=== PATIENT | female | born 1960 | race Caucasian/White ===

== ENCOUNTER 2020-08-21 12:11 | Outpatient (REF) | payer OTHER, SELFPAY ==
--- NOTE | 2020-08-21 12:14 | XR_ITS ---
EXAMINATION: XR ANKLE, LEFT XR ANKLE, RIGHT CLINICAL INFORMATION: Pain. COMPARISON: 09/24/2019 TECHNIQUE: 3 views of each ankle FINDINGS: Left ankle: No fracture or dislocation. The ankle mortise is congruent. No ankle joint effusion. Mild spurring along the ankle mortise suggestive of degenerative change. There is prominent hypertrophic spurring of the plantar aponeurosis and Achilles insertion to the calcaneus. Right ankle: No fracture or dislocation. The ankle mortise is congruent. No ankle joint effusion. The soft tissues are unremarkable. Prominent hypertrophic spurring of the plantar aponeurosis and Achilles insertion to the calcaneus. XR/XR ankle LT min 3V IMPRESSION: Mild degenerative changes along the left ankle mortise. Prominent heel spurs bilaterally.
--- NOTE | 2020-08-21 12:14 | XR_ITS ---
EXAMINATION: XR ANKLE, LEFT XR ANKLE, RIGHT CLINICAL INFORMATION: Pain. COMPARISON: 09/24/2019 TECHNIQUE: 3 views of each ankle FINDINGS: Left ankle: No fracture or dislocation. The ankle mortise is congruent. No ankle joint effusion. Mild spurring along the ankle mortise suggestive of degenerative change. There is prominent hypertrophic spurring of the plantar aponeurosis and Achilles insertion to the calcaneus. Right ankle: No fracture or dislocation. The ankle mortise is congruent. No ankle joint effusion. The soft tissues are unremarkable. Prominent hypertrophic spurring of the plantar aponeurosis and Achilles insertion to the calcaneus. XR/XR ankle RT min 3V IMPRESSION: Mild degenerative changes along the left ankle mortise. Prominent heel spurs bilaterally.
== END 2020-08-21 12:12 | disposition home or self-care (01) ==
LOC: HO.HOSX 12:11
PROVIDERS: Visit Provider Physician Assistant
DX: M76.61 Achilles tendinitis, right leg (principal); M76.62 Achilles tendinitis, left leg
CPT/HCPCS: 73610; 99202

== ENCOUNTER 2020-10-21 10:35 | Outpatient (REF) | payer OTHER, SELFPAY | END 2020-10-21 10:36 | disposition home or self-care (01) | LOC: HO.LAB 10:35 | PROVIDERS: Visit Provider Internal Medicine | DX: Z20.822 Contact with and (suspected) exposure to COVID-19 (principal) | CPT/HCPCS: 36415; C9803; U0003 ==

== ENCOUNTER 2020-11-03 09:35 | Outpatient (REF) | payer OTHER, SELFPAY | END 2020-11-03 09:36 | disposition home or self-care (01) | LOC: HO.LAB 09:35 | PROVIDERS: PCP Family Medicine; Visit Provider Internal Medicine | DX: Z20.822 Contact with and (suspected) exposure to COVID-19 (principal) | CPT/HCPCS: 36415; C9803; U0003; U0005 ==

== ENCOUNTER 2021-02-09 14:38 | Emergency (ER) | payer OTHER, SELFPAY ==
--- NOTE | ~2021-02-09 | XR_ITS ---
EXAMINATION: LUMBAR SPINE AND THORACIC SPINE. CLINICAL INFORMATION: Upper back pain. COMPARISON: None TECHNIQUE: 3 views lumbar spine and 3 views dorsal spine. FINDINGS: LUMBAR SPINE: There is normal lumbar lordosis the vertebral heights and alignment is normal. There is loss of L2-L3 and L3-L4 disc heights. No visible acute fracture, dislocation or lytic process seen. There is mild levoscoliosis of lumbar spine. No visible acute fracture or dislocation seen. There is mild left T12-L1 bridging osteophyte. THORACIC SPINE: There is normal thoracic kyphosis. The vertebral heights, alignment and disc heights are normal. There is moderate right lateral thoracic bridging osteophytes. No visible acute fracture, dislocation or lytic process seen. The paravertebral soft tissues are normal. XR/XR lumbar spine 2-3V IMPRESSION: Mild degenerative disc changes L2-L3 and L3-L4 disc level. No visible acute fracture, dislocation or lytic process seen. Mild thoracic spondylosis. No visible acute fracture, dislocation or lytic process. The paravertebral soft tissues are normal.
--- NOTE | ~2021-02-09 | XR_ITS ---
EXAMINATION: LUMBAR SPINE AND THORACIC SPINE. CLINICAL INFORMATION: Upper back pain. COMPARISON: None TECHNIQUE: 3 views lumbar spine and 3 views dorsal spine. FINDINGS: LUMBAR SPINE: There is normal lumbar lordosis the vertebral heights and alignment is normal. There is loss of L2-L3 and L3-L4 disc heights. No visible acute fracture, dislocation or lytic process seen. There is mild levoscoliosis of lumbar spine. No visible acute fracture or dislocation seen. There is mild left T12-L1 bridging osteophyte. THORACIC SPINE: There is normal thoracic kyphosis. The vertebral heights, alignment and disc heights are normal. There is moderate right lateral thoracic bridging osteophytes. No visible acute fracture, dislocation or lytic process seen. The paravertebral soft tissues are normal. XR/XR thoracic spine 3V IMPRESSION: Mild degenerative disc changes L2-L3 and L3-L4 disc level. No visible acute fracture, dislocation or lytic process seen. Mild thoracic spondylosis. No visible acute fracture, dislocation or lytic process. The paravertebral soft tissues are normal.
[2021-02-09 14:51] VITALS: BP 121/53; PULSE 74; RESP 18; TEMP 37.1; O2SAT 96; BMI 37.4
[2021-02-09] MEDS: Cyclobenzaprine HCl 5 MG TABLET PO (15:46)
[2021-02-09] MEDS: Ketorolac Tromethamine 30 MG/ML VIAL IM (15:46)
--- NOTE | 2021-02-09 16:37 | ED.BACK ---
HPI - Back Pain/Injury General Chief Complaint: Back Pain/Injury Stated Complaint: BACK PAIN Source: patient Mode of arrival: ambulatory Limitations: no limitations History of Present Illness HPI Narrative: Patient presents to the ED feel a chronic back pain exacerbation. Patient denies any trauma. Patient states having symptoms for the past 5 months. Patient states no chest pain, shortness of breath, pain on inspiration, abdominal pain, flank pain, fever, chills, dysuria, hematuria, nausea, vomiting, or any recent trauma. Related Data Home Medications Medication Instructions Recorded Confirmed acetaminophen 325 mg capsule 325 mg PO QID PRN 08/21/20 ibuprofen 800 mg tablet 800 mg PO Q8H 08/21/20 tramadol 50 mg tablet 50 mg PO DAILY 08/21/20 Previous Rx's Medication Instructions Recorded heel lift #1 ea 08/21/20 oxycodone-acetaminophen [Percocet] 1 tab PO TID PRN #9 tab 02/09/21 prednisone 40 mg PO DAILY #10 tab 02/09/21 Allergies Allergy/AdvReac Type Severity Reaction Status Date / Time No Known Allergies Allergy Verified 02/09/21 14:51 Review of Systems Review of Systems: Yes all other systems are reviewed and are negative Constitutional: Constitutional: Reports as per HPI and Reports no additional constitutional complaints Eyes: Eyes: Reports as per HPI and Reports no additional eye complaints ENT: Reports system reviewed and no additional complaints, except as documented and Reports as per HPI Cardiovascular: Cardiovascular: Reports as per HPI and Reports no additional cardiovascular complaints Respiratory: Respiratory: Reports as per HPI and Reports no additional respiratory complaints Gastrointestinal: Gastrointestinal: Reports as per HPI and Reports no additional gastrointestinal complaints Genitourinary: Genitourinary: Reports no additional female genitourinary complaints and Reports as per HPI Musculoskeletal: Musculoskeletal: Reports no additional musculoskeletal complaints, Reports as per HPI and Reports back pain Neurologic: Reports system reviewed and no additional complaints, except as documented and Reports as per HPI Psychiatric: Psychiatric: Reports no additional psychiatric complaints and Reports as per HPI PMF Past Medical History Medical History (Updated 02/09/21 @ 16:45 by CHAIM Jackson) Back pain Social History Social History (Updated 08/21/20 @ 12:48 by An Akins PA-C) Alcohol intake: never Smoking Status: Never smoker Advance Directives: No Advance Directives Information Provided: Yes Physical Exam Vital Signs: Vital Signs: Last Vital Signs Temp 98.7 F 02/09/21 14:51 Pulse 74 02/09/21 14:51 Resp 18 02/09/21 16:47 BP 121/53 L 02/09/21 14:51 Pulse Ox 96 02/09/21 14:51 Body Mass Index 37.4 Const: General: cooperative, healthy appearing, comfortable, no acute distress, well developed, alert and awake Orientation/consciousness: patient oriented x3 HENMT: Head: Yes normal to inspection, Yes No palpable skull fracture present, Yes normocephalic and Yes atraumatic Eyes: General: appearance normal, both eyes and all related structures Neck: Neck: Yes normal visual inspection, Yes full ROM, Yes no lymphadenopathy, Yes no meningeal signs, Yes trachea midline, Yes supple and No tender Chest: Chest palpation & inspection: normal inspection of the chest and normal palpation of entire chest wall Resp: Effort & Inspection: normal respiratory effort and able to speak in complete sentences Cardio: Jugular venous distension: no JVD Heart sounds: S1 normal heart sound present and S2 normal heart sound present GI: Inspection: Yes normal to inspection Palpation (GI): Soft to palpation, not firm, nontender, no guarding and not rigid : General: No CVA tenderness and Yes no CVA tenderness Back/Spine/Pelvis: Back: no CVA tenderness, No CVA tenderness and back tenderness (Lumbar spine tenderness) Skin: General skin exam: no rashes or lesions noted and elasticity normal Neuro: General: patient oriented x3, no meningeal signs and CN's II-XI intact bilaterally Cranial nerves: Yes CN's II-XII intact bilaterally Extrem: General: Yes normal to inspection and Yes full ROM Psych: Appearance: grossly normal and well kempt Course Course Course Narrative: Patient will be sent for x-ray. Reevaluation(s) Reevaluation #1: X-ray show arthritis. Patient will be discharged with pain meds and steroids. MDM - Back Pain/Injury MDM Narrative Medical decision making narrative: Lumbar radiculopathy Discharge Plan Discharge Clinical Impression: Chronic lumbar radiculopathy Patient Disposition: Home, Self-Care Instructions: Lumbar Radiculopathy (ED) Additional Instructions: Regrese inmediatamente al servicio de urgencias si tiene incontinencia urinaria / intestinal, empeoramiento del dolor de espalda, dolor en el pecho al inspirar, n?useas, v?mitos, dolor en el costado, fiebre, escalofr?os, disuria, hematuria, dolor abdominal o cualquier otro s?ntoma que le preocupe. Prescriptions: New oxycodone-acetaminophen [Percocet] 5-325 mg tablet 1 tab PO TID PRN (Reason: pain) Qty: 9 RF: 0 prednisone 20 mg tablet 40 mg PO DAILY Qty: 10 RF: 0 No Action (DME) heel lift See Rx Instructions .Route .MEDSUPPLY Qty: 1 RF: 0 Referrals: Amy Olmedo MD [Primary Care Provider] - 2 days (Lumbar radiculopathy) Stand Alone Forms: Work/School Release Discharge Date/Time: 02/09/21 17:36 Print Language: Japanese
[2021-02-09 16:47] VITALS: RESP 18
== END 2021-02-09 17:36 | disposition home or self-care (01) ==
PROVIDERS: Emergency Provider Emergency Medicine; PCP Family Medicine
DX: M54.16 Radiculopathy, lumbar region (principal); Z79.899 Other long term (current) drug therapy
CPT/HCPCS: 72072; 72100; 96372; 99284; J1885

== ENCOUNTER 2021-02-16 15:53 | Outpatient (REF) | payer OTHER, SELFPAY | END 2021-02-16 15:54 | disposition home or self-care (01) | LOC: HO.MRI 15:53 | PROVIDERS: Visit Provider Family Medicine | DX: Z13.89 Encounter for screening for other disorder (principal) ==

== ENCOUNTER 2021-04-20 13:41 | Outpatient (REF) | payer OTHER, SELFPAY ==
--- NOTE | ~2021-04-20 | MM_ITS ---
EXAMINATION: MM SCREENING DIGITAL BREAST TOMOSYNTHESIS, BILATERAL CLINICAL INFORMATION: Screening. Asymptomatic. The lifetime risk of breast cancer based on the Tyrer-Cuzick Model is 5%. COMPARISON: Mammography: 05/17/2019, 05/03/2018, 04/11/2017 TECHNIQUE: Digital breast tomosynthesis is performed in both the craniocaudal and mediolateral oblique views along with computer-aided detection (CAD). Synthesized 2D images are generated from the tomosynthesis. Additional bilateral CC views are provided. FINDINGS: There are scattered areas of fibroglandular density (ACR BI-RADS breast composition Category b). Parenchymal pattern is similar to prior studies. There is no interval mass or architectural abnormality. Again, there is stable nodularity bilateral outer quadrants. There are no abnormal calcifications. The axilla and skin contours are unremarkable. No significant changes. MM/MM tomosynthesis screening BI IMPRESSION: No mammographic evidence of malignancy. ASSESSMENT: BI-RADS 2: Benign RECOMMENDATION: Routine annual mammography screening. This patient's information was entered into a reminder system with a target due date for their next mammogram.
== END 2021-04-20 13:42 | disposition home or self-care (01) ==
LOC: HO.MAMMO 13:41
PROVIDERS: Visit Provider Family Medicine
DX: Z12.31 Encounter for screening mammogram for malignant neoplasm of breast (principal)
CPT/HCPCS: 77063; 77067

== ENCOUNTER 2021-05-29 18:43 | Inpatient (IN) | payer OTHER, SELFPAY ==
[2021-05-29] VITALS (9 sets, daily range): BP systolic 132–179; BP diastolic 53–90; PULSE 79–144; RESP 16–30; TEMP 37–38.1; O2SAT 92–99; BMI 42.0
--- NOTE | 2021-05-29 | ECG_ITS ---
Test Reason : SOB Blood Pressure : / mmHG Vent. Rate : 126 BPM Atrial Rate : 144 BPM P-R Int : 000 ms QRS Dur : 076 ms QT Int : 288 ms P-R-T Axes : 000 063 037 degrees QTc Int : 417 ms Atrial fibrillation with rapid ventricular response Abnormal ECG When compared with ECG of 19-NOV-2019 08:40, Atrial fibrillation has replaced Sinus rhythm Non-specific change in ST segment in Inferior leads Referred By: Bren Parmar Electronically Signed By:PERRY RILEY
--- NOTE | ~2021-05-29 | CT_ITS ---
EXAMINATION: CT CHEST WITHOUT CONTRAST CLINICAL INFORMATION: Shortness of breath COMPARISON: Chest x-ray 05/29/2021 TECHNIQUE: Multidetector volumetric CT imaging of the chest was done. Axial MIP volume rendering provided. Sagittal and coronal reformatted images were obtained. This CT examination was performed using dose optimization techniques as appropriate, variously including the following: *Automated exposure control *Adjustment of mA and/or kV according to patient size (this includes techniques or standardized protocols for targeted exams where dose is matched to indication/reason for exam; i.e. extremities or head) *Use of iterative reconstruction technique DLP: 354 mGy-cm FINDINGS: LUNGS: There are patchy regions of somewhat nodular consolidation and mild associated groundglass opacity in the right upper lobe, as well as to a lesser extent in the left upper and lower lobes favoring an infectious/inflammatory etiology. MEDIASTINUM: The visualized thyroid gland is unremarkable. Borderline enlarged lymph node anterior to the gerald may be reactive. Cardiac size is within normal limits; no pericardial effusion. Coronary artery calcifications are present. Scattered atherosclerotic calcifications are present. PLEURA: There is no pleural effusion. No pleural mass or thickening. AXILLA: No lymphadenopathy. UPPER ABDOMEN: Unremarkable. OSSEOUS STRUCTURES: Degenerative changes are noted in the spine. CT/CT chest wo con IMPRESSION: 1. Patchy regions of consolidation and groundglass opacity bilaterally, most prominently in the right upper lobe, favoring an infectious/inflammatory etiology. 2. Borderline enlarged lymph node anterior to the gerald, which may be reactive. 3. Coronary artery calcifications. Correlation with cardiac risk factors is recommended.
--- NOTE | ~2021-05-29 | XR_ITS ---
EXAMINATION: XR CHEST CLINICAL INFORMATION: Shortness of breath COMPARISON: 11/19/2019 TECHNIQUE: Frontal view of the chest was obtained. FINDINGS: The lungs are well expanded. There is no focal consolidation, edema, or effusion. No pneumothorax. The cardiomediastinal silhouette is within normal limits of size with a calcified aorta. No acute osseous abnormality. XR/XR chest 1V IMPRESSION: No acute pulmonary finding.
[2021-05-29 20:11] LABS: Influenza A PCR NEGATIVE (Negative); Influenza B PCR NEGATIVE (Negative); Resp Syncy Virus RNA Qual PCR NEGATIVE (Negative); SARS COV2 PCR INHOUSE NEGATIVE (Negative)
--- NOTE | 2021-05-29 20:34 | PC.NURSE ---
This RN found patient HR 120-150. Dr. Parmar brought to the bedside.
[2021-05-29] MEDS: dilTIAZem HCL 50 MG/10 ML VIAL 10 MG IVPUSH (20:50)
[2021-05-29] MEDS: methylPREDNISolone Sod Succ 125 MG/2 ML VIAL IVPUSH (20:50)
[2021-05-29 21:07] LABS: MANUAL DIFF FLAG NO
[2021-05-29 21:09] LABS: Basophils Percent Auto 0.4 % (0-2); Eosinophils Absolute Auto 0.1 X10*3/uL (0.0-0.4); Hematocrit 32.5 % (37-47); Imm Gran Abs Auto 0.02 X10*3/uL (0.00-0.03); Imm Gran Pct Auto 0.4 % (0.0-0.4); Lymphocytes Percent Auto 17.2 % (20-40); Mean Corpuscular HGB Conc 33.8 g/dl (31.0-35.0); Mean Corpuscular Hemoglobin 28.3 pg (27.0-33.0); Mean Corpuscular Volume 83.5 fL (80-98); Mean Platelet Volume 10.1 fL (9.4-12.3); Monocytes Absolute Auto 0.6 X10*3/uL (0.1-1.2); Monocytes Percent Auto 9.8 % (2-11); Neutrophils Percent Auto 70.2 % (45-73); Platelet Count 162 X10*3/uL (160-400); Red Blood Count 3.89 X10*6/uL (4.20-5.50); Red Cell Distribution Width 13.8 % (11.0-16.0); White Blood Count 5.6 X10*3/uL (4.8-10.8)
[2021-05-29 21:14] LABS: INTERNATIONAL NORM RATIO 1.3 (0.9-1.1); Prothrombin Time 15.4 SEC (9.9-13.0)
--- NOTE | 2021-05-29 21:29 | ED_ITS ---
HPI - SOB/Dyspnea General Chief Complaint: Dyspnea Stated Complaint: asthma Time Seen by Provider: 05/29/21 20:39 Source: patient Mode of arrival: ambulatory History of Present Illness HPI Narrative: This is a 60-year-old female who presents with shortness of breath that has worsened over the past 3 days not associated with fever, chills, chest pain/palpitations, but she does describe increasing cough that has resulted in chest wall pain during the cough. Otherwise she denies any GI or symptoms. Patient states she has received her COVID-19 vaccine. Related Data Home Medications Medication Instructions Recorded Confirmed cholecalciferol (vitamin D3) 50 1 tab PO QAM 05/29/21 05/30/21 mcg (2,000 unit) tablet clonidine HCl 0.1 mg tablet 1 tab PO BEDTIME 05/30/21 05/30/21 cyanocobalamin (vitamin B-12) 1 tab PO QAM 05/30/21 05/30/21 1,000 mcg tablet fluoxetine 20 mg capsule 1 cap PO QAM 05/30/21 05/30/21 fluticasone 250 mcg-salmeterol 50 1 puff PO Q12H 05/30/21 05/30/21 mcg/dose blistr powdr for inhalation folic acid 1 mg tablet 1 tab PO QAM 05/30/21 05/30/21 simvastatin 20 mg tablet 1 tab PO QPM 05/30/21 05/30/21 Previous Rx's Medication Instructions Recorded heel lift #1 ea 08/21/20 Allergies Allergy/AdvReac Type Severity Reaction Status Date / Time No Known Allergies Allergy Verified 05/29/21 19:01 Review of Systems Review of Systems: Pertinent positives and negatives as stated in HPI 10 point review of systems is otherwise negative. [facility] Past Medical History Source: nursing notes reviewed Medical History Asthma Back pain Social History Social History Alcohol intake: never Advance Directives: No Advance Directives Information Provided: Yes Physical Exam Vital Signs: Vital Signs: Last Vital Signs Temp 98.6 F 05/29/21 23:37 Pulse 79 05/29/21 23:37 Resp 16 05/29/21 23:37 BP 164/86 H 05/29/21 23:36 Pulse Ox 99 08/27/21 22:57 Body Mass Index 42.0 VITAL SIGNS: Reviewed. GENERAL: Well developed, well nourished, in no acute distress. HEAD: Normocephalic/atraumatic EYES: PERRLA, EOMI OROPHARYNX: no oral lesions noted, posterior pharynx clear LUNGS: Cough, poor air entry, wheezing, tachypnea. SpO2<92> CARDIOVASCULAR: Regular rate and rhythm without noted murmurs, no JVD or lower extremity edema. ABDOMEN: Soft, non-tender, non-distended with bowel sounds. No rigidity. No guarding. No palpable masses or hernias noted MUSCULOSKELETAL: No tenderness, deformities, or effusions noted on gross inspection. EXTREMITIES: No cyanosis, clubbing or edema. SKIN: Inspection of the skin reveals no rashes, ulcerations, jaundice, pallor, or petechiae. NEUROLOGIC: Alert and oriented x 4. Strength and sensation to light touch were grossly intact x 4. Course Course Course Narrative: 60-year-old female with history and clinical presentation consistent with acute asthma exacerbation with new onset atrial fibrillation. Patient given Cardizem 10 mg, 2 doses of Xopenex, there was no improvement in heart rate and so patient then received Lopressor 5 mg x 2. On re-evaluation patient reports improved symptoms, remains hemodynamically stable. Review of all investigations consistent with asthma exacerbation, transient atrial fibrillation which has since resolved and repeat EKG at 11:06 p.m. shows normal sinus rhythm and patient remains hemodynamically stable. There is no evidence of CHF and COVID-19 is negative. 2355: I suspect infection. I discussed this case with inpatient hospitalist who agrees with admission. MDM - SOB/Dyspnea Lab Data Result diagrams: 05/29/21 21:02 05/29/21 21:02 Labs: Lab Results 05/29/21 05/29/21 05/29/21 Range/Units 19:07 21:02 21:02 WBC 5.6 (4.8-10.8) X10*3/uL RBC 3.89 L (4.20-5.50) X10*6/uL Hgb 11.0 L (12.0-16.0) g/dl Hct 32.5 L (37-47) % MCV 83.5 (80-98) fL MCH 28.3 (27.0-33.0) pg MCHC 33.8 (31.0-35.0) g/dl RDW 13.8 (11.0-16.0) % Plt Count 162 (160-400) X10*3/uL MPV 10.1 (9.4-12.3) fL Immature Gran % (Auto) 0.4 (0.0-0.4) % Neut % (Auto) 70.2 (45-73) % Lymph % (Auto) 17.2 L (20-40) % Dickinson % (Auto) 9.8 (2-11) % Eos % (Auto) 2.0 (0-4) % Baso % (Auto) 0.4 (0-2) % Lymph # (Auto) 1.0 L (1.2-4.9) X10*3/uL Dickinson # (Auto) 0.6 (0.1-1.2) X10*3/uL Eos # (Auto) 0.1 (0.0-0.4) X10*3/uL Baso # (Auto) 0.0 (0.0-0.2) X10*3/uL Abs Immat Gran (auto) 0.02 (0.00-0.03) X10*3/uL Absolute Neuts (auto) 4.0 (2.0-8.3) X10*3/uL Absolute Nucleated RBC 0.000 (0.0-0.012) X10*3/uL Nucleated RBC % (auto) 0.0 (0.0-0.2) /100WBC PT (9.9-13.0) SEC INR (0.9-1.1) Sodium 136 (135-145) mmol/L Potassium 3.5 (3.3-5.1) mmol/L Chloride 101 (96-108) mmol/L Carbon Dioxide 25 (22-29) mmol/L Anion Gap 14 (12-20) BUN 11 (9-16) mg/dL Creatinine 0.83 (0.5-1.4) mg/dL Estim Creat Clear Calc 81.7 Estimated GFR > 60 Random Glucose 108 (60-115) mg/dL Calcium 8.9 (8.4-10.2) mg/dL Magnesium 2.0 (1.6-2.6) mg/dL Total Bilirubin 0.6 (0.0-1.0) mg/dL AST 25 (5-31) U/L ALT 23 (0-31) U/L Alkaline Phosphatase 104 (39-117) U/L B-Natriuretic Peptide (<100) pg/mL Total Protein 8.0 (6.5-8.0) g/dL Albumin 4.3 (3.5-5.0) g/dL Coronavirus (PCR) NEGATIVE (Negative) Influenza Type A (PCR) NEGATIVE (Negative) Influenza Type B (PCR) NEGATIVE (Negative) RSV RNA Qual (PCR) NEGATIVE (Negative) 05/29/21 05/29/21 Range/Units 21:02 21:02 WBC (4.8-10.8) X10*3/uL RBC (4.20-5.50) X10*6/uL Hgb (12.0-16.0) g/dl Hct (37-47) % MCV (80-98) fL MCH (27.0-33.0) pg MCHC (31.0-35.0) g/dl RDW (11.0-16.0) % Plt Count (160-400) X10*3/uL MPV (9.4-12.3) fL Immature Gran % (Auto) (0.0-0.4) % Neut % (Auto) (45-73) % Lymph % (Auto) (20-40) % Dickinson % (Auto) (2-11) % Eos % (Auto) (0-4) % Baso % (Auto) (0-2) % Lymph # (Auto) (1.2-4.9) X10*3/uL Dickinson # (Auto) (0.1-1.2) X10*3/uL Eos # (Auto) (0.0-0.4) X10*3/uL Baso # (Auto) (0.0-0.2) X10*3/uL Abs Immat Gran (auto) (0.00-0.03) X10*3/uL Absolute Neuts (auto) (2.0-8.3) X10*3/uL Absolute Nucleated RBC (0.0-0.012) X10*3/uL Nucleated RBC % (auto) (0.0-0.2) /100WBC PT 15.4 H (9.9-13.0) SEC INR 1.3 H (0.9-1.1) Sodium (135-145) mmol/L Potassium (3.3-5.1) mmol/L Chloride (96-108) mmol/L Carbon Dioxide (22-29) mmol/L Anion Gap (12-20) BUN (9-16) mg/dL Creatinine (0.5-1.4) mg/dL Estim Creat Clear Calc Estimated GFR Random Glucose (60-115) mg/dL Calcium (8.4-10.2) mg/dL Magnesium (1.6-2.6) mg/dL Total Bilirubin (0.0-1.0) mg/dL AST (5-31) U/L ALT (0-31) U/L Alkaline Phosphatase (39-117) U/L B-Natriuretic Peptide 77 (<100) pg/mL Total Protein (6.5-8.0) g/dL Albumin (3.5-5.0) g/dL Coronavirus (PCR) (Negative) Influenza Type A (PCR) (Negative) Influenza Type B (PCR) (Negative) RSV RNA Qual (PCR) (Negative) Discharge Plan Discharge Clinical Impression: Atrial fibrillation, new onset, Asthma exacerbation Patient Disposition: Admitted As Inpatient Prescriptions: No Action oxycodone-acetaminophen [Percocet] 5-325 mg tablet 1 tab PO TID PRN (Reason: pain) Qty: 9 RF: 0 prednisone 20 mg tablet 40 mg PO DAILY Qty: 10 RF: 0 (DME) heel lift See Rx Instructions .Route .MEDSUPPLY Qty: 1 RF: 0
[2021-05-29] MEDS: Metoprolol Tartrate 5 MG/5 ML VIAL IVPUSH ×2 (21:43→22:22)
[2021-05-29 21:45] LABS: Alanine Aminotransferase 23 U/L (0-31); Albumin Level 4.3 g/dL (3.5-5.0); Alkaline Phosphatase 104 U/L (39-117); Anion Gap 14 (12-20); Aspartate Amino Transferase 25 U/L (5-31); Bilirubin Total 0.6 mg/dL (0.0-1.0); Blood Urea Nitrogen 11 mg/dL (9-16); Calcium 8.9 mg/dL (8.4-10.2); Carbon Dioxide 25 mmol/L (22-29); Chloride 101 mmol/L (96-108); Creatinine Clr Calc Pharmacy 81.7; Estimated Glomerular Filt Rate > 60; Glucose Random 108 mg/dL (60-115); Potassium 3.5 mmol/L (3.3-5.1); Sodium 136 mmol/L (135-145)
[2021-05-29] MEDS: Acetaminophen 325 MG TABLET 650 MG PO (21:56)
[2021-05-29 22:16] LABS: B Type Natriuretic Peptide 77 pg/mL (<100)
--- NOTE | 2021-05-29 22:59 | ECG_ITS ---
Test Reason : REPEAT Blood Pressure : / mmHG Vent. Rate : 081 BPM Atrial Rate : 081 BPM P-R Int : 158 ms QRS Dur : 080 ms QT Int : 354 ms P-R-T Axes : 060 047 059 degrees QTc Int : 411 ms Normal sinus rhythm Normal ECG When compared with ECG of 29-MAY-2021 20:25, Sinus rhythm has replaced Atrial fibrillation Vent. rate has decreased BY 45 BPM Non-specific change in ST segment in Inferior leads Referred By: Bren Parmar Electronically Signed By:PERRY RILEY
[2021-05-30] VITALS (12 sets, daily range): BP systolic 134–169; BP diastolic 48–73; PULSE 59–75; RESP 16–20; TEMP 36.1–36.9; O2SAT 93–97
[2021-05-30 00:10] LABS: Glucose Urine UA NEG (NEG); Leukocyte Esterase Urine NEG (NEG); Nitrite Urine NEG (NEG); PH 6.5 (5.0-8.0); UACC Culture Trigger NO; Urine Blood TRACE (NEG); Urine Ketones NEG (NEG); Urine Protein NEG (NEG-TRACE)
[2021-05-30 00:13] LABS: Appearance Urine CLEAR; Color Urine YELLOW
[2021-05-30 00:17] LABS: Mucus Urine TRACE /LPF; RBC Urine 0-2 /HPF (0); WBC Urine 0 /HPF (0-4)
[2021-05-30 00:25] LABS: Troponin-I High Sensitivity 6.9 ng/L (<3.5-17.0)
[2021-05-30] MEDS: cefTRIAXone sodium 1 GM in 0.9 % Sodium Chloride 50 ML IV (00:43)
[2021-05-30 00:56] LABS: Lactic Acid 0.7 mmol/L (0.5-2.0)
--- NOTE | 2021-05-30 01:59 | PC.NURSE ---
nurse to nurse reports given to Dianna degroot at [phone]
[2021-05-30] MEDS: Azithromycin 500 MG TABLET PO (03:16)
[2021-05-30] MEDS: Enoxaparin Sodium 40 MG/0.4 ML SYRINGE SUBCUT (03:16)
[2021-05-30] MEDS: Atorvastatin Calcium 10 MG TABLET PO ×2 (03:16→20:06)
[2021-05-30 05:25] LABS: MANUAL DIFF FLAG NO
--- NOTE | 2021-05-30 05:32 | P.HPHOSP_ITS ---
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 This is a 60 Year old female with past medical history of asthma, chronic back pain presents to the hospital complaints of cough, shortness of breath, sputum production. Patient reports that her symptoms or 3 days ago, today she developed palpitations which brought her to the hospital. She denies any fever but has chills, reports no chest pain, no dizziness, no headache, no abdominal pain nausea or vomiting, no diarrhea constipation, no urinary symptoms and no lower extremity edema. On arrival to the ED patient had a fever of 100.6, heart rate of 112, respir atory rate of 26, blood pressure 132/57, satting 92% on room air Lab significant for WBC count of 5.7, hemoglobin of 11, PT of 15.4, INR 1.3, CMP unremarkable, UA negative, COVID-19 influenza A/B and RSV negative, troponin negative, BNP negative. EKG done as soon as she arrived showed AFib with RVR, with rate in the 130s to 150s. Patient received Cardizem 10 mg IV with no response, followed by L opressor which converted her to sinus rhythm, repeat EKG shows sinus rhythm with no ST T wave changes Review of Systems Review of Systems: Yes all other systems are reviewed and are negative [facility] Medical History Asthma Back pain Social History Household Members: Children Housing: Apartment Do you presently have visiting nurse or other home services: No Alcohol intake: never Patient Tobacco Use Status: Never used Tobacco Use of substances other than those prescribed or required for medical reasons: No Have you been hit, kicked, punched, or otherwise hurt by someone within the past year? If so, by whom?: No Do you feel safe in your current relationship?: No Current Relationship Is there a partner from a previous relationship who is making you feel unsafe now?: No Are you made to feel afraid or neglected: No Advance Directives: No Advance Directives Information Provided: Yes Do you have thoughts of harming others: None Do you have a plan to hurt others: No Plan Recently lost weight without trying: No How much weight loss: Not applicable Eating poorly because of decreased appetite: No Nutrition screen score: 0 Nutrition Risks: No Nutritional Risk Patient : No : No Poor oral hygiene: No Meds Allergies Allergy/AdvReac Type Severity Reaction Status Date / Time No Known Allergies Allergy Verified 05/29/21 19:01 Active Medications: Current Medications Generic Name Dose Route Start Last Admin Trade Name Freq PRN Reason Stop Dose Admin Acetaminophen 650 mg 05/30/21 02:18 Acetaminophen 325 Mg Tablet PO Q6H PRN Pain, Mild (Pain Scale 1-3) Albuterol/Ipratropium 3 ml 05/30/21 02:18 Albuterol/Iprat 2.5/0.5mg 3 Ml Ampul.Neb INHALE RQ4H PRN Shortness of Breath/Wheezing Albuterol/Ipratropium 3 ml 05/30/21 08:00 Albuterol/Iprat 2.5/0.5mg 3 Ml Ampul.Neb INHALE RQ4H WHILE AWAKE [facility] Atorvastatin Calcium 10 mg 05/30/21 02:18 05/30/21 03:16 Atorvastatin Calcium 10 Mg Tablet PO 10 mg BEDTIME RADHIKA Administration Clonidine HCl 0.1 mg 05/30/21 21:00 Clonidine Hcl 0.1 Mg Tablet PO BEDTIME [facility] Protocol Cyanocobalamin 1,000 mcg 05/30/21 09:00 Cyanocobalamin (Vitamin B-12) 1,000 Mcg Tablet PO DAILY RADHIKA Docusate Sodium 100 mg 05/30/21 02:18 Docusate Sodium 100 Mg Capsule PO DAILY PRN Constipation Enoxaparin Sodium 40 mg 05/30/21 03:00 05/30/21 03:16 Enoxaparin Sodium 40 Mg/0.4 Ml Syringe SUBCUT 40 mg Q24H RADHIKA Administration Fluoxetine HCl 20 mg 05/30/21 09:00 Fluoxetine Hcl 20 Mg Capsule PO DAILY [facility] Folic Acid 1 mg 05/30/21 09:00 Folic Acid 1 Mg Tablet PO DAILY [facility] Ceftriaxone Sodium 1 gm/ 50 mls @ 100 mls/hr 05/31/21 00:00 Sodium Chloride IV Q24H [facility] Methylprednisolone Sodium Succinate 40 mg 05/30/21 09:00 Methylprednisolone Sod Succ 40 Mg/Ml Vial IVPUSH Q12H RADHIKA Ondansetron HCl 4 mg 05/30/21 02:18 Ondansetron Hcl 4 Mg/2 Ml Vial IVPUSH Q8H PRN Nausea and Vomiting Vitamin D 50 mcg 05/30/21 09:00 Cholecalciferol (Vitamin D3) 25 Mcg Tablet PO DAILY [facility] Home Medications Medication Instructions Recorded Confirmed Last Taken Type cholecalciferol (vitamin D3) 50 1 tab PO QAM 05/29/21 05/30/21 Unknown History mcg (2,000 unit) tablet clonidine HCl 0.1 mg tablet 1 tab PO BEDTIME 05/30/21 05/30/21 Unknown History cyanocobalamin (vitamin B-12) 1 tab PO QAM 05/30/21 05/30/21 Unknown History 1,000 mcg tablet fluoxetine 20 mg capsule 1 cap PO QAM 05/30/21 05/30/21 Unknown History fluticasone 250 mcg-salmeterol 50 1 puff PO Q12H 05/30/21 05/30/21 Unknown History mcg/dose blistr powdr for inhalation folic acid 1 mg tablet 1 tab PO QAM 05/30/21 05/30/21 Unknown History simvastatin 20 mg tablet 1 tab PO QPM 05/30/21 05/30/21 Unknown History Physical Exam Vital Signs and Narrative: Vital Signs: Last Vital Signs Temp 97.8 F 05/30/21 03:21 Pulse 66 05/30/21 03:21 Resp 18 05/30/21 03:21 BP 134/48 L 05/30/21 03:21 Pulse Ox 95 05/30/21 03:21 Body Mass Index 42.0 Const: General: cooperative and no acute distress Orientation/consciousness: patient oriented x3 Eyes: General: appearance normal, both eyes and all related structures Pupils: Equal, round and reactive pupils present Resp: Other: Wheezing, rhonchi bilaterally, coughing, sputum production Effort & Inspection: normal respiratory effort and able to speak in complete sentences Cardio: Rate: regular rate Rhythm: regular rhythm GI: Palpation (GI): Soft to palpation Auscultation: normal bowel sounds Skin: General skin exam: no rashes or lesions noted Neuro: General: patient oriented x3 Cranial nerves: Yes Equal, round and reactive pupils present Cognition (Neuro): normal cognition Extrem: General: Yes normal to inspection and Yes no pedal edema Results Labs CBC and Chem 7: 05/29/21 21:02 05/29/21 21:02 Labs: Laboratory Results - last 24 hr 05/29/21 05/29/21 05/29/21 19:07 21:02 21:02 MCV 83.5 MCH 28.3 MCHC 33.8 RDW 13.8 Plt Count 162 MPV 10.1 Immature Gran % (Auto) 0.4 Neut % (Auto) 70.2 Lymph % (Auto) 17.2 L [place] % (Auto) 9.8 Eos % (Auto) 2.0 Baso % (Auto) 0.4 Lymph # (Auto) 1.0 L [place] # (Auto) 0.6 Eos # (Auto) 0.1 Baso # (Auto) 0.0 Abs Immat Gran (auto) 0.02 Absolute Neuts (auto) 4.0 Absolute Nucleated RBC 0.000 Nucleated RBC % (auto) 0.0 PT INR Anion Gap 14 Estim Creat Clear Calc 81.7 Estimated GFR > 60 Random Glucose 108 Lactic Acid Calcium 8.9 Magnesium 2.0 Total Bilirubin 0.6 AST 25 ALT 23 Alkaline Phosphatase 104 Troponin I High Sens B-Natriuretic Peptide Total Protein 8.0 Albumin 4.3 Urine Color Urine Appearance Urine pH Ur Specific [place] Urine Protein Urine Glucose (UA) Urine Ketones Urine Blood Urine Nitrite Ur Leukocyte Esterase Urine RBC Urine WBC Ur Squamous Epith Cells Urine Bacteria Urine Mucus Coronavirus (PCR) NEGATIVE Influenza Type A (PCR) NEGATIVE Influenza Type B (PCR) NEGATIVE RSV RNA Qual (PCR) NEGATIVE 05/29/21 05/29/21 05/30/21 21:02 21:02 00:03 MCV MCH MCHC RDW Plt Count MPV Immature Gran % (Auto) Neut % (Auto) Lymph % (Auto) [place] % (Auto) Eos % (Auto) Baso % (Auto) Lymph # (Auto) [place] # (Auto) Eos # (Auto) Baso # (Auto) Abs Immat Gran (auto) Absolute Neuts (auto) Absolute Nucleated RBC Nucleated RBC % (auto) PT 15.4 H INR 1.3 H Anion Gap Estim Creat Clear Calc Estimated GFR Random Glucose Lactic Acid Calcium Magnesium Total Bilirubin AST ALT Alkaline Phosphatase Troponin I High Sens 6.9 B-Natriuretic Peptide 77 Total Protein Albumin Urine Color YELLOW Urine Appearance CLEAR Urine pH 6.5 Ur Specific [place] 1.010 Urine Protein NEG Urine Glucose (UA) NEG Urine Ketones NEG Urine Blood TRACE Urine Nitrite NEG Ur Leukocyte Esterase NEG Urine RBC 0-2 Urine WBC 0 Ur Squamous Epith Cells NONE Urine Bacteria NONE Urine Mucus TRACE Coronavirus (PCR) Influenza Type A (PCR) Influenza Type B (PCR) RSV RNA Qual (PCR) 05/30/21 00:32 MCV MCH MCHC RDW Plt Count MPV Immature Gran % (Auto) Neut % (Auto) Lymph % (Auto) [place] % (Auto) Eos % (Auto) Baso % (Auto) Lymph # (Auto) [place] # (Auto) Eos # (Auto) Baso # (Auto) Abs Immat Gran (auto) Absolute Neuts (auto) Absolute Nucleated RBC Nucleated RBC % (auto) PT INR Anion Gap Estim Creat Clear Calc Estimated GFR Random Glucose Lactic Acid 0.7 Calcium Magnesium Total Bilirubin AST ALT Alkaline Phosphatase Troponin I High Sens B-Natriuretic Peptide Total Protein Albumin Urine Color Urine Appearance Urine pH Ur Specific [place] Urine Protein Urine Glucose (UA) Urine Ketones Urine Blood Urine Nitrite Ur Leukocyte Esterase Urine RBC Urine WBC Ur Squamous Epith Cells Urine Bacteria Urine Mucus Coronavirus (PCR) Influenza Type A (PCR) Influenza Type B (PCR) RSV RNA Qual (PCR) Imaging Radiologist's Impressions: Impressions Chest X-Ray 05/29/21 19:11 IMPRESSION: No acute pulmonary finding. Chest CT 05/30/21 00:29 IMPRESSION: 1. Patchy regions of consolidation and groundglass opacity bilaterally, most prominently in the right upper lobe, favoring an infectious/inflammatory etiology. 2. Borderline enlarged lymph node anterior to the gerald, which may be reactive. 3. Coronary artery calcifications. Correlation with cardiac risk factors is recommended. Assessment and Plan (1) Community acquired pneumonia: Status: Acute (2) Atrial fibrillation, new onset: Status: Acute (3) Asthma exacerbation: Status: Acute (4) Sepsis: Status: Acute New onset AFib This is a 60-year-old female with past medical history of asthma presents to the hospital with cough, sputum production, wheezing, shortness breath found to have pneumonia as well as new onset AFib # sepsis - a secondary to pneumonia - patient tachycardic, tachypneic, has fever - chest CT showing bilateral patchy infiltrates - COVID negative - will start her on IV antibiotics - follow cultures # community-acquired pneumonia - CT of the chest as above - has no leukocytosis but febrile with tachycardia and tachypnea - will start her on IV antibiotics as above - follow cultures # asthma exacerbation - cough, wheezing, dyspnea - exacerbated by pneumonia - will start her on Solu-Medrol, DuoNeb p.r.n. and scheduled # new onset AFib - normal troponin, no elevated BNP - will check TSH - echocardiogram - consult cardiology - will hold off on starting anticoagulation as patient in sinus rhythm rate now and will await Cardiology recommendation DVT prophylaxis: Lovenox Quality Stroke Does the patient have a stroke diagnosis?: No VTE Prior VTE?: No VTE Risk Level:: Medical - moderate - high VTE Device Contraindication: Treatment Not Indicated VTE Drug Contraindication: N/A - Med Ordered
[2021-05-30 05:38] LABS: Basophils Percent Auto 0.2 % (0-2); Hemoglobin 10.9 g/dl (12.0-16.0); Imm Gran Abs Auto 0.02 X10*3/uL (0.00-0.03); Imm Gran Pct Auto 0.5 % (0.0-0.4); Lymphocytes Absolute Auto 0.4 X10*3/uL (1.2-4.9); Mean Corpuscular Hemoglobin 27.8 pg (27.0-33.0); Mean Corpuscular Volume 84.2 fL (80-98); Mean Platelet Volume 10.6 fL (9.4-12.3); Monocytes Absolute Auto 0.1 X10*3/uL (0.1-1.2); Monocytes Percent Auto 1.4 % (2-11); Neutrophils Absolute Auto 3.7 X10*3/uL (2.0-8.3); Neutrophils Percent Auto 88.9 % (45-73); Platelet Count 177 X10*3/uL (160-400); Red Blood Count 3.92 X10*6/uL (4.20-5.50); Red Cell Distribution Width 13.7 % (11.0-16.0); White Blood Count 4.2 X10*3/uL (4.8-10.8)
[2021-05-30 06:10] LABS: Anion Gap 12 (12-20); Blood Urea Nitrogen 11 mg/dL (9-16); Calcium 8.8 mg/dL (8.4-10.2); Carbon Dioxide 25 mmol/L (22-29); Chloride 103 mmol/L (96-108); Creatinine Clr Calc Pharmacy 90.4; Estimated Glomerular Filt Rate > 60; Glucose Random 205 mg/dL (60-115); Potassium 3.3 mmol/L (3.3-5.1); Sodium 137 mmol/L (135-145)
[2021-05-30 06:51] LABS: Thyroid Stimulating Hormone 0.49 uIU/mL (0.32-4.0)
[2021-05-30] MEDS: Albuterol/Iprat 2.5/0.5MG 3 ML AMPUL.NEB INHALE ×4 (08:03→19:24)
[2021-05-30] MEDS: FLUoxetine HCl 20 MG CAPSULE PO (09:58)
[2021-05-30] MEDS: Cyanocobalamin (Vitamin B-12) 1,000 MCG TABLET 1000 MCG PO (09:58)
[2021-05-30] MEDS: Folic Acid 1 MG TABLET PO (09:58)
[2021-05-30] MEDS: methylPREDNISolone Sod Succ 40 MG/ML VIAL IVPUSH ×2 (09:58→20:09)
[2021-05-30] MEDS: Cholecalciferol (Vitamin D3) 25 MCG TABLET 50 MCG PO (09:58)
--- NOTE | 2021-05-30 11:40 | PM.CNCAR ---
History of Present Illness History of Present Illness Date of Service: 05/30/21 Requesting physician: Alejandro Street Chief complaint: Asthma exacerbation, new onset afib Narrative: 60-year-old female presenting with shortness of breath and concern for pneumonia and developed AFib with RVR. She said she felt palpitations. She has reverted back to sinus rhythm at this stage. She is saying she did not have any palpitations before. She has hypertension. She is not diabetic. Blood pressure is elevated. Review of Systems Review of Systems: Palpitations but improved. Yes all other systems are reviewed and are negative [facility] Past Medical History Medical History Asthma Back pain Social History Social History Household Members: Children Housing: Apartment Do you presently have visiting nurse or other home services: No Alcohol intake: never Patient Tobacco Use Status: Never used Tobacco Use of substances other than those prescribed or required for medical reasons: No Currently Displaying Signs/Symptoms of Drug Intoxication Withdrawal: No Have you been hit, kicked, punched, or otherwise hurt by someone within the past year? If so, by whom?: No Do you feel safe in your current relationship?: No Current Relationship Is there a partner from a previous relationship who is making you feel unsafe now?: No Are you made to feel afraid or neglected: No Advance Directives: No Advance Directives Information Provided: Yes Do you have thoughts of harming others: None Do you have a plan to hurt others: No Plan Recently lost weight without trying: No How much weight loss: Not applicable Eating poorly because of decreased appetite: No Nutrition screen score: 0 Nutrition Risks: No Nutritional Risk Patient : No : No Poor oral hygiene: No Meds Allergies Allergy/AdvReac Type Severity Reaction Status Date / Time No Known Allergies Allergy Verified 05/29/21 19:01 Active Medications: Current Medications Generic Name Dose Route Start Last Admin Trade Name Freq PRN Reason Stop Dose Admin Acetaminophen 650 mg 05/30/21 02:18 Acetaminophen 325 Mg Tablet PO Q6H PRN Pain, Mild (Pain Scale 1-3) Albuterol/Ipratropium 3 ml 05/30/21 02:18 Albuterol/Iprat 2.5/0.5mg 3 Ml Ampul.Neb INHALE RQ4H PRN Shortness of Breath/Wheezing Albuterol/Ipratropium 3 ml 05/30/21 08:00 05/30/21 11:31 Albuterol/Iprat 2.5/0.5mg 3 Ml Ampul.Neb INHALE 3 ml RQ4H WHILE AWAKE RADHIKA Administration Atorvastatin Calcium 10 mg 05/30/21 02:18 05/30/21 03:16 Atorvastatin Calcium 10 Mg Tablet PO 10 mg BEDTIME RADHIKA Administration Clonidine HCl 0.1 mg 05/30/21 21:00 Clonidine Hcl 0.1 Mg Tablet PO BEDTIME RADHIKA Protocol Cyanocobalamin 1,000 mcg 05/30/21 09:00 05/30/21 09:58 Cyanocobalamin (Vitamin B-12) 1,000 Mcg Tablet PO 1,000 mcg DAILY RADHIKA Administration Docusate Sodium 100 mg 05/30/21 02:18 Docusate Sodium 100 Mg Capsule PO DAILY PRN Constipation Enoxaparin Sodium 40 mg 05/30/21 03:00 05/30/21 03:16 Enoxaparin Sodium 40 Mg/0.4 Ml Syringe SUBCUT 40 mg Q24H RADHIKA Administration Fluoxetine HCl 20 mg 05/30/21 09:00 05/30/21 09:58 Fluoxetine Hcl 20 Mg Capsule PO 20 mg DAILY RADHIKA Administration Folic Acid 1 mg 05/30/21 09:00 05/30/21 09:58 Folic Acid 1 Mg Tablet PO 1 mg DAILY RADHIKA Administration Ceftriaxone Sodium 1 gm/ 50 mls @ 100 mls/hr 05/31/21 00:00 Sodium Chloride IV Q24H [facility] Azithromycin 500 mg/ Sodium 250 mls @ 125 mls/hr 05/30/21 21:00 Chloride IV Q24H [facility] Methylprednisolone Sodium Succinate 40 mg 05/30/21 09:00 05/30/21 09:58 Methylprednisolone Sod Succ 40 Mg/Ml Vial IVPUSH 40 mg Q12H RADHIKA Administration Ondansetron HCl 4 mg 05/30/21 02:18 Ondansetron Hcl 4 Mg/2 Ml Vial IVPUSH Q8H PRN Nausea and Vomiting Vitamin D 50 mcg 05/30/21 09:00 05/30/21 09:58 Cholecalciferol (Vitamin D3) 25 Mcg Tablet PO 50 mcg DAILY RADHIKA Administration Home Medications Medication Instructions Recorded Confirmed Last Taken Type cholecalciferol (vitamin D3) 50 1 tab PO QAM 05/29/21 05/30/21 Unknown History mcg (2,000 unit) tablet clonidine HCl 0.1 mg tablet 1 tab PO BEDTIME 05/30/21 05/30/21 Unknown History cyanocobalamin (vitamin B-12) 1 tab PO QAM 05/30/21 05/30/21 Unknown History 1,000 mcg tablet fluoxetine 20 mg capsule 1 cap PO QAM 05/30/21 05/30/21 Unknown History fluticasone 250 mcg-salmeterol 50 1 puff PO Q12H 05/30/21 05/30/21 Unknown History mcg/dose blistr powdr for inhalation folic acid 1 mg tablet 1 tab PO QAM 05/30/21 05/30/21 Unknown History lisinopril 40 mg tablet 40 mg PO DAILY 05/30/21 05/30/21 1 Day Ago History ~05/29/21 simvastatin 20 mg tablet 1 tab PO QPM 05/30/21 05/30/21 Unknown History Physical Exam Vital Signs: Vital Signs: Last Vital Signs Temp 96.9 F 05/30/21 11:14 Pulse 72 05/30/21 11:14 Resp 20 05/30/21 11:14 BP 166/72 H 05/30/21 11:14 Pulse Ox 95 05/30/21 11:14 Body Mass Index 42.0 GENERAL APPEARANCE: in no acute distress, pleasant. NECK: no carotid bruit, no jugular venous distention. SKIN: no suspicious lesions, warm and dry. HEART: no murmurs, regular rate and rhythm. LUNGS: clear to auscultation bilaterally. ABDOMEN: soft, nontender. EXTREMITIES: no edema. PERIPHERAL PULSES: equal. NEUROLOGIC: No gross deficits, AAO X 3 Results Labs and Meds Result diagrams: 05/30/21 04:43 05/30/21 04:43 Lab results: Laboratory Results - last 24 hr 05/29/21 05/29/21 05/29/21 19:07 21:02 21:02 WBC 5.6 RBC 3.89 L Hgb 11.0 L Hct 32.5 L MCV 83.5 MCH 28.3 MCHC 33.8 RDW 13.8 Plt Count 162 MPV 10.1 Immature Gran % (Auto) 0.4 Neut % (Auto) 70.2 Lymph % (Auto) 17.2 L [place] % (Auto) 9.8 Eos % (Auto) 2.0 Baso % (Auto) 0.4 Lymph # (Auto) 1.0 L [place] # (Auto) 0.6 Eos # (Auto) 0.1 Baso # (Auto) 0.0 Abs Immat Gran (auto) 0.02 Absolute Neuts (auto) 4.0 Absolute Nucleated RBC 0.000 Nucleated RBC % (auto) 0.0 PT INR Sodium 136 Potassium 3.5 Chloride 101 Carbon Dioxide 25 Anion Gap 14 BUN 11 Creatinine 0.83 Estim Creat Clear Calc 81.7 Estimated GFR > 60 Random Glucose 108 Lactic Acid Calcium 8.9 Magnesium 2.0 Total Bilirubin 0.6 AST 25 ALT 23 Alkaline Phosphatase 104 Troponin I High Sens B-Natriuretic Peptide Total Protein 8.0 Albumin 4.3 TSH Urine Color Urine Appearance Urine pH Ur Specific [place] Urine Protein Urine Glucose (UA) Urine Ketones Urine Blood Urine Nitrite Ur Leukocyte Esterase Urine RBC Urine WBC Ur Squamous Epith Cells Urine Bacteria Urine Mucus Coronavirus (PCR) NEGATIVE Influenza Type A (PCR) NEGATIVE Influenza Type B (PCR) NEGATIVE RSV RNA Qual (PCR) NEGATIVE 05/29/21 05/29/21 05/30/21 21:02 21:02 00:03 WBC RBC Hgb Hct MCV MCH MCHC RDW Plt Count MPV Immature Gran % (Auto) Neut % (Auto) Lymph % (Auto) [place] % (Auto) Eos % (Auto) Baso % (Auto) Lymph # (Auto) [place] # (Auto) Eos # (Auto) Baso # (Auto) Abs Immat Gran (auto) Absolute Neuts (auto) Absolute Nucleated RBC Nucleated RBC % (auto) PT 15.4 H INR 1.3 H Sodium Potassium Chloride Carbon Dioxide Anion Gap BUN Creatinine Estim Creat Clear Calc Estimated GFR Random Glucose Lactic Acid Calcium Magnesium Total Bilirubin AST ALT Alkaline Phosphatase Troponin I High Sens 6.9 B-Natriuretic Peptide 77 Total Protein Albumin TSH Urine Color YELLOW Urine Appearance CLEAR Urine pH 6.5 Ur Specific [place] 1.010 Urine Protein NEG Urine Glucose (UA) NEG Urine Ketones NEG Urine Blood TRACE Urine Nitrite NEG Ur Leukocyte Esterase NEG Urine RBC 0-2 Urine WBC 0 Ur Squamous Epith Cells NONE Urine Bacteria NONE Urine Mucus TRACE Coronavirus (PCR) Influenza Type A (PCR) Influenza Type B (PCR) RSV RNA Qual (PCR) 08/05/30/21 05/30/21 00:32 04:43 04:43 WBC 4.2 L RBC 3.92 L Hgb 10.9 L Hct 33.0 L MCV 84.2 MCH 27.8 MCHC 33.0 RDW 13.7 Plt Count 177 MPV 10.6 Immature Gran % (Auto) 0.5 H Neut % (Auto) 88.9 H Lymph % (Auto) 9.0 L [place] % (Auto) 1.4 L Eos % (Auto) 0.0 Baso % (Auto) 0.2 Lymph # (Auto) 0.4 L [place] # (Auto) 0.1 Eos # (Auto) 0.0 Baso # (Auto) 0.0 Abs Immat Gran (auto) 0.02 Absolute Neuts (auto) 3.7 Absolute Nucleated RBC 0.000 Nucleated RBC % (auto) 0.0 PT INR Sodium 137 Potassium 3.3 Chloride 103 Carbon Dioxide 25 Anion Gap 12 BUN 11 Creatinine 0.75 Estim Creat Clear Calc 90.4 Estimated GFR > 60 Random Glucose 205 H D Lactic Acid 0.7 Calcium 8.8 Magnesium Total Bilirubin AST ALT Alkaline Phosphatase Troponin I High Sens B-Natriuretic Peptide Total Protein Albumin TSH 0.49 Urine Color Urine Appearance Urine pH Ur Specific [place] Urine Protein Urine Glucose (UA) Urine Ketones Urine Blood Urine Nitrite Ur Leukocyte Esterase Urine RBC Urine WBC Ur Squamous Epith Cells Urine Bacteria Urine Mucus Coronavirus (PCR) Influenza Type A (PCR) Influenza Type B (PCR) RSV RNA Qual (PCR) Imaging Radiologist's impression: Impressions Chest X-Ray 05/29/21 19:11 IMPRESSION: No acute pulmonary finding. Chest CT 05/30/21 00:29 IMPRESSION: 1. Patchy regions of consolidation and groundglass opacity bilaterally, most prominently in the right upper lobe, favoring an infectious/inflammatory etiology. 2. Borderline enlarged lymph node anterior to the gerald, which may be reactive. 3. Coronary artery calcifications. Correlation with cardiac risk factors is recommended. Assessment and Plan (1) PAF (paroxysmal atrial fibrillation): Status: Acute 60-year-old female with paroxysmal atrial fibrillation in setting of pneumonia. She has reverted back to sinus rhythm. She was symptomatic with palpitations when it happened. Blood pressure is elevated. Please add carvedilol 3.125 mg twice a day. I have discussed with her about anticoagulation. She has chads Vasc 2. We discussed about doing monitoring and if recurrent atrial fibrillation happens then consider anticoagulation. The other option was to start anticoagulation with chest vest to right now. She has favor to take anticoagulation. Please start her on Eliquis or Xarelto. Thank you for allowing me to participate in the care of your patient. Please feel free to contact me if you have any questions. Procedures Date of Service Date of Service: 05/30/21
[2021-05-30] MEDS: lisinopriL 40 MG TABLET PO (12:14)
--- NOTE | 2021-05-30 15:49 | MHC.CM.PN ---
CM MET WITH PT WITH THE ASSISTANCE OF [facility]. PT REPORTS SHE LIVES AT HOME WITH HER ADULT DAUGHTER AND GRANDCHILDREN. 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 PT USES ONLY A NEBULIZER FOR DME. PT DID ASK ABOUT HOW TO GET A SERVICE [facility] AND STATED SHE IS GETTING OLDER AND STARTING TO NOT FEEL WELL. CM GAVE INFORMATION ON APPLYING FOR HOME CARE SERVICES AND INFORMED HER CM COULD ARRANGE VNA IF INDICATED AT DC. PT DID NOT HAVE A HCP ON FILE BUT COMPLETED ONE TODAY NAMING HER DAUGHTERS, DEJON LUTZ AND SHELDON LUTZ, HER AGENTS. PT CONFIRMS LUISA BENEDICT IS HER PCP. CURRENT DC PLAN IS HOME WITH NO SERVICES. FAMILY TO TRANSPORT
[2021-05-30] MEDS: cloNIDine HCL 0.1 MG TABLET PO (20:06)
[2021-05-30] MEDS: Acetaminophen 325 MG TABLET 650 MG PO (20:06)
[2021-05-30] MEDS: Azithromycin 500 MG in 0.9 % Sodium Chloride 250 ML 125 MG IV (20:09)
[2021-05-31] VITALS (12 sets, daily range): BP systolic 140–172; BP diastolic 61–87; PULSE 54–86; RESP 16–20; TEMP 35.8–37.2; O2SAT 94–98
[2021-05-31] MEDS: cefTRIAXone sodium 1 GM in 0.9 % Sodium Chloride 50 ML IV ×2 (00:20→23:32)
[2021-05-31] MEDS: Enoxaparin Sodium 40 MG/0.4 ML SYRINGE SUBCUT (03:19)
[2021-05-31 07:24] LABS: Hematocrit 32.6 % (37-47); Hemoglobin 10.6 g/dl (12.0-16.0); Mean Corpuscular HGB Conc 32.5 g/dl (31.0-35.0); Mean Corpuscular Hemoglobin 27.2 pg (27.0-33.0); Mean Corpuscular Volume 83.8 fL (80-98); Mean Platelet Volume 10.7 fL (9.4-12.3); Platelet Count 209 X10*3/uL (160-400); Red Blood Count 3.89 X10*6/uL (4.20-5.50); Red Cell Distribution Width 13.5 % (11.0-16.0); White Blood Count 6.6 X10*3/uL (4.8-10.8)
[2021-05-31 07:48] LABS: Anion Gap 12 (12-20); Blood Urea Nitrogen 15 mg/dL (9-16); Calcium 9.1 mg/dL (8.4-10.2); Carbon Dioxide 25 mmol/L (22-29); Chloride 105 mmol/L (96-108); Creatinine Clr Calc Pharmacy 94.1; Estimated Glomerular Filt Rate > 60; Glucose Random 141 mg/dL (60-115); Potassium 3.8 mmol/L (3.3-5.1); Sodium 138 mmol/L (135-145)
[2021-05-31] MEDS: Acetaminophen 325 MG TABLET 650 MG PO (09:20)
[2021-05-31] MEDS: lisinopriL 40 MG TABLET PO (09:20)
[2021-05-31] MEDS: Cyanocobalamin (Vitamin B-12) 1,000 MCG TABLET 1000 MCG PO (09:20)
[2021-05-31] MEDS: methylPREDNISolone Sod Succ 40 MG/ML VIAL IVPUSH ×2 (09:20→20:24)
[2021-05-31] MEDS: FLUoxetine HCl 20 MG CAPSULE PO (09:20)
[2021-05-31] MEDS: Folic Acid 1 MG TABLET PO (09:20)
[2021-05-31] MEDS: Cholecalciferol (Vitamin D3) 25 MCG TABLET 50 MCG PO (09:20)
[2021-05-31] MEDS: carvediloL 3.125 MG TABLET PO (09:21)
[2021-05-31] MEDS: Apixaban 5 MG TABLET PO ×2 (09:21→20:24)
[2021-05-31] MEDS: Albuterol/Iprat 2.5/0.5MG 3 ML AMPUL.NEB INHALE ×3 (11:23→19:58)
--- NOTE | 2021-05-31 11:23 | HO.PM.IMPN ---
Subjective Subjective Date of Service: 05/31/21 Interval History: the patient was seen and evaluated this morning Laying in bed, feels comfortable Denies any fever, chills but has dyspnea on exertion No reported other overnight events. Systemic review: No fever, chills or weakness No chest pain, palpitation Reporting episodes of cough and shortness of breath with ambulation No abdominal pain, nausea or vomiting No urinary symptoms No any rash or wounds Physical Exam Vital Signs: Vital Signs: Last Vital Signs Temp 96.5 F L 05/31/21 10:45 Pulse 54 05/31/21 10:45 Resp 18 05/31/21 10:45 BP 140/61 H 05/31/21 10:45 Pulse Ox 94 05/31/21 10:45 Body Mass Index 42.0 Const: Other: Constitutional : Alert, oriented, not in distress Neck : Normal inspection, Supple Cardiovascular : RRR, S1 S2, no lower extremity edema Respiratory : Decreased bilateral air entry, no crackles, bilateral scattered wheezes Gastrointestinal: soft, lax, Normal bowel sounds, Non tender Skin : Warm, Dry Neurological : Alert & oriented x3, No focal deficit the Objective Data Current Medications Generic Name Dose Route Start Last Admin Trade Name Freq PRN Reason Stop Dose Admin Acetaminophen 650 mg 05/30/21 02:18 05/31/21 09:20 Acetaminophen 325 Mg Tablet PO 650 mg Q6H PRN Administration Pain, Mild (Pain Scale 1-3) Albuterol/Ipratropium 3 ml 05/30/21 02:18 Albuterol/Iprat 2.5/0.5mg 3 Ml Ampul.Neb INHALE RQ4H PRN Shortness of Breath/Wheezing Albuterol/Ipratropium 3 ml 05/30/21 08:00 05/31/21 11:23 Albuterol/Iprat 2.5/0.5mg 3 Ml Ampul.Neb INHALE 3 ml RQ4H WHILE AWAKE RADHIKA Administration Apixaban 5 mg 05/31/21 09:00 05/31/21 09:21 Apixaban 5 Mg Tablet PO 5 mg BID RADHIKA Administration Atorvastatin Calcium 10 mg 05/30/21 02:18 05/30/21 20:06 Atorvastatin Calcium 10 Mg Tablet PO 10 mg BEDTIME RADHIKA Administration Benzonatate 200 mg 05/31/21 11:20 Benzonatate 100 Mg Capsule PO TID RADHIKA Carvedilol 3.125 mg 05/31/21 09:00 05/31/21 09:21 Carvedilol 3.125 Mg Tablet PO 3.125 mg BID RADHIKA Administration Protocol Clonidine HCl 0.1 mg 05/30/21 21:00 05/30/21 20:06 Clonidine Hcl 0.1 Mg Tablet PO 0.1 mg BEDTIME RADHIKA Administration Protocol Cyanocobalamin 1,000 mcg 05/30/21 09:00 05/31/21 09:20 Cyanocobalamin (Vitamin B-12) 1,000 Mcg Tablet PO 1,000 mcg DAILY RADHIKA Administration Docusate Sodium 100 mg 05/30/21 02:18 Docusate Sodium 100 Mg Capsule PO DAILY PRN Constipation Fluoxetine HCl 20 mg 05/30/21 09:00 05/31/21 09:20 Fluoxetine Hcl 20 Mg Capsule PO 20 mg DAILY RADHIKA Administration Folic Acid 1 mg 05/30/21 09:00 05/31/21 09:20 Folic Acid 1 Mg Tablet PO 1 mg DAILY RADHIKA Administration Guaifenesin/Codeine Phosphate 5 ml 05/31/21 11:18 Guaifen/Codeine Sf 200/20/10ml 10 Ml Liquid PO Q6H PRN Cough Ceftriaxone Sodium 1 gm/ 50 mls @ 100 mls/hr 05/31/21 00:00 05/31/21 01:00 Sodium Chloride IV Infused Q24H RADHIKA Infusion Azithromycin 500 mg/ Sodium 250 mls @ 125 mls/hr 05/30/21 21:00 05/30/21 22:27 Chloride IV Infused Q24H RADHIKA Infusion Lisinopril 40 mg 05/30/21 12:05 05/31/21 09:20 Lisinopril 40 Mg Tablet PO 40 mg DAILY RADHIKA Administration Protocol Methylprednisolone Sodium Succinate 40 mg 05/30/21 09:00 05/31/21 09:20 Methylprednisolone Sod Succ 40 Mg/Ml Vial IVPUSH 40 mg Q12H RADHIKA Administration Ondansetron HCl 4 mg 05/30/21 02:18 Ondansetron Hcl 4 Mg/2 Ml Vial IVPUSH Q8H PRN Nausea and Vomiting Vitamin D 50 mcg 05/30/21 09:00 05/31/21 09:20 Cholecalciferol (Vitamin D3) 25 Mcg Tablet PO 50 mcg DAILY RADHIKA Administration Labs CBC & Chem 7: 05/31/21 05:50 05/31/21 05:50 Labs: Laboratory Results - last 24 hr 05/31/21 05/31/21 05:50 05:50 MCV 83.8 MCH 27.2 MCHC 32.5 RDW 13.5 Plt Count 209 MPV 10.7 Absolute Nucleated RBC 0.000 Nucleated RBC % (auto) 0.0 Anion Gap 12 Estim Creat Clear Calc 94.1 Estimated GFR > 60 Random Glucose 141 H Calcium 9.1 Microbiology Microbiology Results: Microbiology 05/30/21 00:33 Blood Culture - Preliminary Blood - Venous No growth after 24 hours. 05/30/21 00:33 Blood Culture - Preliminary Blood - Venous No growth after 24 hours. Assessment and Plan (1) PAF (paroxysmal atrial fibrillation): Status: Acute (2) Sepsis: Status: Acute (3) Community acquired pneumonia: Status: Acute Assessment and Plan: New onset AFib This is a 60-year-old female with past medical history of asthma presents to the hospital with cough, sputum production, wheezing, shortness breath found to have pneumonia as well as new onset AFib # sepsis # secondary to pneumonia chest CT showing bilateral patchy infiltrates IV antibiotics Pending cultures # asthma exacerbation Solu-Medrol, DuoNeb p.r.n. and scheduled # new onset AFib echocardiogram pending Cardiology input appreciated Started on carvedilol b.i.d. Start Eliquis full dose DVT prophylaxis: Eliquis Quality Stroke Does the patient have a stroke diagnosis?: No VTE Prior VTE?: No VTE Risk Level:: Medical - moderate - high VTE Device Contraindication: Treatment Not Indicated VTE Drug Contraindication: N/A - Med Ordered
--- NOTE | 2021-05-31 11:42 | P.PNCA_ITS ---
Subjective Subjective Date of Service: 05/31/21 Interval history: Feeling better. No more palpitations. Started on Eliquis. Physical Exam Vital Signs: Last Vital Signs Temp 96.5 F L 05/31/21 10:45 Pulse 66 05/31/21 11:23 Resp 18 05/31/21 10:45 BP 140/61 H 05/31/21 10:45 Pulse Ox 94 05/31/21 10:45 Body Mass Index 42.0 GENERAL APPEARANCE: in no acute distress, pleasant. NECK: no carotid bruit, no jugular venous distention. SKIN: no suspicious lesions, warm and dry. HEART: no murmurs, regular rate and rhythm. LUNGS: clear to auscultation bilaterally. ABDOMEN: soft, nontender. EXTREMITIES: no edema. PERIPHERAL PULSES: equal. NEUROLOGIC: No gross deficits, AAO X 3 Results Labs and Meds Result diagrams: 05/31/21 05:50 05/31/21 05:50 Lab results: Laboratory Results - last 24 hr 05/31/21 05/31/21 05:50 05:50 WBC 6.6 RBC 3.89 L Hgb 10.6 L Hct 32.6 L MCV 83.8 MCH 27.2 MCHC 32.5 RDW 13.5 Plt Count 209 MPV 10.7 Absolute Nucleated RBC 0.000 Nucleated RBC % (auto) 0.0 Sodium 138 Potassium 3.8 Chloride 105 Carbon Dioxide 25 Anion Gap 12 BUN 15 Creatinine 0.72 Estim Creat Clear Calc 94.1 Estimated GFR > 60 Random Glucose 141 H Calcium 9.1 Progress Note: A&P Assessment and plan (1) PAF (paroxysmal atrial fibrillation): Status: Acute Assessment and Plan: Pleasant 60-year-old female with paroxysmal atrial fibrillation. Chads Vasc score of 2. She has been started on anticoagulation. Doing well and has no more palpitations. She will see us in our office in follow-up. Signing off for now. Thank you for allowing me to participate in the care of your patient. Please feel free to contact me if you have any questions. Fall Risk Details Current Medications: Current Medications Generic Name Dose Route Start Last Admin Trade Name Freq PRN Reason Stop Dose Admin Acetaminophen 650 mg 05/30/21 02:18 05/31/21 09:20 Acetaminophen 325 Mg Tablet PO 650 mg Q6H PRN Administration Pain, Mild (Pain Scale 1-3) Albuterol/Ipratropium 3 ml 05/30/21 02:18 Albuterol/Iprat 2.5/0.5mg 3 Ml Ampul.Neb INHALE RQ4H PRN Shortness of Breath/Wheezing Albuterol/Ipratropium 3 ml 05/30/21 08:00 05/31/21 11:23 Albuterol/Iprat 2.5/0.5mg 3 Ml Ampul.Neb INHALE 3 ml RQ4H WHILE AWAKE RADHIKA Administration Apixaban 5 mg 05/31/21 09:00 05/31/21 09:21 Apixaban 5 Mg Tablet PO 5 mg BID RADHIKA Administration Atorvastatin Calcium 10 mg 05/30/21 02:18 05/30/21 20:06 Atorvastatin Calcium 10 Mg Tablet PO 10 mg BEDTIME RADHIKA Administration Benzonatate 200 mg 05/31/21 11:20 Benzonatate 100 Mg Capsule PO TID RADHIKA Carvedilol 3.125 mg 05/31/21 09:00 05/31/21 09:21 Carvedilol 3.125 Mg Tablet PO 3.125 mg BID RADHIKA Administration Protocol Clonidine HCl 0.1 mg 05/30/21 21:00 05/30/21 20:06 Clonidine Hcl 0.1 Mg Tablet PO 0.1 mg BEDTIME RADHIKA Administration Protocol Cyanocobalamin 1,000 mcg 05/30/21 09:00 05/31/21 09:20 Cyanocobalamin (Vitamin B-12) 1,000 Mcg Tablet PO 1,000 mcg DAILY RADHIKA Administration Docusate Sodium 100 mg 05/30/21 02:18 Docusate Sodium 100 Mg Capsule PO DAILY PRN Constipation Fluoxetine HCl 20 mg 05/30/21 09:00 05/31/21 09:20 Fluoxetine Hcl 20 Mg Capsule PO 20 mg DAILY RADHIKA Administration Folic Acid 1 mg 05/30/21 09:00 05/31/21 09:20 Folic Acid 1 Mg Tablet PO 1 mg DAILY RADHIKA Administration Guaifenesin/Codeine Phosphate 5 ml 05/31/21 11:18 Guaifen/Codeine Sf 200/20/10ml 10 Ml Liquid PO Q6H PRN Cough Ceftriaxone Sodium 1 gm/ 50 mls @ 100 mls/hr 05/31/21 00:00 05/31/21 01:00 Sodium Chloride IV Infused Q24H RADHIKA Infusion Azithromycin 500 mg/ Sodium 250 mls @ 125 mls/hr 05/30/21 21:00 05/30/21 22 :27 Chloride IV Infused Q24H RADHIKA Infusion Lisinopril 40 mg 05/30/21 12:05 05/31/21 09:20 Lisinopril 40 Mg Tablet PO 40 mg DAILY RADHIKA Administration Protocol Methylprednisolone Sodium Succinate 40 mg 05/30/21 09:00 05/31/21 09:20 Methylprednisolone Sod Succ 40 Mg/Ml Vial IVPUSH 40 mg Q12H RADHIKA Administration Ondansetron HCl 4 mg 05/30/21 02:18 Ondansetron Hcl 4 Mg/2 Ml Vial IVPUSH Q8H PRN Nausea and Vomiting Vitamin D 50 mcg 05/30/21 09:00 05/31/21 09:20 Cholecalciferol (Vitamin D3) 25 Mcg Tablet PO 50 mcg DAILY RADHIKA Administration Time Spent With Patient Time: Total time spent is greater than 50% in coordination of care (as documented) at patient's floor/unit and/or counseling patient: Time with patient: 15 - 24 minutes Progress Note: Quality Stroke Does the patient have a stroke diagnosis?: No Procedures Date of Service Date of Service: 05/31/21
[2021-05-31] MEDS: Benzonatate 100 MG CAPSULE 200 MG PO ×2 (11:43→20:25)
[2021-05-31] MEDS: guaiFEN/Codeine SF 200/20/10ML 10 ML LIQUID 5 ML PO ×2 (11:43→20:24)
[2021-05-31] MEDS: Atorvastatin Calcium 10 MG TABLET PO (20:24)
[2021-05-31] MEDS: cloNIDine HCL 0.1 MG TABLET PO (20:26)
[2021-05-31] MEDS: Azithromycin 500 MG in 0.9 % Sodium Chloride 250 ML 125 MG IV (20:28)
[2021-06-01] VITALS (7 sets, daily range): BP systolic 142–155; BP diastolic 63–74; PULSE 51–75; RESP 18–19; TEMP 36.4–36.7; O2SAT 95–100
[2021-06-01] MEDS: guaiFEN/Codeine SF 200/20/10ML 10 ML LIQUID 5 ML PO ×2 (02:28→09:44)
[2021-06-01] MEDS: Albuterol/Iprat 2.5/0.5MG 3 ML AMPUL.NEB INHALE ×3 (07:17→15:35)
--- NOTE | 2021-06-01 08:00 | CA_ITS ---
Transthoracic Echocardiogram Patient (Last, First, Middle): Sydnee Rubin E Gender: Female Date of : 1960 Age: 60 Procedure Date: 06/01/2021 Procedure Type: Transthoracic Echocardiogram Location: [facility] [place] Height: 157.48 cm Weight: 104.33 kg BSA: 2.03 m2 Heart Rate: bpm BP: 147 / 63 mmHg Iron Pourer: Referring MD: Ying Paulino MD Natural Resources Specialist: Aron Brown MD Symptoms: new onset afib Study Quality: Fair ECG Rhythm: Sinus Conclusions: - Essentially normal study Findings Left Ventricle Normal left ventricular size, thickness, and systolic function. The visually estimated ejection fraction is between 65-70%. Spectral Doppler is indicative of a normal filling pattern. Right Ventricle Normal right ventricular cavity size and systolic function. Atria The left atrium is likely dilated. There is no evidence of interatrial shunt. The right atrium is normal in size. Aortic Valve Normal aortic valve structure and function. There is no aortic valve stenosis. There is no aortic valve regurgitation. Mitral Valve Normal mitral valve structure and function. There is trace mitral valve regurgitation. There is no mitral valve stenosis. Pulmonic Valve The pulmonic valve was not well visualized. Tricuspid Valve Likely normal tricuspid valve structure and function. There is trace tricuspid valve regurgitation. The right ventricular systolic pressure is normal. The right ventricular systolic pressure is 25 mmHg. Normal right atrial pressure. There is no evidence of pulmonary hypertension. Great Vessels All visible segments of the aorta are normal in size. The pulmonary artery was not well visualized. Venous The inferior vena cava is normal in size and collapses greater than 50% with inspiration. Pericardium/Pleural There is no evidence of pericardial effusion. Prior Study Comparison No previous study in the last 5 years for comparison Measurements 2D Linear Measurements IVSd: 0.98 0.6-0.9/0.6-1.0 cm LVIDd: 4.87 3.9-5.3/4.2-5.9 cm LVIDd Index: 2.40 2.4-3.2/2.2-3.1 cm/m2 LVIDs: 3.25 2.0-3.6 cm LVPWd: 0.98 0.7-1.1 cm Ao Root: 2.80 2.1-3.5 cm LA Diam: 3.90 2.7-3.8/3.0-4.0 cm LAIDs Index: 1.92 1.5-2.3 cm/m2 LV Mass: 212.11 67-162/88-224 g LV Mass Index: 104.49 43-95/49-115 g/m2 LVOT Diam: 2.00 3.0+(-)1.3 cm 2D Systolic Function EF 4C: 71.00 >55% EF 2C: 64.00 >55% EF BiP: 67.80 >55% Mitral Valve MV VTI: 0.45 MV Pk Myles: 1.22 MV Mn Myles: 0.80 MV Pk Grad: 6.00 MV Mn Grad: 3.00 MV Pk E: 1.06 MV PK A: 0.96 MV Decel Time: 196.00 E/A: 1.10 E'Lateral: 9.46 E'Medial: 7.62 E/E' Med: 13.90 E/E' Lat: 11.20 PHT: 57.00 MVA PHT: 3.86 MVA Continuity: 1.98 Decel [place]: 5.42 Aortic Valve AoV Pk Myles: 2.40 AoV Mn Myles: 1.54 AoV VTI: 0.56 AoV Pk Grad: 23.00 Aov Mn Grad: 12.00 HA Cont.VTI: 1.60 LVOT LVOT Pk Myles: 1.35 LVOT Mn Myles: 0.84 LVOT VTI: 0.29 LVOT Pk Grad: 7.00 LVOT Mn Grad: 3.00 LVOT Diam: 2.00 LVOT Area: 3.14 Diastolic Function MV Pk E: 1.06 MV Pk A: 0.96 E/A: 1.10 E'Medial: 7.62 E/E' Med: 13.90 E' Laterial: 9.46 E/E' Lat: 11.20 Tricuspid Valve TR Pk Myles: 2.33 TR Pk Grad: 22.00 RA Press: 3.00 RVSP: 25.00 Great Vessels Aorta Ao Root-2D: 2.80 2.0-3.7 cm Ao Asc: 3.20 2.1-3.4 cm Pulmonary Valve PV Pk Myles: 1.55 Peak PV Grad: 10.00 Updated in Other Vendor System with Status of Final Aron Brown MD electronically signed on 06/01/2021 11:46:54 AM with status of Final
[2021-06-01] MEDS: methylPREDNISolone Sod Succ 40 MG/ML VIAL IVPUSH (09:44)
[2021-06-01] MEDS: FLUoxetine HCl 20 MG CAPSULE PO (09:45)
[2021-06-01] MEDS: lisinopriL 40 MG TABLET PO (09:45)
[2021-06-01] MEDS: Cholecalciferol (Vitamin D3) 25 MCG TABLET 50 MCG PO (09:45)
[2021-06-01] MEDS: Benzonatate 100 MG CAPSULE 200 MG PO (09:46)
[2021-06-01] MEDS: Apixaban 5 MG TABLET PO (09:46)
[2021-06-01] MEDS: carvediloL 3.125 MG TABLET PO (09:46)
[2021-06-01] MEDS: Folic Acid 1 MG TABLET PO (09:46)
[2021-06-01] MEDS: Cyanocobalamin (Vitamin B-12) 1,000 MCG TABLET 1000 MCG PO (09:46)
--- NOTE | 2021-06-01 11:50 | PM.DS ---
DS: Providers Provider Date of Service: 06/02/21 Date of admission: 05/30/21 00:29 Primary care physician: Amy Olmedo MD Consults: 05/30/21 02:18 Consult to Cardiology Routine Consulting Provider: Rory Jo Reason for consultation: new onset A fib Has provider been notified: No DS: Diagnosis Discharge Diagnosis (1) PAF (paroxysmal atrial fibrillation): Status: Acute (2) Sepsis: Status: Acute (3) Community acquired pneumonia: Status: Acute (4) Atrial fibrillation, new onset: Status: Acute (5) Asthma exacerbation: Status: Acute DS: Medications Discharge Medications Home Medications: Home Medications Medication Instructions Recorded Confirmed cholecalciferol (vitamin D3) 50 1 tab PO QAM 05/29/21 05/30/21 mcg (2,000 unit) tablet clonidine HCl 0.1 mg tablet 1 tab PO BEDTIME 05/30/21 05/30/21 cyanocobalamin (vitamin B-12) 1 tab PO QAM 05/30/21 05/30/21 1,000 mcg tablet fluoxetine 20 mg capsule 1 cap PO QAM 05/30/21 05/30/21 fluticasone 250 mcg-salmeterol 50 1 puff PO Q12H 05/30/21 05/30/21 mcg/dose blistr powdr for inhalation folic acid 1 mg tablet 1 tab PO QAM 05/30/21 05/30/21 lisinopril 40 mg tablet 40 mg PO DAILY 05/30/21 05/30/21 simvastatin 20 mg tablet 1 tab PO QPM 05/30/21 05/30/21 Previous Rx's Medication Instructions Recorded heel lift #1 ea 08/21/20 apixaban 5 mg tablet (Eliquis) 5 mg PO BID #60 tab 06/01/21 azithromycin 500 mg tablet 500 mg PO DAILY 3 Days #3 tab 06/01/21 benzonatate 100 mg capsule 200 mg PO TID 7 Days #42 cap 06/01/21 carvedilol 3.125 mg tablet 3.125 mg PO BID 30 Days #60 tab 06/01/21 cefuroxime axetil 500 mg tablet 500 mg PO BID 3 Days #6 tab 06/01/21 prednisone 20 mg tablet 40 mg PO DAILY 3 Days #6 tab 06/01/21 DS: Summary Hospital Course Hospital Course: Admission note HPI This is a 60 Year old female with past medical history of asthma, chronic back pain presents to the hospital complaints of cough, shortness of breath, sputum production.? Patient reports that her symptoms or 3 days ago, today she developed palpitations which brought her to the hospital.? She denies any fever but has chills, reports no chest pain, no dizziness, no headache, no abdominal pain nausea or vomiting, no diarrhea constipation, no urinary symptoms and no lower extremity edema. On arrival to the ED patient had a fever of 100.6, heart rate of 112, respiratory rate of 26, blood pressure 132/57, satting 92% on room air Lab significant for WBC count of 5.7, hemoglobin of 11, PT of 15.4, INR 1.3, CMP unremarkable, UA negative, COVID-19 influenza A/B and RSV negative, troponin negative, BNP negative. EKG done as soon as she arrived showed AFib with RVR, with rate in the 130s to 150s.? Patient received Cardizem 10 mg IV with no response, followed by Lopressor which converted her to sinus rhythm, repeat EKG shows sinus rhythm with no ST T wave changes Hospital course Patient was admitted for treatment sepsis secondary to pneumonia. Started on IV antibiotics of azithromycin and ceftriaxone with good response over the course of hospital stay. She was weaned off the oxygen able to ambulate on room air. Blood cultures remain negative during the hospital stay. To continue antibiotic at time of discharge. Treated with steroids and nebulizers for asthma exacerbation with fair response. To finish 5 days of prednisone at discharge. Noticed to have new onset atrial fibrillation at presentation with controlled rate. He started on Eliquis after discussing with Cardiology who evaluated the patient. An echo was done showing within normal ejection fraction. Time Spent with Patient Time attestation: Total time spent providing and/or coordinating discharge services: Discharge coordination time: Greater than 30 minutes Quality: Stroke Does the patient have a stroke diagnosis?: No Physical Exam Vital Signs: Vital Signs: Last Vital Signs Temp 98.0 F 06/01/21 11:33 Pulse 51 06/01/21 11:33 Resp 18 06/01/21 11:33 BP 155/69 H 06/01/21 11:33 Pulse Ox 95 06/01/21 11:33 Body Mass Index 42.0 Const: Other: Constitutional : Alert, oriented, not in distress Neck : Normal inspection, Supple Cardiovascular : RRR, S1 S2, no lower extremity edema Respiratory : Good bilateral air entry, no crackles, no more wheezes or rhonchi Gastrointestinal: soft, lax, Normal bowel sounds, Non tender Skin : Warm, Dry Neurological : Alert & oriented x3, No focal deficit DS: Data Data Completed and Pending Labs on day of discharge: Preliminary micro results at discharge 05/30/21 00:33 Blood Culture - Preliminary Blood - Venous No growth after 48 hours. 05/30/21 00:33 Blood Culture - Preliminary Blood - Venous No growth after 48 hours. Discharge Plan Discharge Patient Disposition: Home, Self-Care Discharge Diagnosis: Pneumonia, Asthma exacerbation New onset Atrial fibrillation Referrals: Amy Olmedo MD [Primary Care Provider] - 1 Week Discharge Medications: New Eliquis 5 mg Tablet 5 mg PO BID Qty: 60 RF: 0 carvedilol 3.125 mg Tablet 3.125 mg PO BID 30 Days Qty: 60 RF: 0 benzonatate 100 mg Capsule 200 mg PO TID 7 Days Qty: 42 RF: 0 prednisone 20 mg tablet 40 mg PO DAILY 3 Days Qty: 6 RF: 0 azithromycin 500 mg tablet 500 mg PO DAILY 3 Days Qty: 3 RF: 0 cefuroxime axetil 500 mg tablet 500 mg PO BID 3 Days Qty: 6 RF: 0 codeine-guaifenesin 10-100 mg/5 mL Liquid 5 ml PO Q6H PRN (Reason: Cough) Qty: 237 RF: 0 albuterol sulfate [Ventolin HFA] 90 mcg/actuation HFA aerosol inhaler 2 puff inhalation Q6H PRN (Reason: shortness of breath or wheezing) Qty: 6.7 RF: 1 Continued cholecalciferol (vitamin D3) 50 mcg (2,000 unit) tablet 1 tab PO QAM RF: 0 fluticasone propion-salmeterol 250-50 mcg/dose blister with device 1 puff PO Q12H RF: 0 clonidine HCl 0.1 mg tablet 1 tab PO BEDTIME RF: 0 cyanocobalamin (vitamin B-12) 1,000 mcg tablet 1 tab PO QAM RF: 0 simvastatin 20 mg tablet 1 tab PO QPM RF: 0 folic acid 1 mg tablet 1 tab PO QAM RF: 0 fluoxetine 20 mg capsule 1 cap PO QAM RF: 0 lisinopril 40 mg Tablet 40 mg PO DAILY RF: 0 (DME) heel lift See Rx Instructions .Route .MEDSUPPLY Qty: 1 RF: 0 Discharge Orders: Discharge Order (Routine); Ordered 06/01/21 Ordered By: Alejandro Street Diet: advance to usual diet Activity on Discharge: As tolerated Stand Alone Forms: Patient Portal Discharge page, Work/School Release Care Plan Goals: Read below Health Concerns: Read below Plan of Treatment: For evaluation of difficulty breathing. Treated with IV antibiotics, steroids and nebulizers for suspicion of infection on top of asthma exacerbation. Your heart rate was noticed to be irregular and fast. You were diagnosed with new onset atrial fibrillation treated with beta-cain with fair response. Evaluated by Cardiology. Assessment: Continue prednisone as prescribed Continue azithromycin and Ceftin as prescribed Start carvedilol and Eliquis for atrial fibrillation To follow up with Cardiology as outpatient for further evaluation and treatment. Discharge Date/Time: 06/01/21 17:05
--- NOTE | 2021-06-01 14:44 | MHC.CM.PN ---
pt dcd home no skilled servcies orered by
== END 2021-06-01 17:05 | disposition home or self-care (01) | DRG 720 ==
LOC: HO.ED 05-30 00:09 → HO.EDOVER 05-30 00:33 → HO.IMC 05-30 01:25
PROVIDERS: Admitting Provider Internal Medicine; Emergency Provider Student in an Organized Health Care Education/Training Program; PCP Family Medicine; Visit Provider Student in an Organized Health Care Education/Training Program
DX: A41.9 Sepsis, unspecified organism (principal); J18.9 Pneumonia, unspecified organism; J45.901 Unspecified asthma with (acute) exacerbation; I48.0 Paroxysmal atrial fibrillation; G89.29 Other chronic pain; Z20.822 Contact with and (suspected) exposure to COVID-19; Z79.01 Long term (current) use of anticoagulants; Z79.51 Long term (current) use of inhaled steroids; Z79.899 Other long term (current) drug therapy
CPT/HCPCS: 0241U; 36415; 71045; 71250; 80048; 80053; 81001; 83605; 83735; 83880; 84443; 84484; 85025; 85027; 85610; 87040; 93005; 93306; 94640; 99285; J0456; J0696; J1650; J2920; J2930

== ENCOUNTER → 2021-07-15 13:04 | Outpatient (BNVA) | payer OTHER, SELFPAY | PROVIDERS: PCP Family Medicine; Referring Provider Family Medicine; Visit Provider Nurse Practitioner Family | DX: I48.91 Unspecified atrial fibrillation (principal); I48.0 Paroxysmal atrial fibrillation | CPT/HCPCS: 99212 ==

== ENCOUNTER → 2021-09-10 15:06 | Outpatient (REF) | payer MEDICAID, SELFPAY ==
--- NOTE | 2021-09-10 15:10 | HM_ITS ---
Total monitoring time 2 days and 22 hours. Underlying rhythm is sinus. Minimum heart rate 48/Min. Maximum 158/Min. Average 75/Min. About 7% of the time, rate greater than 100/Min. About 18% the time, rhythm was atrial fibrillation; longest 12 hours 47 minutes. No AV blocks or pauses. Rare supraventricular ectopy with minimal burden. No patient events. Overall, study positive for atrial fibrillation with rapid rates. MTDD
== END ==
LOC: HO.CARD 15:06
PROVIDERS: PCP Family Medicine; Visit Provider Nurse Practitioner Family
DX: I48.91 Unspecified atrial fibrillation (principal)
CPT/HCPCS: 93242

== ENCOUNTER → 2021-09-15 13:17 | Outpatient (BNVA) | payer MEDICAID, SELFPAY | PROVIDERS: PCP Family Medicine; Referring Provider Family Medicine; Visit Provider Nurse Practitioner Family | DX: I48.91 Unspecified atrial fibrillation (principal) | CPT/HCPCS: 99212 ==

== ENCOUNTER 2022-01-25 07:36 | Emergency (ER) | payer MEDICAID, SELFPAY ==
--- NOTE | ~2022-01-25 | XR_ITS ---
EXAMINATION: XR CHEST CLINICAL INFORMATION: Pain COMPARISON: Chest CT 05/30/2021 and chest x-ray 05/29/2021 TECHNIQUE: Frontal view of the chest was obtained. FINDINGS: The cardiac silhouette is at the upper limits of normal in size. Atherosclerotic disease of the aortic arch. The lungs are well aerated. There is no lobar consolidation. No pleural effusion or pneumothorax. XR/XR chest 1V IMPRESSION: No acute pulmonary pathology.
--- NOTE | 2022-01-25 07:38 | ECG_ITS ---
Test Reason : chest pain Blood Pressure : / mmHG Vent. Rate : 073 BPM Atrial Rate : 073 BPM P-R Int : 186 ms QRS Dur : 082 ms QT Int : 372 ms P-R-T Axes : 061 036 045 degrees QTc Int : 409 ms Normal sinus rhythm Normal ECG When compared with ECG of 29-MAY-2021 23:06, No significant change was found Referred By: Generic ED Physician Electronically Signed By:NILS PORRAS
--- NOTE | 2022-01-25 07:43 | ED_ITS ---
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 Mode of arrival: ambulatory Limitations: no limitations History of Present Illness MD complaint: chest pain Pertinent past history: other (afib on eliquis) Onset (ago): day(s) (last night before bed) Timing of current episode: constant Prior episodes: No Onset: during rest Pain location: left chest and right chest Pain radiation: none Severity: moderate Quality: tightness and heaviness Relieving factors: nothing Exacerbating factors: palpation and movement Associated symptoms: dyspnea Treatment prior to arrival: none Related Data Home Medications Medication Instructions Recorded Confirmed cholecalciferol (vitamin D3) 50 1 tab PO QAM 05/29/21 09/15/21 mcg (2,000 unit) tablet cyanocobalamin (vitamin B-12) 1 tab PO QAM 05/30/21 09/15/21 1,000 mcg tablet fluoxetine 20 mg capsule 1 cap PO QAM 05/30/21 09/15/21 fluticasone 250 mcg-salmeterol 50 1 puff PO Q12H 05/30/21 09/15/21 mcg/dose blistr powdr for inhalation folic acid 1 mg tablet 1 tab PO QAM 05/30/21 09/15/21 lisinopril 40 mg tablet 40 mg PO DAILY 05/30/21 09/15/21 clonidine HCl 0.1 mg tablet 0.1 mg PO BEDTIME 09/15/21 09/15/21 Previous Rx's Medication Instructions Recorded heel lift #1 ea 08/21/20 albuterol sulfate 90 mcg/actuation 2 puff INHALATION Q6H PRN #6.7 g 06/01/21 aerosol inhaler (Ventolin HFA) apixaban 5 mg tablet (Eliquis) 5 mg PO BID #60 tab 06/01/21 carvedilol 3.125 mg tablet 3.125 mg PO BID 30 Days #60 tab 06/01/21 atorvastatin 10 mg tablet 10 mg PO BEDTIME #30 tab 09/23/21 diltiazem HCl 120 mg 120 mg PO DAILY 30 Days #30 cap 09/23/21 capsule,extended release 24 hr cyclobenzaprine 10 mg tablet 10 mg PO TID PRN #14 tab 01/25/22 Allergies Allergy/AdvReac Type Severity Reaction Status Date / Time No Known Allergies Allergy Verified 09/15/21 13:26 Review of Systems Review of Systems: Constitutional : No Weight loss, No Fever, No Chills ENT/Mouth : No sore throat, No Rhinorrhea Eyes: No Eye Pain, No Swelling Cardiovascular : pos Chest Pain, pos SOB, no Dyspnea on Exertion, No Orthopnea, No Edema, No Palpitations Respiratory : No Cough, No Sputum Gastrointestinal : no Nausea, No Vomiting, No Diarrhea, No abdominal Pain, No Hematochezia, No Melena Genitourinary : No Dysuria, No Urinary Frequency Musculoskeletal : No joint pain, No Myalgias, No Joint Swelling Skin : No Skin Lesions, No rash Neuro : No Weakness, No Numbness, No Dizziness, No Headache Psych : No Anxiety/Panic, No Depression Heme/Lymph: No Bruising, No Lymphadenopathy Endocrine : No Polyuria, No Polydipsia All other systems reviewed and are negative [facility] Past Medical History Attestation statement: The following information was validated with the patient. Medical History Asthma Atrial fibrillation, new onset Back pain PAF (paroxysmal atrial fibrillation) Social History Social History Household Members: Children Housing: Apartment Do you presently have visiting nurse or other home services: No Alcohol intake: never Patient Tobacco Use Status: Never used Tobacco Advance Directives: Yes Advance Directives on File: Yes Advance Directives Date on File: 06/02/21 service: No Current occupational status: employed Physical Exam Vital Signs: Vital Signs: Last Vital Signs Temp 97.7 F 01/25/22 08:48 Pulse 69 01/25/22 08:48 Resp 16 01/25/22 08:48 BP 152/55 H 01/25/22 08:48 Pulse Ox 96 01/25/22 08:48 BMI result Body Mass Index 38.7 Appearance: Alert. Oriented X3. No acute distress. Eyes: Pupils equal, round and reactive to light. ENT: Pharynx normal. Neck: Normal inspection. Neck supple. CVS: Normal heart rate and rhythm. Pulses normal. Chest: ttp along anterior chest wall reproduces pain, hurts when she tries to move and sit up as well. Respiratory: No respiratory distress. Breath sounds normal. Abdomen: Soft and nontender. Skin: Skin warm and dry. Normal skin color. Normal skin turgor. Extremities: No lower extremity edema. No calf ttp Neuro: Oriented X 3. No motor deficit. No sensory deficit. Course Course Course Narrative: trop flat, EKG nonischemic, trop negative > 12 hours of pain, stable for DC MDM - Chest Pain MDM Narrative Medical decision making narrative: 61 yo female with hx of asthma, PAF on eliquis, here with c/o chest tightness and reproduceable chest wall pain that started last night at rest. She denies nausea, has some mild dyspnea. She is compliant with her medications doubt PE given DOAC use. Her symptoms are very much reproduceable at this time. Will obtain EKG, troponin, CXR and offer PO medications for pain. Dispo per results and findings. Low susp for ACS at this time. Lab Data Result diagrams: 01/25/22 08:14 01/25/22 08:14 Labs: Lab Results 01/25/22 01/25/22 01/25/22 Range/Units 08:14 08:14 08:14 WBC 6.0 (4.8-10.8) X10*3/uL RBC 3.95 L (4.20-5.50) X10*6/uL Hgb 11.1 L (12.0-16.0) g/dl Hct 33.4 L (37.0-47.0) % MCV 84.6 (80.0-98.0) fL MCH 28.1 (27.0-33.0) pg MCHC 33.2 (31.0-35.0) g/dl RDW 13.5 (11.0-16.0) % Plt Count 195 (160-400) X10*3/uL MPV 9.4 (9.4-12.3) fL Immature Gran % (Auto) 0.2 (0.0-0.4) % Neut % (Auto) 57.4 (45-73) % Lymph % (Auto) 29.2 (20-40) % [place] % (Auto) 10.4 (2-11) % Eos % (Auto) 2.5 (0-4) % Baso % (Auto) 0.3 (0-2) % Lymph # (Auto) 1.8 (1.2-4.9) X10*3/uL [place] # (Auto) 0.6 (0.1-1.2) X10*3/uL Eos # (Auto) 0.2 (0.0-0.4) X10*3/uL Baso # (Auto) 0.0 (0.0-0.2) X10*3/uL Abs Immat Gran (auto) 0.01 (0.00-0.03) X10*3/uL Absolute Neuts (auto) 3.4 (2.0-8.3) x10*3/uL Absolute Nucleated RBC 0.000 (0.0-0.012) X10*3/uL Nucleated RBC % (auto) 0.0 (0.0-0.2) /100WBC Sodium 139 (135-145) mmol/L Potassium 4.6 D (3.3-5.1) mmol/L Chloride 106 (96-108) mmol/L Carbon Dioxide 27 (22-29) mmol/L Anion Gap 11 L (12-20) BUN 16 (9-16) mg/dL Creatinine 0.85 (0.5-1.4) mg/dL Estim Creat Clear Calc 78.0 Estimated GFR > 60 Random Glucose 95 (60-115) mg/dL Calcium 9.4 (8.4-10.2) mg/dL Magnesium 2.2 (1.6-2.6) mg/dL Troponin I High Sens < 3.5 (<3.5-17.0) ng/L ECG Data ECG #1: Attestation: I personally reviewed and interpreted this ECG as follows: ECG interpretation date: 01/25/22 ECG interpretation time: 07:57 Interpretation: Rate: 73 Rhythm: NSR Bern: normal Normal P waves. Normal DIOGO. Normal QRS complex. ST T wave : normal no LETY qTC: normal prior studies: no acute ischemia The study has been interpreted contemporaneously by me. . Discharge Plan Discharge Clinical Impression: Atypical chest pain Patient Disposition: Home, Self-Care Instructions: Chest Pain (ED) Additional Instructions: return to ED for any worsening symptoms or concerns Prescriptions: New cyclobenzaprine 10 mg tablet 10 mg PO TID PRN (Reason: muscle spasm) Qty: 14 0RF No Action diltiazem HCl 120 mg capsule,extended release 24hr 120 mg PO DAILY 30 Days Qty: 30 5RF atorvastatin 10 mg tablet 10 mg PO BEDTIME Qty: 30 5RF cholecalciferol (vitamin D3) 50 mcg (2,000 unit) tablet 1 tab PO QAM 0RF fluticasone propion-salmeterol 250-50 mcg/dose blister with device 1 puff PO Q12H 0RF cyanocobalamin (vitamin B-12) 1,000 mcg tablet 1 tab PO QAM 0RF folic acid 1 mg tablet 1 tab PO QAM 0RF fluoxetine 20 mg capsule 1 cap PO QAM 0RF lisinopril 40 mg Tablet 40 mg PO DAILY 0RF Eliquis 5 mg Tablet 5 mg PO BID Qty: 60 0RF carvedilol 3.125 mg Tablet 3.125 mg PO BID 30 Days Qty: 60 0RF Protocol: Hold for SBP/HR < HOLD for SBP < : 90 HOLD for HR < : 60 albuterol sulfate [Ventolin HFA] 90 mcg/actuation HFA aerosol inhaler 2 puff inhalation Q6H PRN (Reason: shortness of breath or wheezing) Qty: 6.7 1RF clonidine HCl 0.1 mg tablet 0.1 mg PO BEDTIME 0RF (DME) heel lift See Rx Instructions .Route .MEDSUPPLY Qty: 1 0RF Rx Instructions: bilat heel lift Referrals: Amy Olmedo MD [Primary Care Provider] - 2 days (stress test referral) Print Language: Hungarian
[2022-01-25 07:44] VITALS: BP 174/67; PULSE 72; RESP 16; TEMP 36.8; O2SAT 96
[2022-01-25 07:49] VITALS: BP 174/67; PULSE 71; RESP 16; TEMP 36.8; O2SAT 98; BMI 38.7
[2022-01-25 08:18] LABS: MANUAL DIFF FLAG NO
[2022-01-25] MEDS: Acetaminophen 325 MG TABLET 650 MG PO (08:22)
[2022-01-25 08:23] LABS: Basophils Percent Auto 0.3 % (0-2); Eosinophils Absolute Auto 0.2 X10*3/uL (0.0-0.4); Eosinophils Percent Auto 2.5 % (0-4); Hematocrit 33.4 % (37.0-47.0); Hemoglobin 11.1 g/dl (12.0-16.0); Imm Gran Abs Auto 0.01 X10*3/uL (0.00-0.03); Imm Gran Pct Auto 0.2 % (0.0-0.4); Lymphocytes Absolute Auto 1.8 X10*3/uL (1.2-4.9); Lymphocytes Percent Auto 29.2 % (20-40); Mean Corpuscular HGB Conc 33.2 g/dl (31.0-35.0); Mean Corpuscular Hemoglobin 28.1 pg (27.0-33.0); Mean Corpuscular Volume 84.6 fL (80.0-98.0); Mean Platelet Volume 9.4 fL (9.4-12.3); Monocytes Absolute Auto 0.6 X10*3/uL (0.1-1.2); Monocytes Percent Auto 10.4 % (2-11); Neutrophils Absolute Auto 3.4 x10*3/uL (2.0-8.3); Neutrophils Percent Auto 57.4 % (45-73); Platelet Count 195 X10*3/uL (160-400); Red Blood Count 3.95 X10*6/uL (4.20-5.50); Red Cell Distribution Width 13.5 % (11.0-16.0)
[2022-01-25] MEDS: Cyclobenzaprine HCl 10 MG TABLET PO (08:23)
[2022-01-25 08:41] LABS: Troponin-I High Sensitivity < 3.5 ng/L (<3.5-17.0)
[2022-01-25 08:42] LABS: Anion Gap 11 (12-20); Blood Urea Nitrogen 16 mg/dL (9-16); Calcium 9.4 mg/dL (8.4-10.2); Carbon Dioxide 27 mmol/L (22-29); Chloride 106 mmol/L (96-108); Estimated Glomerular Filt Rate > 60; Glucose Random 95 mg/dL (60-115); Magnesium 2.2 mg/dL (1.6-2.6); Potassium 4.6 mmol/L (3.3-5.1); Sodium 139 mmol/L (135-145)
[2022-01-25 08:48] VITALS: BP 152/55; PULSE 69; RESP 16; TEMP 36.5; O2SAT 96
== END 2022-01-25 09:28 | disposition home or self-care (01) ==
PROVIDERS: Emergency Provider Emergency Medicine; PCP Family Medicine
DX: R07.89 Other chest pain (principal); R00.2 Palpitations; Z79.899 Other long term (current) drug therapy
CPT/HCPCS: 36415; 71045; 80048; 83735; 84484; 85025; 93005; 99283; 99284

== ENCOUNTER → 2022-02-10 09:27 | Outpatient (REF) | payer MEDICAID, SELFPAY ==
--- NOTE | ~2022-02-10 | NM_ITS ---
Lexiscan Myocardial perfusion study Indication: Chest pain, assess for coronary disease and ischemia Technique: The patient was brought in for a Lexiscan perfusion study on 02/10/2022 and was injected 0.4 mg of Lexiscan intravenously. Within a minute of this injection 35 mCi of sestamibi was given intravenously. Images were obtained using the SPECT gamma camera interlaced with the gating device. Images were obtained in supine position. Resting perfusion study was performed on 02/11/2022. Patient was administered 35 mCi of sestamibi intravenously at rest. Images were then obtained in supine position. Total DLP 134mGy-cm. Images were processed with the software and compared side to side in short axis, horizontal long axis and vertical long axis views. Findings: Raw acquisition reviewed. The stress perfusion study showed diminished tracer uptake along anterior wall. There is improvement with CT attenuation correction suggestive of soft tissue attenuation artifact. The gated study shows normal LV systolic function with calculated LVEF of 61%. LV cavity is normal in size. The gated study shows normal wall thickening and contraction of segments. Resting study shows no significant perfusion abnormality. Gating at rest reveals normal wall motion with ejection fraction at 57%. The findings are consistent with mild reversible anterior defect, suspected to be from soft tissue attenuation artifact. NM/NM geoffrey perf SPECT rest & str Impression: 1. Myocardial perfusion imaging study shows likely normal myocardial perfusion. No definitive evidence of any ischemia or infarction 2. Gated LVEF is 71% during stress and 70% during rest. 3. Transient ischemic dilatation not present. EKG component of the test reported separately.
--- NOTE | 2022-02-10 09:30 | CA_ITS ---
Acquisition Time: 2022-02-10 09:51:27 Total Exercise Time: 00:00:17 Test Indications: AFIB Medications: ALBUTEROL CARVEDILOL LISNOPRIL SIMVASTATIN Protocol: JASON Max HR: 148 BPM 93% of Pred: 159 BPM Max BP: 130/070 mmHG Max Work Load: 1.7 METS Exercise stress test with exercise 17 sec of Jason protocol and unable to keep up with speed of treadmill. Tread slowed to 1 MPH, 0% incline for 3 min and test changed to pharmacological stress test with Lexiscan injection, without anginal symptoms, without arrythmia, with normotensive response to injection, with nondiagnostic EKG for ischemia. Nuclear images pending. Test reviewed with Dr Brown. Referred By: Lindsey Gu Overread By: LINDSEY GU
== END ==
LOC: HO.CARD 09:27
PROVIDERS: PCP Family Medicine; Visit Provider Nurse Practitioner Family
DX: I48.91 Unspecified atrial fibrillation (principal)
CPT/HCPCS: 78452; 93017; A9500; J0280; J2785

== ENCOUNTER → 2022-02-16 14:02 | Outpatient (REF) | payer MEDICAID, SELFPAY | LOC: HO.SL 14:02 | PROVIDERS: PCP Family Medicine; Visit Provider Nurse Practitioner Family | DX: G47.33 Obstructive sleep apnea (adult) (pediatric) (principal); G47.10 Hypersomnia, unspecified; I48.0 Paroxysmal atrial fibrillation | CPT/HCPCS: 95806 ==

== ENCOUNTER → 2022-02-25 13:36 | Outpatient (BNVA) | payer MEDICAID, SELFPAY | PROVIDERS: PCP Family Medicine; Visit Provider Internal Medicine | DX: E66.01 Morbid (severe) obesity due to excess calories (principal); G47.33 Obstructive sleep apnea (adult) (pediatric); Z68.41 Body mass index [BMI] 40.0-44.9, adult | CPT/HCPCS: 99202 ==

== ENCOUNTER 2022-03-15 18:24 | Emergency (ER) | payer MEDICAID, SELFPAY ==
--- NOTE | ~2022-03-15 | XR_ITS ---
EXAMINATION: XR ELBOW, LEFT CLINICAL INFORMATION: Left elbow pain COMPARISON: Right elbow 03/02/2018 TECHNIQUE: Three views of the left elbow. FINDINGS: No fracture. No dislocation. No joint effusion. No focal bone lesion. There are amorphous calcifications in the soft tissues adjacent to the lateral humeral condyle consistent with calcific tendinosis and/or bursitis. XR/XR elbow LT min 3V IMPRESSION: 1. No acute osseous abnormality. 2. There are amorphous calcifications in the soft tissues adjacent to the lateral humeral condyle consistent with calcific tendinosis and/or bursitis.
[2022-03-15 18:28] VITALS: BP 115/46; PULSE 74; RESP 18; TEMP 36.2; O2SAT 95; BMI 38.2
[2022-03-15 20:43] LABS: MANUAL DIFF FLAG NO
[2022-03-15 20:45] LABS: Basophils Percent Auto 0.2 % (0-2); Eosinophils Absolute Auto 0.2 X10*3/uL (0.0-0.4); Eosinophils Percent Auto 2.7 % (0-4); Hematocrit 32.5 % (37.0-47.0); Hemoglobin 10.5 g/dl (12.0-16.0); Imm Gran Abs Auto 0.03 X10*3/uL (0.00-0.03); Imm Gran Pct Auto 0.4 % (0.0-0.4); Lymphocytes Absolute Auto 1.9 X10*3/uL (1.2-4.9); Lymphocytes Percent Auto 23.5 % (20-40); Mean Corpuscular HGB Conc 32.3 g/dl (31.0-35.0); Mean Corpuscular Hemoglobin 26.7 pg (27.0-33.0); Mean Corpuscular Volume 82.7 fL (80.0-98.0); Mean Platelet Volume 11.1 fL (9.4-12.3); Monocytes Absolute Auto 0.5 X10*3/uL (0.1-1.2); Monocytes Percent Auto 6.7 % (2-11); Neutrophils Absolute Auto 5.3 x10*3/uL (2.0-8.3); Neutrophils Percent Auto 66.5 % (45-73); Platelet Count 185 X10*3/uL (160-400); Red Blood Count 3.93 X10*6/uL (4.20-5.50); Red Cell Distribution Width 13.6 % (11.0-16.0)
[2022-03-15] MEDS: oxyCODONE HCl Immed Release 5 MG TABLET PO (20:56)
--- NOTE | 2022-03-15 20:56 | ED_ITS ---
HPI - Extremity Problem General Chief complaint: Extremity Injury, Upper Stated complaint: pain on L arm Time Seen by Provider: 03/15/22 20:06 Source: patient Mode of arrival: ambulatory History of Present Illness HPI Narrative: 61-year-old female with a past medical history of asthma, back pain, presenting to the ED complaining of left elbow pain, erythema, and warmth since yesterday. Admits to decreased ROM secondary to pain. Denies fever, new injury, trauma, fall, insect bite, numbness, tingling, weakness MD Complaint: joint swelling and joint pain Onset (ago): day(s) Pain Consistency: constant Related Data Home Medications Medication Instructions Recorded Confirmed cholecalciferol (vitamin D3) 50 1 tab PO QAM 05/29/21 09/15/21 mcg (2,000 unit) tablet cyanocobalamin (vitamin B-12) 1 tab PO QAM 05/30/21 09/15/21 1,000 mcg tablet fluoxetine 20 mg capsule 1 cap PO QAM 05/30/21 09/15/21 fluticasone 250 mcg-salmeterol 50 1 puff PO Q12H 05/30/21 09/15/21 mcg/dose blistr powdr for inhalation folic acid 1 mg tablet 1 tab PO QAM 05/30/21 09/15/21 lisinopril 40 mg tablet 40 mg PO DAILY 05/30/21 09/15/21 clonidine HCl 0.1 mg tablet 0.1 mg PO BEDTIME 09/15/21 09/15/21 Previous Rx's Medication Instructions Recorded heel lift #1 ea 08/21/20 albuterol sulfate 90 mcg/actuation 2 puff inhalation Q6H PRN 06/01/21 aerosol inhaler (Ventolin HFA) shortness of breath or wheezing #6.7 grams apixaban 5 mg tablet (Eliquis) 5 mg PO BID #60 tabs 06/01/21 carvedilol 3.125 mg tablet 3.125 mg PO BID 30 days #60 tabs 06/01/21 atorvastatin 10 mg tablet 10 mg PO BEDTIME #30 tabs 09/23/21 diltiazem HCl 120 mg 120 mg PO DAILY 30 days #30 caps 09/23/21 capsule,extended release 24 hr cyclobenzaprine 10 mg tablet 10 mg PO TID PRN muscle spasm #14 01/25/22 tabs cephalexin 500 mg capsule 500 mg PO QID 7 days #28 caps 03/15/22 doxycycline hyclate 100 mg tablet 100 mg PO BID 7 days #14 tabs 03/15/22 hydrocodone 5 mg-acetaminophen 325 1 tab PO Q8H PRN pain, severe 3 03/15/22 mg tablet days #9 tabs Allergies Allergy/AdvReac Type Severity Reaction Status Date / Time No Known Allergies Allergy Verified 03/15/22 18:28 Review of Systems Review of Systems: Constitutional: No Fever, No Chills ENT/Mouth: No Ear Pain, No Nasal Congestion, No sore throat, No Rhinorrhea, No Swallowing Difficulty Cardiovascular: No Chest Pain, No SOB Respiratory: No Cough, No Sputum Gastrointestinal: No Nausea, No Vomiting, No Diarrhea, No Constipation, No Abdominal pain Genitourinary: No Dysuria, No Urinary Frequency, No Hematuria, No Flank Pain Musculoskeletal: + joint pain, No Myalgias, + Joint Swelling Skin: No Skin Lesions, No rash Neuro: No Weakness, No Numbness, No Paresthesias Yes all other systems are reviewed and are negative Neurologic: Denies Sensory deficit (Neuro) [facility], [facility] Past Medical History Attestation statement: The following information was validated with the patient. Medical History Asthma Back pain Social History Social History Household Members: Children Housing: Apartment Do you presently have visiting nurse or other home services: No Alcohol intake: never Patient Tobacco Use Status: Never used Tobacco Advance Directives: Yes Advance Directives on File: Yes Advance Directives Date on File: 06/02/21 service: No Current occupational status: employed Physical Exam Vital Signs: Vital Signs: Last Vital Signs Temp 97.2 F 03/15/22 18:28 Pulse 74 03/15/22 18:28 Resp 18 03/15/22 18:28 BP 115/46 L 03/15/22 18:28 Pulse Ox 95 03/15/22 18:28 O2 Del Method 03/15/22 18:28 BMI result Body Mass Index 38.2 Const: General: cooperative, no acute distress, alert and awake Orientation/consciousness: patient oriented x3 Limitations: no limitations HEENT: Head: Yes normal to inspection and Yes atraumatic Ears: hearing grossly normal bilaterally General nose exam: Normal external nose present Face and sinus: Yes normal facial exam Eyes: General: appearance normal, both eyes and all related structures EOM: EOMs intact bilaterally Neck: Neck: Yes normal visual inspection and Yes no meningeal signs Resp: Effort & Inspection: normal respiratory effort and no respiratory distress Cardio: Rate: regular rate Heart sounds: S1 normal heart sound present and S2 normal heart sound present Peripheral pulses: radial pulses present Skin: Wounds: no wounds Neuro: General: patient oriented x3, tone normal and no meningeal signs Gait exam (Neuro): Normal gait present Sensory Exam: No Sensory deficit ( Neuro) Extrem: Other: Please refer to image above. Right elbow with noted erythema and warmth. Tender to palpation. No fluctuance/induration or streaking. Decreased extension 2/2 pain. Flexion and supination/pronation intact. Neurovascularly intact distally. General: Yes capillary refill normal Course Course Course Narrative: XR elbow LT min 3V IMPRESSION: ? 1. No acute osseous abnormality. 2. There are amorphous calcifications in the soft tissues adjacent to the lateral humeral condyle consistent with calcific tendinosis and/or bursitis.? -2124--no leukocytosis. CRP minimally elevated, labs otherwise unremarkable > decreases suspicion for septic joint > case discussed with Dr. Montiel who also evaluated patient, low suspicion for septic joint. Will discharge patient on Keflex and doxycycline to follow-up with orthopedics Patient given 1st dose of Keflex and doxycycline in the ED -2225-- ESR elevated to 68 > likely from acute inflammation as well as obesity and anemia MDM - Extremity (Nontraumatic) MDM Narrative Medical decision making narrative: 61-year-old female with a past medical history of asthma, back pain, presenting to the ED complaining of left elbow pain, erythema, and warmth since yesterday. On exam vital signs stable, afebrile, NAD/nontoxic, physical exam as above. Please refer to imaging. Concern for cellulitis. Due to proximity underlying joint there is concern for septic joint/arthritis or bursitis/infected bursitis. Low suspicion for abscess Plan: X-rays, labs Differential Diagnosis Differential diagnosis: Likely cellulitis Medical Records Attestation: I reviewed the patient's medical records. Lab Data Attestation: I reviewed the patient's lab results. Result diagrams: 03/15/22 20:35 03/15/22 20:35 Labs: Lab Results 03/15/22 03/15/22 03/15/22 Range/Units 20:35 20:35 20:35 WBC 8.0 (4.8-10.8) X10*3/uL RBC 3.93 L (4.20-5.50) X10*6/uL Hgb 10.5 L (12.0-16.0) g/dl Hct 32.5 L (37.0-47.0) % MCV 82.7 (80.0-98.0) fL MCH 26.7 L (27.0-33.0) pg MCHC 32.3 (31.0-35.0) g/dl RDW 13.6 (11.0-16.0) % Plt Count 185 (160-400) X10*3/uL MPV 11.1 (9.4-12.3) fL Immature Gran % (Auto) 0.4 (0.0-0.4) % Neut % (Auto) 66.5 (45-73) % Lymph % (Auto) 23.5 (20-40) % [place] % (Auto) 6.7 (2-11) % Eos % (Auto) 2.7 (0-4) % Baso % (Auto) 0.2 (0-2) % Lymph # (Auto) 1.9 (1.2-4.9) X10*3/uL [place] # (Auto) 0.5 (0.1-1.2) X10*3/uL Eos # (Auto) 0.2 (0.0-0.4) X10*3/uL Baso # (Auto) 0.0 (0.0-0.2) X10*3/uL Abs Immat Gran (auto) 0.03 (0.00-0.03) X10*3/uL Absolute Neuts (auto) 5.3 (2.0-8.3) x10*3/uL Absolute Nucleated RBC 0.000 (0.0-0.012) X10*3/uL Nucleated RBC % (auto) 0.0 (0.0-0.2) /100WBC ESR 68 H (0-20) MM/HR Sodium 137 (135-145) mmol/L Potassium 4.0 (3.3-5.1) mmol/L Chloride 103 (96-108) mmol/L Carbon Dioxide 27 (22-29) mmol/L Anion Gap 11 L (12-20) BUN 16 (9-16) mg/dL Creatinine 0.81 (0.5-1.4) mg/dL Estim Creat Clear Calc 87.3 Estimated GFR > 60 Random Glucose 131 H (60-115) mg/dL Calcium 8.8 D (8.4-10.2) mg/dL C-Reactive Protein 0.88 H (< or = 0.50) mg/dL Discharge Plan Discharge Clinical Impression: Bursitis due to bacterial infection, Bursitis, Cellulitis Patient Disposition: Home, Self-Care Instructions: Cellulitis (ED), Elbow Bursitis (ED) Additional Instructions: Your x-ray shows possible calcific tendinitis or bursitis. You also have overlying cellulitis. Keflex and doxycycline are antibiotics take as prescribed. Ice and heat Rest. Keep a close eye on the area if redness is spreading worsening, pain persists or worsens, your unable to move her arm, or developed fever return to the emergency department YOU NEED TO FOLLOW-UP WITH ORTHOPEDICS WHILE TAKING DOXYCYCLINE YOU SHOULD AVOID THE SUN CAN MAKE HER SKIN VERY SENSITIVE [place] is an opiate pain medication, take only when pain is severe for the next 3 days. Be were [place] has Tylenol mixed in do not exceed 4 g in 1 day Miller radiograf?a muestra gay posible tendinitis o bursitis calcificada. Tambi?n tiene celulitis suprayacente. Keflex y doxiciclina son antibi?ticos que se lenny seg?n lo prescrito. hielo y calor Descansar. Vigile de cerca el ?toby si el enrojecimiento se est? extendiendo, empeora, el dolor persiste o empeora, no puede movers el brazo o tiene fiebre. Regrese al departamento de emergencias. NECESITAS SEGUIMIENTO CON ORTOPEDIA MIENTRAS SUPA DOXYCYCLINE DEBE EVITAR EL RUDI YA QUE PUEDE HACER MILLER PIEL MUY SENSIBLE [place] es un analg?sico opi?health care analyst, t?sullivan solo cuando el dolor sea intenso david los pr?ximos 3 d?as. Si [place] tiene Tylenol mezclado, no exceda los 4 g en 1 d?a. Prescriptions: New cephalexin 500 mg capsule 500 mg PO QID 7 Days Qty: 28 0RF doxycycline hyclate 100 mg tablet 100 mg PO BID 7 Days Qty: 14 0RF hydrocodone-acetaminophen 5-325 mg tablet 1 tab PO Q8H PRN (Reason: pain, severe) 3 Days Qty: 9 0RF Rx Instructions: Partial Fill upon patient request. No Action diltiazem HCl 120 mg capsule,extended release 24hr 120 mg PO DAILY 30 Days Qty: 30 5RF atorvastatin 10 mg tablet 10 mg PO BEDTIME Qty: 30 5RF cholecalciferol (vitamin D3) 50 mcg (2,000 unit) tablet 1 tab PO QAM fluticasone propion-salmeterol 250-50 mcg/dose blister with device 1 puff PO Q12H cyanocobalamin (vitamin B-12) 1,000 mcg tablet 1 tab PO QAM folic acid 1 mg tablet 1 tab PO QAM fluoxetine 20 mg capsule 1 cap PO QAM lisinopril 40 mg Tablet 40 mg PO DAILY Eliquis 5 mg Tablet 5 mg PO BID Qty: 60 0RF carvedilol 3.125 mg Tablet 3.125 mg PO BID 30 Days Qty: 60 0RF Protocol: Hold for SBP/HR < HOLD for SBP < : 90 HOLD for HR < : 60 albuterol sulfate [Ventolin HFA] 90 mcg/actuation HFA aerosol inhaler 2 puff inhalation Q6H PRN (Reason: shortness of breath or wheezing) Qty: 6.7 1RF clonidine HCl 0.1 mg tablet 0.1 mg PO BEDTIME cyclobenzaprine 10 mg tablet 10 mg PO TID PRN (Reason: muscle spasm) Qty: 14 0RF (DME) heel lift See Rx Instructions .Route .MEDSUPPLY Qty: 1 0RF Rx Instructions: bilat heel lift Referrals: Jad Lopez MD [Physician] - 1 week Amy Olmedo MD [Primary Care Provider] - Print Language: Irish
[2022-03-15 20:58] LABS: Anion Gap 11 (12-20); Blood Urea Nitrogen 16 mg/dL (9-16); C Reactive Protein 0.88 mg/dL (< or = 0.50); Calcium 8.8 mg/dL (8.4-10.2); Carbon Dioxide 27 mmol/L (22-29); Chloride 103 mmol/L (96-108); Creatinine Clr Calc Pharmacy 87.3; Estimated Glomerular Filt Rate > 60; Glucose Random 131 mg/dL (60-115); Sodium 137 mmol/L (135-145)
[2022-03-15] MEDS: cephALEXin 500 MG CAPSULE PO (21:41)
[2022-03-15 22:00] LABS: Erythrocyte Sedimentation Rate 68 MM/HR (0-20)
== END 2022-03-15 22:52 | disposition home or self-care (01) ==
PROVIDERS: Physician Assistant; Emergency Provider Internal Medicine; PCP Family Medicine
DX: M71.122 Other infective bursitis, left elbow (principal); L03.114 Cellulitis of left upper limb; J45.909 Unspecified asthma, uncomplicated
CPT/HCPCS: 36415; 73080; 80048; 85025; 85652; 86140; 99283; 99284

== ENCOUNTER → 2022-03-16 13:00 | Outpatient (BNVA) | payer MEDICAID, SELFPAY | PROVIDERS: PCP Family Medicine; Referring Provider Family Medicine; Visit Provider Nurse Practitioner Family | DX: I48.0 Paroxysmal atrial fibrillation (principal); Z79.01 Long term (current) use of anticoagulants | CPT/HCPCS: 99212 ==

== ENCOUNTER 2022-04-01 07:31 | Emergency (ER) | payer MEDICAID, SELFPAY ==
--- NOTE | ~2022-04-01 | XR_ITS ---
EXAMINATION: XR SHOULDER, RIGHT CLINICAL INFORMATION: Right shoulder pain. COMPARISON: None TECHNIQUE: Three views of the right shoulder. FINDINGS: Mild right acromioclavicular degenerative joint changes are seen. There is no acute fracture or dislocation. The soft tissues are unremarkable. XR/XR shoulder RT min 2V IMPRESSION: Mild right acromioclavicular degenerative joint changes. No acute fracture.
[2022-04-01 07:45] VITALS: BP 170/69; PULSE 60; RESP 16; TEMP 36.2; O2SAT 97; BMI 44.2
--- NOTE | 2022-04-01 08:10 | ED_ITS ---
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 Patient states that she has right shoulder pain that started yesterday and hasn't gotten better. Patient states that it hurts much worse when she tries to lift her arm straight up. Patient states that she has had issues with the left one before that were similar to this. Patient denies any numbness or tingling. Patient denies any dizziness, lightheadedness, abdominal pain, nausea, vomiting, fever, chills, blurry vision, double vision, loss of vision, chest pain, difficulty breathing, shortness of breath, back pain, night sweats, pain with urination, increased urinary frequency, increased urinary urgency, blood in her urine or stool, syncope or a near syncopal episode, recent trauma or falls, bowel incontinence, bladder incontinence, bowel retention, bladder retention, or any other complaints at this time. MD Complaint: extremity pain Onset (ago): day(s) (1) Pain Consistency: constant Location: right and upper extremity Severity scale (1-10): 4 Quality: aching and sharp Radiation: none Relieving factors: nothing Exacerbating factors: range of motion Associated symptoms: denies other symptoms Related Data Home Medications Medication Instructions Recorded Confirmed cholecalciferol (vitamin D3) 50 1 tab PO QAM 05/29/21 03/16/22 mcg (2,000 unit) tablet cyanocobalamin (vitamin B-12) 1 tab PO QAM 05/30/21 03/16/22 1,000 mcg tablet fluoxetine 20 mg capsule 1 cap PO QAM 05/30/21 03/16/22 fluticasone 250 mcg-salmeterol 50 1 puff PO Q12H 05/30/21 03/16/22 mcg/dose blistr powdr for inhalation folic acid 1 mg tablet 1 tab PO QAM 05/30/21 03/16/22 lisinopril 40 mg tablet 40 mg PO DAILY 05/30/21 03/16/22 clonidine HCl 0.1 mg tablet 0.1 mg PO BEDTIME 09/15/21 03/16/22 Previous Rx's Medication Instructions Recorded heel lift #1 ea 08/21/20 albuterol sulfate 90 mcg/actuation 2 puff inhalation Q6H PRN 06/01/21 aerosol inhaler (Ventolin HFA) shortness of breath or wheezing #6.7 grams apixaban 5 mg tablet (Eliquis) 5 mg PO BID #60 tabs 06/01/21 carvedilol 3.125 mg tablet 3.125 mg PO BID 30 days #60 tabs 06/01/21 atorvastatin 10 mg tablet 10 mg PO BEDTIME #30 tabs 09/23/21 diltiazem HCl 120 mg 120 mg PO DAILY 30 days #30 caps 09/23/21 capsule,extended release 24 hr cyclobenzaprine 10 mg tablet 10 mg PO TID PRN muscle spasm #14 01/25/22 tabs cephalexin 500 mg capsule 500 mg PO QID 7 days #28 caps 03/15/22 doxycycline hyclate 100 mg tablet 100 mg PO BID 7 days #14 tabs 03/15/22 hydrocodone 5 mg-acetaminophen 325 1 tab PO Q8H PRN pain, severe 3 03/15/22 mg tablet days #9 tabs cyclobenzaprine 5 mg tablet 5 mg PO TID PRN right shoulder 04/01/22 pain 7 days #21 tabs Allergies Allergy/AdvReac Type Severity Reaction Status Date / Time No Known Allergies Allergy Verified 03/16/22 13:04 Review of Systems Constitutional: Constitutional: Reports no additional constitutional complaints, Denies chills, Denies fever(s) and Denies night sweats Eyes: Eyes: Reports no additional eye complaints, Denies blurry vision, Denies change in vision, Denies diplopia, Denies eye discharge, Denies loss of vision and Denies eye pain ENT: Denies dizziness Cardiovascular: Cardiovascular: Reports no additional cardiovascular compl aints, Denies chest pain, Denies lightheadedness, Denies Loss of Consciousness and Denies dyspnea Respiratory: Respiratory: Reports no additional respiratory complaints and Denies dyspnea Gastrointestinal: Gastrointestinal: Reports no additional gastrointestinal complaints, Denies abdominal pain, Denies melena, Denies hematochezia, Denies change in bowel habits and Denies change in stool character Genitourinary: Genitourinary: Denies hematuria, Denies urinary frequency, Denies dysuria, Denies urinary incontinence, Denies urinary hesitancy and Denies urinary urgency Musculoskeletal: Musculoskeletal: Reports no additional musculoskeletal complaints, Denies numbness and Denies tingling Comments: right shoulder pain Neurologic: Denies dizziness, Denies loss of vision, Denies numbness and Denies tingling Psychiatric: Psychiatric: Reports no additional psychiatric complaints Endocrine: Endocrine: Reports no additional endocrine complaints Hematologic/Lymphatic: Hematologic/Lymphatic: Reports no additional hematologic/lymphatic complaints Allergic/Immunologic: Allergic/Immunologic: Reports no additional allergic/immunologic complaints [facility] Past Medical History Attestation statement: The following information was validated with the patient. Source: old records reviewed Medical History Asthma Atrial fibrillation, new onset Back pain Morbid obesity PAF (paroxysmal atrial fibrillation) Surgical History No pertinent past surgical history Family History Family History Mother High cholesterol HTN (hypertension) Father HTN (hypertension) High cholesterol Social History Social History Household Members: Children Housing: Apartment Do you presently have visiting nurse or other home services: No Alcohol intake: never Patient Tobacco Use Status: Never used Tobacco Advance Directives: Yes Advance Directives on File: Yes Advance Directives Date on File: 06/02/21 service: No Current occupational status: employed Physical Exam Vital Signs: Vital Signs: Last Vital Signs Temp 97.2 F 04/01/22 07:45 Pulse 60 04/01/22 07:45 Resp 16 04/01/22 07:45 BP 170/69 H 04/01/22 07:45 Pulse Ox 97 04/01/22 07:45 O2 Del Method 04/01/22 07:45 BMI result Body Mass Index 44.2 Const: General: cooperative, no acute distress, alert and awake Nutritional Appearance: well nourished Orientation/consciousness: patient oriented x3 Limitations: no limitations HEENT: Head: Yes normal to inspection and Yes atraumatic Ears: hearing grossly normal bilaterally and external ears normal General nose exam: Normal external nose present, no nasal discharge noted and no epistaxis Face and sinus: Yes normal facial exam, No abrasion and No laceration Mouth: Normal oral and palatal mucosa present, no drooling and no muffled voice Eyes: General: appearance normal, both eyes and all related structures Periorbital: periorbital findings normal Eyelids: Yes eyelids normal Conjunctivae: conjunctivae normal Pupils: Equal, round and reactive pupils present EOM: EOMs intact bilaterally Neck: Neck: Yes normal visual inspection, Yes full ROM and Yes no lymphadenopathy Chest: Chest palpation & inspection: normal inspection of the chest Resp: Effort & Inspection: normal respiratory effort and able to speak in complete sentences Auscultation: clear to auscultation bilaterally Cardio: Rate: regular rate Rhythm: regular rhythm GI: Inspection: Yes normal to inspection Neuro: General: patient oriented x3 and moves all extremities Cranial nerves: Yes Equal, round and reactive pupils present Cognition (Neuro): normal cognition Motor exam (neuro): 5/5 motor strength present throughout Sensory Exam: Normal double simultaneous stimulation for sensation Coordination: [id number] test normal Extrem: Other: pain in the right shoulder with upward movement of the right forearm General: Yes normal to inspection, Yes full ROM and Yes capillary refill normal Psych: Appearance: grossly normal Mental Status: mental status grossly normal Affect: normal affect Attitude: cooperative Thought process: Normal thought process present Thought content: Normal thought content present Insight: Good insight present (Psych) MDM - Extremity (Nontraumatic) MDM Narrative Medical decision making narrative: Patient is a 61 year old female presenting to the emergency department today with right shoulder pain. Patient's physical exam showed right shoulder pain with right forearm raising but was otherwise unremarkable. Patient's right shoulder x-ray showed no acute process. I explained my physical exam findings as well as all test results to the patient. I answered all questions asked by the patient. Patient received IM Solu-Medrol and PO Flexeril which she stated helped her symptoms significantly. I stressed the importance of the patient taking her medication as prescribed. I stressed the importance of the patient following up with her primary care provider and an orthopedic provider. I stressed the importance of the patient returning to the emergency department immediately if her symptoms were to worsen or if she were to develop any dizziness, shortness of breath, difficulty breathing, chest pain, blurry vision, loss of vision, nausea, vomiting, abdominal pain, fever, chills, back pain, or any other complaints. Patient verbalized agreement and understanding with this treatment plan and discharge. Medical Records Attestation: I reviewed the patient's medical records. Imaging Data Right shoulder x-ray: Attestation: I personally reviewed and interpreted this imaging study as follows: My impression: No acute process. Radiologist's impression: EXAMINATION: XR SHOULDER, RIGHT CLINICAL INFORMATION: Right shoulder pain.? COMPARISON: None? TECHNIQUE: Three views of the right shoulder. FINDINGS: Mild right acromioclavicular degenerative joint changes are seen. There is no acute fracture or dislocation. The soft tissues are unremarkable. ? XR/XR shoulder RT min 2V IMPRESSION: Mild right acromioclavicular degenerative joint changes. No acute fracture. Dictated By: Rolan Leos MD Signed By: Electronically signed by Rolan Leos MD 04/01/22 0805 Discharge Plan Discharge Clinical Impression: Injury of right rotator cuff Patient Disposition: Home, Self-Care Instructions: Rotator Cuff Injury (ED) Additional Instructions: Follow up with your primary care provider and an orthopedic provider. Return to the emergency department immediately if your symptoms worsen or if you develop any dizziness, shortness of breath, difficulty breathing, chest pain, blurry vision, loss of vision, nausea, vomiting, abdominal pain, fever, chills, back pain, or any other complaints. Prescriptions: New cyclobenzaprine 5 mg tablet 5 mg PO TID PRN (Reason: right shoulder pain) 7 Days Qty: 21 0RF No Action diltiazem HCl 120 mg capsule,extended release 24hr 120 mg PO DAILY 30 Days Qty: 30 5RF atorvastatin 10 mg tablet 10 mg PO BEDTIME Qty: 30 5RF cholecalciferol (vitamin D3) 50 mcg (2,000 unit) tablet 1 tab PO QAM fluticasone propion-salmeterol 250-50 mcg/dose blister with device 1 puff PO Q12H cyanocobalamin (vitamin B-12) 1,000 mcg tablet 1 tab PO QAM folic acid 1 mg tablet 1 tab PO QAM fluoxetine 20 mg capsule 1 cap PO QAM lisinopril 40 mg Tablet 40 mg PO DAILY Eliquis 5 mg Tablet 5 mg PO BID Qty: 60 0RF carvedilol 3.125 mg Tablet 3.125 mg PO BID 30 Days Qty: 60 0RF Protocol: Hold for SBP/HR < HOLD for SBP < : 90 HOLD for HR < : 60 albuterol sulfate [Ventolin HFA] 90 mcg/actuation HFA aerosol inhaler 2 puff inhalation Q6H PRN (Reason: shortness of breath or wheezing) Qty: 6.7 1RF clonidine HCl 0.1 mg tablet 0.1 mg PO BEDTIME cyclobenzaprine 10 mg tablet 10 mg PO TID PRN (Reason: muscle spasm) Qty: 14 0RF cephalexin 500 mg capsule 500 mg PO QID 7 Days Qty: 28 0RF doxycycline hyclate 100 mg tablet 100 mg PO BID 7 Days Qty: 14 0RF hydrocodone-acetaminophen 5-325 mg tablet 1 tab PO Q8H PRN (Reason: pain, severe) 3 Days Qty: 9 0RF Rx Instructions: Partial Fill upon patient request. (DME) heel lift See Rx Instructions .Route .MEDSUPPLY Qty: 1 0RF Rx Instructions: bilat heel lift Referrals: [facility] [place] [facility] [Provider Group] (Follow up with an orthopedic provider. ) Amy Olmedo MD [Primary Care Provider] - (Follow up with your primary care provider. ) Interventions: ED Discharge Assessment Last Done: 04/01/22 09:35 Discharge Date/Time: 04/01/22 09:35 Print Language: Fijian
[2022-04-01] MEDS: Cyclobenzaprine HCl 5 MG TABLET PO (09:30)
[2022-04-01] MEDS: methylPREDNISolone Sod Succ 125 MG/2 ML VIAL 60 MG IM (09:30)
== END 2022-04-01 09:35 | disposition home or self-care (01) ==
PROVIDERS: Emergency Provider Emergency Medicine; PCP Family Medicine
DX: S46.001A Unspecified injury of muscle(s) and tendon(s) of the rotator cuff of right shoulder, initial encounter (principal); X58.XXXA Exposure to other specified factors, initial encounter; M25.511 Pain in right shoulder; I48.0 Paroxysmal atrial fibrillation; Y93.9 Activity, unspecified; Y92.9 Unspecified place or not applicable; Y99.9 Unspecified external cause status
CPT/HCPCS: 73030; 96372; 99283; 99284; J2930

== ENCOUNTER → 2022-04-02 12:42 | Outpatient (REF) | payer MEDICAID, SELFPAY ==
--- NOTE | 2022-04-02 12:46 | ECG_ITS ---
Hook-up date: 2022-04-02 12:01:00 Duration: 47:59:00 Test Indications: PAROXYSMAL AFIB Medications: [id number] QRS complexes 1 Ventricular ectopics which represent <1 % of total QRS comp. 80 Supraventricular ectopics which represent <1 % of total QRS comp. * Paced QRS complexs which represent % of total QRS comp. VENTRICULAR ECTOPY 1 Isolated 0 Bigeminal Cycles 0 Couplets 0 Runs 0 Beats in Runs * Beats LONGEST at * BPM at :: -- * Beats FASTEST at * BPM at :: -- SUPRAVENTRICULAR ECTOPY 80 Isolated 0 Couplets 0 Runs 0 Beats in Runs * Beats LONGEST at * BPM at :: -- * Beats FASTEST at * BPM at :: -- HEART RATES 44 MIN at 02:40:50 2022-04-03 67 AVG 124 MAX at 21:01:56 2022-04-02 LONGEST RR 1.4000 secs at 03:03:44 2022-04-03 S-T LEVELS Channel 1 - 128 mm at 12:01:00 2022-04-02 - 128 mm at 12:01:00 2022-04-02 Channel 2 - 128 mm at 12:01:00 2022-04-02 - 128 mm at 12:01:00 2022-04-02 Channel 3 - 128 mm at 03:12:01 -- - 128 mm at 03:12:01 Basic rhythm Normal sinus rhythm No long pause or profound bradycardia Frequent Sinus bradycardia , 24% of time HR < 60 bpm Rare Premature atrial complexes No diary submitted Referred By: Lindsey Gu Overread By: CATALINA CASTILLO MD
== END ==
LOC: HO.CARD 12:42
PROVIDERS: PCP Family Medicine; Visit Provider Nurse Practitioner Family
DX: I48.0 Paroxysmal atrial fibrillation (principal)
CPT/HCPCS: 93225; 93226

== ENCOUNTER 2022-05-24 00:50 | Emergency (ER) | payer MEDICAID, SELFPAY ==
--- NOTE | ~2022-05-24 | XR_ITS ---
EXAMINATION: XR CHEST CLINICAL INFORMATION: Chest pain. Dyspnea. COMPARISON: 01/25/2022 TECHNIQUE: 2 views of the chest were obtained. FINDINGS: The lungs are well expanded. There is no focal consolidation, edema, or effusion. No pneumothorax. The cardiomediastinal silhouette is within normal limits. No acute osseous abnormality. XR/XR chest 2V IMPRESSION: No acute pulmonary finding.
[2022-05-24 00:56] VITALS: BP 149/87; PULSE 97; RESP 18; TEMP 36.6; O2SAT 95; BMI 34.7
--- NOTE | 2022-05-24 01:03 | ECG_ITS ---
Test Reason : CHESTPAIN Blood Pressure : / mmHG Vent. Rate : 087 BPM Atrial Rate : 000 BPM P-R Int : 000 ms QRS Dur : 082 ms QT Int : 344 ms P-R-T Axes : 000 025 040 degrees QTc Int : 413 ms Atrial fibrillation Abnormal ECG When compared with ECG of 25-JAN-2022 07:43, Atrial fibrillation has replaced Sinus rhythm Referred By: Generic ED Physician Electronically Signed By:PERRY RILEY
[2022-05-24 01:29] LABS: MANUAL DIFF FLAG NO
[2022-05-24 01:31] LABS: Basophils Percent Auto 0.4 % (0-2); Eosinophils Absolute Auto 0.3 X10*3/uL (0.0-0.4); Eosinophils Percent Auto 3.4 % (0-4); Hemoglobin 10.6 g/dl (12.0-16.0); Imm Gran Abs Auto 0.02 X10*3/uL (0.00-0.03); Imm Gran Pct Auto 0.3 % (0.0-0.4); Lymphocytes Absolute Auto 2.6 X10*3/uL (1.2-4.9); Lymphocytes Percent Auto 34.9 % (20-40); Mean Corpuscular HGB Conc 32.1 g/dl (31.0-35.0); Mean Corpuscular Hemoglobin 25.8 pg (27.0-33.0); Mean Corpuscular Volume 80.3 fL (80.0-98.0); Mean Platelet Volume 10.1 fL (9.4-12.3); Monocytes Absolute Auto 0.6 X10*3/uL (0.1-1.2); Monocytes Percent Auto 7.7 % (2-11); Neutrophils Absolute Auto 3.9 x10*3/uL (2.0-8.3); Neutrophils Percent Auto 53.3 % (45-73); Platelet Count 227 X10*3/uL (160-400); Red Blood Count 4.11 X10*6/uL (4.20-5.50); Red Cell Distribution Width 14.3 % (11.0-16.0); White Blood Count 7.4 X10*3/uL (4.8-10.8)
[2022-05-24 01:44] LABS: COVID-19 Test Negative (Negative); IDNOW Serial# 16C4AD1C
[2022-05-24 01:47] LABS: Anion Gap 15 (12-20); Blood Urea Nitrogen 27 mg/dL (9-16); Carbon Dioxide 23 mmol/L (22-29); Chloride 106 mmol/L (96-108); Creatinine Clr Calc Pharmacy 44.2; Estimated Glomerular Filt Rate 40; Glucose Random 136 mg/dL (60-115); Potassium 4.2 mmol/L (3.3-5.1); Sodium 140 mmol/L (135-145)
[2022-05-24 01:54] LABS: Troponin-I High Sensitivity < 3.5 ng/L (<3.5-17.0)
[2022-05-24 02:14] VITALS: BP 146/72; PULSE 95; RESP 17; TEMP 36.6; O2SAT 96
--- NOTE | 2022-05-24 02:37 | ED.CHESTPAIN ---
HPI - Chest Pain General Chief Complaint: Dyspnea Stated Complaint: Difficulty breathing Time Seen by Provider: 05/24/22 02:36 Source: patient and old records reviewed Mode of arrival: ambulatory Limitations: no limitations History of Present Illness HPI narrative: 61 yo female with hx of asthma, PAF on eliquis, CLARE here with c/o wheezing and chest tightness for 2 days - she tried INH and neb without relief. She reports no mucous or fevers. MD complaint: other (chest tightness) Onset (ago): day(s) (2) Timing of current episode: constant Prior episodes: Yes Onset: during rest and during exertion Pain location: substernal Pain radiation: none Severity: moderate Quality: tightness Relieving factors: nothing Exacerbating factors: other (coughing) Associated symptoms: dyspnea and cough Treatment prior to arrival: other (albuterol) Related Data Home Medications Medication Instructions Recorded Confirmed cholecalciferol (vitamin D3) 50 1 tab PO QAM 05/29/21 05/24/22 mcg (2,000 unit) tablet cyanocobalamin (vitamin B-12) 1 tab PO QAM 05/30/21 05/24/22 1,000 mcg tablet fluoxetine 20 mg capsule 1 cap PO QAM 05/30/21 05/24/22 fluticasone 250 mcg-salmeterol 50 1 puff PO Q12H 05/30/21 05/24/22 mcg/dose blistr powdr for inhalation folic acid 1 mg tablet 1 tab PO QAM 05/30/21 05/24/22 lisinopril 40 mg tablet 40 mg PO DAILY 05/30/21 05/24/22 clonidine HCl 0.1 mg tablet 0.1 mg PO BEDTIME 09/15/21 05/24/22 Previous Rx's Medication Instructions Recorded heel lift #1 ea 08/21/20 albuterol sulfate 90 mcg/actuation 2 puff inhalation Q6H PRN 06/01/21 aerosol inhaler (Ventolin HFA) shortness of breath or wheezing #6.7 grams apixaban 5 mg tablet (Eliquis) 5 mg PO BID #60 tabs 06/01/21 carvedilol 3.125 mg tablet 3.125 mg PO BID 30 days #60 tabs 06/01/21 cyclobenzaprine 10 mg tablet 10 mg PO TID PRN muscle spasm #14 01/25/22 tabs cephalexin 500 mg capsule 500 mg PO QID 7 days #28 caps 03/15/22 doxycycline hyclate 100 mg tablet 100 mg PO BID 7 days #14 tabs 03/15/22 hydrocodone 5 mg-acetaminophen 325 1 tab PO Q8H PRN pain, severe 3 03/15/22 mg tablet days #9 tabs cyclobenzaprine 5 mg tablet 5 mg PO TID PRN right shoulder 04/01/22 pain 7 days #21 tabs atorvastatin 10 mg tablet 10 mg PO BEDTIME #30 tabs 04/08/22 diltiazem HCl 120 mg 120 mg PO QAM #30 caps 04/08/22 capsule,extended release 24 hr azithromycin 250 mg tablet See Rx Instructions PO .COMPLEX #6 05/24/22 tabs prednisone 20 mg tablet 40 mg PO DAILY 5 days #10 tabs 05/24/22 Allergies Allergy/AdvReac Type Severity Reaction Status Date / Time No Known Allergies Allergy Verified 03/16/22 13:04 Review of Systems Review of Systems: Constitutional : No Fever, No Chills ENT/Mouth : No Hoarseness, No sore throat, No Rhinorrhea Eyes: No Redness, No Discharge, No Vision Changes Cardiovascular : No Chest Pain, positive SOB, positive Dyspnea on Exertion, No edema Respiratory : positive Cough, No Sputum, positive Wheezing, Gastrointestinal : No Nausea, No Vomiting, No Diarrhea, No abdominal Pain Genitourinary : No Dysuria, No Hematuria Musculoskeletal : No joint pain, No Myalgias Skin : No rash Neuro : No Weakness, No Numbness, No Headache Psych : No anxiety, depression Heme/Lymph: No Bruising, No Bleeding Endocrine : No Polyuria, No Polydipsia All other systems reviewed and are negative [facility] Past Medical History Attestation statement: The following information was validated with the patient. Medical History Asthma Atrial fibrillation, new onset Back pain Morbid obesity PAF (paroxysmal atrial fibrillation) Surgical History No pertinent past surgical history Family History Family History Mother High cholesterol HTN (hypertension) Father HTN (hypertension) High cholesterol Social History Social History Household Members: Children Housing: Apartment Do you presently have visiting nurse or other home services: No Alcohol intake: never Patient Tobacco Use Status: Never used Tobacco Advance Directives: Yes Advance Directives on File: Yes Advance Directives Date on File: 06/02/21 service: No Current occupational status: employed Physical Exam Vital Signs: Vital Signs: Last Vital Signs Temp 97.8 F 05/24/22 02:14 Pulse 81 05/24/22 03:55 Resp 18 05/24/22 03:55 BP 108/81 05/24/22 03:55 Pulse Ox 96 05/24/22 03:55 O2 Del Method 05/24/22 03:55 BMI result Body Mass Index 34.7 Appearance: Alert. Oriented X3. No acute distress. Eyes: Pupils equal, round and reactive to light. ENT: Pharynx normal. Neck: Normal inspection. Neck supple. CVS: Normal heart rate and rhythm. Pulses normal. Respiratory: No respiratory distress. Breath sounds decreased with diffuse wheezes bilaterally Abdomen: Soft and nontender. Skin: Skin warm and dry. Normal skin color. Normal skin turgor. Extremities: 1+ pitting lower extremity edema. No calf ttp Neuro: Oriented X 3. No motor deficit. No sensory deficit. Course Course Course Narrative: repeat lung sounds improved feels much better, CXR BNP and troponin flat - stable for DC will start on zpak and prednisone MDM - Chest Pain MDM Narrative Medical decision making narrative: 61 yo female with hx of asthma, PAF on eliquis, CLARE here with wheezes and dry cough - at this time will obtain basic labs, troponin x 1 given 2 days duration. Doubt VTE given DOAC use. CXR for pneumonia, duoneb and IV steroids. Dispo per results and findings. Suspect asthma and not ACS or VTE Lab Data Result diagrams: 05/24/22 01:22 05/24/22 01:22 Labs: Lab Results 05/24/22 05/24/22 05/24/22 Range/Units 01:07 01: 01:22 WBC 7.4 (4.8-10.8) X10*3/uL RBC 4.11 L (4.20-5.50) X10*6/uL Hgb 10.6 L (12.0-16.0) g/dl Hct 33.0 L (37.0-47.0) % MCV 80.3 (80.0-98.0) fL MCH 25.8 L (27.0-33.0) pg MCHC 32.1 (31.0-35.0) g/dl RDW 14.3 (11.0-16.0) % Plt Count 227 (160-400) X10*3/uL MPV 10.1 (9.4-12.3) fL Immature Gran % (Auto) 0.3 (0.0-0.4) % Neut % (Auto) 53.3 (45-73) % Lymph % (Auto) 34.9 (20-40) % Piute % (Auto) 7.7 (2-11) % Eos % (Auto) 3.4 (0-4) % Baso % (Auto) 0.4 (0-2) % Lymph # (Auto) 2.6 (1.2-4.9) X10*3/uL Piute # (Auto) 0.6 (0.1-1.2) X10*3/uL Eos # (Auto) 0.3 (0.0-0.4) X10*3/uL Baso # (Auto) 0.0 (0.0-0.2) X10*3/uL Abs Immat Gran (auto) 0.02 (0.00-0.03) X10*3/uL Absolute Neuts (auto) 3.9 (2.0-8.3) x10*3/uL Absolute Nucleated RBC 0.000 (0.0-0.012) X10*3/uL Nucleated RBC % (auto) 0.0 (0.0-0.2) /100WBC Sodium 140 (135-145) mmol/L Potassium 4.2 (3.3-5.1) mmol/L Chloride 106 (96-108) mmol/L Carbon Dioxide 23 (22-29) mmol/L Anion Gap 15 (12-20) BUN 27 H D (9-16) mg/dL Creatinine 1.36 (0.5-1.4) mg/dL Estim Creat Clear Calc 44.2 Estimated GFR 40 Random Glucose 136 H (60-115) mg/dL Calcium 9.0 (8.4-10.2) mg/dL Troponin I High Sens (<3.5-17.0) ng/L B-Natriuretic Peptide (<100) pg/mL COVID-19 (MICHAEL) Negative (Negative) COVID-19 Clin Com See Note 05/24/22 Range/Units 01:22 WBC (4.8-10.8) X10*3/uL RBC (4.20-5.50) X10*6/uL Hgb (12.0-16.0) g/dl Hct (37.0-47.0) % MCV (80.0-98.0) fL MCH (27.0-33.0) pg MCHC (31.0-35.0) g/dl RDW (11.0-16.0) % Plt Count (160-400) X10*3/uL MPV (9.4-12.3) fL Immature Gran % (Auto) (0.0-0.4) % Neut % (Auto) (45-73) % Lymph % (Auto) (20-40) % Piute % (Auto) (2-11) % Eos % (Auto) (0-4) % Baso % (Auto) (0-2) % Lymph # (Auto) (1.2-4.9) X10*3/uL [place] # (Auto) (0.1-1.2) X10*3/uL Eos # (Auto) (0.0-0.4) X10*3/uL Baso # (Auto) (0.0-0.2) X10*3/uL Abs Immat Gran (auto) (0.00-0.03) X10*3/uL Absolute Neuts (auto) (2.0-8.3) x10*3/uL Absolute Nucleated RBC (0.0-0.012) X10*3/uL Nucleated RBC % (auto) (0.0-0.2) /100WBC Sodium (135-145) mmol/L Potassium (3.3-5.1) mmol/L Chloride (96-108) mmol/L Carbon Dioxide (22-29) mmol/L Anion Gap (12-20) BUN (9-16) mg/dL Creatinine (0.5-1.4) mg/dL Estim Creat Clear Calc Estimated GFR Random Glucose (60-115) mg/dL Calcium (8.4-10.2) mg/dL Troponin I High Sens < 3.5 (<3.5-17.0) ng/L B-Natriuretic Peptide 48 (<100) pg/mL COVID-19 (MICHAEL) (Negative) COVID-19 Clin Com Discharge Plan Discharge Clinical Impression: Asthma with exacerbation Qualifiers: Asthma severity: moderate Asthma persistence: persistent Qualified Code(s): J45.41 - Moderate persistent asthma with (acute) exacerbation Patient Disposition: Home, Self-Care Instructions: Asthma (ED) Additional Instructions: return to ED for any worsening symptoms or concerns Prescriptions: New azithromycin 250 mg tablet See Rx Instructions .ROUTE .COMPLEX Qty: 6 0RF Rx Instructions: For 250 mg dose pack: take 500 mg today (day 1), then 250 mg for 4 days (days 2-5) prednisone 20 mg tablet 40 mg PO DAILY 5 Days Qty: 10 0RF No Action atorvastatin 10 mg tablet 10 mg PO BEDTIME Qty: 30 5RF diltiazem HCl 120 mg capsule,extended release 24hr 120 mg PO QAM Qty: 30 5RF cholecalciferol (vitamin D3) 50 mcg (2,000 unit) tablet 1 tab PO QAM fluticasone propion-salmeterol 250-50 mcg/dose blister with device 1 puff PO Q12H cyanocobalamin (vitamin B-12) 1,000 mcg tablet 1 tab PO QAM folic acid 1 mg tablet 1 tab PO QAM fluoxetine 20 mg capsule 1 cap PO QAM lisinopril 40 mg Tablet 40 mg PO DAILY Eliquis 5 mg Tablet 5 mg PO BID Qty: 60 0RF carvedilol 3.125 mg Tablet 3.125 mg PO BID 30 Days Qty: 60 0RF Protocol: Hold for SBP/HR < HOLD for SBP < : 90 HOLD for HR < : 60 albuterol sulfate [Ventolin HFA] 90 mcg/actuation HFA aerosol inhaler 2 puff inhalation Q6H PRN (Reason: shortness of breath or wheezing) Qty: 6.7 1RF clonidine HCl 0.1 mg tablet 0.1 mg PO BEDTIME cyclobenzaprine 10 mg tablet 10 mg PO TID PRN (Reason: muscle spasm) Qty: 14 0RF cephalexin 500 mg capsule 500 mg PO QID 7 Days Qty: 28 0RF doxycycline hyclate 100 mg tablet 100 mg PO BID 7 Days Qty: 14 0RF hydrocodone-acetaminophen 5-325 mg tablet 1 tab PO Q8H PRN (Reason: pain, severe) 3 Days Qty: 9 0RF Rx Instructions: Partial Fill upon patient request. cyclobenzaprine 5 mg tablet 5 mg PO TID PRN (Reason: right shoulder pain) 7 Days Qty: 21 0RF (DME) heel lift See Rx Instructions .Route .MEDSUPPLY Qty: 1 0RF Rx Instructions: bilat heel lift Referrals: Physician,Unknown J [Primary Care Provider] - 2 days (if not better) Print Language: Japanese
[2022-05-24] MEDS: Albuterol/Iprat 2.5/0.5MG 3 ML AMPUL.NEB INHALE (02:58)
[2022-05-24 03:10] LABS: B Type Natriuretic Peptide 48 pg/mL (<100)
[2022-05-24 03:55] VITALS: BP 108/81; PULSE 81; RESP 18; O2SAT 96
[2022-05-24] MEDS: methylPREDNISolone Sod Succ 125 MG/2 ML VIAL IVPUSH (04:10)
--- NOTE | 2022-05-24 04:14 | PC.NURSE ---
pt a&ox3, vss - afib on monitor, provider aware, medicated pt per provider order - late due to nurse assisting in code.
== END 2022-05-24 04:52 | disposition home or self-care (01) ==
PROVIDERS: Emergency Provider Emergency Medicine
DX: J45.41 Moderate persistent asthma with (acute) exacerbation (principal); R60.0 Localized edema; R06.02 Shortness of breath; Z20.822 Contact with and (suspected) exposure to COVID-19; I48.0 Paroxysmal atrial fibrillation; E66.9 Obesity, unspecified; Z68.34 Body mass index [BMI] 34.0-34.9, adult; Z79.01 Long term (current) use of anticoagulants; Z79.899 Other long term (current) drug therapy; Z79.02 Long term (current) use of antithrombotics/antiplatelets
CPT/HCPCS: 36415; 71046; 80048; 83880; 84484; 85025; 87635; 93005; 96374; 99284; J2930

== ENCOUNTER 2022-06-15 14:05 | Outpatient (REF) | payer MEDICAID, SELFPAY ==
--- NOTE | ~2022-06-15 | MM_ITS ---
EXAMINATION: MM SCREENING DIGITAL BREAST TOMOSYNTHESIS, BILATERAL CLINICAL INFORMATION: Screening. Asymptomatic. The lifetime risk of breast cancer based on the Tyrer-Cuzick Model is 4.6%. COMPARISON: Mammography: April 20, 2021 and studies dating back to November 19, 2015 TECHNIQUE: Digital breast tomosynthesis is performed in both the craniocaudal and mediolateral oblique views along with computer-aided detection (CAD). Synthesized 2D images are generated from the tomosynthesis. FINDINGS: There are scattered areas of fibroglandular density (ACR BI-RADS breast composition Category b). There are no significant masses, abnormal calcifications, or other abnormalities. There are stable bilateral circumscribed densities. MM/MM tomosynthesis screening BI IMPRESSION: No significant changes from prior exam. ASSESSMENT: BI-RADS 2: Benign RECOMMENDATION: Routine annual mammography screening. This patient's information was entered into a reminder system with a target due date for their next mammogram.
== END 2022-06-15 14:06 | disposition home or self-care (01) ==
LOC: HO.MAMMO 14:05
PROVIDERS: PCP Family Medicine; Visit Provider Family Medicine
DX: Z12.31 Encounter for screening mammogram for malignant neoplasm of breast (principal)
CPT/HCPCS: 77063; 77067

== ENCOUNTER → 2022-07-28 13:53 | Outpatient (BNVA) | payer MEDICAID, SELFPAY | PROVIDERS: PCP Family Medicine; Visit Provider Internal Medicine | DX: J44.9 Chronic obstructive pulmonary disease, unspecified (principal); G47.33 Obstructive sleep apnea (adult) (pediatric); E66.01 Morbid (severe) obesity due to excess calories; Z68.37 Body mass index [BMI] 37.0-37.9, adult | CPT/HCPCS: 99212 ==

== ENCOUNTER → 2022-09-30 14:46 | Outpatient (BNVA) | payer MEDICAID, SELFPAY | PROVIDERS: PCP Family Medicine; Visit Provider Internal Medicine | DX: G47.33 Obstructive sleep apnea (adult) (pediatric) (principal); J44.9 Chronic obstructive pulmonary disease, unspecified; E66.01 Morbid (severe) obesity due to excess calories; Z68.41 Body mass index [BMI] 40.0-44.9, adult | CPT/HCPCS: 99212 ==

== ENCOUNTER → 2022-12-07 14:18 | Outpatient (BNVA) | payer MEDICAID, SELFPAY | PROVIDERS: PCP Family Medicine; Referring Provider Family Medicine; Visit Provider Nurse Practitioner Family | DX: I48.91 Unspecified atrial fibrillation (principal) | CPT/HCPCS: 93005; 99212 ==

== ENCOUNTER → 2022-12-08 15:03 | Outpatient (BNVA) | payer MEDICAID, SELFPAY | PROVIDERS: PCP Family Medicine; Visit Provider Internal Medicine | DX: J44.9 Chronic obstructive pulmonary disease, unspecified (principal); G47.33 Obstructive sleep apnea (adult) (pediatric); E66.01 Morbid (severe) obesity due to excess calories; Z68.41 Body mass index [BMI] 40.0-44.9, adult | CPT/HCPCS: 99212 ==

== ENCOUNTER 2023-02-22 20:54 | Emergency (ER) | payer MEDICAID, SELFPAY ==
--- NOTE | ~2023-02-22 | CT_ITS ---
EXAMINATION: CT ABDOMEN AND PELVIS WITHOUT CONTRAST CLINICAL INFORMATION: Right flank pain COMPARISON: 10/12/2018 TECHNIQUE: Multidetector volumetric imaging was performed from the superior aspect of the liver through the pubic symphysis. Sagittal and coronal reformatted images were obtained on the technologist's workstation. This CT examination was performed using dose optimization techniques as appropriate, variously including the following: *Automated exposure control *Adjustment of mA and/or kV according to patient size (this includes techniques or standardized protocols for targeted exams where dose is matched to indication/reason for exam; i.e. extremities or head) *Use of iterative reconstruction technique DLP: 795 mGy-cm FINDINGS: LUNG BASES: The visualized lung bases are unremarkable. LIVER, GALLBLADDER, AND BILIARY TREE: The liver is normal in size, shape, and attenuation. No focal hepatic lesion or biliary ductal dilatation is present. Gallbladder physiologically contracted. PANCREAS: Unremarkable. SPLEEN: Unremarkable. ADRENAL GLANDS: Unremarkable. KIDNEYS AND URETERS: The kidneys are normal in size, shape, and attenuation. Mild fat stranding within the right renal pelvis, however assessment is limited by unfortunately motion artifact right through this portion of the kidney rendering the finding is equivocal. There are 2 punctate, 1-2 mm nonobstructive calculi in the lower pole of the left kidney. No hydronephrosis, or hydroureter. BLADDER: Unremarkable. GASTROINTESTINAL TRACT: The small and large bowel are unremarkable. The appendix is unremarkable. ABDOMINAL WALL: Small fat-containing umbilical hernia. LYMPH NODES: Normal. VASCULAR: Aorta is atherosclerotic but normal caliber. PELVIC VISCERA: Uterus and adnexa unremarkable. OSSEOUS STRUCTURES: No acute or suspicious osseous abnormalities. Hemangiomata present within a few of the lower thoracic vertebral bodies and at L1. CT/CT abdomen pelvis wo IV con IMPRESSION: * There are 2 punctate nonobstructive calculi in the lower pole of the left kidney. No ureteral calculi or hydronephrosis. * There is mild fat stranding within the right renal pelvis, however assessment is limited by motion artifact through this portion of the kidney rendering the finding equivocal. This could represent a recently passed stone, or pyelitis/pyelonephritis. Correlate with urinalysis. * No additional potential etiology for the patient's right flank pain is identified.
[2023-02-22 21:01] VITALS: BP 154/47; PULSE 76; RESP 20; TEMP 36.8; O2SAT 97; BMI 35.5
--- NOTE | 2023-02-22 21:07 | ECG_ITS ---
Test Reason : CHEST PAIN Blood Pressure : / mmHG Vent. Rate : 074 BPM Atrial Rate : 074 BPM P-R Int : 188 ms QRS Dur : 084 ms QT Int : 370 ms P-R-T Axes : 052 020 076 degrees QTc Int : 410 ms Normal sinus rhythm Normal ECG When compared with ECG of 24-MAY-2022 01:06, Sinus rhythm has replaced Atrial fibrillation Referred By: Generic ED Physician Electronically Signed By:NILS PORRAS
[2023-02-22 21:28] LABS: MANUAL DIFF FLAG NO
[2023-02-22 21:34] LABS: Basophils Percent Auto 0.1 % (0-2); Eosinophils Absolute Auto 0.2 X10*3/uL (0.0-0.4); Eosinophils Percent Auto 3.5 % (0-4); Hematocrit 28.3 % (37.0-47.0); Imm Gran Abs Auto 0.01 X10*3/uL (0.00-0.03); Imm Gran Pct Auto 0.1 % (0.0-0.4); Lymphocytes Absolute Auto 2.1 X10*3/uL (1.2-4.9); Lymphocytes Percent Auto 30.4 % (20-40); Mean Corpuscular HGB Conc 31.8 g/dl (31.0-35.0); Mean Corpuscular Hemoglobin 24.8 pg (27.0-33.0); Mean Platelet Volume 9.7 fL (9.4-12.3); Monocytes Absolute Auto 0.5 X10*3/uL (0.1-1.2); Monocytes Percent Auto 7.5 % (2-11); Neutrophils Percent Auto 58.4 % (45-73); Platelet Count 205 X10*3/uL (160-400); Red Blood Count 3.63 X10*6/uL (4.20-5.50); Red Cell Distribution Width 17.5 % (11.0-16.0); White Blood Count 6.8 X10*3/uL (4.8-10.8)
[2023-02-22 21:46] LABS: Alanine Aminotransferase 18 U/L (0-31); Albumin Level 3.8 g/dL (3.5-5.0); Alkaline Phosphatase 94 U/L (39-117); Anion Gap 11 (12-20); Aspartate Amino Transferase 13 U/L (5-31); Bilirubin Total 0.4 mg/dL (0.0-1.0); Blood Urea Nitrogen 17 mg/dL (9-16); Calcium 8.6 mg/dL (8.4-10.2); Carbon Dioxide 24 mmol/L (22-29); Chloride 107 mmol/L (96-108); Estimated Glomerular Filt Rate > 60; Glucose Random 219 mg/dL (60-115); Potassium 4.1 mmol/L (3.3-5.1); Sodium 138 mmol/L (135-145); Total Protein 6.7 g/dL (6.5-8.0)
[2023-02-22 21:53] LABS: Troponin-I High Sensitivity 2.9 ng/L (<3.5-17.0)
[2023-02-22 22:10] LABS: Influenza A PCR NEGATIVE (Negative); Influenza B PCR NEGATIVE (Negative); Resp Syncy Virus RNA Qual PCR NEGATIVE (Negative); SARS COV2 PCR INHOUSE NEGATIVE (Negative)
[2023-02-23 00:16] VITALS: BP 158/65; PULSE 78; RESP 18; O2SAT 95
--- NOTE | 2023-02-23 01:15 | ED.GENADULT ---
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 Patient had history of chronic pain to this area was seen at the pain management clinic require injection twice in the past. Pain is constant but worse with food, pain is associated with nausea but no vomiting, no diarrhea, last bowel movement was 2 days ago, patient declined any past surgical history, patient passed flatus. Patient also is concern of swelling of under her both eyes, bilateral ears pain, sore throat, a decline using any new medication, no change in her daily routine. Related Data Home Medications Medication Instructions Recorded Confirmed cholecalciferol (vitamin D3) 50 1 tab PO QAM 05/29/21 12/07/22 mcg (2,000 unit) tablet cyanocobalamin (vitamin B-12) 1 tab PO QAM 05/30/21 12/07/22 1,000 mcg tablet clonidine HCl 0.1 mg tablet 0.1 mg PO BEDTIME 09/15/21 12/07/22 fluticasone 500 mcg-salmeterol 50 1 inh inhalation BID 07/28/22 12/07/22 mcg/dose blistr powdr for inhalation (Advair Diskus) fluoxetine 20 mg capsule 20 mg PO QAM 12/07/22 12/07/22 lisinopril 40 mg tablet 40 mg PO QAM 12/07/22 12/07/22 omeprazole 20 mg capsule,delayed 20 mg PO 12/07/22 12/07/22 release Previous Rx's Medication Instructions Recorded heel lift #1 ea 08/21/20 albuterol sulfate 90 mcg/actuation 2 puff inhalation Q6H PRN 06/01/21 aerosol inhaler (Ventolin HFA) shortness of breath or wheezing #6.7 grams apixaban 5 mg tablet (Eliquis) 5 mg PO BID #60 tabs 06/01/21 carvedilol 3.125 mg tablet 3.125 mg PO BID 30 days #60 tabs 06/01/21 atorvastatin 10 mg tablet 10 mg PO BEDTIME #30 tabs 09/29/22 diltiazem HCl 120 mg 120 mg PO QAM #30 caps 09/29/22 capsule,extended release 24 hr (Cartia XT) diphenhydramine HCl 25 mg tablet 25 mg PO TID PRN itching #20 tabs 02/23/23 (Benadryl Allergy) Allergies Allergy/AdvReac Type Severity Reaction Status Date / Time No Known Allergies Allergy Verified 12/08/22 15:31 Review of Systems Review of Systems: All other systems are reviewed and are negative Constitutional: Reports as per HPI and Reports no additional constitutional complaints Eyes: Reports as per HPI and Reports no additional eye complaints Reports system reviewed and no additional complaints, except as documented Cardiovascular: Reports as per HPI and Reports no additional cardiovascular complaints Respiratory: Reports as per HPI and Reports no additional respiratory complaints Gastrointestinal: Reports as per HPI and Reports no additional gastrointestinal complaints Genitourinary: Reports no additional female genitourinary complaints Musculoskeletal: Reports no additional musculoskeletal complaints Skin/Breast: Reports system reviewed and no additional complaints, except as docu Psychiatric: Reports no additional psychiatric complaints Endocrine: Reports no additional endocrine complaints Hematologic/Lymphatic: Reports no additional hematologic/lymphatic complaints Allergic/Immunologic: Reports no additional allergic/immunologic complaints Reports system reviewed and no additional complaints, except as documented and Reports Abnormal speech present [facility] Past Medical History Medical History Asthma Atrial fibrillation, new onset Back pain COPD (chronic obstructive pulmonary disease) Morbid obesity PAF (paroxysmal atrial fibrillation) Surgical History No pertinent past surgical history Family History Family History Mother High cholesterol HTN (hypertension) Father HTN (hypertension) High cholesterol Social History Social History Household Members: Children Housing: Apartment Do you presently have visiting nurse or other home services: No Alcohol intake: never Patient Tobacco Use Status: Never used Tobacco Advance Directives: Yes Advance Directives on File: Yes Advance Directives Date on File: 06/02/21 Patient : No service: No Current occupational status: employed Physical Exam ED Vital Signs: Vital Signs - 24 hr 02/22/23 21:01 02/23/23 00:16 02/23/23 03:43 Temperature 98.3 F 97.8 F Pulse Rate 76 78 70 Respiratory Rate 20 18 20 Blood Pressure 154/47 H 158/65 H 149/60 H Pulse Oximetry 97 95 96 Oxygen Delivery Method Room Air Room Air 02/23/23 06:42 Temperature 97.7 F Pulse Rate 70 Respiratory Rate 18 Blood Pressure 180/73 H Pulse Oximetry 98 Oxygen Delivery Method Room Air BMI result Body Mass Index 35.5 vital signs have been reviewed as appeared to be correct. Blood pressure normal. Heart rate normal. Respiration rate normal. Temperature normal. Oxygen saturation normal. Appearance: Alert. Oriented X3. No acute distress. Head: Normal external exam. Normocephalic. Atraumatic. No Cole signs noted. No raccoon eyes noted Eyes: PERRLA. EOMI. Conjunctiva and sclera normal. Eyelids normal. ENT: TM's Normal. Pharynx normal. Uvula midline. Moist mucous membranes. No trismus noted. No drooling noted. No muffled voice noted. Neck: Normal inspection. Neck supple. FROM. No adenopathy. Thyroid Normal. No meningeal signs. No neck mass noted. CVS: Normal heart rate and rhythm. Heart sound normal. No murmurs noted. Pulses normal throughout. Respiratory: No respiratory distress. Painless inspiration. Breath sounds normal. No wheezes/rales/rhonchi noted. Chest nontender. No accessory muscle usage noted or decreased air movement noted. Abdomen: Soft , right CVA tenderness, right upper quadrant tenderness, Bowel sounds normal in all 4 quadrants. No distention noted. No organomegaly noted. No visible injury noted. Back: right CVA tenderness. Full range of motion noted. Skin: Skin warm and dry. Normal skin color. Normal skin turgor. No rashes/lesions/lacerations noted. Extremities: No lower extremity edema. Extremities exhibit normal range of motion. Extremities nontender. Neuro: Oriented X 3. Cranial nerve exam: II-XII are grossly intact No motor deficit. No sensory deficit. Reflexes normal. Course Course Course Narrative: Acute on chronic right flank/right upper quadrant pain, patient has unremarkable blood work/CT of the abdomen and pelvis/UA. Patient feels better in the emergency department able to tolerate p.o. intake. Will discharge to follow-up with PCP/pain management. Medical Decision Making Differential Diagnosis Differential Diagnoses: The differential diagnosis associated with the presentation includes (Acute gallbladder disease, kidney stone, pyelonephritis, UTI, electrolytes abnormalities, severe anemia.) Admission/Observation Consideration of admission/observation: Escalation of care including admission/observation considered Lab Data MDM Lab Attestation statement: I reviewed the patient's lab results. 02/22/23 21:24 02/22/23 21:24 Labs: Lab Results 02/22/23 02/22/23 02/22/23 Range/Units 21:24 21:24 21:24 WBC 6.8 (4.8-10.8) X10*3/uL RBC 3.63 L (4.20-5.50) X10*6/uL Hgb 9.0 L (12.0-16.0) g/dl Hct 28.3 L (37.0-47.0) % MCV 78.0 L (80.0-98.0) fL MCH 24.8 L (27.0-33.0) pg MCHC 31.8 (31.0-35.0) g/dl RDW 17.5 H (11.0-16.0) % Plt Count 205 (160-400) X10*3/uL MPV 9.7 (9.4-12.3) fL Immature Gran % (Auto) 0.1 (0.0-0.4) % Neut % (Auto) 58.4 (45-73) % Lymph % (Auto) 30.4 (20-40) % [place] % (Auto) 7.5 (2-11) % Eos % (Auto) 3.5 (0-4) % Baso % (Auto) 0.1 (0-2) % Lymph # (Auto) 2.1 (1.2-4.9) X10*3/uL [place] # (Auto) 0.5 (0.1-1.2) X10*3/uL Eos # (Auto) 0.2 (0.0-0.4) X10*3/uL Baso # (Auto) 0.0 (0.0-0.2) X10*3/uL Abs Immat Gran (auto) 0.01 (0.00-0.03) X10*3/uL Absolute Neuts (auto) 4.0 (2.0-8.3) x10*3/uL Absolute Nucleated RBC 0.000 (0.0-0.012) X10*3/uL Nucleated RBC % (auto) 0.0 (0.0-0.2) /100WBC Sodium 138 (135-145) mmol/L Potassium 4.1 (3.3-5.1) mmol/L Chloride 107 (96-108) mmol/L Carbon Dioxide 24 (22-29) mmol/L Anion Gap 11 L (12-20) BUN 17 H (9-16) mg/dL Creatinine 0.94 (0.5-1.4) mg/dL Estim Creat Clear Calc 74.0 Estimated GFR > 60 Random Glucose 219 H (60-115) mg/dL Calcium 8.6 (8.4-10.2) mg/dL Total Bilirubin 0.4 (0.0-1.0) mg/dL AST 13 (5-31) U/L ALT 18 (0-31) U/L Alkaline Phosphatase 94 (39-117) U/L Troponin I High Sens 2.9 (<3.5-17.0) ng/L Total Protein 6.7 (6.5-8.0) g/dL Albumin 3.8 (3.5-5.0) g/dL Urine Color Urine Appearance Urine pH (5.0-9.0) Ur Specific [place] (1.005-1.025) Urine Protein (Neg-Trace) mg/dL Urine Glucose (UA) (Negative) mg/dL Urine Ketones (Negative) mg/dL Urine Blood (Negative) Urine Nitrite (Negative) Ur Leukocyte Esterase (Negative) Urine RBC (0-2) /HPF Urine WBC (0-5) /HPF Ur Squamous Epith Cells (0-2) /HPF Urine Bacteria (None Seen) Hyaline Casts (0-2) /LPF Influenza Type A (PCR) (Negative) Influenza Type B (PCR) (Negative) RSV RNA Qual (PCR) (Negative) SARS-CoV-2 RNA (RT-PCR) (Negative) 02/22/23 02/23/23 Range/Units 21:24 06:01 WBC (4.8-10.8) X10*3/uL RBC (4.20-5.50) X10*6/uL Hgb (12.0-16.0) g/dl Hct (37.0-47.0) % MCV (80.0-98.0) fL MCH (27.0-33.0) pg MCHC (31.0-35.0) g/dl RDW (11.0-16.0) % Plt Count (160-400) X10*3/uL MPV (9.4-12.3) fL Immature Gran % (Auto) (0.0-0.4) % Neut % (Auto) (45-73) % Lymph % (Auto) (20-40) % [place] % (Auto) (2-11) % Eos % (Auto) (0-4) % Baso % (Auto) (0-2) % Lymph # (Auto) (1.2-4.9) X10*3/uL [place] # (Auto) (0.1-1.2) X10*3/uL Eos # (Auto) (0.0-0.4) X10*3/uL Baso # (Auto) (0.0-0.2) X10*3/uL Abs Immat Gran (auto) (0.00-0.03) X10*3/uL Absolute Neuts (auto) (2.0-8.3) x10*3/uL Absolute Nucleated RBC (0.0-0.012) X10*3/uL Nucleated RBC % (auto) (0.0-0.2) /100WBC Sodium (135-145) mmol/L Potassium (3.3-5.1) mmol/L Chloride (96-108) mmol/L Carbon Dioxide (22-29) mmol/L Anion Gap (12-20) BUN (9-16) mg/dL Creatinine (0.5-1.4) mg/dL Estim Creat Clear Calc Estimated GFR Random Glucose (60-115) mg/dL Calcium (8.4-10.2) mg/dL Total Bilirubin (0.0-1.0) mg/dL AST (5-31) U/L ALT (0-31) U/L Alkaline Phosphatase (39-117) U/L Troponin I High Sens (<3.5-17.0) ng/L Total Protein (6.5-8.0) g/dL Albumin (3.5-5.0) g/dL Urine Color Yellow Urine Appearance Clear Urine pH 6.5 (5.0-9.0) Ur Specific [place] 1.020 (1.005-1.025) Urine Protein Negative (Neg-Trace) mg/dL Urine Glucose (UA) Negative (Negative) mg/dL Urine Ketones Negative (Negative) mg/dL Urine Blood Negative (Negative) Urine Nitrite Negative (Negative) Ur Leukocyte Esterase Small (1+) H (Negative) Urine RBC 0-2 (0-2) /HPF Urine WBC 0-5 (0-5) /HPF Ur Squamous Epith Cells 0-2 (0-2) /HPF Urine Bacteria None Seen (None Seen) Hyaline Casts 0-2 (0-2) /LPF Influenza Type A (PCR) NEGATIVE (Negative) Influenza Type B (PCR) NEGATIVE (Negative) RSV RNA Qual (PCR) NEGATIVE (Negative) SARS-CoV-2 RNA (RT-PCR) NEGATIVE (Negative) Independent Interpretation I performed an independent interpretation of an: CT Scan (Abdomen and pelvis: No acute pathology.) Radiology Impression Discussion of test interpretation with radiology: I have reviewed the radiologist's reading. Chronic Conditions Patient?s care impacted by: Other (Chronic pain.) Discharge Plan Discharge Clinical Impression: Chronic flank pain Patient Disposition: Home, Self-Care Instructions: Chronic Pain (ED) Prescriptions: New diphenhydramine HCl [Benadryl Allergy] 25 mg tablet 25 mg PO TID PRN (Reason: itching) Qty: 20 0RF No Action diltiazem HCl [Cartia XT] 120 mg capsule,extended release 24hr 120 mg PO QAM Qty: 30 5RF atorvastatin 10 mg tablet 10 mg PO BEDTIME Qty: 30 5RF cholecalciferol (vitamin D3) 50 mcg (2,000 unit) tablet 1 tab PO QAM cyanocobalamin (vitamin B-12) 1,000 mcg tablet 1 tab PO QAM Eliquis 5 mg Tablet 5 mg PO BID Qty: 60 0RF carvedilol 3.125 mg Tablet 3.125 mg PO BID 30 Days Qty: 60 0RF Protocol: Hold for SBP/HR < HOLD for SBP < : 90 HOLD for HR < : 60 albuterol sulfate [Ventolin HFA] 90 mcg/actuation HFA aerosol inhaler 2 puff inhalation Q6H PRN (Reason: shortness of breath or wheezing) Qty: 6.7 1RF clonidine HCl 0.1 mg tablet 0.1 mg PO BEDTIME fluoxetine 20 mg capsule 20 mg PO QAM (DME) heel lift See Rx Instructions .Route .MEDSUPPLY Qty: 1 0RF Rx Instructions: bilat heel lift fluticasone propion-salmeterol [Advair Diskus] 500-50 mcg/dose blister with device 1 inh inhalation BID lisinopril 40 mg tablet 40 mg PO QAM omeprazole 20 mg capsule,delayed release(DR/EC) 20 mg PO Referrals: Amy Olmedo MD [Primary Care Provider] -
[2023-02-23 03:43] VITALS: BP 149/60; PULSE 70; RESP 20; TEMP 36.6; O2SAT 96
--- NOTE | 2023-02-23 03:45 | PC.NURSE ---
Pt states she does not need to use the bathroom for urine sample collection at this time. Pt given warm blanket.
[2023-02-23 06:07] LABS: Appearance Urine Clear; Color Urine Yellow; Glucose Urine UA Negative (Negative); Leukocyte Esterase Urine Small (1+) (Negative); Nitrite Urine Negative (Negative); PH 6.5 (5.0-9.0); UMIC TRIGGER UACC YES; Urine Blood Negative (Negative); Urine Ketones Negative (Negative); Urine Protein Negative (Neg-Trace)
[2023-02-23 06:20] LABS: Bacteria Urine None Seen (None Seen); Hyaline Casts Urine 0-2 /LPF (0-2); RBC Urine 0-2 /HPF (0-2); Squamous Epithelial Cell Urine 0-2 /HPF (0-2); UACC Culture Trigger YES; WBC Urine 0-5 /HPF (0-5)
[2023-02-23 06:42] VITALS: BP 180/73; PULSE 70; RESP 18; TEMP 36.5; O2SAT 98
== END 2023-02-23 06:51 | disposition home or self-care (01) ==
PROVIDERS: Emergency Provider Emergency Medicine; PCP Family Medicine
DX: G89.29 Other chronic pain (principal); R10.9 Unspecified abdominal pain; Z20.822 Contact with and (suspected) exposure to COVID-19; Z20.828 Contact with and (suspected) exposure to other viral communicable diseases
CPT/HCPCS: 0241U; 74176; 80053; 81001; 84484; 85025; 87086; 93005; 99284

== ENCOUNTER → 2023-04-12 07:53 | Outpatient (BNV) | payer MEDICAID, SELFPAY | PROVIDERS: PCP Family Medicine; Visit Provider Internal Medicine Medical Oncology | DX: D50.9 Iron deficiency anemia, unspecified (principal); N18.30 Chronic kidney disease, stage 3 unspecified; D63.1 Anemia in chronic kidney disease | CPT/HCPCS: 99204; 99213 ==

== ENCOUNTER 2023-04-13 13:57 | Outpatient (AMB) | payer MEDICAID, SELFPAY ==
[2023-04-13 14:03] VITALS: BP 120/52; PULSE 56; O2SAT 97; BMI 35.6
--- NOTE | 2023-04-13 14:03 | A.OFFVIS_ITS ---
Intake Vital Signs 04/13/23 14:03 Height 5 ft 5 in Weight 214 lb BMI 35.6 BP 120/52 L Blood Pressure Location Lt brachial Position Sitting Pulse 56 Pulse Source Pulse Oximeter Pulse Oximetry (%) 97 Oxygen Delivery Method Room Air Intake Visit Reasons: asthma Intake Note: pt is here for follow up and states she is feeling good. Assistant Department Manager Required: Yes Assistant Department Manager Name: yu Allergies No Known Allergies Allergy (Verified 04/13/23 14:25) Medication List - Last Reconciled 04/13/23 by Alysia Perez MD albuterol sulfate 90 mcg/actuation (Ventolin HFA) 2 puffs inhalation Q6H PRN apixaban (Eliquis) 5 mg PO BID atorvastatin 10 mg PO BEDTIME carvedilol 3.125 mg See Protocol PO BID 30 days cholecalciferol (vitamin D3) 1 tab PO QAM clonidine HCl 0.1 mg PO BEDTIME cyanocobalamin (vitamin B-12) 1 tab PO QAM diltiazem HCl (Cartia XT) 120 mg PO QAM diphenhydramine HCl (Benadryl Allergy) 25 mg PO TID PRN fluoxetine 20 mg PO QAM fluticasone propion-salmeterol 500-50 mcg/dose (Advair Diskus) 1 inh inhalation BID [heel lift bilat heel lift ] lisinopril 40 mg PO QAM omeprazole 20 mg PO DAILY Do you need a note to return to daycare/school/sports/work: No HPI asthma HPI Details THIS 62 YEARS OLD FEMALE IS VERY PLEASANT, COMES AFTER 4 MONTHS FOR FOLLOW-UP. CLAIMS THAT HER BREATHING HAS BEEN VERY GOOD, WITHOUT ANY EXACERBATIONS. SHE USES ADVAIR 500-50 B.I.D. REGULARLY. AND USES THE VENTOLIN 2 PUFFS ONLY ONCE IN A WHILE. SHE DOES NOT SMOKE. HAS HAD NO RESPIRATORY INFECTION . SHE REMAINS GROSSLY OBESE , HAS HISTORY OF OBSTRUCTIVE, SLEEP APNEA BUT COULD NOT USE THE CPAP SO SHE HAD VOLUNTARILY RETURNED THE DEVICE. AT PRESENT SHE CLAIMS THAT SHE SLEEPS WELL SHE ALWAYS TRY TO SLEEP IN LATERAL POSITION. DENIES ANY DAYTIME SLEEPINESS. [facility] Medical History (Updated 04/13/23 @ 14:42 by Alysia Perez MD) Asthma Atrial fibrillation, new onset Back pain COPD (chronic obstructive pulmonary disease) Morbid obesity Obesity (BMI 30-39.9) PAF (paroxysmal atrial fibrillation) Surgical History No pertinent past surgical history Family History Mother High cholesterol HTN (hypertension) Father HTN (hypertension) High cholesterol Social History Household Members: Children Housing: Apartment Do you presently have visiting nurse or other home services: No Alcohol intake: never Patient Tobacco Use Status: Never used Tobacco Advance Directives Date on File: 06/02/21 service: No Current occupational status: employed Review of Systems Const All systems reviewed & are unremarkable except as noted in HPI and below Reports snoring Eyes Reports no additional complaints ENT Reports no additional complaints Card Denies chest pain, Reports irregular heart rhythm (Paroxysmal atrial fibrillation), Denies leg edema and Denies dyspnea Resp Denies cough, Denies dyspnea, Reports snoring and Denies wheezing GI Reports no additional complaints Reports no additional complaints Musc Reports no additional complaints Skin/Breast Reports system reviewed and no additional complaints, except as documented Neuro Reports no additional complaints Psych Reports no additional complaints Aller/Immun Denies wheezing Physical Exam Vital Signs: Last Vital Signs Pulse 56 04/13/23 14:03 BP 120/52 L 04/13/23 14:03 Pulse Ox 97 04/13/23 14:03 Oxygen Delivery Method Room Air 04/13/23 14:03 BMI result Body Mass Index 35.6 Const General: healthy appearing (Except for being overweight), comfortable, no acute distress, alert and awake Orientation/consciousness: patient oriented x3 HEENT Head: Yes normal to inspection General nose exam: No nasal polyps present and No nasal discharge present Face and sinus: Yes sinuses nontender Mouth: oropharynx abnormals (Slightly narrow, Mallampati class 3) Throat: Yes posterior oropharynx normal Eyes General: appearance normal, both eyes and all related structures Neck Neck: Yes normal visual inspection, Yes no lymphadenopathy, Yes trachea midline, Yes no JVD and Yes other (Neck circumference 17 in) Thyroid: Thyroid normal Chest Chest palpation & inspection: normal inspection of the chest, normal palpation of entire chest wall and no tenderness Resp Other: Percussion note is diminished due to obese chest wall. Breath sounds slightly diminished over the basilar areas. No wheezes or crepitations are heard. NO COUGH WAS NOTED EVEN WITH DEEP INSPIRATION. Cardio Palpation: normal PMI Rate: regular rate Rhythm: regular rhythm Heart sounds: no gallops and no murmurs GI Palpation (GI): Soft to palpation, Tenderness to palpation present (GI), No hepatosplenomegaly present, Palpable mass present and Other GI palpation findings present (Abdomen is slightly protuberant) Auscultation: normal bowel sounds Back/Spine/Pelvis Thoracic/Lumbar Spine: thoracic and lumbar spine normal to inspection Skin General skin exam: no rashes or lesions noted Neuro General: patient oriented x3 and no focal motor deficits Cranial nerves: Yes CN's II-XII intact bilaterally Extrem General: Yes normal to inspection, Yes no clubbing, cyanosis or edema and Yes no calf tenderness Psych Appearance: grossly normal and well kempt Speech and movement: Normal speech and movement present Assessment & Plan Assessment & Plan (1) COPD (chronic obstructive pulmonary disease): Comment: Patient does have features of Asthma/ chronic obstructive pulmonary disease, last PFT done in 2015 She has been intermittent bouts of wheezing and cough , after COVID -19 in 2021 But now her cough is very minimal. TX : Continue Advair , but dose may be decreased to 250-50 1 inhalation b.i.d.. Use ProAir 2 puffs Q 6 hours only for emergency and not on regular basis Code(s): J44.9 - Chronic obstructive pulmonary disease, unspecified (2) Obesity (BMI 30-39.9): Comment: She has been morbidly obese , has lost significant weight. Currently she is grossly obese with BMI 35.6 She continues to watch her diet. Code(s): E66.9 - Obesity, unspecified (3) Obstructive sleep apnea hypopnea, severe: Comment: As per her SLEEP STUDY, she had rather severe degree of obstructive sleep apnea, and some nocturnal hypoxemia. She did try to use CPAP which she could not, and finally returned the device. She has lost some weight and at present she denies any significant symptoms of CLARE. She claims that she sleeps fairly well and denies any daytime sleepiness. She tries to sleep in lateral position. * patient is advised to continue losing weight slowly. Always sleep in lateral position and avoid sleeping in the supine position. Code(s): G47.33 - Obstructive sleep apnea (adult) (pediatric) Medications: New fluticasone propion-salmeterol 250-50 mcg/dose (Advair Diskus) 1 inh inhalation BID 60 ea 0RF copd 30 days Coding Level of Care Code Est Pt Level 3 (62883) Diagnoses COPD (chronic obstructive pulmonary disease) J44.9 Obesity (BMI 30-39.9) E66.9 Obstructive sleep apnea hypopnea, severe G47.33
== END 2023-04-13 14:32 | disposition home or self-care (01) ==
PROVIDERS: PCP Family Medicine; Visit Provider Internal Medicine
DX: J44.9 Chronic obstructive pulmonary disease, unspecified (principal); E66.9 Obesity, unspecified; G47.33 Obstructive sleep apnea (adult) (pediatric)
CPT/HCPCS: 99213

== ENCOUNTER → 2023-04-13 13:57 | Outpatient (BNVA) | payer MEDICAID, SELFPAY | PROVIDERS: PCP Family Medicine; Visit Provider Internal Medicine | DX: J44.9 Chronic obstructive pulmonary disease, unspecified (principal); G47.33 Obstructive sleep apnea (adult) (pediatric); E66.9 Obesity, unspecified; Z68.35 Body mass index [BMI] 35.0-35.9, adult | CPT/HCPCS: 99212 ==

== ENCOUNTER 2023-05-05 15:31 | Outpatient (REF) | payer MEDICAID, SELFPAY | END 2023-05-05 15:32 | disposition home or self-care (01) | LOC: HO.MDS 15:31 | PROVIDERS: Visit Provider Internal Medicine Medical Oncology | DX: D50.8 Other iron deficiency anemias (principal) | CPT/HCPCS: 96365; J1756 ==

== ENCOUNTER 2023-05-11 13:30 | Outpatient (REF) | payer MEDICAID, SELFPAY | END 2023-05-11 13:31 | disposition home or self-care (01) | LOC: HO.MDS 13:30 | PROVIDERS: Visit Provider Internal Medicine Medical Oncology | DX: D50.8 Other iron deficiency anemias (principal) | CPT/HCPCS: 96365; J1756 ==

== ENCOUNTER 2023-05-24 12:25 | Outpatient (REF) | payer MEDICAID, SELFPAY | END 2023-05-24 12:26 | disposition home or self-care (01) | LOC: HO.MDS 12:25 | PROVIDERS: Visit Provider Internal Medicine Medical Oncology | DX: D50.8 Other iron deficiency anemias (principal) | CPT/HCPCS: 96365; J1756 ==

== ENCOUNTER 2023-05-26 11:05 | Outpatient (REF) | payer MEDICAID, SELFPAY ==
[2023-05-26 14:21] LABS: Anion Gap 9 (12-20); Blood Urea Nitrogen 14 mg/dL (9-16); Calcium 9.2 mg/dL (8.4-10.2); Carbon Dioxide 27 mmol/L (22-29); Chloride 106 mmol/L (96-108); Estimated Glomerular Filt Rate > 60; Glucose Random 91 mg/dL (60-115); Potassium 4.4 mmol/L (3.3-5.1); Sodium 138 mmol/L (135-145)
[2023-05-26 15:09] LABS: Estimated Average Glucose 117 mg/dL; Hemoglobin A1C 102.6774 umol/L; Hemoglobin A1c % 5.7 % (<6.0)
[2023-05-26 16:02] LABS: Creatinine Urine 145.43 mg/dL
== END 2023-05-26 11:06 | disposition home or self-care (01) ==
LOC: HO.HHCL 11:05
PROVIDERS: Visit Provider Family Medicine
DX: E11.9 Type 2 diabetes mellitus without complications (principal)
CPT/HCPCS: 36415; 80048; 82043; 83036

== ENCOUNTER 2023-06-01 12:38 | Outpatient (REF) | payer MEDICAID, SELFPAY | END 2023-06-01 12:39 | disposition home or self-care (01) | LOC: HO.MDS 12:38 | PROVIDERS: Visit Provider Internal Medicine Medical Oncology | DX: D50.9 Iron deficiency anemia, unspecified (principal) | CPT/HCPCS: 96365; 99212; J1756 ==

== ENCOUNTER 2023-06-01 13:43 | Outpatient (AMB) | payer MEDICAID, SELFPAY ==
--- NOTE | 2023-06-01 14:07 | A.OFFVIS_ITS ---
Intake Vital Signs 06/01/23 14:09 Height 5 ft 5 in Weight 210 lb 5.136 oz BMI 35.0 BP 123/58 L Blood Pressure Location Lt brachial Position Sitting Pulse 65 Intake Visit Reasons: Colonoscopy Screening / Dr. Chavez pt Intake Note: ana presents in office as a new.patient for a colonoscopy screening PT CC: pt reports having constipation , 2nd colo pt denies any other GI Issues Vocational Rehabilitation Teacher Required: Yes Vocational Rehabilitation Teacher Language: Korean Accompanied by: Self / Same As Patient Allergies No Known Allergies Allergy (Verified 06/01/23 14:07) HPI Colonoscopy Screening / Dr. Chavez pt HPI Details 62-year-old female with past medical his tory of obesity, anemia, COPD, CLARE, PAF is here today for initial consultation. Patient had colonoscopy in the past with Dr. Chavez. Patient reports that she has been constipated and does not move her bowels every day. Patient states that when she does move her bowels she does not move them completely. Patient is on Eliquis for atrial fibrillation. Sees Cardiology at [facility]. Has not seen anyone since December. Patient reports occasional shortness of breath with and without exertion. Denies any chest pain. Denies any palpitations. Patient takes ome prazole for acid reflux. Patient states that she does not have any dyspepsia, dysphagia or odynophagia. [facility] Medical History Asthma Atrial fibrillation, new onset Back pain COPD (chronic obstructive pulmonary disease) Morbid obesity Obesity (BMI 30-39.9) PAF (paroxysmal atrial fibrillation) Surgical History No pertinent past surgical history Family History Mother High cholesterol HTN (hypertension) Father HTN (hypertension) High cholesterol Social History Household Members: Children Housing: Apartment Do you presently have visiting nurse or other home services: No Alcohol intake: never Patient Tobacco Use Status: Never used Tobacco Advance Directives Date on File: 06/02/21 service: No Current occupational status: employed Review of Systems Const Denies weight gain and Denies weight loss ENT Reports no additional complaints, Denies dysphagia and Denies odynophagia Card Reports no additional complaints Resp Reports no additional complaints GI Denies abdominal pain, Denies belching, Denies melena, Denies bloating, Reports constipation, Denies dysphagia, Denies excessive flatus, Denies dyspepsia, Denies heartburn, Denies diarrhea, Denies loose stools, Denies nausea, Denies odynophagia and Denies vomiting Musc Reports no additional complaints Neuro Reports no additional complaints Psych Reports no additional complaints Endo Reports no additional complaints Physical Exam Vital Signs: Last Vital Signs Pulse 65 06/01/23 14:09 BP 123/58 L 06/01/23 14:09 BMI result Body Mass Index 35.0 Const General: healthy appearing, no acute distress and well developed Nutritional Appearance: obese Orientation/consciousness: patient oriented x3 HEENT Head: Yes normal to inspection, Yes normocephalic and Yes atraumatic Face and sinus: Yes normal facial exam Mouth: Normal oral and palatal mucosa present Throat: Yes posterior oropharynx normal, Yes tonsils normal and Yes uvula midline Eyes General: appearance normal, both eyes and all related structures Neck Neck: Yes normal visual inspection, Yes full ROM and Yes trachea midline Thyroid: Thyroid normal Resp Effort & Inspection: normal respiratory effort, able to speak in complete sentences, no tracheal deviation and symmetric chest movement Auscultation: clear to auscultation bilaterally Cardio Rate: regular rate Heart sounds: S1 normal heart sound present and S2 normal heart sound present GI Inspection: Yes normal to inspection, No distended and Yes obesity Palpation (GI): Soft to palpation, not firm, nontender and No hepatosplenomegaly present Auscultation: normal bowel sounds General: Yes no CVA tenderness Back/Spine/Pelvis Back: no CVA tenderness Skin General skin exam: elasticity normal, turgor normal and dry skin Neuro General: patient oriented x3 Psych Appearance: grossly normal Mental Status: mental status grossly normal Speech and movement: Normal speech and movement present Assessment & Plan Assessment & Plan (1) Constipation: Code(s): K59.00 - Constipation, unspecified Qualifiers: Constipation type: slow transit constipation Qualified Code(s): K59.01 - Slow transit constipation Plan: Start MiraLax and Colace. Patient was encouraged to increase fluid intake and activity to promote better bowel motility. (2) Screen for colon cancer: Code(s): Z12.11 - Encounter for screening for malignant neoplasm of colon Plan: History of colonoscopy in the past. Patient had no polyps. Patient is anemic. She is on Eliquis. Denies melena, hematochezia, unintentional weight loss or ribbon like stools. Patient is very constipated. Will see her in 5 weeks to discuss colonoscopy. Please book colonoscopy for patient. Will looking now in September. Will need to get risk stratification from Cardiology. Patient is agreeable to this plan and verbalizes understanding of instructions. She was given the opportunity to ask questions was answered. Thank you for allowing me to participate in her care Medications: New polyethylene glycol 3350 (Miralax) 17 grams PO DAILY 510 grams 2RF docusate sodium 200 mg (2 x 100 mg) PO BEDTIME 180 caps 3RF K59.00 - Constipation, unspecified Coding Level of Care Code New Pt Level 3 (85553) Diagnoses Slow transit constipation K59.01 Constipation type: slow transit constipation Screen for colon cancer Z12.11 Time Spent (min) 40 Comment 30 minutes spent with patient and additional 10 minutes spent reviewing her records
[2023-06-01 14:09] VITALS: BP 123/58; PULSE 65; BMI 35.0
== END 2023-06-01 14:37 | disposition home or self-care (01) ==
PROVIDERS: PCP Family Medicine; Visit Provider Nurse Practitioner Family
DX: K59.01 Slow transit constipation (principal); Z12.11 Encounter for screening for malignant neoplasm of colon
CPT/HCPCS: 99203

== ENCOUNTER 2023-06-10 12:36 | Outpatient (REF) | payer MEDICAID, SELFPAY | END 2023-06-10 12:37 | disposition home or self-care (01) | LOC: HO.MDS 12:36 | PROVIDERS: Visit Provider Internal Medicine Medical Oncology | DX: D50.8 Other iron deficiency anemias (principal) | CPT/HCPCS: 96365; J1756 ==

== ENCOUNTER 2023-06-22 12:16 | Outpatient (REF) | payer MEDICAID, SELFPAY | END 2023-06-22 12:17 | disposition home or self-care (01) | LOC: HO.MDS 12:16 | PROVIDERS: PCP Family Medicine; Visit Provider Internal Medicine Medical Oncology | DX: D50.8 Other iron deficiency anemias (principal) | CPT/HCPCS: 96365; J1756 ==

== ENCOUNTER 2023-06-23 07:58 | Outpatient (REF) | payer MEDICAID, SELFPAY | END 2023-06-23 07:59 | disposition home or self-care (01) | LOC: HO.MAMMO 07:58 | PROVIDERS: Visit Provider Family Medicine | DX: Z12.31 Encounter for screening mammogram for malignant neoplasm of breast (principal) | CPT/HCPCS: 77063; 77067 ==

== ENCOUNTER → 2023-06-23 08:15 | Outpatient (BNV) | payer MEDICAID, SELFPAY | PROVIDERS: Visit Provider Radiology Diagnostic Radiology | DX: Z12.31 Encounter for screening mammogram for malignant neoplasm of breast (principal) | CPT/HCPCS: 77063; 77067 ==

== ENCOUNTER 2023-06-29 10:33 | Outpatient (REF) | payer MEDICAID, SELFPAY | END 2023-06-29 10:34 | disposition home or self-care (01) | LOC: HO.MDS 10:33 | PROVIDERS: Visit Provider Internal Medicine Medical Oncology | DX: D50.8 Other iron deficiency anemias (principal) | CPT/HCPCS: 96365; J1756 ==

== ENCOUNTER 2023-07-06 12:43 | Outpatient (REF) | payer MEDICAID, SELFPAY | END 2023-07-06 12:44 | disposition home or self-care (01) | LOC: HO.MDS 12:43 | PROVIDERS: PCP Family Medicine; Visit Provider Internal Medicine Medical Oncology | DX: D50.8 Other iron deficiency anemias (principal) | CPT/HCPCS: 96365; J1756 ==

== ENCOUNTER 2023-09-19 11:42 | Outpatient (REF) | payer MEDICAID, SELFPAY ==
[2023-09-19 14:14] LABS: Blood Urea Nitrogen 19 mg/dL (9-16); Estimated Glomerular Filt Rate > 60
[2023-09-20 04:49] LABS: HBS Num1 0.51 mIU/mL (0-7.99); HBc Num1 0.16 S/CO (0.00-0.79); HBsAGNum1 0.29 S/CO (0.00-0.99); Hepatitis A Antibody IgM 0.21 Index (0-0.79); Hepatitis B Core Antibody Nonreactive (Nonreactive); Hepatitis B Surface Antigen Negative (Negative); ~HepC Num1 0.15 S/CO (0.00-0.79); ~Hepatitis A Antibody IgM Nonreactive (Nonreactive); ~Hepatitis B Surface Antibody NONREACTIVE (Nonreactive); ~Hepatitis C Antibody Nonreactive (Nonreactive)
== END 2023-09-19 11:43 | disposition home or self-care (01) ==
LOC: HO.HHCL 11:42
PROVIDERS: Visit Provider Family Medicine
DX: N20.0 Calculus of kidney (principal); R10.9 Unspecified abdominal pain; Z11.59 Encounter for screening for other viral diseases; Z01.84 Encounter for antibody response examination
CPT/HCPCS: 36415; 82565; 84520; 86704; 86706; 86709; 86803; 87340

== ENCOUNTER 2023-10-20 16:21 | Outpatient (REF) | payer MEDICAID, SELFPAY ==
--- NOTE | ~2023-10-20 | CT_ITS ---
EXAMINATION: CT ABDOMEN AND PELVIS WITHOUT CONTRAST CLINICAL INFORMATION: Right flank pain; history of renal calculus. COMPARISON: CT abdomen and pelvis dated 02/23/2023. TECHNIQUE: Multidetector volumetric imaging was performed from the superior aspect of the liver through the pubic symphysis. Sagittal and coronal reformatted images were obtained on the technologist's workstation. This CT examination was performed using dose optimization techniques as appropriate, variously including the following: *Automated exposure control *Adjustment of mA and/or kV according to patient size (this includes techniques or standardized protocols for targeted exams where dose is matched to indication/reason for exam; i.e. extremities or head) *Use of iterative reconstruction technique DLP: 607 mGy-cm FINDINGS: LUNG BASES: The visualized lung bases are unremarkable. LIVER, GALLBLADDER, AND BILIARY TREE: The included liver is normal in size, shape, and attenuation. No focal hepatic lesion or biliary ductal dilatation is present. The gallbladder is unremarkable with no evidence of radiopaque gallstones, gallbladder wall thickening, or obvious pericholecystic inflammatory changes. PANCREAS: Unremarkable. SPLEEN: There is borderline splenomegaly, with a longitudinal span in the axial plane of 13.0 cm (3:12). ADRENAL GLANDS: Unremarkable. KIDNEYS AND URETERS: The kidneys are normal in size, shape, and attenuation. At the interpolar left kidney (4:218), there are 2 adjacent 4 mm nonobstructing calculi. At the lower pole of the left kidney (4:238), a 3 mm nonobstructing calculus is seen. No further urinary calculus is seen, and there is no bilateral hydronephroureter. No perinephric stranding. BLADDER: Unremarkable. GASTROINTESTINAL TRACT: There is minimal diverticulosis, without acute diverticulitis. No bowel obstruction, free intraperitoneal air or abscess is seen. There is no focal bowel wall thickening. The vermiform appendix appears normal. ABDOMINAL WALL: There is a diastases rectus. There is a small fat-containing umbilical hernia. LYMPH NODES: Normal. VASCULAR: There is moderate aortoiliac atherosclerotic calcification. No abdominal aortic aneurysm is seen. PELVIC VISCERA: The uterus and adnexa are unremarkable. OSSEOUS STRUCTURES: There is a corduroy appearance of the T11, L1 and L4 vertebra, consistent with hemangioma formation. No acute or aggressive osseous abnormality is seen. CT/CT abdomen pelvis wo IV con IMPRESSION: 1. There are nonobstructing bilateral renal calculi, as detailed. No ureteric calculus is seen. There is no obstructive uropathy. 2. There is borderline splenomegaly. 3. There is minimal diverticulosis, without acute diverticulitis. Fleischner guidelines were followed.
== END 2023-10-20 16:22 | disposition home or self-care (01) ==
LOC: HO.CT 16:21
PROVIDERS: PCP Family Medicine; Visit Provider Family Medicine
DX: N20.0 Calculus of kidney (principal); R10.9 Unspecified abdominal pain
CPT/HCPCS: 74176

== ENCOUNTER 2023-11-10 13:30 | Outpatient (AMB) | payer MEDICAID, SELFPAY ==
--- NOTE | 2023-11-10 13:41 | A.OFFVIS_ITS ---
Intake Vital Signs 11/10/23 13:42 Height 5 ft 5 in Weight 208 lb BMI 34.6 BP 124/68 Blood Pressure Location Lt brachial Position Sitting Pulse 47 L Pulse Source Pulse Oximeter Pulse Oximetry (%) 97 Oxygen Delivery Method Room Air Intake Visit Reasons: asthma Intake Note: pt is here for follow up and states she is feeling good. Cloth Mercerizer Back Tender Required: Yes Cloth Mercerizer Back Tender Name: [id number] Allergies No Known Allergies Allergy (Verified 11/10/23 13:53) Medication List - Last Reconciled 11/10/23 by Alysia Perez MD albuterol sulfate 90 mcg/actuation (Ventolin HFA) 2 puffs inhalation Q6H PRN apixaban (Eliquis) 5 mg PO BID atorvastatin 10 mg PO BEDTIME carvedilol 3.125 mg See Protocol PO BID 30 days cholecalciferol (vitamin D3) 1 tab PO QAM clonidine HCl 0.1 mg PO BEDTIME cyanocobalamin (vitamin B-12) 1 tab PO QAM diltiazem HCl (Cartia XT) 120 mg PO QAM diphenhydramine HCl (Benadryl Allergy) 25 mg PO TID PRN docusate sodium 200 mg (2 x 100 mg) PO BEDTIME fluoxetine 20 mg PO QAM fluticasone propion-salmeterol 250-50 mcg/dose (Advair Diskus) 1 inh inhalation BID 30 days [heel lift bilat heel lift ] lisinopril 40 mg PO QAM omeprazole 20 mg PO DAILY polyethylene glycol 3350 (Miralax) 17 grams PO DAILY HPI asthma HPI Details TRISTON IS A CASE OF MODERATE OBESITY AND OBSTRUCTIVE SLEEP APNEA. SHE HAS NOT BEEN ABLE TO USE CPAP BUT SHE IS TRYING TO LOSE WEIGHT. SHE HAS BEEN SLEEPING WELL WITHOUT ANY SNORING OF OR DISTURBANCE OF SLEEP. SHE FEELS GOOD. HER ASTHMA/COPD HAS BEEN WELL CONTROLLED WITH ADVAIR 250-50 1 INHALATION B.I.D.. SHE HAS HARDLY NEEDED TO USE ANY. RESCUE INHALER [facility] Medical History Obesity (BMI 30-39.9) COPD (chronic obstructive pulmonary disease) Morbid obesity PAF (paroxysmal atrial fibrillation) Atrial fibrillation, new onset Asthma Back pain Surgical History No pertinent past surgical history Family History Mother High cholesterol HTN (hypertension) Father HTN (hypertension) High cholesterol Social History Household Members: Children Housing: Apartment Do you presently have visiting nurse or other home services: No Alcohol intake: never Patient Tobacco Use Status: Never used Tobacco Advance Directives Date on File: 06/02/21 service: No Current occupational status: employed Review of Systems Const All systems reviewed & are unremarkable except as noted in HPI and below Reports snoring Eyes Reports no additional complaints ENT Reports no additional complaints Card Denies chest pain, Reports irregular heart rhythm (Paroxysmal atrial fibrillation), Denies leg edema and Denies dyspnea Resp Denies cough, Denies dyspnea, Reports snoring and Denies wheezing GI Reports no additional complaints Reports no additional complaints Musc Reports no additional complaints Skin/Breast Reports system reviewed and no additional complaints, except as documented Neuro Reports no additional complaints Psych Reports no additional complaints Aller/Immun Denies wheezing Physical Exam Vital Signs: Last Vital Signs Pulse 47 L 11/10/23 13:42 BP 124/68 11/10/23 13:42 Pulse Ox 97 11/10/23 13:42 Oxygen Delivery Method Room Air 11/10/23 13:42 BMI result Body Mass Index 34.6 Const General: healthy appearing (Except for being overweight), comfortable, no acute distress, alert and awake Orientation/consciousness: patient oriented x3 HEENT Head: Yes normal to inspection General nose exam: No nasal polyps present and No nasal discharge present Face and sinus: Yes sinuses nontender Mouth: oropharynx abnormals (Slightly narrow, Mallampati class 3) Throat: Yes posterior oropharynx normal Eyes General: appearance normal, both eyes and all related structures Neck Neck: Yes normal visual inspection, Yes no lymphadenopathy, Yes trachea midline, Yes no JVD and Yes other (Neck circumference 17 in) Thyroid: Thyroid normal Chest Chest palpation & inspection: normal inspection of the chest, normal palpation of entire chest wall and no tenderness Resp Other: Percussion note is diminished due to obese chest wall. Breath sounds slightly diminished over the basilar areas. No wheezes or crepitations are heard. NO COUGH WAS NOTED EVEN WITH DEEP INSPIRATION. Cardio Palpation: normal PMI Rate: regular rate Rhythm: regular rhythm Heart sounds: no gallops and no murmurs GI Palpation (GI): Soft to palpation, Tenderness to palpation present (GI), No hepatosplenomegaly present, Palpable mass present and Other GI palpation findings present (Abdomen is slightly protuberant) Auscultation: normal bowel sounds Back/Spine/Pelvis Thoracic/Lumbar Spine: thoracic and lumbar spine normal to inspection Skin General skin exam: no rashes or lesions noted Neuro General: patient oriented x3 and no focal motor deficits Cranial nerves: Yes CN's II-XII intact bilaterally Extrem General: Yes normal to inspection, Yes no clubbing, cyanosis or edema and Yes no calf tenderness Psych Appearance: grossly normal and well kempt Speech and movement: Normal speech and movement present Assessment & Plan Assessment & Plan (1) Obesity (BMI 30-39.9): Comment: She has been morbidly obese , has lost significant weight. Currently she is grossly obese but BMI is down to 34.5 Code(s): E66.9 - Obesity, unspecified Plan: She continues to watch diet and keep on losing more weight. (2) COPD (chronic obstructive pulmonary disease): Comment: ASTHMA/COPD ,VERY WELL CONTROLLED AND STABLE. Code(s): J44.9 - Chronic obstructive pulmonary disease, unspecified Plan: ADVAIR 250-51 INHALATION B.I.D. PROAIR 2 PUFFS Q 4-6 HOURS ONLY P.R.N.. (3) Obstructive sleep apnea hypopnea, severe: Comment: As per her SLEEP STUDY, she had rather severe degree of obstructive sleep apnea, and some nocturnal hypoxemia. She did try to use CPAP which she could not use and finally returned the device. Patient claims that she sleeps very well without any problem. She has no daytime sleepiness Code(s): G47.33 - Obstructive sleep apnea (adult) (pediatric) Plan: Advised to continue sleep hygiene measures. Continue to lose weight slowly Coding Level of Care Code Est Pt Level 3 (65352) Diagnoses Obesity (BMI 30-39.9) E66.9 COPD (chronic obstructive pulmonary disease) J44.9 Obstructive sleep apnea hypopnea, severe G47.33
[2023-11-10 13:42] VITALS: BP 124/68; PULSE 47; O2SAT 97; BMI 34.6
== END 2023-11-10 13:54 | disposition home or self-care (01) ==
PROVIDERS: PCP Family Medicine; Visit Provider Internal Medicine
DX: E66.9 Obesity, unspecified (principal); J44.9 Chronic obstructive pulmonary disease, unspecified; G47.33 Obstructive sleep apnea (adult) (pediatric)
CPT/HCPCS: 99213

== ENCOUNTER → 2023-11-10 13:30 | Outpatient (BNVA) | payer MEDICAID, SELFPAY | PROVIDERS: PCP Family Medicine; Visit Provider Internal Medicine | DX: J44.9 Chronic obstructive pulmonary disease, unspecified (principal); G47.33 Obstructive sleep apnea (adult) (pediatric); E66.9 Obesity, unspecified; Z68.34 Body mass index [BMI] 34.0-34.9, adult | CPT/HCPCS: 99212 ==

== ENCOUNTER 2023-12-27 13:37 | Outpatient (AMB) | payer MEDICAID, SELFPAY ==
[2023-12-27 13:48] VITALS: BP 96/50; PULSE 66; BMI 33.8
--- NOTE | 2023-12-27 13:48 | MHC.OFFVIS ---
Intake Vital Signs 12/27/23 13:48 Height 5 ft 5 in Weight 203 lb 4.259 oz BMI 33.8 BP 96/50 L Blood Pressure Location Lt brachial Position Sitting Pulse 66 Intake Visit Reasons: follow up Discuss colonoscopy Intake Note: Sydnee presents to in office visit today to discuss colonoscopy. CC: Patient c/o acid reflux and would like to have another medication, she states the one she is taking does not works well. She states she sometimes has constipation because she takes iron. Patient receives Medbox and does not know what medications she is taking. Foreign Exchange Services Manager Required: Yes Foreign Exchange Services Manager Language: Tamazight Accompanied by: Self / Same As Patient Allergies No Known Allergies Allergy (Verified 12/27/23 13:52) HPI follow up Discuss colonoscopy HPI Details LAST VISIT Constipation Start MiraLax and Colace. Patient was encouraged to increase fluid intake and activity to promote better bowel motility. Screen for colon cancer History of colonoscopy in the past. Patient had no polyps. Patient is anemic. She is on Eliquis. Denies melena, hematochezia, unintentional weight loss or ribbon like stools. Patient is very constipated. Will see her in 5 weeks to discuss colonoscopy. Please book colonoscopy for patient. Will looking now in September. Will need to get risk stratification from Cardiology. Patient is agreeable to this plan and verbalizes understanding of instructions. She was given the opportunity to ask questions was answered. ? Thank you for allowing me to participate in her care Plan Medications New polyethylene glycol 3350 (Miralax) 17 grams PO DAILY 510 grams 2RF docusate sodium 200 mg (2 x 100 mg) PO BEDTIME 180 caps 3RF K59.00 TODAY'S VISIT Patient is here today to discuss going for colonoscopy. Last seen by me in May of 2023 was supposed to return in July to discuss colonoscopy. Patient has been suffering with chronic constipation and continues to have trouble moving her bowels. Patient states that she is sometimes constipated for almost a week. Patient is taking stool softener and MiraLax, ran out several weeks ago. Currently also is taking iron supplement due to anemia. Her last H&H have improved 11/29/23 12:52 Hgb 12.1 Hct 35.0 L MCV 86.4 Patient denies melena, hematochezia, unintentional weight loss or ribbon like stools. Patient denies any dyspepsia, dysphagia or odynophagia. Patient also reports occasional acid reflux. Has been taking omeprazole for quite sometime and feels like it has not helping. Her symptoms are worse after meals. Patient is avoiding dietary triggers. Denies any nausea or vomiting. Has been followed by Hematology for microcytic hypochromic anemia. Sees pulmonology for COPD and CLARE. Patient has a history of PAF and is on Eliquis. Patient does not know what kind of medications she is taking. She has not aware that she is taking blood thinners. Patient will bring her medications to her next appointment so we can go over her medications. Patient also needs clearance from Cardiology history of AFib and missed couple appointments with her router tender. Last visit was documented in December of 2022 [facility] Medical History Obesity (BMI 30-39.9) COPD (chronic obstructive pulmonary disease) Morbid obesity PAF (paroxysmal atrial fibrillation) Atrial fibrillation, new onset Asthma Back pain Surgical History H/O colonoscopy S/P section Family History Mother High cholesterol HTN (hypertension) Father HTN (hypertension) High cholesterol Social History Household Members: Children Housing: Apartment Do you presently have visiting nurse or other home services: No Alcohol intake: never Patient Tobacco Use Status: Never used Tobacco Advance Directives Date on File: 06/02/21 service: No Current occupational status: employed Review of Systems Const Denies weight gain and Denies weight loss ENT Reports no additional complaints, Denies dysphagia and Denies odynophagia Card Reports no additional complaints Resp Reports no additional complaints GI Reports abdominal pain (LUQ), Denies belching, Denies melena, Denies bloating, Reports constipation, Denies dysphagia, Denies excessive flatus, Denies dyspepsia, Reports heartburn, Denies diarrhea, Denies loose stools, Denies nausea, Denies odynophagia and Denies vomiting Reports no additional complaints Musc Reports no additional complaints Neuro Reports no additional complaints Psych Reports no additional complaints Endo Reports no additional complaints Physical Exam Vital Signs: Last Vital Signs Pulse 66 12/27/23 13:48 BP 96/50 L 12/27/23 13:48 BMI result Body Mass Index 33.8 Const General: healthy appearing and no acute distress Nutritional Appearance: obese Orientation/consciousness: patient oriented x3 Resp Effort & Inspection: normal respiratory effort, able to speak in complete sentences, no tracheal deviation and symmetric chest movement Auscultation: clear to auscultation bilaterally Cardio Rate: regular rate GI Inspection: Yes normal to inspection, No distended and Yes obesity Palpation (GI): Soft to palpation, not firm, nontender and No hepatosplenomegaly present Auscultation: normal bowel sounds General: Yes no CVA tenderness Back/Spine/Pelvis Back: no CVA tenderness Skin General skin exam: elasticity normal, turgor normal and dry skin Neuro General: patient oriented x3 Psych Appearance: grossly normal Mental Status: mental status grossly normal Assessment & Plan Assessment & Plan (1) Constipation: Code(s): K59.00 - Constipation, unspecified Qualifiers: Constipation type: slow transit constipation Qualified Code(s): K59.01 - Slow transit constipation (2) Screen for colon cancer: Code(s): Z12.11 - Encounter for screening for malignant neoplasm of colon (3) GERD (gastroesophageal reflux disease): Code(s): K21.9 - Gastro-esophageal reflux disease without esophagitis Qualifiers: Esophagitis presence: esophagitis presence not specified Qualified Code(s): K21.9 - Gastro-esophageal reflux disease without esophagitis (4) Postprandial abdominal bloating: Code(s): R14.0 - Abdominal distension (gaseous) (5) Postprandial abdominal pain in left upper quadrant: Code(s): R10.12 - Left upper quadrant pain Plan Patient will be book for the procedure, however she will return in 5 weeks with her medications so we can go over all the meds that she is taking. Patient is constipated she can continue taking MiraLax and Colace and we will add Dulcolax daily. Patient was encouraged to increase fluid intake and activity to promote better bowel motility. We will change her PPI to pantoprazole 40 mg daily. Patient was instructed to avoid dietary triggers and late night snacking. She will be booked also for upper endoscopy. Script for Proctosol given to patient. Patient does report occasional blood when wiping after bowel movements. Patient states she has history of hemorrhoids. William gil behavioral health director used. Patient is agreeable to this plan of care and verbalizes understanding of instructions. She was given the opportunity to ask questions and all questions answered. Thank you for allowing me to participate in her care Medications: New pantoprazole take one tablet half an hour before breakfast 40 mg PO DAILY 90 tabs 2RF K21.9 - Gastro-esophageal reflux disease without esophagitis bisacodyl (Dulcolax (bisacodyl)) 10 mg (2 x 5 mg) PO BEDTIME 180 tabs 4RF hydrocortisone 2.5% (Proctosol HC) 1 appl OR BID-QID PRN 30 grams 2RF hemorrhoids K64.9 - Unspecified hemorrhoids Coding Level of Care Code Est Pt Level 4 (55284) Diagnoses Slow transit constipation K59.01 Constipation type: slow transit constipation Screen for colon cancer Z12.11 Gastroesophageal reflux disease, unspecified whether esophagitis present K21.9 Esophagitis presence: esophagitis presence not specified Postprandial abdominal bloating R14.0 Postprandial abdominal pain in left upper quadrant R10.12 Time Spent (min) 35 Comment 20 minutes spent with patient and additional 15 minutes spent reviewing her records
== END 2023-12-27 14:11 | disposition home or self-care (01) ==
PROVIDERS: PCP Family Medicine; Visit Provider Nurse Practitioner Family
DX: K59.01 Slow transit constipation (principal); Z12.11 Encounter for screening for malignant neoplasm of colon; K21.9 Gastro-esophageal reflux disease without esophagitis; R14.0 Abdominal distension (gaseous); R10.12 Left upper quadrant pain
CPT/HCPCS: 99214

== ENCOUNTER → 2023-12-27 13:37 | Outpatient (BNVA) | payer MEDICAID, SELFPAY | PROVIDERS: PCP Family Medicine; Visit Provider Nurse Practitioner Family | DX: Z12.11 Encounter for screening for malignant neoplasm of colon (principal); K59.01 Slow transit constipation; K21.9 Gastro-esophageal reflux disease without esophagitis | CPT/HCPCS: 99212 ==

== ENCOUNTER 2024-01-30 10:15 | Outpatient (REF) | payer MEDICAID, SELFPAY ==
[2024-01-30 11:34] LABS: MANUAL DIFF FLAG NO
[2024-01-30 11:39] LABS: Basophils Percent Auto 0.3 % (0-2); Eosinophils Absolute Auto 0.2 X10*3/uL (0.0-0.4); Eosinophils Percent Auto 1.6 % (0-4); Hematocrit 31.9 % (37.0-47.0); Imm Gran Abs Auto 0.05 X10*3/uL (0.00-0.03); Imm Gran Pct Auto 0.5 % (0.0-0.4); Lymphocytes Absolute Auto 1.6 X10*3/uL (1.2-4.9); Lymphocytes Percent Auto 15.1 % (20-40); Mean Corpuscular HGB Conc 34.5 g/dl (31.0-35.0); Mean Corpuscular Hemoglobin 30.8 pg (27.0-33.0); Mean Corpuscular Volume 89.4 fL (80.0-98.0); Mean Platelet Volume 10.3 fL (9.4-12.3); Monocytes Absolute Auto 0.7 X10*3/uL (0.1-1.2); Monocytes Percent Auto 6.4 % (2-11); Neutrophils Absolute Auto 8.2 x10*3/uL (2.0-8.3); Neutrophils Percent Auto 76.1 % (45-73); Platelet Count 189 X10*3/uL (160-400); Red Blood Count 3.57 X10*6/uL (4.20-5.50); Red Cell Distribution Width 12.6 % (11.0-16.0); White Blood Count 10.8 X10*3/uL (4.8-10.8)
[2024-01-30 12:51] LABS: Creatinine Urine 97.54 mg/dL; Microalbum/Creatinine Ratio Ur 8.2 ug/mg cr (<30)
[2024-01-30 13:15] LABS: Alanine Aminotransferase 18 U/L (0-31); Albumin Level 3.9 g/dL (3.5-5.0); Alkaline Phosphatase 81 U/L (39-117); Anion Gap 12 (12-20); Aspartate Amino Transferase 12 U/L (5-31); Bilirubin Total 0.5 mg/dL (0.0-1.0); Blood Urea Nitrogen 14 mg/dL (9-16); Carbon Dioxide 26 mmol/L (22-29); Chloride 105 mmol/L (96-108); Cholesterol 137 mg/dL (<200); Estimated Glomerular Filt Rate > 60; Glucose Random 122 mg/dL (60-115); HDL Cholesterol 36 mg/dL (>40); Iron 20 mcg/dL (30-160); LDL Cholesterol Calculated 82 mg/dL (<100); Percent Iron Saturation 10 % (15-50); Sodium 139 mmol/L (135-145); Total Iron Binding Capacity 195 mcg/dL (228-428); Total Protein 7.4 g/dL (6.5-8.0); Triglycerides 99 mg/dL (<150); Unsaturated Iron Binding 175 ug/dL
[2024-01-30 13:23] LABS: Ferritin 392 ng/mL (10-250); TSH reflex Free T4 1.28 uIU/mL (0.32-4.0)
[2024-01-30 13:45] LABS: Folate 18.5 ng/mL (> or = 4.0); Vitamin B12 854 pg/mL (200-900)
[2024-01-30 14:14] LABS: Reflex LDLD? No
== END 2024-01-30 10:16 | disposition home or self-care (01) ==
LOC: HO.HHCL 10:15
PROVIDERS: Visit Provider Family Medicine
DX: D51.9 Vitamin B12 deficiency anemia, unspecified (principal); E78.5 Hyperlipidemia, unspecified; E11.9 Type 2 diabetes mellitus without complications; K59.01 Slow transit constipation; K21.9 Gastro-esophageal reflux disease without esophagitis; R14.0 Abdominal distension (gaseous); R10.12 Left upper quadrant pain; Z51.81 Encounter for therapeutic drug level monitoring
CPT/HCPCS: 36415; 80053; 80061; 82043; 82570; 82607; 82728; 82746; 83540; 84443; 85025; 99212

== ENCOUNTER 2024-01-30 11:41 | Outpatient (AMB) | payer MEDICAID, SELFPAY ==
--- NOTE | 2024-01-30 11:43 | MHC.OFFVIS ---
Vital Signs 01/30/24 11:49 Height 5 ft 5 in Weight 204 lb BMI 33.9 BP 130/72 Blood Pressure Location Lt brachial Position Sitting Pulse 63 Intake Visit Reasons: medication check Intake Note: Patient is seen in office for med checks. 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 Patient is constipated she can continue taking MiraLax and Colace and we will add Dulcolax daily. Patient was encouraged to increase fluid intake and activity to promote better bowel motility. We will change her PPI to pantoprazole 40 mg daily. Patient was instructed to avoid dietary triggers and late night snacking. She will be booked also for upper endoscopy. Script for Proctosol given to patient. Patient does report occasional blood when wiping after bowel movements. Patient states she has history of hemorrhoids. William gil nurse practitioner manager used. Patient is agreeable to this plan of care and verbalizes understanding of instructions. She was given the opportunity to ask questions and all questions answered. ? Thank you for allowing me to participate in her care Medications New pantoprazole take one tablet half an hour before breakfast 40 mg PO DAILY 90 tabs 2RF K21.9 bisacodyl (Dulcolax (bisacodyl)) 10 mg (2 x 5 mg) PO BEDTIME 180 tabs 4RF hydrocortisone 2.5% (Proctosol HC) 1 appl AR BID-QID PRN 30 grams 2RF hemorrhoids K64.9 TODAY'S VISIT: Patient is here today for follow-up. Patient reports that she has been feeling much better since she started taking Pantoprazole daily. Patient is also taking Dulcolax tablets every and is moving her bowels better now. Patient denies any melena, hematochezia, unintentional weight loss or ribbon like stools. Occasional acid reflux depending on what she eats, denies dyspepsia, dysphagia or odynophagia. Patient is booked for colonoscopy and upper endoscopy April 26 and she has appointment in April 09 to discuss prep and re-evaluate. [facility] Medical History Obesity (BMI 30-39.9) COPD (chronic obstructive pulmonary disease) Morbid obesity PAF (paroxysmal atrial fibrillation) Atrial fibrillation, new onset Asthma Back pain Surgical History H/O colonoscopy S/P section Family History Mother High cholesterol HTN (hypertension) Father HTN (hypertension) High cholesterol Social History Household Members: Children Housing: Apartment Do you presently have visiting nurse or other home services: No Alcohol intake: never Patient Tobacco Use Status: Never used Tobacco Advance Directives Date on File: 06/02/21 service: No Current occupational status: employed Physical Exam Vital Signs: Last Vital Signs Pulse 63 01/30/24 11:49 BP 130/72 01/30/24 11:49 BMI result Body Mass Index 33.9 Assessment & Plan Assessment & Plan (1) Constipation: Code(s): K59.00 - Constipation, unspecified Qualifiers: Constipation type: slow transit constipation Qualified Code(s): K59.01 - Slow transit constipation (2) Screen for colon cancer: Code(s): Z12.11 - Encounter for screening for malignant neoplasm of colon (3) GERD (gastroesophageal reflux disease): Code(s): K21.9 - Gastro-esophageal reflux disease without esophagitis Qualifiers: Esophagitis presence: esophagitis presence not specified Qualified Code(s): K21.9 - Gastro-esophageal reflux disease without esophagitis (4) Postprandial abdominal bloating: Code(s): R14.0 - Abdominal distension (gaseous) (5) Postprandial abdominal pain in left upper quadrant: Code(s): R10.12 - Left upper quadrant pain Plan Continue management with PPI. Avoid dietary triggers and late night snacking. Staying upright for minimal 3 hours after meals discussed with patient. Continue taking Dulcolax. Patient was encouraged to increase fluid intake and activity to promote better bowel motility. Patient will keep her April appointment to go over the procedure. Patient is somewhat confused and not realizing that she already has a procedure booked for April 26. Patient will call our office if she will have any GI concerning symptoms. She is agreeable to this plan and verbalizes understanding of instructions. She was given the opportunity to ask questions and all questions answered. Thank you for allowing me to participate in her care Coding Level of Care Code Est Pt Level 3 (04978) Diagnoses Slow transit constipation K59.01 Constipation type: slow transit constipation Screen for colon cancer Z12.11 Gastroesophageal reflux disease, unspecified whether esophagitis present K21.9 Esophagitis presence: esophagitis presence not specified Postprandial abdominal bloating R14.0 Postprandial abdominal pain in left upper quadrant R10.12 Time Spent (min) 25 Comment 15 minutes spent with patient and additional 10 minutes spent reviewing her records
[2024-01-30 11:49] VITALS: BP 130/72; PULSE 63; BMI 33.9
== END 2024-01-30 12:12 | disposition home or self-care (01) ==
PROVIDERS: PCP Family Medicine; Visit Provider Nurse Practitioner Family
DX: K59.01 Slow transit constipation (principal); Z12.11 Encounter for screening for malignant neoplasm of colon; K21.9 Gastro-esophageal reflux disease without esophagitis; R14.0 Abdominal distension (gaseous); R10.12 Left upper quadrant pain
CPT/HCPCS: 99213

== ENCOUNTER 2024-02-06 13:45 | Outpatient (REF) | payer MEDICAID, SELFPAY ==
--- NOTE | ~2024-02-06 | US_ITS ---
EXAMINATION: US SOFT TISSUES RIGHT BACK CLINICAL INFORMATION: Painful focus of right lower back soft tissues without palpable finding. COMPARISON: CT chest dated 05/22/2021. TECHNIQUE: Using a linear array transducer with grayscale and color modalities, ultrasound examination is performed of the soft tissues of the right lower back. FINDINGS: The cutaneous, subcutaneous, muscular and fascial planes are unremarkable. Corresponding with the painful focus in the right lower back, a 7 x 6 x 7 mm hyperechoic, ill-defined subcutaneous focus is seen. This shows no associated color Doppler flow and no significant change in through transmission. There is no lymphadenopathy. No fluid collection is seen. No foreign body is noted US/US chest IMPRESSION: Corresponding with the painful focus in the right lower back soft tissues, a 7 mm ill-defined hyperechoic subcutaneous focus is seen. The possibility of a lipoma is raised; the exact etiology is indeterminate. If of continued clinical concern, this can be further evaluated with MRI.
== END 2024-02-06 13:46 | disposition home or self-care (01) ==
LOC: HO.US 13:45
PROVIDERS: PCP Family Medicine; Visit Provider Family Medicine
DX: R22.2 Localized swelling, mass and lump, trunk (principal)
CPT/HCPCS: 76604

== ENCOUNTER 2024-02-25 10:10 | Emergency (ER) | payer MEDICAID, SELFPAY ==
--- NOTE | ~2024-02-25 | XR_ITS ---
EXAMINATION: XR HIP, LEFT , AP pelvis CLINICAL INFORMATION: Pain COMPARISON: None available at the time of this dictation. TECHNIQUE: Frontal and lateral views of the hip acquired. , AP pelvis FINDINGS: There is no evidence of acute fracture or dislocation. There are mild degenerative arthritic changes of the hip evident by sclerotic changes of the acetabular roof and narrowing of the joint space. Mild degenerative changes of the symphysis pubis. Mild degenerative changes of the SI joints. Adjacent pubic rami are intact. Surrounding soft tissues are unremarkable. XR/XR hip LT w PEL1V IMPRESSION: Mild degenerative arthritis. .
[2024-02-25 11:01] VITALS: BP 97/52; PULSE 63; RESP 18; TEMP 36.7; O2SAT 97; BMI 36.4
--- NOTE | 2024-02-25 11:02 | ED.GENADULT ---
HPI - General Adult General Chief complaint: Extremity Injury, Lower Stated complaint: l side hip and leg pain Time Seen by Provider: 02/25/24 13:25 History of Present Illness HPI narrative: patient complains of pain in left hip area shooting down into the lateral left thigh over last week to 10 days with no injury, she is able to walk and move but it is painful, there is no numbness or weakness, she denies back pain, there is no radiation beyond the left upper outer thigh, there is no numbness weakness or tingling, no changes to bowel or bladder no muscle weakness no loss of sensation no dysuria No chest pain no shortness of breath no abdominal no flank Related Data Home Medications ?Medication ?Instructions ?Recorded ?Confirmed cholecalciferol (vitamin D3) 50 1 tab PO QAM 05/29/21 11/29/23 mcg (2,000 unit) tablet cyanocobalamin (vitamin B-12) 1 tab PO QAM 05/30/21 11/29/23 1,000 mcg tablet clonidine HCl 0.1 mg tablet 0.1 mg PO BEDTIME 09/15/21 11/29/23 fluoxetine 20 mg capsule 20 mg PO QAM 12/07/22 11/29/23 lisinopril 40 mg tablet 40 mg PO QAM 12/07/22 11/29/23 ferrous sulfate 325 mg (65 mg 325 mg PO QAM 12/27/23 iron) tablet,delayed release Previous Rx's ?Medication ?Instructions ?Recorded heel lift #1 ea 08/21/20 albuterol sulfate 90 mcg/actuation 2 puff inhalation Q6H PRN 06/01/21 aerosol inhaler (Ventolin HFA) shortness of breath or wheezing #6.7 grams apixaban 5 mg tablet (Eliquis) 5 mg PO BID #60 tabs 06/01/21 carvedilol 3.125 mg tablet 3.125 mg PO BID 30 days #60 tabs 06/01/21 diphenhydramine HCl 25 mg tablet 25 mg PO TID PRN itching #20 tabs 02/23/23 (Benadryl Allergy) atorvastatin 10 mg tablet 10 mg PO BEDTIME #90 tabs 03/28/23 diltiazem HCl 120 mg 120 mg PO QAM #90 caps 03/28/23 capsule,extended release 24 hr (Cartia XT) fluticasone 250 mcg-salmeterol 50 1 inh inhalation BID copd 30 days 04/13/23 mcg/dose blistr powdr for #60 ea inhalation (Advair Diskus) docusate sodium 100 mg capsule 200 mg (2 x 100 mg) PO BEDTIME 06/01/23 #180 caps polyethylene glycol 3350 17 17 g PO DAILY #510 grams 06/01/23 gram/dose oral powder (Miralax) bisacodyl 5 mg tablet,delayed 10 mg (2 x 5 mg) PO BEDTIME #180 12/27/23 release (Dulcolax (bisacodyl)) tabs hydrocortisone 2.5 % topical cream 1 appl NC BID-QID PRN hemorrhoids 12/27/23 with perineal applicator #30 grams (Proctosol HC) pantoprazole 40 mg tablet,delayed 40 mg PO DAILY #90 tabs 12/27/23 release oxycodone 5 mg tablet 5 mg PO BID PRN pain #14 tabs 02/25/24 oxycodone 5 mg tablet 5 mg PO BID PRN pain #14 tabs 02/25/24 Allergies Allergy/AdvReac Type Severity Reaction Status Date / Time No Known Allergies Allergy Verified 02/25/24 11:11 [facility] Past Medical History Source: nursing notes reviewed Medical History Obesity (BMI 30-39.9) COPD (chronic obstructive pulmonary disease) Morbid obesity PAF (paroxysmal atrial fibrillation) Atrial fibrillation, new onset Asthma Back pain Surgical History H/O colonoscopy S/P section Family History Family History Mother High cholesterol HTN (hypertension) Father HTN (hypertension) High cholesterol Social History Social History Household Members: Children Housing: Apartment Do you presently have visiting nurse or other home services: No Alcohol intake: never Patient Tobacco Use Status: Never used Tobacco Advance Directives: Yes Advance Directives on File: Yes Advance Directives Date on File: 06/02/21 service: No Current occupational status: employed Physical Exam ED Vital Signs: Vital Signs - 24 hr 02/25/24 11:01 Temperature 98.1 F Pulse Rate 63 Respiratory Rate 18 Blood Pressure 97/52 L Pulse Oximetry 97 Oxygen Delivery Method Room Air BMI result Body Mass Index 36.4 general appearance no distress Head is normocephalic atraumatic Neck is supple nontender Respiratory no distress Abdomen soft nontender The back no tenderness, skin of the back is normal The back has full range of motion Extremities the left hip is tender, it has good range of motion but there is discomfort with abduction and flexion Skin of the hip and thigh are normal there is no redness no warmth no swelling no induration No obvious lymphadenopathy no inguinal adenopathy Skin no rash Neuro no focal motor sensory deficits, patient ambulates easily without assistance but with a mild limp Course Course Course Narrative: patient with gradually worsening left hip pain with no injury over past week to 10 days X-ray showed no evidence of fracture, but there was evidence of degenerative changes consistent with osteoarthritis Patient had good range of motion in the joint which is not red or swollen, she can bear weight on the leg, septic arthritis very unlikely, she is afebrile and is diagnosed with arthralgia of left hip likely secondary to mild arthritis and will follow with the orthopedist A blood pressure from triage showed BP 97/52, this was repeated with no treatment or intervention and was 136/52 Discharge Plan Discharge Clinical Impression: Arthralgia of hip, left Patient Disposition: Home, Self-Care Additional Instructions: x-ray showed mild arthritis in the joint which certainly can cause pain At this time there is no sign of infection or any dangerous condition Follow with orthopedist for further evaluation Use Tylenol or if needed oxycodone for pain Activity as tolerated is good Return any time any worse condition or any concerns Prescriptions: New oxycodone 5 mg tablet 5 mg PO BID PRN (Reason: pain) Qty: 14 0RF Rx Instructions: Partial Fill upon patient request. oxycodone 5 mg tablet 5 mg PO BID PRN (Reason: pain) Qty: 14 0RF Rx Instructions: Partial Fill upon patient request. No Action atorvastatin 10 mg tablet 10 mg PO BEDTIME Qty: 90 3RF diltiazem HCl [Cartia XT] 120 mg capsule,extended release 24hr 120 mg PO QAM Qty: 90 3RF cholecalciferol (vitamin D3) 50 mcg (2,000 unit) tablet 1 tab PO QAM cyanocobalamin (vitamin B-12) 1,000 mcg tablet 1 tab PO QAM Eliquis 5 mg Tablet 5 mg PO BID Qty: 60 0RF carvedilol 3.125 mg Tablet 3.125 mg PO BID 30 Days Qty: 60 0RF Protocol: Hold for SBP/HR < HOLD for SBP < : 90 HOLD for HR < : 60 albuterol sulfate [Ventolin HFA] 90 mcg/actuation HFA aerosol inhaler 2 puff inhalation Q6H PRN (Reason: shortness of breath or wheezing) Qty: 6.7 1RF clonidine HCl 0.1 mg tablet 0.1 mg PO BEDTIME fluoxetine 20 mg capsule 20 mg PO QAM diphenhydramine HCl [Benadryl Allergy] 25 mg tablet 25 mg PO TID PRN (Reason: itching) Qty: 20 0RF (DME) heel lift See Rx Instructions .Route .MEDSUPPLY Qty: 1 0RF Rx Instructions: bilat heel lift lisinopril 40 mg tablet 40 mg PO QAM fluticasone propion-salmeterol [Advair Diskus] 250-50 mcg/dose blister with device 1 inh inhalation BID 30 Days Qty: 60 0RF polyethylene glycol 3350 [Miralax] 17 gram/dose powder 17 g PO DAILY Qty: 510 2RF docusate sodium 100 mg capsule 200 mg PO BEDTIME Qty: 180 3RF ferrous sulfate 325 mg (65 mg iron) tablet,delayed release (DR/EC) 325 mg PO QAM pantoprazole 40 mg tablet,delayed release (DR/EC) 40 mg PO DAILY Qty: 90 2RF Rx Instructions: take one tablet half an hour before breakfast bisacodyl [Dulcolax (bisacodyl)] 5 mg tablet,delayed release (DR/EC) 10 mg PO BEDTIME Qty: 180 4RF hydrocortisone [Proctosol HC] 2.5 % cream with perineal applicator 1 appl NC BID-QID PRN (Reason: hemorrhoids) Qty: 30 2RF Referrals: Peng Manzo MD [Physician] - ( left hip pain, x-ray shows some arthritis) Print Language: Lithuanian
[2024-02-25 14:52] VITALS: BP 136/58; PULSE 65; RESP 18; TEMP 36.2; O2SAT 97
[2024-02-25] MEDS: oxyCODONE HCl Immed Release 5 MG TABLET PO (14:55)
--- NOTE | 2024-02-25 14:56 | PC.NURSE ---
pt medicated per provider order.
[2024-02-25 14:57] VITALS: BP 136/58; PULSE 65; RESP 18; TEMP 36.2; O2SAT 97
== END 2024-02-25 14:57 | disposition home or self-care (01) ==
PROVIDERS: Emergency Provider Student in an Organized Health Care Education/Training Program; PCP Family Medicine
DX: M25.552 Pain in left hip (principal); J45.909 Unspecified asthma, uncomplicated; I48.0 Paroxysmal atrial fibrillation; Z79.01 Long term (current) use of anticoagulants; Z79.899 Other long term (current) drug therapy
CPT/HCPCS: 73502; 99283

== ENCOUNTER 2024-03-20 09:31 | Outpatient (AMB) | payer MEDICAID, SELFPAY ==
--- NOTE | 2024-03-20 09:33 | MHC.OFFVIS ---
Intake Visit Reasons: Mass on back Intake Note: Patient referred by pcp Dr. Olmedo for mass on back. Present for 1yr. Patient c/o: severe pain. Chest US: 02-06-2024. Air Lift Operator Required: Yes Air Lift Operator Name: Heide POOLE Accompanied by: Self / Same As Patient Allergies No Known Allergies Allergy (Verified 03/20/24 09:39) HPI Comments Details: Patient presents for a right flank symptomatic lipoma. She has had this indeterminate time. His increasing in size, become more symptomatic. She would like to have removed. Patient had ultrasound and outside facility demonstrating findings suggestive of lipoma of her symptomatic area. Chart was reviewed and patient evaluated. Patient is on Eliquis but she has unclear of the reason why. She does not think she has any coronary stents and does not have history of DVT or CVA [facility] Medical History Obesity (BMI 30-39.9) COPD (chronic obstructive pulmonary disease) Morbid obesity PAF (paroxysmal atrial fibrillation) Atrial fibrillation, new onset Asthma Back pain Surgical History H/O colonoscopy S/P section Family History Mother High cholesterol HTN (hypertension) Father HTN (hypertension) High cholesterol Social History Household Members: Children Housing: Apartment Do you presently have visiting nurse or other home services: No Alcohol intake: never Patient Tobacco Use Status: Never used Tobacco Advance Directives Date on File: 06/02/21 service: No Current occupational status: employed Physical Exam Back/Spine/Pelvis Other: Proximally 2 x 1 cm right lower flank soft tissue mass consistent with lipoma Assessment & Plan Assessment & Plan (1) Lipoma of back: Code(s): D17.1 - Benign lipomatous neoplasm of skin and subcutaneous tissue of trunk Category: Surgical Plan Current plan is to arrange for excision of this but the patient will need to hold her Eliquis for a few days prior. Risks, benefits, alternatives of the procedure reviewed with the patient which included but not limited to bleeding, infection, recurrence, numbness, pain, scarring the patient was to proceed. As noted above were arrangements were made for all this procedure once her Eliquis situation has been settled. All questions answered Coding Level of Care Code New Pt Level 4 (36529) Diagnoses Lipoma of back D17.1
== END 2024-03-20 09:49 | disposition home or self-care (01) ==
PROVIDERS: PCP Family Medicine; Visit Provider Surgery
DX: D17.1 Benign lipomatous neoplasm of skin and subcutaneous tissue of trunk (principal)
CPT/HCPCS: 99204

== ENCOUNTER → 2024-03-20 09:31 | Outpatient (BNVA) | payer MEDICAID, SELFPAY | PROVIDERS: PCP Family Medicine; Visit Provider Surgery | DX: D17.1 Benign lipomatous neoplasm of skin and subcutaneous tissue of trunk (principal) | CPT/HCPCS: 99202 ==

== ENCOUNTER 2024-03-23 12:41 | Outpatient (AMB) | payer MEDICAID, SELFPAY ==
[2024-03-23 12:57] VITALS: BP 120/60; PULSE 55
--- NOTE | 2024-03-23 12:57 | A.OFFVIS_ITS ---
Vital Signs 03/23/24 12:57 Weight 200 lb 9.93 oz BP 120/60 Blood Pressure Location Lt brachial Position Sitting Pulse 55 Pulse Source Monitor Intake Visit Reasons: clearance /lipoma on back/Dr. Coyne Complaint Investigator Required: Yes Complaint Investigator Name: [id number] Allergies No Known Allergies Allergy (Verified 03/20/24 09:39) HPI HPI clearance /lipoma on back/Dr. Coyne: Details: Sydnee is a 63-year-old female with past medical history of morbid obesity, obstructive sleep apnea, PAF who presents for preop clearance for lipoma removal. Her last prior visit to our office was 12/07/2022. Today she reports she has been feeling well with no concerning symptoms. She has not had any heart palpitations. No chest discomfort, shortness of breath, dizziness, presyncope, syncope, PND, orthopnea or edema. Her primary complaint is of soreness in her right mid back from the lipoma. She takes all meds as directed. No bleeding issues reported. She lives on the 3rd floor and has to climb 2 flights of stairs which she says she tolerates well without chest pain or shortness of breath. Certified medical malpractice paralegal used. [facility] Medical History Obesity (BMI 30-39.9) COPD (chronic obstructive pulmonary disease) Morbid obesity PAF (paroxysmal atrial fibrillation) Atrial fibrillation, new onset Asthma Back pain Surgical History H/O colonoscopy S/P section Family History Mother High cholesterol HTN (hypertension) Father HTN (hypertension) High cholesterol Social History Household Members: Children Housing: Apartment Do you presently have visiting nurse or other home services: No Alcohol intake: never Patient Tobacco Use Status: Never used Tobacco Advance Directives Date on File: 06/02/21 service: No Current occupational status: employed Review of Systems Const Denies weakness ENT Denies dizziness Card Denies chest pain, Denies chest pain with activity, Denies syncope, Denies rapid heart rate, Denies pedal edema, Denies edema, Denies leg edema, Denies lightheadedness, Denies palpitations, Denies dyspnea, Denies dyspnea on exertion and Denies orthopnea Resp Denies cough, Denies dyspnea and Denies dyspnea on exertion GI Denies hematochezia and Denies change in stool character Musc Denies abnormal gait, Denies muscle cramps, Denies muscle weakness, Denies numbness, Denies radiating pain into limb and Denies tingling Neuro Denies abnormal gait, Denies dizziness, Denies syncope, Denies numbness, Denies tingling and Denies weakness Endo Denies palpitations Office Procedures EKG Details: Today, read by me, sinus bradycardia, rate 55, QTC 397 milliseconds [id number], Complete Assessment & Plan Assessment & Plan (1) PAF (paroxysmal atrial fibrillation): Code(s): I48.0 - Paroxysmal atrial fibrillation Category: Medical Plan: New finding of Atrial fibrillation during acute illness with PNA 05/2021. Since that time she has been treated with rhythm control and is currently on Carvedilol and Diltiazem. Echocardiogram done 06/01/21 showed normal EF, no valve abn, LA likely dilated, RA normal. Nuclear stress test done on 02/10/2022 shows normal myocardial perfusion imaging. Last Holter monitor done on 04/02/2022 showed sinus rhythm with average heart rate 67, 24% of the time heart rate less than 60, heart rate range 44 to 124. She has been on Eliquis for anticoagulation without any reported bleeding issues. EKG done today showing sinus bradycardia, rate 55. Today she reports feeling well with no concerning symptoms, no palpitations. Continue on diltiazem, carvedilol and Eliquis for anticoagulation. Labs done on 01/30/2024 show creatinine 1.28, hematocrit 31.9. Should be checked twice yearly. Cardiology follow up in 1 year, sooner if needed. (2) Preop cardiovascular exam: Code(s): Z01.810 - Encounter for preprocedural cardiovascular examination Category: Medical Plan: Patient is scheduled for removal of lipoma from right mid back on 03/26/[address] Coyne. Activity level is greater than 4 Mets. She may proceed with low cardiac risk. She has not had any recent known recurrent PAF. Continue diltiazem and carvedilol. Her Eliquis can be held for 48 hours prior to her procedure and restart as soon as cleared by surgeon to do so. Call/consult Cardiology if needed. (3) Lipoma of back: Code(s): D17.1 - Benign lipomatous neoplasm of skin and subcutaneous tissue of trunk Category: Surgical Plan: As above Plan Time spent on chart review, documentation, interview and assessment Coding Level of Care Code Est Pt Level 3 (70162) Diagnoses PAF (paroxysmal atrial fibrillation) I48.0 Preop cardiovascular exam Z01.810 Lipoma of back D17.1 CPT Codes EKG - CPT: 44470-[id number], Complete ([id number]) Time Spent (min) 24
== END 2024-03-23 13:24 | disposition home or self-care (01) ==
PROVIDERS: PCP Family Medicine; Visit Provider Nurse Practitioner Family
DX: I48.0 Paroxysmal atrial fibrillation (principal); Z01.810 Encounter for preprocedural cardiovascular examination; D17.1 Benign lipomatous neoplasm of skin and subcutaneous tissue of trunk
CPT/HCPCS: 93010; 99213

== ENCOUNTER → 2024-03-23 12:41 | Outpatient (BNVA) | payer MEDICAID, SELFPAY | PROVIDERS: PCP Family Medicine; Visit Provider Nurse Practitioner Family | DX: Z01.810 Encounter for preprocedural cardiovascular examination (principal); I48.0 Paroxysmal atrial fibrillation; D17.1 Benign lipomatous neoplasm of skin and subcutaneous tissue of trunk | CPT/HCPCS: 93005; 99212 ==

== ENCOUNTER 2024-03-26 13:48 | Outpatient (AMB) | payer MEDICAID, SELFPAY ==
[2024-03-26 13:52] VITALS: BP 137/64; PULSE 63; BMI 36.6
--- NOTE | 2024-03-26 13:52 | A.OFFVIS_ITS ---
Vital Signs 03/26/24 13:52 Height 5 ft 2 in Weight 200 lb BMI 36.6 BP 137/64 Blood Pressure Location Rt brachial Position Sitting Pulse 63 Intake Visit Reasons: Mass on back Intake Note: Patient here for lipoma excision on Rt lower back. Patient cleared by Lindsey Gu [employer] (cardio). Stopped eliquis on Tuesday (3d ago). Patient c/o: severe pain that gets worse at night. Automotive General Sales Manager Required: Yes Automotive General Sales Manager Name: Heide Tariq CMA Accompanied by: Self / Same As Patient Allergies No Known Allergies Allergy (Verified 03/26/24 14:02) HPI Comments Details: PATIENT PRESENTS HERE BECAUSE OF SIGNIFICANT RIGHT MID POSTERIOR/BACK DISCOMFORT. She was were requesting narcotic analgesics for her symptoms. Patient was once again evaluated. [facility] Medical History Obesity (BMI 30-39.9) COPD (chronic obstructive pulmonary disease) Morbid obesity PAF (paroxysmal atrial fibrillation) Atrial fibrillation, new onset Asthma Back pain Surgical History H/O colonoscopy S/P section Family History Mother High cholesterol HTN (hypertension) Father HTN (hypertension) High cholesterol Social History Household Members: Children Housing: Apartment Do you presently have visiting nurse or other home services: No Alcohol intake: never Patient Tobacco Use Status: Never used Tobacco Advance Directives Date on File: 06/02/21 service: No Current occupational status: employed Physical Exam Vital Signs: Last Vital Signs Pulse 63 03/26/24 13:52 BP 137/64 03/26/24 13:52 BMI result Body Mass Index 36.6 Back/Spine/Pelvis Other: Patient has a very very small sub cm lipoma which is difficult to palpate in the region of her symptoms. Assessment & Plan Assessment & Plan (1) Lipoma of back: Code(s): D17.1 - Benign lipomatous neoplasm of skin and subcutaneous tissue of trunk Category: Surgical Plan Expressed to the patient that it is unlikely that this small lipoma is causing her excruciating symptoms of right back/flank pain. We could remove the lipoma but it will unlikely solve her issue. At present, patient was given the options of excision or conservative therapy regarding this very small lipoma and has opted for the former. Should it increase in size, become more symptomatic, it will be removed but again this is unlikely the etiology of the patient's back symptoms. I suggested she contact her medical doctor for further guidance regarding her situation. All questions answered. Patient otherwise follow-up p.r.n. Coding Level of Care Code Est Pt Level 4 (11384) Diagnoses Lipoma of back D17.1
== END 2024-03-26 14:22 | disposition home or self-care (01) ==
PROVIDERS: PCP Family Medicine; Visit Provider Surgery
DX: D17.1 Benign lipomatous neoplasm of skin and subcutaneous tissue of trunk (principal)
CPT/HCPCS: 99213

== ENCOUNTER → 2024-03-26 13:48 | Outpatient (BNVA) | payer MEDICAID, SELFPAY | PROVIDERS: PCP Family Medicine; Visit Provider Surgery | DX: D17.1 Benign lipomatous neoplasm of skin and subcutaneous tissue of trunk (principal) | CPT/HCPCS: 99212 ==

== ENCOUNTER 2024-05-10 13:07 | Outpatient (AMB) | payer MEDICAID, SELFPAY ==
[2024-05-10 13:37] VITALS: BP 118/62; PULSE 54; O2SAT 96; BMI 36.7
--- NOTE | 2024-05-10 13:37 | A.OFFVIS_ITS ---
Vital Signs 05/10/24 13:37 Height 5 ft 2 in Weight 200 lb 9.93 oz BMI 36.7 BP 118/62 Blood Pressure Location Lt brachial Position Sitting Pulse 54 Pulse Source Pulse Oximeter Pulse Oximetry (%) 96 Oxygen Delivery Method Room Air Intake Visit Reasons: asthma Intake Note: pt is here for follow up and states she is feeling good Veterinary Receptionist Required: Yes Veterinary Receptionist Name: Loraine Allergies No Known Allergies Allergy (Verified 05/10/24 13:53) Medication List - Last Reconciled 05/10/24 by Alysia Perez MD albuterol sulfate 90 mcg/actuation (Ventolin HFA) 2 puffs inhalation Q6H PRN apixaban (Eliquis) 5 mg PO BID atorvastatin 10 mg PO BEDTIME bisacodyl (Dulcolax (bisacodyl)) 10 mg (2 x 5 mg) PO BEDTIME carvedilol 3.125 mg See Protocol PO BID 30 days cetirizine 10 mg PO DAILY PRN cholecalciferol (vitamin D3) 1 tab PO QAM clonidine HCl 0.1 mg PO BEDTIME cyanocobalamin (vitamin B-12) 1 tab PO QAM diltiazem HCl CD (Cartia XT) 120 mg PO QAM diphenhydramine HCl (Benadryl Allergy) 25 mg PO TID PRN docusate sodium 200 mg (2 x 100 mg) PO BEDTIME famotidine 20 mg PO BEDTIME PRN ferrous sulfate 325 mg PO QAM fluoxetine 20 mg PO QAM fluticasone propion-salmeterol 250-50 mcg/dose (Advair Diskus) 1 inh inhalation BID 30 days fluticasone propion-salmeterol 500-50 mcg/dose (Advair Diskus) 1 ea inhalation folic acid 1 mg PO QAM [heel lift bilat heel lift ] hydrocortisone 2.5% (Proctosol HC) 1 appl MO BID-QID PRN ibuprofen 600 mg PO Q8H PRN lisinopril 40 mg PO QAM omeprazole 20 mg PO oxycodone 5 mg PO BID PRN oxycodone 5 mg PO BID PRN pantoprazole 40 mg PO DAILY polyethylene glycol 3350 (Miralax) 17 grams PO DAILY Do you need a note to return to daycare/school/sports/work: No HPI HPI asthma: Details: DAKOTA IS 63 YEARS OLD VERY PLEASANT FEMALE WHO COMES AFTER 6 MONTHS FOR HER ROUTINE FOLLOW-UP. SHE HAS MILD COPD WHICH IS WELL CONTROLLED AND STABLE WITH THE USE OF ADVAIR DISKUS 250-50 B.I.D.. SHE HARDLY NEEDS ANY RESCUE INHALER. SHE HAS HAD NO. RESPIRATORY INFECTION IN THE LAST 6 MONTHS SHE DOES HAVE OBSTRUCTIVE SLEEP APNEA BUT COULD NOT USE THE CPAP. SHE IS SUPPOSED TO LOSE WEIGHT AND SAY IS NOW SHE IS ON A DIET PROGRAM. SHE CLAIMS THAT SHE SLEEPS GOOD , AND DOES NOT HAVE ANY DAYTIME SLEEPINESS [facility] Medical History Obesity (BMI 30-39.9) COPD (chronic obstructive pulmonary disease) Morbid obesity PAF (paroxysmal atrial fibrillation) Atrial fibrillation, new onset Asthma Back pain Surgical History H/O colonoscopy S/P section Family History Mother High cholesterol HTN (hypertension) Father HTN (hypertension) High cholesterol Social History Household Members: Children Housing: Apartment Do you presently have visiting nurse or other home services: No Alcohol intake: never Patient Tobacco Use Status: Never used Tobacco Advance Directives Date on File: 06/02/21 service: No Current occupational status: employed Review of Systems Const All systems reviewed & are unremarkable except as noted in HPI and below Reports snoring Eyes Reports no additional complaints ENT Reports no additional complaints Card Denies chest pain, Reports irregular heart rhythm (Paroxysmal atrial fibrillation), Denies leg edema and Denies dyspnea Resp Denies cough, Denies dyspnea, Reports snoring and Denies wheezing GI Reports no additional complaints Reports no additional complaints Musc Reports no additional complaints Skin/Breast Reports system reviewed and no additional complaints, except as documented Neuro Reports no additional complaints Psych Reports no additional complaints Aller/Immun Denies wheezing Physical Exam Vital Signs: Last Vital Signs Pulse 54 05/10/24 13:37 BP 118/62 05/10/24 13:37 Pulse Ox 96 05/10/24 13:37 Oxygen Delivery Method Room Air 05/10/24 13:37 BMI result Body Mass Index 36.7 Const General: healthy appearing (Except for being overweight), comfortable, no acute distress, alert and awake Orientation/consciousness: patient oriented x3 HEENT Head: Yes normal to inspection General nose exam: No nasal polyps present and No nasal discharge present Face and sinus: Yes sinuses nontender Mouth: oropharynx abnormals (Slightly narrow, Mallampati class 3) Throat: Yes posterior oropharynx normal Eyes General: appearance normal, both eyes and all related structures Neck Neck: Yes normal visual inspection, Yes no lymphadenopathy, Yes trachea midline, Yes no JVD and Yes other (Neck circumference 17 in) Thyroid: Thyroid normal Chest Chest palpation & inspection: normal inspection of the chest, normal palpation of entire chest wall and no tenderness Resp Other: Percussion note is diminished due to obese chest wall. Breath sounds slightly diminished over the basilar areas. No wheezes or crepitations are heard. NO COUGH WAS NOTED EVEN WITH DEEP INSPIRATION. Cardio Palpation: normal PMI Rate: regular rate Rhythm: regular rhythm Heart sounds: no gallops and no murmurs GI Palpation (GI): Soft to palpation, Tenderness to palpation present (GI), No hepatosplenomegaly present, Palpable mass present and Other GI palpation findings present (Abdomen is slightly protuberant) Auscultation: normal bowel sounds Back/Spine/Pelvis Thoracic/Lumbar Spine: thoracic and lumbar spine normal to inspection Skin General skin exam: no rashes or lesions noted Neuro General: patient oriented x3 and no focal motor deficits Cranial nerves: Yes CN's II-XII intact bilaterally Extrem General: Yes normal to inspection, Yes no clubbing, cyanosis or edema and Yes no calf tenderness Psych Appearance: grossly normal and well kempt Speech and movement: Normal speech and movement present Assessment & Plan Assessment & Plan (1) COPD (chronic obstructive pulmonary disease): Comment: ASTHMA/COPD ,VERY WELL CONTROLLED AND STABLE. Code(s): J44.9 - Chronic obstructive pulmonary disease, unspecified Category: Medical Plan: CONTINUE USING ADVAIR 250-50 1 INHALATION B.I.D. ALBUTEROL HFA 2 PUFFS Q 4-6 HOURS ONLY P.R.N. WHICH SHE HARDLY NEEDS TO USE . (2) Morbid obesity: Comment: Patient has been morbidly obese is morbidly obese with BMI 41.9, . Currently she has lost some weight and current BMI= 36.7. Code(s): E66.01 - Morbid (severe) obesity due to excess calories Category: Medical Plan: ENCOURAGED TO KEEP ON LOSING WEIGHT. SHE TELLS ME THAT SHE IS ON A DIET PROGRAM. (3) Obstructive sleep apnea hypopnea, severe: Comment: As per her SLEEP STUDY, she had rather severe degree of obstructive sleep apnea, and some nocturnal hypoxemia. She did try to use CPAP which she could not use and finally returned the device. Patient claims that she sleeps very well without any problem. She has no daytime sleepiness Code(s): G47.33 - Obstructive sleep apnea (adult) (pediatric) Category: Medical Plan: THE BEST MODE OF TREATMENT IN HER CASE WOULD BE LOSING WEIGHT. AND SHE IS TRYING HER BEST. Plan COMMENDED FOR BEING ON THE DIET PROGRAM AND, ENCOURAGED TO KEEP ON LOSING WEIGHT. Coding Level of Care Code Est Pt Level 3 (76671) Diagnoses COPD (chronic obstructive pulmonary disease) J44.9 Morbid obesity E66.01 Obstructive sleep apnea hypopnea, severe G47.33
== END 2024-05-10 13:55 | disposition home or self-care (01) ==
PROVIDERS: PCP Family Medicine; Visit Provider Internal Medicine
DX: J44.9 Chronic obstructive pulmonary disease, unspecified (principal); E66.01 Morbid (severe) obesity due to excess calories; G47.33 Obstructive sleep apnea (adult) (pediatric)
CPT/HCPCS: 99213

== ENCOUNTER → 2024-05-10 13:07 | Outpatient (BNVA) | payer MEDICAID, SELFPAY | PROVIDERS: PCP Family Medicine; Visit Provider Internal Medicine | DX: J44.9 Chronic obstructive pulmonary disease, unspecified (principal); G47.33 Obstructive sleep apnea (adult) (pediatric); E66.01 Morbid (severe) obesity due to excess calories; Z68.36 Body mass index [BMI] 36.0-36.9, adult | CPT/HCPCS: 99212 ==

== ENCOUNTER 2024-05-23 10:53 | Emergency (ER) | payer MEDICAID, SELFPAY ==
--- NOTE | ~2024-05-23 | CT_ITS ---
EXAMINATION: CT HEAD WITHOUT CONTRAST CLINICAL INFORMATION: Pain COMPARISON: CT scan of brain on 02/06/2010 TECHNIQUE: Contiguous axial imaging was performed from the skull base to vertex without intravenous administration of contrast. This CT examination was performed using dose optimization techniques as appropriate, variously including the following: *Automated exposure control *Adjustment of mA and/or kV according to patient size (this includes techniques or standardized protocols for targeted exams where dose is matched to indication/reason for exam; i.e. extremities or head) *Use of iterative reconstruction technique DLP: 657 mGy-cm FINDINGS: Ventricles, sulci and cisterns are normal. There is no midline shift, no abnormal intra- or extra- axial fluid accumulation. Sarkar and white matter differentiation is normal. Bone window images show no evidence of skull fracture. CT/CT head/brain wo IV con IMPRESSION: 1. Unchanged Normal CT scan of the brain. 2. No intracranial hemorrhage or skull fracture is seen. 3. No evidence of space occupying lesion could be found. 4. The current plain CT scan of the brain shows no diagnostic evidence of acute cerebral infarction. Electronically signed by: Sandie Boo MD 05/23/2024 03:40 PM EDT
[2024-05-23 11:08] VITALS: BP 191/74; PULSE 55; RESP 18; TEMP 36.7; O2SAT 97; BMI 34.3
--- NOTE | 2024-05-23 11:08 | ED_ITS ---
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 Patient states that over the last 3 days she has had right sided neck pain and a headache. Patient denies any dizziness, lightheadedness, abdominal pain, nausea, vomiting, fever, chills, blurry vision, double vision, loss of vision, chest pain, difficulty breathing, shortness of breath, back pain, night sweats, pain with urination, increased urinary frequency, increased urinary urgency, blood in her urine or stool, syncope or a near syncopal episode, recent trauma or falls, bowel incontinence, bladder incontinence, or any other complaints at this time. Onset (ago): day(s) (3) Location: head, neck and right Relieving factors: none Exacerbating factors: none Treatments prior to arrival: NSAID and other (tylenol) Related Data Home Medications ?Medication ?Instructions ?Recorded ?Confirmed cholecalciferol (vitamin D3) 50 1 tab PO QAM 05/29/21 05/10/24 mcg (2,000 unit) tablet cyanocobalamin (vitamin B-12) 1 tab PO QAM 05/30/21 05/10/24 1,000 mcg tablet clonidine HCl 0.1 mg tablet 0.1 mg PO BEDTIME 09/15/21 05/10/24 fluoxetine 20 mg capsule 20 mg PO QAM 12/07/22 05/10/24 lisinopril 40 mg tablet 40 mg PO QAM 12/07/22 05/10/24 ferrous sulfate 325 mg (65 mg 325 mg PO QAM 12/27/23 05/10/24 iron) tablet,delayed release cetirizine 10 mg tablet 10 mg PO DAILY PRN allergies 03/26/24 05/10/24 famotidine 20 mg tablet 20 mg PO BEDTIME PRN heartburn 03/26/24 05/10/24 fluticasone 500 mcg-salmeterol 50 1 ea inhalation 03/26/24 05/10/24 mcg/dose blistr powdr for inhalation (Advair Diskus) folic acid 1 mg tablet 1 mg PO QAM 03/26/24 05/10/24 ibuprofen 600 mg tablet 600 mg PO Q8H PRN mild pain 03/26/24 05/10/24 omeprazole 20 mg capsule,delayed 20 mg PO 03/26/24 05/10/24 release Previous Rx's ?Medication ?Instructions ?Recorded heel lift #1 ea 08/21/20 albuterol sulfate 90 mcg/actuation 2 puff inhalation Q6H PRN 06/01/21 aerosol inhaler (Ventolin HFA) shortness of breath or wheezing #6.7 grams apixaban 5 mg tablet (Eliquis) 5 mg PO BID #60 tabs 06/01/21 carvedilol 3.125 mg tablet 3.125 mg PO BID 30 days #60 tabs 06/01/21 diphenhydramine HCl 25 mg tablet 25 mg PO TID PRN itching #20 tabs 02/23/23 (Benadryl Allergy) fluticasone 250 mcg-salmeterol 50 1 inh inhalation BID copd 30 days 04/13/23 mcg/dose blistr powdr for #60 ea inhalation (Advair Diskus) docusate sodium 100 mg capsule 200 mg (2 x 100 mg) PO BEDTIME 06/01/23 #180 caps polyethylene glycol 3350 17 17 g PO DAILY #510 grams 06/01/23 gram/dose oral powder (Miralax) bisacodyl 5 mg tablet,delayed 10 mg (2 x 5 mg) PO BEDTIME #180 12/27/23 release (Dulcolax (bisacodyl)) tabs hydrocortisone 2.5 % topical cream 1 appl [place] BID-QID PRN hemorrhoids 12/27/23 with perineal applicator #30 grams (Proctosol HC) pantoprazole 40 mg tablet,delayed 40 mg PO DAILY #90 tabs 12/27/23 release oxycodone 5 mg tablet 5 mg PO BID PRN pain #14 tabs 02/25/24 oxycodone 5 mg tablet 5 mg PO BID PRN pain #14 tabs 02/25/24 atorvastatin 10 mg tablet 10 mg PO BEDTIME #90 tabs 04/02/24 diltiazem HCl 120 mg 120 mg PO QAM #90 caps 04/02/24 capsule,extended release 24 hr (Cartia XT) cyclobenzaprine 5 mg tablet 5 mg PO TID PRN neck pain 7 days 05/23/24 #21 tabs Allergies Allergy/AdvReac Type Severity Reaction Status Date / Time No Known Allergies Allergy Verified 05/23/24 11:11 Review of Systems Constitutional: Constitutional: Reports no additional constitutional complaints, Denies chills, Denies fever(s), Reports headache(s) and Denies night sweats Eyes: Eyes: Reports no additional eye complaints, Denies blurry vision, Denies change in vision, Denies diplopia, Denies eye discharge, Denies loss of vision and Denies eye pain ENT: Denies dizziness, Reports headache(s) and Reports neck pain Cardiovascular: Cardiovascular: Reports no additional cardiovascular complaints, Denies chest pain, Denies lightheadedness, Denies Loss of Consciousness and Denies dyspnea Respiratory: Respiratory: Reports no additional respiratory complaints and Denies dyspnea Gastrointestinal: Gastrointestinal: Reports no additional gastrointestinal complaints, Denies abdominal pain, Denies melena, Denies hematochezia, Denies change in bowel habits and Denies change in stool character Genitourinary: Genitourinary: Denies hematuria, Denies urinary frequency, Denies dysuria, Denies urinary incontinence, Denies urinary hesitancy and Denies urinary urgency Musculoskeletal: Musculoskeletal: Reports no additional musculoskeletal complaints, Reports neck pain, Denies numbness and Denies tingling Neurologic: Denies dizziness, Reports headache(s), Denies loss of vision, Denies numbness and Denies tingling Psychiatric: Psychiatric: Reports no additional psychiatric complaints Endocrine: Endocrine: Reports no additional endocrine complaints Hematologic/Lymphatic: Hematologic/Lymphatic: Reports no additional hematologic/lymphatic complaints Allergic/Immunologic: Allergic/Immunologic: Reports no additional allergic/immunologic complaints PMFSH Past Medical History Attestation statement: The following information was validated with the patient. Source: old records reviewed and nursing notes reviewed Medical History Obesity (BMI 30-39.9) COPD (chronic obstructive pulmonary disease) Morbid obesity PAF (paroxysmal atrial fibrillation) Atrial fibrillation, new onset Asthma Back pain Surgical History H/O colonoscopy S/P section Family History Family History Mother High cholesterol HTN (hypertension) Father HTN (hypertension) High cholesterol Social History Social History Household Members: Children Housing: Apartment Do you presently have visiting nurse or other home services: No Alcohol intake: never Patient Tobacco Use Status: Never used Tobacco Advance Directives: Yes Advance Directives on File: Yes Advance Directives Date on File: 06/02/21 Do you have a plan to hurt others: No Plan service: No Current occupational status: employed Physical Exam ED Vital Signs: Vital Signs - 24 hr 05/23/24 11:08 05/23/24 13:23 05/23/24 16:21 Temperature 98.1 F 97.3 F 97.3 F Pulse Rate 55 48 L 48 L Respiratory Rate 18 16 16 Blood Pressure 191/74 H 153/67 H 153/67 H Pulse Oximetry 97 98 98 Oxygen Delivery Method Room Air Room Air Room Air BMI result Body Mass Index 34.3 Const General: cooperative, no acute distress, alert and awake Nutritional Appearance: well nourished Orientation/consciousness: patient oriented x3 Limitations: no limitations HENMT Head: Yes normal to inspection and Yes atraumatic Ears: hearing grossly normal bilaterally and external ears normal General nose exam: Normal external nose present, no nasal discharge noted and no epistaxis Face and sinus: Yes normal facial exam, No abrasion and No laceration Mouth: Normal oral and palatal mucosa present, no drooling and no muffled voice Eyes General: appearance normal, both eyes and all related structures Periorbital: periorbital findings normal Eyelids: Yes eyelids normal Conjunctivae: conjunctivae normal Pupils: Equal, round and reactive pupils present EOM: EOMs intact bilaterally Neck Neck: Yes normal visual inspection, Yes full ROM and Yes no lymphadenopathy Chest Chest palpation & inspection: normal inspection of the chest Resp Effort & Inspection: normal respiratory effort and able to speak in complete sentences GI Inspection: Yes normal to inspection Neuro General: patient oriented x3 and moves all extremities Cranial nerves: Yes Equal, round and reactive pupils present Cognition (Neuro): normal cognition Extrem General: Yes normal to inspection, Yes full ROM and Yes capillary refill normal Psych Appearance: grossly normal Mental Status: mental status grossly normal Affect: normal affect Attitude: cooperative Thought process: Normal thought process present Thought content: Normal thought content present Insight: Good insight present (Psych) Course Course Course Narrative: RME, this is a rapid medical exam performed by Silver Barnes please refer to primary provider for complete H&P- 63 year old female presents for evaluation of right sided neck pain and headache for the last 3 days. She denies any improvement with Motrin and Tylenol. Medications Administered Discontinued Medications Generic Name Dose Route Start Last Admin Trade Name Freq PRN Reason Stop Dose Admin Cyclobenzaprine HCl 5 mg 05/23/24 13:18 05/23/24 13:40 Cyclobenzaprine Hcl 5 Mg Tablet PO 05/23/24 13:19 5 mg ONCE ONE Administration Methylprednisolone Sodium Succinate 60 mg 05/23/24 13:18 05/23/24 13:40 Methylprednisolone Sod Succ 125 Mg/2 Ml Vial IM 05/23/24 13:19 60 mg ONCE ONE Administration Medical Decision Making Medical Decision Making [facility] Narrative: Patient is a 63 year old assigned female at with a history of atrial fib on anti-coagulation medication, COPD, and CLARE presenting to the emergency department today with right sided neck and head pain. Patient's physical exam w as unremarkable. Patient's head CT showed no acute process. I explained my physical exam findings as well as all test results to the patient. I answered all questions asked by the patient. I stressed the importance of the patient taking her medication as directed (either prescribed or as the over the counter packaging recommends). I stressed the importance of the patient following up with her primary care provider. I stressed the importance of the patient returning to the emergency department immediately if her symptoms were to worsen or if she were to develop any dizziness, shortness of breath, difficulty breathing, chest pain, blurry vision, loss of vision, nausea, vomiting, abdominal pain, fever, chills, back pain, or any other complaints. Patient verbalized agreement and understanding with this treatment plan and discharge. Differential Diagnosis Differential Diagnoses: The differential diagnosis associated with the prese ntation includes Neck pain Headache Cervical radiculopathy Admission/Observation Consideration of admission/observation: Escalation of care including admission/observation considered Patient would have been admitted to the hospital had her work up had any findings where hospital admission was appropriate and her clinical presentation warranted hospital admission. Independent Interpretation I performed an independent interpretation of an: CT Scan Interpretation: My interpretation is in agreement with the radiologist's impression of this imaging study. EXAMINATION: CT HEAD WITHOUT CONTRAST CLINICAL INFORMATION: Pain COMPARISON: CT scan of brain on 02/06/2010 TECHNIQUE: Contiguous axial imaging was performed from the skull base to vertex without intravenous administration of contrast. This CT examination was performed using dose optimization techniques as appropriate, variously including the following: *Automated exposure control *Adjustment of mA and/or kV according to patient size (this includes techniques or standardized protocols for targeted exams where dose is matched to indication/reason for exam; i.e. extremities or head) *Use of iterative reconstruction technique DLP: 657 mGy-cm FINDINGS: Ventricles, sulci and cisterns are normal. There is no midline shift, no abnormal intra- or extra- axial fluid accumulation. Sarkar and white matter differentiation is normal. Bone window images show no evidence of skull fracture. CT/CT head/brain wo IV con IMPRESSION: 1. Unchanged Normal CT scan of the brain. 2. No intracranial hemorrhage or skull fracture is seen. 3. No evidence of space occupying lesion could be found. 4. The current plain CT scan of the brain shows no diagnostic evidence of acute cerebral infarction. Electronically signed by: Sandie Boo MD 05/23/2024 03:40 PM EDT RP Dictated By: Sandie Boo Signed By: Electronically signed by Sandie Boo 05/23/24 [id number] Radiology Impression Discussion of test interpretation with radiology: I have reviewed the radiologist's reading. Prescription Management I considered prescription management with: Pain Medication (patient prescribed pain medication) Discharge Plan Discharge Clinical Impression: Cervical radiculopathy Patient Disposition: Home, Self-Care Instructions: Cervical Radiculopathy (ED) Additional Instructions: Follow up with your primary care provider. Return to the emergency department immediately if your symptoms worsen or if you develop any dizziness, shortness of breath, difficulty breathing, chest pain, blurry vision, loss of vision, na usea, vomiting, abdominal pain, fever, chills, back pain, or any other complaints. Don?seguimiento?con adams m?dico de atenci?n primaria. Acuda inmediatamente al servicio de urgencias si vandana s?ntomas empeoran o si presenta falta de aliento, dificultad para respirar, dolor tor?cico, mareos, aturdimiento, dolor de espalda, dolor abdominal, fiebre, escalofr?os o cualquier otro s?ntoma. Prescriptions: New cyclobenzaprine 5 mg tablet 5 mg PO TID PRN (Reason: neck pain) 7 Days Qty: 21 0RF No Action atorvastatin 10 mg tablet 10 mg PO BEDTIME Qty: 90 3RF diltiazem HCl [Cartia XT] 120 mg capsule,extended release 24hr 120 mg PO QAM Qty: 90 3RF cholecalciferol (vitamin D3) 50 mcg (2,000 unit) tablet 1 tab PO QAM cyanocobalamin (vitamin B-12) 1,000 mcg tablet 1 tab PO QAM Eliquis 5 mg Tablet 5 mg PO BID Qty: 60 0RF carvedilol 3.125 mg Tablet 3.125 mg PO BID 30 Days Qty: 60 0RF Protocol: Hold for SBP/HR < HOLD for SBP < : 90 HOLD for HR < : 60 albuterol sulfate [Ventolin HFA] 90 mcg/actuation HFA aerosol inhaler 2 puff inhalation Q6H PRN (Reason: shortness of breath or wheezing) Qty: 6.7 1RF clonidine HCl 0.1 mg tablet 0.1 mg PO BEDTIME fluoxetine 20 mg capsule 20 mg PO QAM diphenhydramine HCl [Benadryl Allergy] 25 mg tablet 25 mg PO TID PRN (Reason: itching) Qty: 20 0RF oxycodone 5 mg tablet 5 mg PO BID PRN (Reason: pain) Qty: 14 0RF Rx Instructions: Partial Fill upon patient request. oxycodone 5 mg tablet 5 mg PO BID PRN (Reason: pain) Qty: 14 0RF Rx Instructions: Partial Fill upon patient request. (DME) heel lift See Rx Instructions .Route .MEDSUPPLY Qty: 1 0RF Rx Instructions: bilat heel lift lisinopril 40 mg tablet 40 mg PO QAM fluticasone propion-salmeterol [Advair Diskus] 250-50 mcg/dose blister with device 1 inh inhalation BID 30 Days Qty: 60 0RF polyethylene glycol 3350 [Miralax] 17 gram/dose powder 17 g PO DAILY Qty: 510 2RF docusate sodium 100 mg capsule 200 mg PO BEDTIME Qty: 180 3RF ferrous sulfate 325 mg (65 mg iron) tablet,delayed release (DR/EC) 325 mg PO QAM pantoprazole 40 mg tablet,delayed release (DR/EC) 40 mg PO DAILY Qty: 90 2RF Rx Instructions: take one tablet half an hour before breakfast bisacodyl [Dulcolax (bisacodyl)] 5 mg tablet,delayed release (DR/EC) 10 mg PO BEDTIME Qty: 180 4RF hydrocortisone [Proctosol HC] 2.5 % cream with perineal applicator 1 appl [place] BID-QID PRN (Reason: hemorrhoids) Qty: 30 2RF folic acid 1 mg tablet 1 mg PO QAM fluticasone propion-salmeterol [Advair Diskus] 500-50 mcg/dose blister with device 1 ea inhalation cetirizine 10 mg tablet 10 mg PO DAILY PRN (Reason: allergies) ibuprofen 600 mg tablet 600 mg PO Q8H PRN (Reason: mild pain) famotidine 20 mg tablet 20 mg PO BEDTIME PRN (Reason: heartburn) omeprazole 20 mg capsule,delayed release(DR/EC) 20 mg PO Referrals: [facility] Family Medicine [Provider Group] (Call to establish and follow up with a primary care provider. If you already have a primary care provider, please follow up with them.) [facility] Primary Care, Christina [Provider Group] (Call to establish and follow up with a primary care provider. If you already have a primary care provider, please follow up with them.) [facility] [place] Primary Care,Nilda [Provider Group] (Call to establish and follow up with a primary care provider. If you already have a primary care provider, please follow up with them.) Stand Alone Forms: Work/School Release Interventions: ED Discharge Assessment Last Done: 05/23/24 16:21 Discharge Date/Time: 05/23/24 16:22 Print Language: French
[2024-05-23 13:23] VITALS: BP 153/67; PULSE 48; RESP 16; TEMP 36.3; O2SAT 98
[2024-05-23] MEDS: methylPREDNISolone Sod Succ 125 MG/2 ML VIAL 60 MG IM (13:40)
[2024-05-23] MEDS: Cyclobenzaprine HCl 5 MG TABLET PO (13:40)
[2024-05-23 16:21] VITALS: BP 153/67; PULSE 48; RESP 16; TEMP 36.3; O2SAT 98
== END 2024-05-23 16:22 | disposition home or self-care (01) ==
PROVIDERS: Emergency Provider Emergency Medicine
DX: M54.12 Radiculopathy, cervical region (principal); R51.9 Headache, unspecified; M54.2 Cervicalgia; J44.9 Chronic obstructive pulmonary disease, unspecified; I48.91 Unspecified atrial fibrillation; Z79.01 Long term (current) use of anticoagulants; Z79.899 Other long term (current) drug therapy
CPT/HCPCS: 70450; 96372; 99283; 99284; J2919

== ENCOUNTER 2024-06-28 06:12 | Day surgery (SDC) | payer MEDICAID, SELFPAY ==
[2024-06-26 11:45] VITALS: BMI 36.7
[2024-06-26 15:02] VITALS: BMI 38.0
--- NOTE | 2024-06-27 08:30 | P.CONAN_ITS ---
Documented by User: Michelle Son NP 06/27/24 08:33 HPI - Anesthesia Eval Consult details Narrative: 63yo F for Upper Endoscopy and Colonoscopy Eliquis for afib Cardiac optimized for lipoma removal 03/2024 (never done) [facility] Active Problems Active Problems: All Active Problems Preop cardiovascular exam (Acute) Lipoma of back (Acute) Obesity (BMI 30-39.9) (Acute) Microcytic hypochromic anemia (Acute) COPD (chronic obstructive pulmonary disease) (Acute) Bursitis due to bacterial infection (Acute) Morbid obesity (Acute) Obstructive sleep apnea hypopnea, severe (Acute) PAF (paroxysmal atrial fibrillation) (Acute) Atrial fibrillation, new onset (Acute) Bilateral ankle pain (Acute) Achilles tendonitis, bilateral (Acute) Past Medical History Medical History Obesity (BMI 30-39.9) COPD (chronic obstructive pulmonary disease) Morbid obesity PAF (paroxysmal atrial fibrillation) Atrial fibrillation, new onset Asthma Back pain Family History Family History Mother High cholesterol HTN (hypertension) Father HTN (hypertension) High cholesterol Surgical History Surgical History H/O colonoscopy S/P section Social History Social History Household Members: Children Housing: Apartment Are you a primary personal care aid to a significant other at home: No Do you presently have visiting nurse or other home services: No Alcohol intake: never Patient Tobacco Use Status: Never used Tobacco Advance Directives Date on File: 06/02/21 service: No Current occupational status: employed Meds Allergies Allergy/AdvReac Type Severity Reaction Status Date / Time No Known Allergies Allergy Verified 05/23/24 11:11 Home Medications ?Medication ?Instructions ?Recorded ?Confirmed ?Last Taken ?Type cholecalciferol (vitamin D3) 50 1 tab PO QAM 05/29/21 06/26/24 Unknown History mcg (2,000 unit) tablet cyanocobalamin (vitamin B-12) 1 tab PO QAM 05/30/21 06/26/24 Unknown History 1,000 mcg tablet clonidine HCl 0.1 mg tablet 0.1 mg PO BEDTIME 09/15/21 06/26/24 Unknown History fluoxetine 20 mg capsule 20 mg PO QAM 12/07/22 06/26/24 Unknown History lisinopril 40 mg tablet 40 mg PO QAM 12/07/22 06/26/24 Unknown History ferrous sulfate 325 mg (65 mg 325 mg PO QAM 12/27/23 06/26/24 Unknown History iron) tablet,delayed release cetirizine 10 mg tablet 10 mg PO DAILY PRN allergies 03/26/24 06/26/24 Unknown History famotidine 20 mg tablet 20 mg PO BEDTIME PRN heartburn 03/26/24 06/26/24 Unknown History fluticasone 500 mcg-salmeterol 50 1 ea inhalation 03/26/24 05/10/24 Unknown History mcg/dose blistr powdr for inhalation (Advair Diskus) folic acid 1 mg tablet 1 mg PO QAM 03/26/24 06/26/24 Unknown History ibuprofen 600 mg tablet 600 mg PO Q8H PRN mild pain 03/26/24 06/26/24 Unknown History omeprazole 20 mg capsule,delayed 20 mg PO 03/26/24 05/10/24 Unknown History release Exam Height,Weight and Vital Signs: Height 5 ft 2 in Weight 94.347 kg Pertinent Lab Results Pertinent Lab Results: Laboratory Tests 01/30/24 10:18 WBC 10.8 Hgb 11.0 L Hct 31.9 L Plt Count 189 Sodium 139 Potassium 4.0 Chloride 105 Carbon Dioxide 26 BUN 14 Creatinine 0.82 Narrative Narrative: Laboratory Tests 01/30/24 10:18 WBC 10.8 Hgb 11.0 L Hct 31.9 L Plt Count 189 Sodium 139 Potassium 4.0 Chloride 105 Carbon Dioxide 26 BUN 14 Creatinine 0.82 Assessment and Plan Assessment Anesthesia Assessment: Chart Reviewed Documented by User: Dionisio Cervantes MD 06/28/24 07:36 [facility] Past Medical History Medical History Obesity (BMI 30-39.9) COPD (chronic obstructive pulmonary disease) Morbid obesity PAF (paroxysmal atrial fibrillation) Atrial fibrillation, new onset Asthma Back pain Family History Family History Mother High cholesterol HTN (hypertension) Father HTN (hypertension) High cholesterol Family history of problems with anesthesia: No Surgical History Surgical History H/O colonoscopy S/P section History of Problems with Anesthesia: No Social History Social History Household Members: Children Housing: Apartment Are you a primary personal care aid to a significant other at home: No Do you presently have visiting nurse or other home services: No Alcohol intake: never Patient Tobacco Use Status: Never used Tobacco Advance Directives Date on File: 06/02/21 service: No Current occupational status: employed Meds Allergies Allergy/AdvReac Type Severity Reaction Status Date / Time No Known Allergies Allergy Verified 05/23/24 11:11 Home Medications ?Medication ?Instructions ?Recorded ?Confirmed ?Last Taken ?Type cholecalciferol (vitamin D3) 50 1 tab PO QAM 05/29/21 06/26/24 Unknown History mcg (2,000 unit) tablet cyanocobalamin (vitamin B-12) 1 tab PO QAM 05/30/21 06/26/24 Unknown History 1,000 mcg tablet clonidine HCl 0.1 mg tablet 0.1 mg PO BEDTIME 09/15/21 06/26/24 Unknown History fluoxetine 20 mg capsule 20 mg PO QAM 12/07/22 06/26/24 Unknown History lisinopril 40 mg tablet 40 mg PO QAM 12/07/22 06/26/24 Unknown History ferrous sulfate 325 mg (65 mg 325 mg PO QAM 12/27/23 06/26/24 Unknown History iron) tablet,delayed release cetirizine 10 mg tablet 10 mg PO DAILY PRN allergies 03/26/24 06/26/24 Unknown History famotidine 20 mg tablet 20 mg PO BEDTIME PRN heartburn 03/26/24 06/26/24 Unknown History fluticasone 500 mcg-salmeterol 50 1 ea inhalation 03/26/24 05/10/24 Unknown History mcg/dose blistr powdr for inhalation (Advair Diskus) folic acid 1 mg tablet 1 mg PO QAM 03/26/24 06/26/24 Unknown History ibuprofen 600 mg tablet 600 mg PO Q8H PRN mild pain 03/26/24 06/26/24 Unknown History omeprazole 20 mg capsule,delayed 20 mg PO 03/26/24 05/10/24 Unknown History release Exam Airway Mallampati Class: II TM Dist: <=3cm Neck ROM: Full Loose/Missing/Broken Teeth: No Heart: see above Lungs: ok Other: stress test and echo in past OK. Assessment and Plan Assessment Anesthesia Assessment: Anesthesia Plan Discussed Final Anesthetic Review Family History of Problems with Anesthesia: No History of Problems with Anesthesia: No NPO: Yes ASA Class: III Final Preanesthetic Review: No Changes in Pt Med Stat, Meds/Allgs Chart Reviewed, Consent Obtained/Reviewed and Anes Risks/Benef Reviewed Patient Risk: High Procedure Risk: Intermediate Anesthetic Plan Anesthetic Plan: Agree w/ Assess. and Plan and TIVA Disposition: Standard PACU
[2024-06-28 06:53] VITALS: BMI 37.3
[2024-06-28 07:01] VITALS: BP 137/89; PULSE 58; RESP 16; TEMP 36.2; O2SAT 96
--- NOTE | 2024-06-28 07:54 | P.HPSUR_ITS ---
Pre-Procedural Eval Section A - 24 Hr Update-Section A only Date of Service: 06/28/24 Section B - Complete if H&P > 30 days Chief Complaint: GERD, hx of polyps Details of Present Illness: Obesity (BMI 30-39.9) COPD (chronic obstructive pulmonary disease) Morbid obesity PAF (paroxysmal atrial fibrillation) Atrial fibrillation, new onset Asthma Back pain Surgical History H/O colonoscopy S/P section Allergies: Allergies Allergy/AdvReac Type Severity Reaction Status Date / Time No Known Allergies Allergy Verified 05/23/24 11:11 Review of Systems Review of Systems Comment: 10 point ROS negative Exam Exam Comment: Gen appear: No acute distress HEENT: no icterus Chest: No overt resp distress Abd: soft, nontender, nondistended Psych: Stable affect, answering questions appropriately Neuro: A/Ox3 noted to move all extremities spontaneously Ext: no peripheral edema Plan Diagnosis/Plan: Unchanged I have reviewed the history and physical and performed a pertinent physical examination on my patient. No changes have occurred unless specified. Time Spent With Patient Time: Total time managing care of this patient today ____ minutes.
--- NOTE | 2024-06-28 08:42 | P.OPN-COLO_ITS ---
Colonoscopy Operative Note Operative Note Date of Service: 06/28/24 Narrative: Procedure: Upper endoscopy and colonoscopy Indication: GERD, hx of polyps Endoscopist: Char Wheatley MD Anesthesia Provider: Anesthesia type: MAC Instrument: [id number] and [id number] EGD Procedure:?? The procedure, indications, preparation and potential complications were reviewed with the patient, who indicated understanding and gave written informed consent to proceed. A lavender farm worker assisted with the encounter. The endoscope was introduced through the mouth, and advanced to the 2nd part of the duodenum. The mucosa was carefully examined on slow withdrawal of the endoscope. The patient tolerated the procedure well. There were no immediate complications.? EGD Findings:? * Esophagus:? Normal esophageal mucosa was noted. The Z-line was at 40 cm and was irregular to 39 cm. Cold forceps biopsies were taken from GEJ to rule out jolley's esophagus * Stomach:? Erythema and erosions in the antrum. There was also a pedunculated villous appearing polyp of size 10 mm in the antrum at 11 o clock position. Hot snare polypectomy was performed and the polypectomy defect was closed with a [employer] Resolution 360 endoclip. The polyp was retrieved using a Rescue Net. Retroflexion was performed in the cardia. Random cold forceps biopsies were taken from the stomach. * Duodenum:? Erythema and erosions in the duodenal bulb. Cold forceps biopsies were taken from the duodenal bulb and 2nd portion of the duodenum to rule out celiac sprue. Colonoscopy Procedure:? The patient was then turned for the colonoscopy. A digital rectal exam was performed which was abnormal for external hemorrhoids.? A distal attachment cap was affixed to the tip of the scope and the colonoscope was then inserted through the anus and advanced through the colon and advanced to the cecum at 80 cm and terminal ileum.? Appendiceal orifice and ileocecal valve were identified. Mucosa was carefully examined under high definition white light as the instrument was slowly withdrawn in a retrograde panoramic fashion. Retroflexion was performed in rectum. The procedure was not difficult. The quality of the prep was BBPS: 2+3+2 = adequate Withdrawal time 8 minutes Limitations: No limitations Findings: Mucosa: Normal colon and terminal ileum mucosa. Protruding lesions: * Small internal hemorrhoids without stigmata of recent bleeding. Excavated lesions: * [id number] diverticulosis of sigmoid colon. Impression: 1. Normal esophagus (biopsy) 2. Gastritis (biopsy) 3. Antral polyp (polypectomy) 4. Bulbar duodenitis (biopsy) 5. Normal colon and terminal ileum mucosa 6. Diverticulosis 7. Internal and external hemorrhoids Recommendations:?? * Follow-up path results * Surveillance EGD for antral polyp contingent on path results * Avoid NSAIDs * Repeat colonoscopy for CRC screening in 10 years.
[2024-06-28 08:43] VITALS: BP 146/64; PULSE 70; RESP 16; TEMP 36.1; O2SAT 95
[2024-06-28 08:58] VITALS: BP 162/67; PULSE 60; RESP 16; TEMP 36.1; O2SAT 97
== END 2024-06-28 09:54 | disposition home or self-care (01) ==
PROVIDERS: PCP Family Medicine; Visit Provider Internal Medicine
PROC: (CPT 43251; principal; 2024-06-28 07:30)
DX: K31.7 Polyp of stomach and duodenum (principal); K22.70 Barrett's esophagus without dysplasia; K29.60 Other gastritis without bleeding; K29.80 Duodenitis without bleeding; K22.9 Disease of esophagus, unspecified; K21.9 Gastro-esophageal reflux disease without esophagitis; Z12.11 Encounter for screening for malignant neoplasm of colon; K64.8 Other hemorrhoids; K64.4 Residual hemorrhoidal skin tags; Z86.010 Personal history of colon polyps; K59.01 Slow transit constipation; I48.0 Paroxysmal atrial fibrillation; J44.9 Chronic obstructive pulmonary disease, unspecified; Z79.899 Other long term (current) drug therapy; K57.30 Diverticulosis of large intestine without perforation or abscess without bleeding
CPT/HCPCS: 43251; 43239; 45378; 88305; 88313; 88342; J2704

== ENCOUNTER → 2024-06-28 06:12 | Outpatient (BNV) | payer MEDICAID, SELFPAY | PROVIDERS: PCP Family Medicine; Visit Provider Internal Medicine | DX: Z12.11 Encounter for screening for malignant neoplasm of colon (principal); Z86.010 Personal history of colon polyps; K57.30 Diverticulosis of large intestine without perforation or abscess without bleeding; K64.8 Other hemorrhoids; K21.9 Gastro-esophageal reflux disease without esophagitis; K31.7 Polyp of stomach and duodenum; K29.70 Gastritis, unspecified, without bleeding; K29.80 Duodenitis without bleeding | CPT/HCPCS: 43239; 43251; 45378 ==

== ENCOUNTER 2024-07-13 10:57 | Outpatient (AMB) | payer MEDICAID, SELFPAY ==
[2024-07-13 11:07] VITALS: BP 120/48; PULSE 54; O2SAT 97; BMI 37.7
--- NOTE | 2024-07-13 11:07 | A.OFFVIS_ITS ---
Vital Signs 07/13/24 11:07 Height 5 ft 2 in Weight 205 lb 14.588 oz BMI 37.7 BP 120/48 L Blood Pressure Location Rt brachial Position Sitting Pulse 54 Pulse Source Pulse Oximeter Pulse Oximetry (%) 97 Oxygen Delivery Method Room Air Intake Visit Reasons: S/P double; Dr. Wheatley Intake Note: Sydnee presents in office today for a scheduled S/P FUV. CC; Pt denies any post op complications or new concerns. Pt is here to discuss results of double procedure w/ Dr. Wheatley. 06/28/24. Pt is here to discuss the results of their procedure. Pt would specifically like to discuss the ball or piece of tissue that was removed. Car Shagger Required: Yes Car Shagger Services: Car Shagger Present Car Shagger Name: Sunil [id number] Information Interpreted: non-clinical & clinical Allergies No Known Allergies Allergy (Verified 07/13/24 11:08) HPI HPI S/P double; Dr. Wheatley: Details: LAST VISIT: Constipation Screen for colon cancer GERD (gastroesophageal reflux disease) Postprandial abdominal bloating Postprandial abdominal pain in left upper quadrant Plan Continue management with PPI. Avoid dietary triggers and late night snacking. Staying upright for minimal 3 hours after meals discussed with patient. Continue taking Dulcolax. Patient was encouraged to increase fluid intake and activity to promote better bowel motility. Patient will keep her April appointment to go over the procedure. Patient is somewhat confused and not realizing that she already has a procedure booked for April 26. Patient will call our office if she will have any GI concerning symptoms. She is agreeable to this plan and verbalizes understanding of instructions. She was given the opportunity to ask questions and all questions answered. ? UPPER ENDOSCOPY AND COLON EGD Findings:? * Esophagus:? Normal esophageal mucosa was noted. The Z-line was at 40 cm and was irregular to 39 cm. Cold forceps biopsies were taken from GEJ to rule out jolley's esophagus * Stomach:? Erythema and erosions in the antrum. There was also a pedunculated villous appearing polyp of size 10 mm in the antrum at 11 o clock position. Hot snare polypectomy was performed and the polypectomy defect was closed with a [place] [employer] Resolution 360 endoclip. The polyp was retrieved using a Rescue Net. Retroflexion was performed in the cardia. Random cold forceps biopsies were taken from the stomach. * Duodenum:? Erythema and erosions in the duodenal bulb. Cold forceps biopsies were taken from the duodenal bulb and 2nd portion of the duodenum to rule out celiac sprue. Colonoscopy Procedure:? The patient was then turned for the colonoscopy. A digital rectal exam was per formed which was abnormal for external hemorrhoids.? A distal attachment cap was affixed to the tip of the scope and the colonoscope was then inserted through the anus and advanced through the colon and advanced to the cecum at 80 cm and terminal ileum.? Appendiceal orifice and ileocecal valve were identified. Mucosa was carefully examined under high definition white light as the instrument was slowly withdrawn in a retrograde panoramic fashion. Retroflexion was performed in rectum. The procedure was not difficult. The quality of the prep was BBPS: 2+3+2 = adequate Withdrawal time 8 minutes Limitations: No limitations Findings: Mucosa: Normal colon and terminal ileum mucosa. Protruding lesions: * Small internal hemorrhoids without stigmata of recent bleeding.Excavated lesions: * [id number] diverticulosis of sigmoid colon. Impression: 1. Normal esophagus (biopsy) 2. Gastritis (biopsy) 3. Antral polyp (polypectomy) 4. Bulbar duodenitis (biopsy) 5. Normal colon and terminal ileum mucosa 6. Diverticulosis 7. Internal and external hemorrhoids Recommendations:?? * Follow-up path results * Surveillance EGD for antral polyp contingent on path results * Avoid NSAIDs * Repeat colonoscopy for CRC screening in 10 years. PATHOLOGY RESULTS Diagnosis A. Duodenum, biopsy: Duodenal mucosa within normal limits. B. Stomach, random, biopsy: Antral-type and oxyntic mucosa with mild chronic active inflammation; no Helicobacter organisms seen. C. GE junction, biopsy: - Jolley esophagus with background moderate chronic active inflammation. - No dysplasia seen. - Squamous mucosa within normal limits. D. Stomach, antral polypectomy (10 mm): Hyperplastic mucosal polyp with chronic active erosive inflammation and regenerative changes; no Helicobacter organisms seen TODAY'S VISIT Patient is here today for follow-up and to discuss upper endoscopy and colonoscopy results. Patient denies any ill effects from the prep, anesthesia or procedure itself. Patient reports that she has been feeling well. Takes omeprazole in the morning and famotidine at bedtime. Occasional constipation otherwise she reports that she has been feeling well. Upper endoscopy results and colonoscopy results discussed with patient. Biopsy results showed Barretts esophagus at GE junction with moderate chronic inflammation no dysplasia seen. Hyperplastic mucosal polyp antral polypectomy. Patient reports to be feeling well denies any GI concerning symptoms. [facility] Medical History (Updated 07/13/24 @ 11:58 by Massiel Gabriel [facility]) Diverticulosis Jolley's esophagus determined by endoscopy Obesity (BMI 30-39.9) COPD (chronic obstructive pulmonary disease) Morbid obesity PAF (paroxysmal atrial fibrillation) Atrial fibrillation, new onset Asthma Back pain Surgical History H/O colonoscopy S/P section Family History Mother High cholesterol HTN (hypertension) Father HTN (hypertension) High cholesterol Social History Household Members: Children Housing: Apartment Are you a primary manager managed care to a significant other at home: No Do you presently have visiting nurse or other home services: No Alcohol intake: never Patient Tobacco Use Status: Never used Tobacco Advance Directives Date on File: 06/02/21 service: No Current occupational status: employed Review of Systems Const Denies weight gain and Denies weight loss ENT Reports no additional complaints, Denies dysphagia and Denies odynophagia Card Reports no additional complaints Resp Reports no additional complaints GI Denies abdominal pain, Denies belching, Denies melena, Denies bloating, Denies change in bowel habits, Reports constipation (Occasional), Denies dysphagia, Denies excessive flatus, Denies dyspepsia, Denies heartburn, Denies diarrhea, Denies loose stools, Denies nausea, Denies odynophagia and Denies vomiting Reports no additional complaints Musc Reports no additional complaints Neuro Reports no additional complaints Psych Reports no additional complaints Endo Reports no additional complaints Physical Exam Vital Signs: Last Vital Signs Pulse 54 07/13/24 11:07 BP 120/48 L 07/13/24 11:07 Pulse Ox 97 07/13/24 11:07 Oxygen Delivery Method Room Air 07/13/24 11:07 BMI result Body Mass Index 37.7 Const General: healthy appearing and no acute distress Nutritional Appearance: obese Orientation/consciousness: patient oriented x3 Resp Effort & Inspection: normal respiratory effort, able to speak in complete sentences, no tracheal deviation and symmetric chest movement Auscultation: clear to auscultation bilaterally Cardio Rate: regular rate GI Inspection: Yes normal to inspection, No distended and Yes obesity Palpation (GI): Soft to palpation, not firm, nontender and No hepatosplenomegaly present Auscultation: normal bowel sounds General: Yes no CVA tenderness Back/Spine/Pelvis Back: no CVA tenderness Skin General skin exam: elasticity normal, turgor normal and dry skin Neuro General: patient oriented x3 Psych Appearance: grossly normal Mental Status: mental status grossly normal Assessment & Plan Assessment & Plan (1) Jolley's esophagus determined by endoscopy: Code(s): K22.70 - Jolley's esophagus without dysplasia Category: Medical (2) Constipation: Code(s): K59.00 - Constipation, unspecified Qualifiers: Constipation type: slow transit constipation Qualified Code(s): K59.01 - Slow transit constipation (3) GERD (gastroesophageal reflux disease): Code(s): K21.9 - Gastro-esophageal reflux disease without esophagitis Qualifiers: Esophagitis presence: without esophagitis Qualified Code(s): K21.9 - Gastro-esophageal reflux disease without esophagitis (4) Postprandial abdominal bloating: Code(s): R14.0 - Abdominal distension (gaseous) (5) Postprandial abdominal pain in left upper quadrant: Code(s): R10.12 - Left upper quadrant pain (6) Status post colonoscopy: Code(s): Z98.890 - Other specified postprocedural states (7) Diverticulosis: Code(s): K57.90 - Diverticulosis of intestine, part unspecified, without perforation or abscess without bleeding Category: Medical (8) Internal hemorrhoids without complication: Code(s): K64.8 - Other hemorrhoids Plan Patient will continue omeprazole in the morning and famotidine at bedtime. Avoid dietary triggers and late night snacking. Staying upright for minimum 3 hours after meals discussed with patient. Patient was diagnosed with Barretts esophagus at GE junction. Discuss and educated patient on the importance of taking omeprazole every day and avoiding dietary triggers in his mentioned above. Diverticulosis found and the importance of high-fiber diet stressed with patient. Patient was also educated on high-fiber diet. Supplements recommended. Patient can take [id number] fiber supplements with probiotics. Patient is on iron supplements and reports that her stools are hard and she has trouble moving her bowels. Did well with Colace in the past. Two capsule every night. Increase fluid intake and activity to promote better bowel motility. Follow-up in 6 months, sooner on as needed basis. Patient is agreeable to this plan and verbalizes understanding of instructions. She was given the opportunity to ask questions and all questions answered. Thank you for allowing me to participate in her care Medications: Changed From omeprazole 20 mg PO To omeprazole 20 mg PO DAILY 90 caps 3RF From famotidine 20 mg PO BEDTIME PRN heartburn To famotidine 20 mg PO BEDTIME 90 tabs 3RF heartburn Refilled docusate sodium 200 mg (2 x 100 mg) PO BEDTIME 180 caps 3RF K59.00 - Constipation, unspecified Coding Level of Care Code Est Pt Level 3 (69615) Complex EM visit Add On G2211 Diagnoses Jolley's esophagus determined by endoscopy K22.70 Slow transit constipation K59.01 Constipation type: slow transit constipation Gastroesophageal reflux disease without esophagitis K21.9 Esophagitis presence: without esophagitis Postprandial abdominal bloating R14.0 Postprandial abdominal pain in left upper quadrant R10.12 Status post colonoscopy Z98.890 Diverticulosis K57.90 Internal hemorrhoids without complication K64.8 Time Spent (min) 35 Comment 25 minutes spent with patient and additional 10 minutes spent reviewing her records
== END 2024-07-13 12:00 | disposition home or self-care (01) ==
PROVIDERS: PCP Family Medicine; Visit Provider Nurse Practitioner Family
DX: K22.70 Barrett's esophagus without dysplasia (principal); K59.01 Slow transit constipation; K21.9 Gastro-esophageal reflux disease without esophagitis; R14.0 Abdominal distension (gaseous); R10.12 Left upper quadrant pain; Z98.890 Other specified postprocedural states; K57.90 Diverticulosis of intestine, part unspecified, without perforation or abscess without bleeding; K64.8 Other hemorrhoids
CPT/HCPCS: 99213

== ENCOUNTER → 2024-07-13 10:57 | Outpatient (BNVA) | payer MEDICAID, SELFPAY | PROVIDERS: PCP Family Medicine; Visit Provider Nurse Practitioner Family | DX: K22.70 Barrett's esophagus without dysplasia (principal); K59.01 Slow transit constipation; K21.9 Gastro-esophageal reflux disease without esophagitis; R14.0 Abdominal distension (gaseous); R10.12 Left upper quadrant pain; K57.90 Diverticulosis of intestine, part unspecified, without perforation or abscess without bleeding; K64.8 Other hemorrhoids; Z98.890 Other specified postprocedural states | CPT/HCPCS: 99212 ==

== ENCOUNTER 2024-09-27 18:37 | Outpatient (REF) | payer MEDICAID, SELFPAY ==
[2024-09-28 13:35] LABS: HPV 16,18/45 See PAP report
== END 2024-09-27 18:38 | disposition home or self-care (01) ==
LOC: HO.HHCLNP 18:37
PROVIDERS: Visit Provider Family Medicine
DX: Z01.419 Encounter for gynecological examination (general) (routine) without abnormal findings (principal); Z11.51 Encounter for screening for human papillomavirus (HPV)
CPT/HCPCS: 87624; 88175

== ENCOUNTER 2024-11-14 13:42 | Outpatient (AMB) | payer MEDICAID, SELFPAY ==
[2024-11-14 13:59] VITALS: BP 100/44; PULSE 60; O2SAT 97; BMI 36.6
--- NOTE | 2024-11-14 13:59 | A.OFFVIS_ITS ---
Vital Signs 11/14/24 13:59 Height 5 ft 2 in Weight 200 lb BMI 36.6 BP 100/44 L Blood Pressure Location Lt brachial Position Sitting Pulse 60 Pulse Source Pulse Oximeter Pulse Oximetry (%) 97 Oxygen Delivery Method Room Air Intake Visit Reasons: Asthma Intake Note: pt is here and stating she is coughing, wheezing and short of breath for the past week Advertising Material Distributor Required: Yes Advertising Material Distributor Services: Advertising Material Distributor Present Advertising Material Distributor Name: Antonia (LEONIE) Allergies No Known Allergies Allergy (Verified 11/14/24 14:11) Medication List - Last Reconciled 11/14/24 by Alysia Perez MD albuterol sulfate 90 mcg/actuation (Ventolin HFA) 2 puffs inhalation Q6H PRN alcohol swabs (Alcohol Prep Pads) pad topical QAM apixaban (Eliquis) 5 mg PO BID atorvastatin 10 mg PO BEDTIME blood pressure kit-extra large As directed blood sugar diagnostic (FreeStyle Lite Strips) As directed blood-glucose meter (FreeStyle Hendley Lite kit) As directed carvedilol 3.125 mg See Protocol PO BID 30 days cetirizine 10 mg PO DAILY PRN cholecalciferol (vitamin D3) 1 tab PO QAM clonidine HCl 0.1 mg PO BEDTIME cyanocobalamin (vitamin B-12) 1 tab PO QAM cyclobenzaprine 5 mg PO TID PRN 7 days diltiazem HCl CD (Cartia XT) 120 mg PO QAM diphenhydramine HCl (Benadryl Allergy) 25 mg PO TID PRN docusate sodium 200 mg (2 x 100 mg) PO BEDTIME famotidine 20 mg PO BEDTIME ferrous sulfate 325 mg PO QAM fluoxetine 20 mg PO QAM fluticasone propion-salmeterol 500-50 mcg/dose (Advair Diskus) 1 ea inhalation folic acid 1 mg PO QAM [heel lift bilat heel lift ] hydrocortisone 2.5% (Proctosol HC) 1 appl KS BID-QID PRN lancets (Easy Touch Twist Lancets) As directed lisinopril 40 mg PO QAM omeprazole 20 mg PO DAILY oxycodone 5 mg PO BID PRN Do you need a note to return to daycare/school/sports/work: No HPI HPI Asthma: Details: 64 YEARS OLD FEMALE GROSSLY OBESE, HAS PAST HISTORY OF SLEEP APNEA BUT COULD NOT USE THE CPAP. SHE WAS SUPPOSED TO LOSE SOME WEIGHT, AND HAS LOST ABOUT 3 LB THIS TIME. CLAIMS THAT SHE SLEEPS GOOD . TRIES TO SLEEP IN LATERAL POSITION . BREATHING WEINSTEIN HAS BEEN STABLE EXCEPT FOR THE LAST 1 WEEK SHE CLAIMS THAT SHE HAS INCREASED COUGH, NO FEVER OR CHILLS. USES ADVAIR 500-51 INHALATION B.I.D. AND VENTOLIN INHALER ONLY ONCE IN A WHILE.. [facility] Medical History (Updated 11/14/24 @ 14:25 by Alysia Perez MD) CLARE (obstructive sleep apnea) Diverticulosis 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 Obesity (BMI 30-39.9) COPD (chronic obstructive pulmonary disease) Morbid obesity PAF (paroxysmal atrial fibrillation) Atrial fibrillation, new onset Asthma Back pain Surgical History H/O colonoscopy S/P section Family History Mother High cholesterol HTN (hypertension) Father HTN (hypertension) High cholesterol Social History Household Members: Children Housing: Apartment Are you a primary student career development specialist to a significant other at home: No Do you presently have visiting nurse or other home services: No Alcohol intake: never Patient Tobacco Use Status: Never used Tobacco Advance Directives Date on File: 06/02/21 service: No Current occupational status: employed Review of Systems Const All systems reviewed & are unremarkable except as noted in HPI and below Reports snoring Eyes Reports no additional complaints ENT Reports no additional complaints Card Denies chest pain, Reports irregular heart rhythm (Paroxysmal atrial fibrillation), Denies leg edema and Denies dyspnea Resp Denies cough, Denies dyspnea, Reports snoring and Denies wheezing GI Reports no additional complaints Reports no additional complaints Musc Reports no additional complaints Skin/Breast Reports system reviewed and no additional complaints, except as documented Neuro Reports no additional complaints Psych Reports no additional complaints Aller/Immun Denies wheezing Physical Exam Vital Signs: Last Vital Signs Pulse 60 11/14/24 13:59 BP 100/44 L 11/14/24 13:59 Pulse Ox 97 11/14/24 13:59 Oxygen Delivery Method Room Air 11/14/24 13:59 BMI result Body Mass Index 36.6 Const General: healthy appearing (Except for being overweight), comfortable, no acute distress, alert and awake Orientation/consciousness: patient oriented x3 HEENT Head: Yes normal to inspection General nose exam: No nasal polyps present and No nasal discharge present Face and sinus: Yes sinuses nontender Mouth: oropharynx abnormals (Slightly narrow, Mallampati class 3) Throat: Yes posterior oropharynx normal Eyes General: appearance normal, both eyes and all related structures Neck Neck: Yes normal visual inspection, Yes no lymphadenopathy, Yes trachea midline, Yes no JVD and Yes other (Neck circumference 17 in) Thyroid: Thyroid normal Chest Chest palpation & inspection: normal inspection of the chest, normal palpation of entire chest wall and no tenderness Resp Other: Percussion note is diminished due to obese chest wall. Breath sounds slightly diminished over the basilar areas. No wheezes or crepitations are heard. NO COUGH WAS NOTED EVEN WITH DEEP INSPIRATION. Cardio Palpation: normal PMI Rate: regular rate Rhythm: regular rhythm Heart sounds: no gallops and no murmurs GI Palpation (GI): Soft to palpation, Tenderness to palpation present (GI), No hepatosplenomegaly present, Palpable mass present and Other GI palpation findings present (Abdomen is slightly protuberant) Auscultation: normal bowel sounds Back/Spine/Pelvis Thoracic/Lumbar Spine: thoracic and lumbar spine normal to inspection Skin General skin exam: no rashes or lesions noted Neuro General: patient oriented x3 and no focal motor deficits Cranial nerves: Yes CN's II-XII intact bilaterally Extrem General: Yes normal to inspection, Yes no clubbing, cyanosis or edema and Yes no calf tenderness Psych Appearance: grossly normal and well kempt Speech and movement: Normal speech and movement present Assessment & Plan Assessment & Plan (1) Obesity (BMI 30-39.9): Comment: She has been morbidly obese , has lost significant weight. Currently she is still grossly obese. Code(s): E66.9 - Obesity, unspecified Category: Medical Plan: Talked about her weight. Stressed that she has to lose weight continuously Cut down the intake of calories. And try to walk on a daily basis (2) CLARE (obstructive sleep apnea): Comment: Patient was found to have moderately severe obstructive sleep apnea. CPAP therapy tried but she could not tolerate and returned the CPAP device. Code(s): G47.33 - Obstructive sleep apnea (adult) (pediatric) Category: Medical Plan: Now she is encouraged to sleep in lateral position. She is also encouraged to lose weight. (3) COPD (chronic obstructive pulmonary disease): Comment: ASTHMA/COPD ,VERY WELL CONTROLLED AND STABLE. Complains of, increased cough in the last 1 week or so but there is no evidence of any upper lower respiratory infection. Must be dryness of the air in her apartment. Code(s): J44.9 - Chronic obstructive pulmonary disease, unspecified Category: Medical Plan: She is advised to use cough drops p.r.n.. Advised to make sure that there is enough humidification In the house Continue to use: ADVAIR HFA 500-51 INHALATION B.I.D. ALBUTEROL HFA 2 PUFFS Q 6 HOURS P.R.N.. Coding Level of Care Code Est Pt Level 3 (95486) Diagnoses Obesity (BMI 30-39.9) E66.9 CLARE (obstructive sleep apnea) G47.33 COPD (chronic obstructive pulmonary disease) J44.9
--- OUTSIDE RECORDS SUMMARY | 2024-11-14 15:06 | XMS_ITS | Encounter Summary ---
Author Organization [employer] Address [address] [facility] [address] [place] [address] Care Team Providers Care Tool Hardener Name Role Phone Amy lOmedo MD Primary Care Provider [phone] Jeremy Galloway PharmD Unavailable [phone] Encounter Details Date Type Department Care Team (Late st Contact Info) Description 11/29/2022 Orders Only [facility] MED [facility] PEDS [address] [place], [place] [phone] Rosi Harvey LPN Social History Tobacco Use Types Packs/Day Years Used Date Smoking Tobacco: Never Passive Smoke Exposure: Never Smokeless Tobacco: Never Depression Answer Date Recorded Patient Health Questionnaire-2 Score 0 09/15/2022 Comments Unknown Sex and Gender Information Value Date Recorded Sex Assigned at Female 08/02/2022 10:15 AM EDT Legal Sex Female 10:15 AM EDT Gender Identity Female 08/02/2022 10:15 AM EDT Sexual Orientation Straight 08/02/2022 10 :15 AM EDT documented as of this encounter Plan of Treatment Upcoming Encounters Date Type Department Care Team (Late st Contact Info) Description 11/29/2024 3:00 PM EST Office Visit [facility] ADULT DENTAL [address] [place] [address] Mariposa, Lilia [address] [place] [address] documented as of this encounter Visit Diagnoses Not on filedocumented in this encounter Care Teams Tool Hardener Relationship Specialty Start Date End Date Amy Olmedo MD [address] [place], [place] [phone] PCP - General Family Medicine 10/03/18 Jeremy Galloway, PharmD [address] [place] [id number] Pharmacist Internal Medicine 03/11/23 documented as of this encounter
--- OUTSIDE RECORDS SUMMARY | 2024-11-14 15:06 | XMS_ITS | Encounter Summary ---
Author Organization [employer] Address [address] [facility] [address] [place] [address] Care Team Providers Care Wire Splicer Name Role Phone Amy Olmedo MD Primary Care Provider [phone] Jeremy Galloway PharmD Unavailable [phone] Reason for Referral * Consultation (Routine) - Closed Specialty Diagnoses / Procedures Referred By Contgera t Referred To Contact General Surgery Diagnoses Mass on back Amy Olmedo MD [address] [place] [address] Phone: tel: fax: Drew Coyne MD [address] [place] [id number] Phone: tel: fax: Referral ID Status Reason Start Date Expiration Date V isits Requested Visits Authorized [id number] Closed Specialty Services Required 03/09/2024 03/09/2025 12 12 Encounter Details Date Type Department Care Team (Late st Contact Info) Description 03/07/2024 Orders Only [facility] MEDICINE [address] [place], [place] [phone] Amy Olmedo MD [address] [place], [place] [phone] Mass on back (Primary Dx) Social History Tobacco Use Types Packs/Day Years Used Date Smoking Tobacco: Never Passive Smoke Exposure: Never Smokeless Tobacco: Never Alcohol Use Standard Drinks/Week Comments Never 0 (1 standard drink = 0.6 oz pur e alcohol) Depression Answer Date Recorded Patient Health Questionnaire-9 Score 4 09/19/2023 Patient Health Questionnaire-9 Score 4 09/19/2023 Last PHQ-9: Questionnaire Data Not on file 1 11/20/2022 Housing Stability Answer Date Recorded What is your housing situation today? I have jael barrera 07/20/[address] you li ve. Do you have problems with any of the following? None of the above 07/20/2023 Food Insecurity Answer Date Recorded Within the past 12 months, y ou worried that your food would run out before you got money to buy more: Never True 07/20/2023 Within the past 12 months,th e food you bought just didn't last and you didn't have enough money to get more: Never True Transportation Answer Date Recorded In the past 12 months, has l ack of transportation kept you from medical appts, meetings, work or from getting things needed for daily living? No 07/20/2023 Utilities Answer Date Recorded In the past 12 months, has t he electric, gas, oil or water company threatened to shut off services in your home? No 07/20/2023 Depression Answer Date Recorded Patient Health Questionnaire-2 Score 4 09/19/2023 Comments Unknown Sex and Gender Information Value [...] Description 11/29/2024 3:00 PM EST Office Visit [facility] ADULT D[facility]AL [address] [place] [address] Mariposa, Lilia [address] [place] [address] Scheduled Referrals Name Type Priority Associated Diagnoses Orde r Schedule Referral to General Surgery Outpatient Referral Routine Mass on back Expected: 03/07/2024 (Approximate), Expires: 03/07/2025 documented as of this encounter Goals Goal Patient Goal Type Associated Problems Recent Progress Patient-Stated? Author Blood Pressure < 140/90 Blood Pressure 141/80(2023 10:18 AM EST) No Jeremy Galloway PharmD Hemoglobin A1c < 7 Result Component 5.9( 9:52 AM EST) No Jeremy Galloway PharmD documented as of this encounter Visit Diagnoses Diagnosis Mass on back- Primary Localized superficial swelling, mass, or lump documented in this encounter Additional Health Concerns Assessment Noted Time PHQ-9 Depression Total Score: 4 09/19/20 10:40 AM EST documented as of this encounter Care Teams Wire Splicer Relationship Specialty Start Date End Date Amy Olmedo MD [address] [place] [id number] PCP - General Family Medicine 10/03/18 Jeremy Galloway PharmD [address] [place] [phone] Pharmacist Internal Medicine 03/11/23 documented as of this encounter
--- OUTSIDE RECORDS SUMMARY | 2024-11-14 15:07 | XMS_ITS | Encounter Summary ---
Author Organization [employer] Address [address] [facility] [address] [place] [address] Care Team Providers Care Thread Singer Name Role Phone Amy Olmedo MD Primary Care Provider [phone] Jeremy Galloway PharmD Unavailable [phone] Encounter Details Date Type Department Care Team ([facility] st Contact Info) Description 11/02/2024 Orders Only [facility] MEDICINE [address] [place], [place] [phone] Amy Olmedo MD [address] [place], [place] [phone] Social History Tobacco Use Types Packs/Day Years [...] housing situation today? I have jael barrera 09/27/[address] you li ve. Do you have problems with any of the following? None of the above 09/27/2024 Food Insecurity Answer Date Recorded Within the past 12 months, y ou worried that your food would run out before you got money to buy more: Never True 09/27/2024 Within the past 12 months,th e food you bought just didn't last and you didn't have enough money to get more: Never True Transportation Answer Date Recorded In the past 12 months, has l ack of transportation kept you from medical appts, meetings, work or from getting things needed for daily living? No 09/27/2024 Utilities Answer Date Recorded In the past 12 months, has t he electric, gas, oil or water company threatened to shut off services in your home? No 09/27/2024 Depression Answer Date Recorded Patient Health Questionnaire-2 Score 4 09/27/2024 Internet Access Answer Date Recorded Internet Access Q1 Yes 09/27/2024 Internet Access Q2 Not on file 09/27/2024 Comments Unknown Sex and Gender Information Value [...] Description 11/29/2024 3:00 PM EST Office Visit [facility] ADULT DENTAL [address] [place] [address] Mariposa, Lilia [address] [place] [address] documented as of this encounter Goals Goal Patient Goal Type Associated Problems Recent Progress Patient-Stated? Author Blood Pressure < 140/90 Blood Pressure 141/80(2023 10:18 AM EST) No Jeremy Galloway PharmD Hemoglobin A1c < 7 Result Component 5.9( 9:52 AM EST) No Jeremy Galloway PharmD documented as of this encounter Visit Diagnoses Not on filedocumented in this encounter Additional Health Concerns Assessment Noted Time PHQ-9 Depression Total Score: 4 09/19/20 23 10:40 AM EST documented as of this encounter Care Teams Thread Singer Relationship Specialty Start Date End Date Amy Olmedo MD [address] [place] [phone] PCP - General Family Medicine 10/03/18 Jeremy Galloway PharmD [address] [place] [phone] Pharmacist Internal Medicine 03/11/23 documented as of this encounter
--- OUTSIDE RECORDS SUMMARY | 2024-11-14 15:07 | XMS_ITS | Clinical Summary ---
Author Organization [employer] Address [address] [place] [address] Care Team Providers Care Kaiako Kura Tuarua Name Role Phone Amy Olmedo MD Primary Care Provider [phone] Jeremy Galloway PharmD Unavailable [phone] Allergies Active Allergy Reactions Criticality Noted Date Comments Sertraline Dizziness Medium 03/18/2020 Medications atorvastatin (Lipitor) 10 MG tablet Take 10 mg by mouth at bedtime. 10/08/19 23 Active Cartia XT 120 MG 24 hr capsule Take 120 mg by mouth in the morning. 10/08/19 23 Active Blood Glucose Monitoring Suppl (FreeStyle Lite) w/Device kitIndications: Type 2 diabetes mellitus without complication, without long-term current use of insulin ([facility]) 1 kit in the morning. 1 kit 1 03/02/20 23 Active benzonatate (Tessalon) 200 MG capsule Take 1 capsule (200 mg) by mouth if needed in the morning, at noon, and at bedtime for cough. Do not crush or chew. 30 capsule 2 05/26/20 23 Active hydrocortisone 1 % cream Apply topically 2 times daily. Apply thin layer once or twice daily as needed 30 g 1 05/26/20 23 Active docusate sodium (Colace) 100 MG capsule TAKE 2 CAPSULES BY MOUTH EVERY DAY AT BEDTIME 08/22/20 23 Active Blood Pressure Monitoring kitIndications: Primary hypertension Use as directed 1 kit 10/28/19 24 Active folic acid (Folvite) 1 MG tabletIndicatio ns:Vitamin deficiency TAKE 1 TABLET BY MOUTH EVERY MORNING 90 tablet 3 12/05/19 24 Active lisinopril 40 MG tabletIndicatio ns:Primary hypertension TAKE 1 TABLET BY MOUTH EVERY MORNING 90 tablet 3 12/05/19 24 Active cholecalciferol (Vitamin D-3) 50 MCG (2000 UT) tabletIndicatio ns:Vitamin deficiency TAKE 1 TABLET BY MOUTH EVERY MORNING 90 tablet 3 12/05/19 24 Active cloNIDine (Catapres) 0.1 MG tabletIndicatio ns:Primary hypertension Take 1 tablet (0.1 mg) by mouth at bedtime. 90 tablet 3 12/05/19 24 Active albuterol (Ventolin HFA) 108 (90 Base) MCG/ACT inhalerIndicati ons:Asthma-COPD overlap syndrome (CMS/HCC) INHALE 2 PUFFS BY MOUTH EVERY 4 TO 6 HOURS NEEDED DIFFICULTY BREATHING. NO MORE THAN 8 PUFFS PER DAY 18 g 11 12/27/19 24 Active ferrous sulfate 325 (65 Fe) MG EC tablet TAKE 1 TABLET BY MOUTH EVERY MORNING WITH BREAKFAST 90 tablet 3 01/09/20 24 Active fluticasone (Flonase) 50 MCG/ACT nasal spray USE 1-2 SPRAYS IN EACH NOSTRIL IN THE MORNING 48 g 1 03/05/20 24 Active glucose blood (FREESTYLE LITE) test stripIndication s:Type 2 diabetes mellitus without complication, without long-term current use of insulin (CMS/HCC) TEST BLOOD SUGAR EVERY DAY 50 strip 11 03/20/20 24 Active famotidine (Pepcid) 20 MG tablet TAKE 1 TABLET BY MOUTH AT BEDTIME NEEDED HEARTBURN 90 tablet 1 04/02/20 24 Active Bisacodyl EC 5 MG EC tablet TAKE 2 TABLETS BY MOUTH EVERY DAY AT BEDTIME 12/27/19 24 Active Procto-Med HC 2.5 % rectal cream APPLY RECTALLY 2 TO 4 TIMES DAILY NEEDED FOR HEMORRHOIDS 12/27/19 24 Active pantoprazole (ProtoNix) 40 MG EC tablet TAKE 1 TABLET BY MOUTH EVERY MORNING (1/2 HOUR BEFORE BREAKFAST) 12/27/19 24 Active Advair Diskus 500-50 MCG/ACT aerosol powder INHALE 1 PUFF BY MOUTH TWICE DAILY 12 HOURS APART. RINSE MOUTH AFTER USING. 60 each 05/25/20 24 Active Eliquis 5 MG tablet TAKE 1 TABLET BY MOUTH TWICE DAILY IN THE MORNING AND IN THE EVENING 60 tablet 05/28/20 24 Active Alcohol Swabs (Alcohol Prep) 70 % padsIndications :Type 2 diabetes mellitus without complication, without long-term current use of insulin (CMS/HCC) USE DIRECTED IN THE MORNING 100 each 5 06/06/20 24 Active Easy Touch Lancets 33G/Twist miscIndications :Type 2 diabetes mellitus without complication, without long-term current use of insulin (CMS/HCC) USE DIRECTED IN THE MORNING 100 each 5 06/06/20 24 Active cetirizine (ZyrTEC) 10 MG tablet TAKE 1 TABLET BY MOUTH EVERY DAY NEEDED FOR ALLERGIES 90 tablet 08/28/20 24 Active cyanocobalamin (Vitamin B-12) 1000 MCG tabletIndicatio ns:Anemia due to vitamin B12 deficiency, unspecified B12 deficiency type TAKE 1 TABLET BY MOUTH EVERY MORNING 90 tablet 1 09/27/20 24 Active FLUoxetine (PROzac) 20 MG capsuleIndicati ons:Panic disorder with agoraphobia TAKE 1 CAPSULE BY MOUTH EVERY MORNING 30 capsule 10/31/19 25 Active Tirzepatide (Mounjaro) 2.5 MG/0.5ML solution auto-injector Inject 2.5 mg under the skin 1 (one) time per week. 2 mL 11 11/02/19 25 Active semaglutide (Ozempic) 2 MG/1.5ML solution pen-injector Inject 0.25 mg under the skin 1 (one) time per week. 1 each 10/04/19 25 2024 Discontinued(F ormulary change) FLUoxetine (PROzac) 20 MG capsuleIndicati ons:Panic disorder with agoraphobia TAKE 1 CAPSULE BY MOUTH EVERY MORNING 30 capsule 10/04/19 25 2024 Discontinued Active Problems Problem Noted Date Diagnosed Date Partial edentulism 06/21/2024 Mass on back 01/24/2024 Assessment & Plan (01/24/2024 2:56 PM EDT): - will evaluate with ultrasound, may not be able to have external biopsy Constipation 09/19/2023 Assessment & Plan (01/24/2024 2:54 PM EDT): - followed by [facility], last seen in December 2023 - prescribed Miralax, Colace, and dulcolax - fiber-rich diet - patient is scheduled for colonoscopy Assessment & Plan (09/19/2023 5:58 AM EST): - followed by [facility], last seen in May 2023 - prescribed Miralax and Colace - fiber-rich diet Iron deficiency anemia 05/03/2023 Assessment & Plan (10/04/2024 8:34 AM EST): - seen by facing grinder on 04/13/23 - received IV iron - continue current treatment plan per Heme Assessment & Plan (09/19/2023 5:59 AM EST): - seen by facing grinder on 04/13/23 - received IV iron - continue current treatment plan per Heme Assessment & Plan (05/29/2023 6:11 AM EDT): - seen by facing grinder on 04/13/23 - currently receiving IV iron - continue current treatment plan per Heme CLARE (obstructive sleep apnea) 02/28/2023 Assessment & Plan (10/04/2024 8:30 AM EST): - sleep study in January 2022 showed severe CLARE, positive airway pressure therapy was recommended SCAR - evaluated by piano tuner - pt tried CPAP, but returned the device due to intolerance in 2022 - pt has nocturnal hypoxemia, but DME supplier will not provide oxygen supplementation for pt with CLARE with nocturnal hypoxemia - continue working on lifestyle modification - sleep on lateral position and/or elevate head of the bed Assessment & Plan (09/19/2023 5:56 AM EST): - sleep study in January 2022 showed severe CLARE, positive airway pressure therapy was recommended SCAR - evaluated by piano tuner - pt tried CPAP, but returned the device due to intolerance in 2022 - pt has nocturnal hypoxemia, but DME supplier will not provide oxygen supplementation for pt with CLARE with nocturnal hypoxemia - continue working on lifestyle modification - sleep on lateral position and/or elevate head of the bed Assessment & Plan (05/29/2023 6:02 AM EDT): - sleep study in January 2022 showed severe CLARE, positive airway pressure therapy was recommended SCAR - evaluated by piano tuner - pt tried CPAP, but returned the device due to intolerance in 2022 - pt has nocturnal hypoxemia, but DME supplier will not provide oxygen supplementation for pt with CLARE with nocturnal hypoxemia - continue working on lifestyle modification - sleep on lateral position and/or elevate head of the bed Assessment & Plan (03/02/2023 6:24 AM EDT): - sleep study in January 2022 showed severe CLARE, positive airway pressure therapy was recommended SCAR - evaluated by piano tuner - pt tried CPAP, but returned the device due to intolerance in 2022 - pt has nocturnal hypoxemia, but DME supplier will not provide oxygen supplementation for pt with CLARE with nocturnal hypoxemia - continue working on lifestyle modification - sleep on lateral position and/or elevate head of the bed Recurrent kidney stones 02/28/2023 Assessment & Plan (01/29/2024 6:46 PM EDT): - CT scan on 02/23/23 showed nonobstructive kidney stone on L side. - CT scan on 10/20/23 showed nonobstructive bilateral renal calculi, the largest 4 mm - Continue adequate fluid intake > 2 L water per day Assessment & Plan (09/19/2023 6:01 AM EST): - CT scan on 02/23/23 showed nonobstructive kidney stone on L side. - Continue adequate fluid intake > 2 L water per day Assessment & Plan (03/02/2023 6:11 AM EDT): - CT scan on 02/23/23 showed nonobstructive kidney stone on L side. - Continue adequate fluid intake > 2 L water per day Type 2 diabetes mellitus 02/28/2023 Assessment & Plan (10/04/2024 8:34 AM EST): - Dx January 2023. RBG in ED > 200. - Most recent Hgb A1C 5.9% on 09/27/24, slightly increased from previous A1C - Continue SMBG - Work on lifestyle modifications - Start GLP1RA as she wants to lose weight - Foot exam 09/27/24 - Eye exam - Lipid profile: January 2024 - Microalbumin test: January 2024 - Immunizations - reviewed Assessment & Plan (01/24/2024 2:55 PM EDT): - Dx January 2023. RBG in ED > 200. - Most recent Hgb A1C 5.7% on 01/24/24 - Continue SMBG - Work on lifestyle modifications - Foot exam 09/19/23 - Eye exam - Lipid profile: 12/16/22 C 113; TG 151; HDL 29; LDL 61 - Microalbumin test: 05/26/23 UACR 11 micrograms/mg - Immunizations - reviewed Assessment & Plan (09/25/2023 10:50 AM EST): - Dx January 2023. RBG in ED > 200. - Most recent Hgb A1C 5.7% on 05/26/23, 6.3% on 12/16/22 - Continue SMBG - Work on lifestyle modifications - Foot exam 09/19/23 - Eye exam - Lipid profile: 12/16/22 C 113; TG 151; HDL 29; LDL 61 - Microalbumin test: 05/26/23 UACR 11 micrograms/mg - Immunizations - reviewed Assessment & Plan (05/29/2023 6:10 AM EDT): - Dx January 2023. RBG in ED > 200. - Most recent Hgb A1C 5.7% on 05/26/23, 6.3% on 12/16/22 - Continue SMBG - Work on lifestyle modifications - Foot exam - Eye exam - Lipid profile: 12/16/22 C 113; TG 151; HDL 29; LDL 61 - Microalbumin test: 05/26/23 UACR 11 micrograms/mg - Immunizations - reviewed Assessment & Plan (03/02/2023 5:53 AM EDT): - Newly diagnosed. RBG in recent ED visit > 200. - Most recent Hgb A1C 6.3% on 12/16/22 - Start SMBG - Check lab - Work on lifestyle modifications - Discussed briefly about diet today, but pt will need more time and long-term educational plan regarding to lifestyle modifications - Foot exam - Eye exam - Lipid profile: 3/16/23 C 113; TG 151; HDL 29; LDL 61 - Microalbumin test: - Immunizations Paroxysmal atrial fibrillation 09/19/2022 Assessment & Plan (10/04/2024 8:31 AM EST): -Followed by [facility], last seen in December 2022, patient reports she had more recent visit -Dx on 05/29/21 at [facility] ED in a setting of pneumonia and asthma exacerbation, converted to sinus rhythm in ED with metoprolol. Discharged with carvedilol and Eliquis -[id number] score 2 -Normal echo on 06/01/21 -Nuclear stress test / myocardial perfusion scan showed no ischemia and normal LV function on 02/10/22 -continue carvedilol 3.125 mg bid for rate control -continue diltiazem 120 mg -continue apixaban for anticoagulation -optimize asthma control to avoid frequent albuterol use / hypoxia -Most recent Holter monitor in April 2022 showed sinus bradycardia (24%) but not A-fib -Pt was unable to tolerate CPAP Assessment & Plan (01/24/2024 2:51 PM EDT): -Followed by [facility], last seen in December 2022, patient reports she had more recent visit -Dx on 05/29/21 at [facility] ED in a setting of pneumonia and asthma exacerbation, converted to sinus rhythm in ED with metoprolol. Discharged with carvedilol and Eliquis -[id number] score 2 -Normal echo on 06/01/21 -Nuclear stress test / myocardial perfusion scan showed no ischemia and normal LV function on 02/10/22 -continue carvedilol 3.125 mg bid for rate control -continue diltiazem 120 mg -continue apixaban for anticoagulation -optimize asthma control to avoid frequent albuterol use / hypoxia -Most recent Holter monitor in April 2022 showed sinus bradycardia (24%) but not A-fib -Pt was unable to tolerate CPAP -Follow up in 4 mo or sooner as needed Assessment & Plan (09/25/2023 10:48 AM EST): -Followed by [facility], last seen in December 2022 -Dx on 05/29/21 at [facility] in a setting of pneumonia and asthma exacerbation, converted to sinus rhythm in ED with metoprolol. Discharged with carvedilol and Eliquis -[id number] score 2 -Normal echo on 06/01/21 -Nuclear stress test / myocardial perfusion scan showed no ischemia and normal LV function on 02/10/22 -continue carvedilol 3.125 mg bid for rate control -continue diltiazem 120 mg -continue apixaban for anticoagulation -optimize asthma control to avoid frequent albuterol use / hypoxia -Most recent Holter monitor in April 2022 showed sinus bradycardia (24%) but not A-fib -Pt was unable to tolerate CPAP -Follow up in 4 mo or sooner as needed Assessment & Plan (05/29/2023 6:05 AM EDT): -Followed by [facility], last seen in December 2022 -Dx on 05/29/21 at [facility] in a setting of pneumonia and asthma exacerbation, converted to sinus rhythm in ED with metoprolol. Discharged with carvedilol and Eliquis -[id number] score 2 -Normal echo on 06/01/21 -Nuclear stress test / myocardial perfusion scan showed no ischemia and normal LV function on 02/10/22 -continue carvedilol 3.125 mg bid for rate control -continue Diltiazem 120 mg -continue Eliquis for anticoagulation -optimize asthma control to avoid frequent albuterol use / hypoxia -Most recent Holter monitor in April 2022 showed sinus bradycardia (24%) but not A-fib -Pt was unable to tolerate CPAP -Follow up in 4 mo or sooner as needed Assessment & Plan (03/02/2023 6:06 AM EDT): -Followed by [facility], last seen in December 2022 -Dx on 05/29/21 at [facility] in a setting of pneumonia and asthma exacerbation, converted to sinus rhythm in ED with metoprolol. Discharged with carvedilol and Eliquis -[id number] score 2 -Normal echo on 06/01/21 -Nuclear stress test / myocardial perfusion scan showed no ischemia and normal LV function on 02/10/22 -continue carvedilol 3.125 mg bid for rate control -continue Diltiazem 120 mg -continue Eliquis for anticoagulation -optimize asthma control to avoid frequent albuterol use / hypoxia -Most recent Holter monitor in April 2022 showed sinus bradycardia (24%) but not A-fib -Pt was unable to tolerate CPAP -Follow up in 4 mo or sooner as needed Assessment & Plan (09/19/2022 5:00 PM EST): -Dx on 05/29/21 at [facility] in a setting of pneumonia and asthma exacerbation -converted to sinus rhythm in ED with metoprolol -[id number] score 2 -Normal echo on 06/01/21 -discharged with carvedilol and Eliquis -continue carvedilol 3.125 mg bid for rate control -continue Diltiazem 120 mg -continue Eliquis for anticoagulation -optimize asthma control to avoid frequent albuterol use / hypoxia -Holter monitor most recently in April 2022 showed sinus bradycardia but not A- fib History of kidney stones 09/11/2022 Overview (09/11/2022): History of calculus of kidney per previous EHR Vitamin D deficiency 09/15/2015 Gastroesophageal reflux disease 02/03/2015 Assessment & Plan (01/24/2024 2:52 PM EDT): - 04/26/13 EGD normal biopsy result - continue pantoprazole 60 mg once daily - continue famotidine 20 mg at bedtime prn - work on lifestyle modifications (avoid eating after 7 pm, avoid trigger foods, stay upright after meals, elevated head of bed), - avoid NSAID use -following with GI being scheduled for EGD and colonoscopy Assessment & Plan (09/25/2023 10:49 AM EST): - 04/26/13 EGD normal biopsy result - continue omeprazole 20 mg bid - continue famotidine 20 mg at bedtime prn - work on lifestyle modifications (avoid eating after 7 pm, avoid trigger foods, stay upright after meals, elevated head of bed), - avoid NSAID use Assessment & Plan (03/02/2023 6:21 AM EDT): - 04/26/13 EGD normal biopsy result - continue omeprazole 20 mg bid - add famotidine 20 mg at bedtime prn - work on lifestyle modifications (avoid eating after 7 pm, avoid trigger foods, stay upright after meals, elevated head of bed), Hypertension 02/03/2015 Assessment & Plan (10/04/2024 8:31 AM EST): -Goal BP < 140/90 per JNC-8, <130/80 per ACC/AHA guideline, Tx threshold 140/90 -BP at goal -Co-managed through CDTM, last appt on 05/14/23 -Continue lisinopril 40mg daily -Continue carvedilol 3.125 mg bid -Continue clonidine 0.1mg qhs (for anxiety, insomnia) -Continue Diltiazem 120 mg daily -Continue working of lifestyle modification -Continue checking home BP -Previously tried HCTZ, which was discontinued due to hypokalemia in a setting of frequent albuterol use. -Follow-up in 3-4 mo or sooner if any problem arises Assessment & Plan (01/24/2024 2:50 PM EDT): -Goal BP < 140/90 per JNC-8, <130/80 per ACC/AHA guideline, Tx threshold 140/90 -BP at goal -Co-managed through CDTM, last appt on 05/14/23 -Continue lisinopril 40mg daily -Continue carvedilol 3.125 mg bid -Continue clonidine 0.1mg qhs (for anxiety, insomnia) -Continue Diltiazem 120 mg daily -Continue working of lifestyle modification -Continue checking home BP -Previously tried HCTZ, which was discontinued due to hypokalemia in a setting of frequent albuterol use. -Follow-up in 3-4 mo or sooner if any problem arises Assessment & Plan (09/19/2023 5:57 AM EST): -Goal BP < 140/90 per JNC-8, <130/80 per ACC/AHA guideline, Tx threshold 140/90 -BP elevated today, but home BP is normal -Co-managed through CD[facility], last appt on 05/14/23 -Continue lisinopril 40mg daily -Continue carvedilol 3.125 mg bid -Continue clonidine 0.1mg qhs (for anxiety, insomnia) -Continue Diltiazem 120 mg daily -Continue working of lifestyle modification -Continue checking home BP -Previously tried HCTZ, which was discontinued due to hypokalemia in a setting of frequent albuterol use. -Follow-up in 3-4 mo or sooner if any problem arises Assessment & Plan (05/29/2023 6:06 AM EDT): -Goal BP < 140/90 per JNC-8, <130/80 per ACC/AHA guideline, Tx threshold 140/90 -BP elevated today, but home BP is normal -Co-managed through CD[facility], last appt on 05/14/23 -Continue lisinopril 40mg daily -Continue carvedilol 3.125 mg bid -Continue clonidine 0.1mg qhs (for anxiety, insomnia) -Continue Diltiazem 120 mg daily -Continue working of lifestyle modification -Continue checking home BP -Previously tried HCTZ, which was discontinued due to hypokalemia in a setting of frequent albuterol use. -Follow-up in 3-4 mo or sooner if any problem arises Assessment & Plan (03/02/2023 6:00 AM EDT): -Goal BP < 140/90 per JNC-8, <130/80 per ACC/AHA guideline, Tx threshold 140/90 -BP elevated today, but home BP is reportedly normal -Continue lisinopril 40mg daily -Continue carvedilol 3.125 mg bid -Continue clonidine 0.1mg qhs (for anxiety, insomnia) -Continue Diltiazem 120 mg daily -Continue working of lifestyle modification -Continue checking home BP -Previously tried HCTZ, which was discontinued due to hypokalemia in a setting of frequent albuterol use. -Refer to CDTM -Follow-up in 3-4 mo or sooner if any problem arises Assessment & Plan (09/19/2022 5:03 PM EST): -Goal BP < 140/90 per JNC-8, <130/80 per ACC/AHA guideline, Tx threshold 140/90 -BP elevated today, but home BP is reportedly normal -Continue lisinopril 40mg daily -Continue carvedilol 3.125 mg bid -Continue clonidine 0.1mg qhs (for anxiety, insomnia) -Continue Diltiazem 120 mg daily -Continue working of lifestyle modification -Continue checking home BP -Previously tried HCTZ, which was discontinued due to hypokalemia in a setting of frequent albuterol use. -Refer to CDTM -Follow-up in 3-4 mo or sooner if any problem arises Dyslipidemia 09/13/2013 Assessment & Plan (10/04/2024 8:34 AM EST): Current medication: atorvastatin 10 mg at bedtime, consider intensifying treatment Last lipid profile: January 2024 Continue working on lifestyle modificatioins Assessment & Plan (01/24/2024 2:55 PM EDT): Current medication: atorvastatin 10 mg at bedtime Last lipid profile: 12/16/22 C 113; TG 151; HDL 29; LDL 61 Continue working on lifestyle modificatioins Assessment & Plan (09/19/2023 5:59 AM EST): Current medication: atorvastatin 10 mg at bedtime Last lipid profile: 12/16/22 C 113; TG 151; HDL 29; LDL 61 Continue working on lifestyle modificatioins Assessment & Plan (05/29/2023 6:12 AM EDT): Current medication: atorvastatin 10 mg at bedtime Last lipid profile: 12/16/22 C 113; TG 151; HDL 29; LDL 61 Continue working on lifestyle modificatioins Assessment & Plan (03/02/2023 6:15 AM EDT): Current medication: atorvastatin 10 mg at bedtime Last lipid profile: 12/16/22 C 113; TG 151; HDL 29; LDL 61 Continue working on lifestyle modificatioins Assessment & Plan (09/19/2022 5:10 PM EST): Current medication: atorvastatin 10 mg at bedtime Last lipid profile: 02/08/22 TC 182; TG 104; HDL 51; LDL 110 Continue working on lifestyle modificatioins Anxiety 05/17/2012 Asthma-COPD overlap syndrome 05/17/2012 Assessment & Plan (10/04/2024 8:30 AM EST): -Followed by piano tuner, last seen by Dr. Perez in NOV 2023 -Asthma exacerbation 3 times per year -Most recent exacerbation in May 2022, requiring systemic steroid and antibiotic for pneumonia. Complicated with P Afib, likely due to hypoxia / asthma exacerbation. -Most recent PFT in March 2015: moderate severe obstructive airway disease with partial reversibility. -Continue Advair 500/50 mcg one puff bid as maintenance. Previously stepped down, then up again -Continue Albuterol HFA prn (hx hypokalemia due to frequent albuterol use and concomitant hydrochlorothiazide use) and neb prn -Previously on montelukast, which was discontinued due to questionable adherence after MTM, consider restarting if frequent symptoms Assessment & Plan (01/24/2024 2:50 PM EDT): -Followed by piano tuner, last seen by Dr. Perez in NOV 2023 -Asthma exacerbation 3 times per year -Most recent exacerbation in May 2022, requiring systemic steroid and antibiotic for pneumonia. Complicated with P Afib, likely due to hypoxia / asthma exacerbation. -Most recent PFT in March 2015: moderate severe obstructive airway disease with partial reversibility. -Continue Advair 500/50 mcg one puff bid as maintenance. Previously stepped down, then up again -Continue Albuterol HFA prn (hx hypokalemia due to frequent albuterol use and concomitant hydrochlorothiazide use) and neb prn -Previously on montelukast, which was discontinued due to questionable adherence after MTM, consider restarting if frequent symptoms -if cough does not improve with benzonatate, or if she needs to take it for a long-term, will restart montelukast. -Follow up in 4-6 mo or sooner if any problem arises Assessment & Plan (09/19/2023 5:56 AM EST): -Followed by piano tuner, last seen by Dr. Perez in April 2023 -Asthma exacerbation 3 times per year -Most recent exacerbation in May 2022, requiring systemic steroid and antibiotic for pneumonia. Complicated with P Afib, likely due to hypoxia / asthma exacerbation. -Most recent PFT in March 2015: moderate severe obstructive airway disease with partial reversibility. -Continue Advair 500/50 mcg one puff bid as maintenance. Previously stepped down, then up again -Continue Albuterol HFA prn (hx hypokalemia due to frequent albuterol use and concomitant hydrochlorothiazide use) and neb prn -Previously on montelukast, which was discontinued due to questionable adherence after MTM, consider restarting if frequent symptoms -if cough does not improve with benzonatate, or if she needs to take it for a long-term, will restart montelukast. -Follow up in 4-6 mo or sooner if any problem arises Assessment & Plan (05/29/2023 6:21 AM EDT): -Followed by piano tuner, last seen by Dr. Ellis in December 2022 -Asthma exacerbation 3 times per year -Most recent exacerbation in May 2022, requiring systemic steroid and antibiotic for pneumonia. Complicated with P Afib, likely due to hypoxia / asthma exacerbation. -Most recent PFT in March 2015: moderate severe obstructive airway disease with partial reversibility. -Continue Advair 500/50 mcg one puff bid as maintenance. Previously stepped down, then up again -Continue Albuterol HFA prn (hx hypokalemia due to frequent albuterol use and concomitant hydrochlorothiazide use) and neb prn -Previously on montelukast, which was discontinued due to questionable adherence after MTM, consider restarting if frequent symptoms -if cough does not improve with benzonatate, or if she needs to take it for a long-term, will restart montelukast. 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 Perez in December 2022 -Asthma exacerbation 3 times per year -Most recent exacerbation in May 2022, requiring systemic steroid and antibiotic for pneumonia. Complicated with P Afib, likely due to hypoxia / asthma exacerbation. -Most recent PFT in March 2015: moderate severe obstructive airway disease with partial reversibility. -Continue Advair to 500/50 mcg one puff bid as maintenance. step-down therapy attempted in jun 2021 due to questionable adherence to 500/50 -Continue Albuterol HFA prn (hx hypokalemia due to frequent albuterol use and concomitant hydrochlorothiazide use) and neb prn -Previously on montelukast, which was discontinued due to questionable adherence after MTM, consider restarting if frequent symptoms -Follow up in 4-6 mo or sooner if any problem arises Assessment & Plan (09/19/2022 4:58 PM EST): -Asthma exacerbation 3 times per year -Most recent exacerbation in May 2022, requiring systemic steroid and antibiotic for pneumonia. Complicated with P Afib, likely due to hypoxia / asthma exacerbation. -Most recent PFT in March 2015: moderate severe obstructive airway disease with partial reversibility. -Continue Advair to 500/50 mcg one puff bid as maintenance. step-down therapy attempted in jun 2021 due to questionable adherence to 500/50 -Continue Albuterol HFA prn (hx hypokalemia due to frequent albuterol use and concomitant hydrochlorothiazide use) -Previously on montelukast, which was discontinued due to questionable adherence after MTM, consider restarting if frequent symptoms -Follow up in 4-6 mo or sooner if any problem arises Chronic bilateral low back pain 05/17/2012 Assessment & Plan (09/19/2023 6:02 AM EST): -Evaluated by [facility] providers, last seen in 2018 and was recommended PT for lumbar spondylosis with facet mediated pain. Pt was prescribed meloxicam. -Continue APAP prn -Encouraged to resume home back exercise Assessment & Plan (05/29/2023 6:16 AM EDT): -Evaluated by [facility] providers, last seen in 2018 and was recommended PT for lumbar spondylosis with facet mediated pain. Pt was prescribed meloxicam. -Continue APAP prn -Encouraged to resume home back exercise Assessment & Plan (09/19/2022 5:07 PM EST): -Evaluated by [facility] providers, last seen in 2018 and was recommended PT -She would like to be evaluated by ski edge painter for possible injection; Will refer -Continue APAP prn -Encouraged to resume home back exercise Vitamin B12 deficiency anemia 05/17/2012 Assessment & Plan (10/04/2024 8:32 AM EST): - Last CBC in January 2024, stable - Negative intrinsic factor antibody - Continue current B12 supplementation - Normal EGD in 2012 and normal colonoscopy in 2016 - Although her vitamin B12 has improved, anemia has not improved; will refer to Hematology service for assistance in further evaluation and management Assessment & Plan (03/02/2023 6:21 AM EDT): - Last CBC on 12/16/22. H/H 9.5/329.7 - Negative intrinsic factor antibody - Continue current B12 supplementation - Normal EGD in 2012 and normal colonoscopy in 2016 - Although her vitamin B12 has improved, anemia has not improved; will refer to Hematology service for assistance in further evaluation and management Assessment & Plan (09/19/2022 5:21 PM EST): Last CBC on 03/15/22. H/H 10.5/32.5 Negative intrinsic factor antibody Continue current B12 supplementation Obesity 05/17/2012 Assessment & Plan (10/04/2024 8:29 AM EST): - She will start on GLP1RA Panic disorder with agoraphobia 05/17/2012 Resolved Problems Problem Noted Date Diagnosed Date Resolved Date Prediabetes 09/19/2022 05/03/2023 Assessment & Plan (03/02/2023 6:14 AM EDT): Newly diagnosed with DM Assessment & Plan (09/19/2022 5:28 PM EST): 09/15/22 A1C 6.3% today, slight increase from 02/08/22 A1C 6.2% Continue working on lifestyle modifications Annual or biannual screening Tobacco user 09/11/2022 09/19/2022 Impaired fasting glucose 05/17/201210/2022 Assessment & Plan (09/19/2022 5:27 PM EST): 09/15/22 A1C 6.3% today, slight increase from 02/08/22 A1C 6.2% Continue working on lifestyle modifications Annual or biannual screening Encounters Date Type Department Care Team Description 11/13/[address] [phone] Amy Olmedo MD Prior Authorization ( CHAIM Denial: Jazmyn) 11/02/2024 Orders Only [facility] [address] [place] [phone] Amy Olmedo MD 10/31/[address] [address] Amy Olmedo MD Panic disorder with agoraphobia 10/26/[address] [address] Amy Olmedo MD telephone call; Prior Authorization 10/16/[address] [address] Amy Olmedo MD Prior Authorization (Ozempic) 10/11/2024 Telephone [facility] [address] [place] [phone] Marii Griffiths RN Results 10/04/[address] [address] Amy Olmedo MD Panic disorder with agoraphobia 09/28/[address] [address] Leah Nath MA 09/27/2024 10:30 AM EST Procedure Visit [address] [address] Amy Olmedo MD Encounter for well woman exam with routine gynecological exam (Primary Dx); Asthma-COPD overlap syndrome (CMS/HCC); CLARE (obstructive sleep apnea); Paroxysmal atrial fibrillation (CMS/HCC); Primary hypertension; Type 2 diabetes mellitus without complication, without long-term current use of insulin (CMS/HCC); Anemia due to vitamin B12 deficiency, unspecified B12 deficiency type; Iron deficiency anemia, unspecified iron deficiency anemia type; Dyslipidemia; Dietary counseling; Exercise counseling; Class 2 severe obesity due to excess calories with serious comorbidity and body mass index (BMI) of 36.0 to 36.9 in adult ([facility]); Encounter for immunization 09/27/2024 Travel 09/26/2024 Refill [facility] [address] [place] [address] Amy Olmedo MD Anemia due to vitamin B12 deficiency, unspecified B12 deficiency type 09/24/2024 Telephone [facility] [address] [place], [place] [phone] Leah Nath MA chart prep 09/06/2024 Refill [facility] [address] [place] [address] Amy Olmedo MD Panic disorder with agoraphobia 08/28/2024 Refill [facility] [address] [place], [place] [phone] Amy Olmedo MD 08/23/2024 3:30 PM EST Office Visit [facility] [address] [place] [address] Jun Holloway DDS Partial edentulism, unspecified edentulism class (Primary Dx) 08/16/2024 3:30 PM EST Office Visit [facility] [address] [place] [address] Jun Holloway DDS Partial edentulism, unspecified edentulism class (Primary Dx) from Last 3 Months Immunizations Name Administration Dates Next Due Hep A, Adult 04/09/2024,10/07/2023 HepB-CpG 04/09/2024,10/07/2023 INFLUENZA VACCINE QUADRIVALE NT RECOMBINANT PRESERVATIVE FREE RIV4 07/03/2021 Influenza Injectable Quadriv alant Preservative Free IIV4 MDCK 06/10/2023,06/29/2022 Influenza injectable quadriv alent IIV4 with preservative 08/03/2016 Influenza injectable quadriv alent preservative free 06/27/2020,08/27/2019,10/18/2018,07/11 Influenza, IIV3, injectable 07/02/2014,1 ,06/22/2010,09/19,09/19/2006,07/13/2005 Influenza, Split (incl. kendall fied surface antigen) 09/13/2013,06/30/2012 Influenza, seasonal, injecta ble, preservative free 09/27/2024 MMR 08/03/2001 Mumps 07/18/2001 Pfizer Covid-19 Vaccine 12+ 09/27/2024,0 06/30/2023,09/02/2021,04/24,04/03/2021 Pfizer Covid-19 Vaccine 12+ Bivalent 09/15/2022 Pfizer Covid-19 Vaccine 12+ shae-sucrose (Sarkar Cap) 02/08/2022 Pneumococcal Conjugate PCV 20 09/19/2023 Pneumococcal Polysaccharide PPSV23 10/24/2009, TD (adult), 2 Lf tetanus tox oid, preservative free, adsorbed 09/15/2022,07/11/2001 Tdap 05/22/2012 Varicella 07/18/2001 Zoster, Recombinant 04/26/2022,02/23/2022 Social History Tobacco Use Types Packs/Day Years Used Date Smoking Tobacco: Never Passive Smoke Exposure: Never Smokeless Tobacco: Never Tobacco Cessation:Counseling Given: Not Answered Alcohol Use Standard Drinks/Week Comments Never 0 (1 standard drink = 0.6 oz pur e alcohol) Depression Answer Date Recorded Patient Health Questionnaire-9 Score 4 09/19/2023 Patient Health Questionnaire-9 Score 4 09/19/2023 Last PHQ-9: Questionnaire Data Not on file 1 11/20/2022 Housing Stability Answer Date Recorded What is your housing situation today? I have jaelnatasha barrera 09/27/[address] you [...] Orientation Straight 08/02/2022 10 :15 AM EDT Last Filed Vital Signs Vital Sign Reading Time Taken Comments Blood Pressure 141/80 09/27/2024 10:18 AM EST Pulse 59 09/27/2024 9:51 AM EST Temperature 36 ??C (96.8 ??F) 09/27/2024 9:51 AM EST Respiratory Rate 19 09/27/2024 9:51 AM EST Oxygen Saturation 95% 01/30/2024 9:58 AM EDT Inhaled Oxygen Concentration - - Weight 92.2 kg (203 lb 3.2 oz) 09/27/2024 9:51 A M EST Height 160 cm (5' 2.99 ) 09/27/2024 9:51 AM EST Body Mass Index 36 09/27/2024 9:51 AM EST Plan of Treatment Upcoming Encounters Date Type Department Care Team (Late st Contact Info) Description 11/29/2024 3:00 PM EST Office Visit [facility] [address] [place] [address] Mariposa, Lilia [address] [place] [address] Health Maintenance Due Date Last Done Comments CT Colonography 1960 FIT DNA/Cologuard 1960 FIT 1960 FOBT 1960 Sigmoidoscopy 1960 Eye Exam 1970 RSV Patients and Patients Aged 60 years or older (1 - Risk 60-74 years 1-dose series) 2020 Dental Oral Exam 02/09/2024 08/10/2023, 01/2013, 01/11/2012 HPV/Cotest 04/23/2024 04/23/2019, 04/23/2019 Dental X-Ray: Bitewings 08/11/2024 08/10/20 23, 06/13/2023, 11/06/2012, Additional history exists Dental Prophylaxis 11/29/2024 05/28/2024, 11/06/2012 Diabetes: Urine Protein Screening 01/29/2025 01/30/2024, 05/26/2023 Lipid Panel 01/29/2025 01/30/2024, 12/01, 02/08/2022, Additional history exists Diabetes: Hemoglobin A1C 03/28/2025 024, 01/24/2024, 05/26/2023, Additional history exists Mammogram 06/23/2025 06/23/2023, 06/03, 04/20/2021, Additional history exists Alcohol/Substance Use Screening 09/27/2025 09/27/2024 Depression Screening 09/27/2025 09/27/2024, 09/19/20 Diabetes: Foot Exam 09/27/2025 09/27/2024, 09/19/2023, 09/19/2023, Additional history exists SDOH Screening 09/27/2025 09/27/2024 Tobacco Screening 09/27/2025 09/27/2024 Dental X-Ray: Full Mouth 08/11/2026 08/10/2023, 01/01 Cervical Cancer Screening 09/27/2027 Pap Smear 09/27/2027 09/27/2024, 04/23/2019 DTaP/Tdap/Td Vaccines (3 - Td or Tdap) 09/15/2032 09/15/2022, 05/22/2012, 07/11/2001 Colonoscopy 06/28/2034 06/28/2024, 06/14/2017 Colorectal Cancer Screening 06/28/2034 HIV Screening Completed 05/10/2018 Zoster Vaccines Completed 04/26/2022, 02/23/2022 Hepatitis C Screening Completed 09/19/2023 Pneumococcal Vaccine: 50+ Years Completed 09/19/2023, 10/24/2009, 07/11/2001 Hepatitis A Vaccines Aged Out 04/09/2024, 10/07/19 24 No longer eligible based on patient's age to complete this topic Hepatitis B Vaccines Completed 04/09/2024, 10/07/19 24 COVID-19 Vaccine Completed 09/27/2024, , 09/15/2022, Additional history exists Influenza Vaccine Completed 09/27/2024, , 06/29/2022, Additional history exists HIB Vaccines Aged Out No longer eligi ble based on patient's age to complete this topic HPV Vaccines Aged Out No longer eligi ble based on patient's age to complete this topic IPV Vaccines Aged Out No longer eligi ble based on patient's age to complete this topic Meningococcal Vaccine Aged Out No arminda brice eligible based on patient's age to complete this topic RSV under 20 months Aged Out No longe r eligible based on patient's age to complete this topic Rotavirus Vaccines Aged Out No longer eligible based on patient's age to complete this topic Goals Goal Patient Goal Type Associated Problems Recent Progress Patient-Stated? Author Blood Pressure < 140/90 Blood Pressure 141/80(2023 10:18 AM EST) No Jeremy Galloway PharmD Hemoglobin A1c < 7 Result Component 5.9( 9:52 AM EST) No Jeremy Galloway PharmD Procedures Procedure Name Priority Date/Time Associated Diagnosis Comments PAP SMEAR Routine 09/27/2024 10:30 AM EST Encounter for well woman exam with routine gynecological exam POCT GLUCOSE Routine 09/27/2024 9:52 AM EST Type 2 diabetes mellitus without complication, without long-term current use of insulin ([facility]) POCT GLYCOSYLATED HEMOGLOBIN (HGB A1C) Routine 09/27/2024 9:52 AM EST Type 2 diabetes mellitus without complication, without long-term current use of insulin ([facility]) ADJUNCTIVE GENERAL SERVICES - PROFESSIONAL VISITS - CASE PRESENTATION, SUBSEQUENT TO DETAILED AND EXTENSIVE TREATMENT PLANNING Routine 08/23/2024 3:30 PM EST 30,18,19,20 MANDIBULAR PARTIAL DENTURE - RESIN BASE (INCLUDING, RETENTIVE/CLASPING MATERIALS, RESTS, AND TEETH) Routine 08/23/2024 3:30 PM EST 9,2,3,4,5,6 MAXILLARY PARTIAL DENTURE - RESIN BASE (INCLUDING, RETENTIVE/CLASPING MATERIALS, RESTS, AND TEETH) Routine 08/23/2024 3:30 PM EST WAX TRY IN Routine 08/16/2024 3:30 PM EST HM COLONOSCOPY Routine 06/28/2024 PROPHYLAXIS - ADULT Routine 05/28/2024 3 :00 PM EDT ALBUMIN, RANDOM URINE W/CREATININE Routine 01/30/2024 10:18 AM EDT Type 2 diabetes mellitus without complication, without long-term current use of insulin (CMS/HCC) LIPID PANEL WITH REFLEX TO DIRECT LDL Routine 01/30/2024 10:18 AM EDT Dyslipidemia HEPATITIS PANEL, GENERAL Routine 09/19/2023 11:44 AM EST Need for hepatitis C screening test Immunity status testing DIAGNOSTIC - DIAGNOSTIC IMAGING - INTRAORAL - COMPREHENSIVE SERIES OF RADIOGRAPHIC IMAGES Routine 08/10/2023 11:00 AM EST Periodontal disease Partial edentulism, class III PERIODIC ORAL EVALUATION - ESTABLISHED PATIENT Routine 08/10/2023 11:00 AM EST Periodontal disease Partial edentulism, class III BI MAMMOGRAM SCREENING TOMOSYNTHESIS BILATERAL Routine 06/23/2023 8:21 AM EDT ZZZ HISTORICAL HPV MRNA E6/E7 Routine 04/23/2019 9:40 AM EDT HIV 1/2 ANTIGEN AND ANTIBODY (EXTERNAL RESULTS ONLY) Routine 05/10/2018 10:08 AM EDT from Last 3 Months or Most Recently Relevant to Health Maintenance Results * Pap Smear (09/27/2024 10:30 AM EST) Swab Cervix uteri structure / Unknown 09/27/2024 10:30 AM EST 09/28/2024 12:00 PM EST Narrative [facility] - 10/04/2024 7:28 AM EST ----- ------- Name: Sydnee Rubin ? Age/Sex: 64/F ? : 1960 Unit#: [id number] ?? Attend Dr: Amy Olmedo MD ?Re09/27/24 ?Status: DEP REF ? [facility] ? Disch: ? ----- ------- SPEC : [id number] ?RECD: 09/28/24-1200 ? STATUS: ??SOUT ? REQ NUM: [id number] ? PATRIA: 09/27/24-1030 ? SUBM DR: Amy Olmedo MD ? ENTERED: ??09/28/24-1212 ?SP TYPE: Pap Smr ?OTHR DR: ? ORDERED: ??Pap Smear ? Interpretation ?? Satisfactory for evaluation. ?? Negative for intraepithelial lesion or malignancy. ?? Atrophic. ?? Mild inflammation. ? HPV High Risk: ??Negative ? HPV Genotyping 16: ??Negative ?? HPV Genotyping 18: ??Negative ?Clinical Information LMP: Postmenopausal Previous PAP test: 2019, WNL ? Material Received ?? ThinPrep-Cervical ----- ------- Signed (signature on file) ALISSA Crouch (ASCP) 10/04/2428 ? ----- ------- ? END OF REPORT ? us Amy Olmedo MD LAB CYTOLOGY ORDERABLES Final Re sult [facility] [address] [place] [address] [phone] * POCT glycosylated hemoglobin (Hgb A1c) (09/27/2024 9:52 AM EST) Hemoglobin A1C 5.9 4.0 - 6.0 % QC Media Lot # [id number] Lot# Expiration Date Blood Capillary blood specimen / Unknown 09/27/2024 9:52 AM EST Amy Olmedo MD POINT OF CARE TEST ENTER/EDIT OR DERABLES Final Result * POCT glucose manually resulted (09/27/2024 9:52 AM EST) Pathologist [facility] Glucose Blood, POC 115 60 - 200 mg/dL QC Media Lot # [id number] Lot# Expiration Date Blood Capillary blood specimen / Unknown 09/27/2024 9:52 AM EST Amy Olmedo MD POINT OF CARE TEST ENTER/EDIT OR DERABLES Final Result * Hm Colonoscopy (06/28/2024) Pathologist [facility] Colonoscopy Normal Normal 06/28/2024 Chetan Og MD HEALTH MAINTENANCE Final Result * (ABNORMAL) Lipid Panel with Reflex to Direct LDL (01/30/2024 10:18 AM EDT) Triglycerides 99 <150 mg/dL [facility] Comment:Desirable Triglyceri de: less than 150 mg/dLBorderline High Triglyceride 150-199 mg/dLHigh Triglyceride: 200-499 mg/dLVery High Triglyceride: greater than or equal to 5OO mg/dL Cholesterol 137 <200 mg/dL [facility] Comment:Desirable Cholestero l: less than 200 mg/dLBorderline High Cholesterol: 200-239 mg/dLHigh Cholesterol: greater than 239 mg/dL LDL Cholesterol Calculated 82 <100 mg/dL [facility] Comment:Desirable LDL: less than 100 mg/dLNear Optimal/Above Optimal LDL: 110- 129 mg/dLBorderline High LDL: 130-159 mg/dLHigh LDL: 160-189 mg/dLVery High LDL: greater than or equal to 190 mg/dL HDL Cholesterol 36(L) >40 mg/dL [facility] Comment:Desirable HDL: great er than 40 mg/dL Note: This HDL assay may give artificially low results in patients with liver disease. Blood 01/30/2024 10:1 8 AM EDT 01/30/2024 11:32 AM EDT Amy Olmedo MD LAB BLOOD ORDERABLES Final Resul t Performing Organization Address [facility] de Phone Number [facility] [address] [place] [phone] * Albumin, Random Urine W/Creatinine (01/30/2024 10:18 AM EDT) Creatinine, Urine 97.54 mg/dL [facility] Microalbumin Urine 8.0 mg/L [facility] Microalbum Creatinine Ratio Ur 8.2 <30 ug/mg cr [facility] Comment:Albumin/Creatinine R atio Reference Ranges: Normal: < 30 ug/mg creatinine Microalbuminuria: 30 - 300 ug/mg creatinineClinical Albuminuria: > 300 ug/mg creatinine Urine 01/30/2024 10:1 8 AM EDT 01/30/2024 11:46 AM EDT Amy Olmedo MD LAB URINE ORDERABLES Final Resul t Performing Organization Address [facility] Co de Phone Number [facility] [address] [place] [phone] * Hepatitis A,B,C Profile (09/19/2023 11:44 AM EST) Hepatitis A IgM Nonreactive Nonreactive [facility] Comment:IgM antibodies to WELLS V not detected; does not exclude earlyacute or recovered HAV infection. ~Hepatitis B Surface Antibody NONREACTIVE Nonreactive [facility] Comment:Nonreactive: < 8.00 mIU/mL Hepatitis B Core Antibody Nonreactive Nonreactive [facility] Hepatitis C Antibody Nonreactive Nonreactive [facility] Comment:Antibodies to HCV no t detected; does not exclude early acuteHCV infection. Hepatitis B Surface Ag Negative Negative [facility] Blood Venous blood specimen / Unknown 09/19/2023 11:44 AM EST 09/19/2023 1:10 PM EST us Amy Olmedo MD LAB BLOOD ORDERABLES Final Resul t [facility] [address] [place] [address] [phone] * BI Mammogram Screening Tomosynthesis Bilateral (06/23/2023 8:21 AM EDT) Anatomical Region Laterality Modality Breast Bilateral Mammography 06/23/2023 8:21 AM EDT Narrative 07/03/2023 10:18 PM EDT ? [facility] [place] ? [address] ?[place] [id number] ? Mammography Report ? Signed ? Patient: Rubin,Sydnee E ?MR#: [id number] ? : 1960 ?Acct:[id number] ? Age/Sex: 62 / F ?ADM Date: 09/21/23 ? Loc: HO.MAMMO ? Attending Dr: Amy Olmedo MD ? Ordering Physician: Amy Olmedo MD ?Results: 1Negative ? Date of Service: 06/23/23 ?Follow Up: 1 Year From Orig ?? inal Mammogram ? Procedure(s): MM tomosynthesis screening BI ?? Accession Number(s): [id number] ? cc: Amy Olmedo MD ? EXAMINATION: ?? MM SCREENING DIGITAL BREAST TOMOSYNTHESIS, BILATERAL ? CLINICAL INFORMATION: ? Screening. Asymptomatic. ? COMPARISON: ?? Mammography: This study is compared with prior exams dating back to ?? 2019. ? TECHNIQUE: ?? Digital breast tomosynthesis is performed in both the craniocaudal and ?? mediolateral oblique views along with computer-aided detection (CAD). ?? Synthesized 2D images are generated from the tomosynthesis. ? FINDINGS: ?? There are scattered areas of fibroglandular density (ACR BI-RADS breast ?? composition Category b). ? There are no significant masses, abnormal calcifications, or other ?? abnormalities. ? MM/MM tomosynthesis screening BI ?? IMPRESSION: ?? No mammographic evidence of malignancy. ? ASSESSMENT: ? BI-RADS BI-RADS 1 - Negative ? RECOMMENDATION: ?? Routine annual mammography screening. ? 1 year F/U ? This examination should not preclude the clinical evaluation of a ?? suspicious palpable abnormality. ? This patient's information was entered into a reminder system with a ?? target due date for their next mammogram. ? Dictated By: ?Mary Figueroa MD ? Signed By: ?<Electronically signed by Mary Figueroa MD in OV> ? 07/03/232213 ? DD/ 0 ? TD/TT: ? Cissp: ? Procedure Note Hellen, Image - 07/03/2023 [facility] [address] [place] [address] Mammography Report Signed Patient: Sydnee Rubin EMR#: [id number] : 1960Acct:[id number] Age/Sex: 62 / FADM Date: 06/23/23 Loc: HO.MAMMO Attending Dr: Amy Olmeod MD Ordering Physician: Amy Olmedo MDResults: 1Negative Date of Service: 06/23/23Follow Up: 1 Year From Orig inal Mammogram Procedure(s): MM tomosynthesis screening BI Accession Number(s): [id number] cc: Amy Olmedo MD EXAMINATION: MM SCREENING DIGITAL BREAST TOMOSYNTHESIS, BILATERAL CLINICAL INFORMATION: Screening. Asymptomatic. COMPARISON: Mammography: This study is compared with prior exams dating back to 2019. TECHNIQUE: Digital breast tomosynthesis is performed in both the craniocaudal and mediolateral oblique views along with computer-aided detection (CAD). Synthesized 2D images are generated from the tomosynthesis. FINDINGS: There are scattered areas of fibroglandular density (ACR BI-RADS breast composition Category b). There are no significant masses, abnormal calcifications, or other abnormalities. MM/MM tomosynthesis screening BI IMPRESSION: No mammographic evidence of malignancy. ASSESSMENT: BI-RADS BI-RADS 1 - Negative RECOMMENDATION: Routine annual mammography screening. 1 year F/U This examination should not preclude the clinical evaluation of a suspicious palpable abnormality. This patient's information was entered into a reminder system with a target due date for their next mammogram. Dictated By: Mary Figueroa MD Signed By: <Electronically signed by Mary Figueroa MD in OV> 07/03/23 2214 DD/ 0821 TD/TT: Cissp: Amy Olmedo MD [facility] BI PROCEDURES Final Result * HPV mRNA E6/E7 (04/23/2019 9:40 AM EDT) HPV mRNA E6/E7 Not Detected NOT DETECTED [facility] Comment: This test was performed using the APTIMA(R) HPV Assay ([employer] This assay detects E6/E7 viral messenger RNA (mRNA) from 14 high-risk HPV types (16,18,31,33,35,39,45,51, 52,56,58,59,66,68). For additional information please refer to: http://education.[employer]/faq/NGQ249d4 (This link is being provided for informational/ educational purposes only.) The analytical performance characteristics of this assay have been determined by [employer] [place], [place]. The modifications have not been cleared or approved by the FDA. This assay has been validated pursuant to the CLIA regulations and is used for clinical purposes. [facility] by [facility] [place], [address] [place] [address] Andrade Rose M.D., Ph.D., Director of Laboratories , CLIA [id number] Please note: ??Effective 06/14/2016, HPV testing will be performed using [employer]'s APTIMA test which targets mRNA. Detecting mRNA instead of DNA, as in older methods, offers significant improvements in specificity. 04/23/2019 9:40 AM EDT Amy Olmedo MD HISTORICAL/NON ORDERABLE LABS Fi nal Result [facility] [address] [place] [address] * HIV 1/2 ANTIGEN AND ANTIBODY (EXTERNAL RESULTS ONLY) (05/10/2018 10:08 AM EDT) HIV Ag/Ab Nonreactive 05/10/2018 10:0 8 AM EDT us Historical Provider LAB POINT OF CARE TEST DOCKED DEVICE UNSOLICITED RESULTS Final Result from Last 3 Months or Most Recently Relevant to Health Maintenance Insurance [address] [place] [id number] [employer] C3 HSN FULL DENTAL-[facility] MEDICAID STAND ADULT Care Teams Kaiako Kura Tuarua Relationship Specialty Start Date End Date Amy Olmedo MD [address] [place], [place] [phone] PCP - General Family Medicine 10/03/18 Jeremy Galloway, MaciejD [address] [place] [address] Pharmacist Internal Medicine 03/11/23
--- OUTSIDE RECORDS SUMMARY | 2024-11-14 15:07 | XMS_ITS | Encounter Summary ---
Author Organization [employer] Address 75 [facility] 7t [place] [address] Care Team Providers Care Community Engagement Coordinator Name Role Phone Amy Olmedo MD Primary Care Provider [phone] Jeremy Galloway PharmD Unavailable [phone] Reason for Visit * Reason Comments Med Refill Encounter Details Date Type Department Care Team (Late st Contact Info) Description 10/31/2024 Refill [facility] MEDICINE [address] [place], [place] [phone] Amy Olmedo MD [address] [place], [place] [phone] Panic disorder with agoraphobia Social History Tobacco Use Types Packs/Day Years [...] Description 11/29/2024 3:00 PM EST Office Visit [facility] ADULT DENTAL [address] [place] [address] Mariposa, Lilia [address] [place] [address] documented as of this encounter Goals Goal Patient Goal Type Associated Problems Recent Progress Patient-Stated? Author Blood Pressure < 140/90 Blood Pressure 141/80(2023 10:18 AM EST) No Jeremy Galloway PharmD Hemoglobin A1c < 7 Result Component 5.9( 9:52 AM EST) No Jeremy Galloway PharmD documented as of this encounter Visit Diagnoses Diagnosis Panic disorder with agoraphobia Agoraphobia with panic disorder documented in this encounter Additional Health Concerns Assessment Noted Time PHQ-9 Depression Total Score: 4 09/19/20 23 10:40 AM EST documented as of this encounter Care Teams Community Engagement Coordinator Relationship Specialty Start Date End Date Amy Olmedo MD [address] [place] [address] PCP - General Family Medicine 10/03/18 Jeremy Galloway PharmD [address] [place] [address] Pharmacist Internal Medicine 03/11/23 documented as of this encounter
--- OUTSIDE RECORDS SUMMARY | 2024-11-14 15:07 | XMS_ITS | Encounter Summary ---
Author Organization [employer] Address 75 [facility] 7t [place] [address] Care Team Providers Care Blocker And Polisher Name Role Phone Amy Olmedo MD Primary Care Provider [phone] Jeremy Galloway PharmD Unavailable [phone] Encounter Details Date Type Department Care Team (Late st Contact Info) Description 09/21/2022 Orders Only [facility] [address] [place], [place] [phone] Lena Buenrostro LPN Social History Tobacco Use Types Packs/Day [...] Orientation Straight 08/02/2022 10 :15 AM EDT COVID-19 Exposure Response Date Recorded In the last 10 days, have yo u been in contact with someone who was confirmed or suspected to have Coronavirus/COVID-19? No / Unsure 09/15/2022 8:59 AM EST documented as of this encounter Plan of Treatment Upcoming Encounters Date Type Department Care Team (Late st Contact Info) Description 11/29/2024 3:00 PM EST Office Visit [facility] ADULT DENTAL [address] [place], [place] [phone] Lilia Monge [address] [place], [place] [phone] documented as of this encounter Visit Diagnoses Not on filedocumented in this encounter Care Teams Blocker And Polisher Relationship Specialty Start Date End Date Amy Olmedo MD [address] [place], [place] [phone] PCP - General Family Medicine 10/03/18 Jeremy Galloway, Elias [address] [place], [place] [phone] Pharmacist Internal Medicine 03/11/23 documented as of this encounter
--- OUTSIDE RECORDS SUMMARY | 2024-11-14 15:07 | XMS_ITS | Encounter Summary ---
Author Organization [employer] Address 75 [facility] 7t [place] [address] Care Team Providers Care Project Program Manager Name Role Phone Amy Olmedo MD Primary Care Provider [phone] Jeremy Galloway PharmD Unavailable [phone] Reason for Visit * Reason Onset Date Comments Prior Authorization 10/16/2024 Ozempic Encounter Details Date Type Department Care Team ([facility] st Contact Info) Description 10/16/2024 Telephone [facility] MED[facility] [address] [place], [place] [phone] Amy Olmedo MD [address] [place], [place] [phone] Prior Authorization (Ozempic) Social History Tobacco Use Types Packs/Day Years [...] AM EDT documented as of this encounter Miscellaneous Notes * Telephone Encounter - Jonathan Velasquez RN - 10/18/2024 10:00 AM EST CHAIM Sanchez signed and faxed to [employer]. Confirmation received and sent to scan. If patient calls to check status on above, please advise them to contact [facility] at [phone]. * Telephone Encounter - Dafne Bourgeois - 10/17/2024 3:19 PM EST Signed PA received. Sent for faxing. * Telephone Encounter - Dafne Bourgeois - 10/17/2024 9:54 AM EST CHAIM Sanchez generated and sent to pcp for review and signature via [employer]. * Telephone Encounter - Dafne Bourgeois - 10/16/2024 3:29 PM EST PA req received and being processed. documented in this encounter Plan of Treatment Upcoming Encounters Date Type Department Care Team (Late st Contact Info) Description 11/29/2024 3:00 PM EST Office Visit [facility] ADULT DENTAL [address] [place] [address] Lilia Monge [address] [place] [address] documented as of this encounter Goals Goal [...] documented as of this encounter Care Teams Project Program Manager Relationship Specialty Start Date End Date Amy Olmedo MD [address] [place] [address] PCP - General Family Medicine 10/03/18 Jeremy Galloway, Elias [address] [place] [address] Pharmacist Internal Medicine 03/11/23 documented as of this encounter
--- OUTSIDE RECORDS SUMMARY | 2024-11-14 15:07 | XMS_ITS | Encounter Summary ---
Author Organization [employer] Address 75 [facility] 7t [place] [address] Care Team Providers Care Calcine Furnace Tender Name Role Phone Amy Olmedo MD Primary Care Provider [phone] Jeremy Galloway PharmD Unavailable [phone] Reason for Visit * Reason Onset Date Comments Prior Authorization 11/13/2024 ROSI RUCKER Denial : Jazmyn Encounter Details Date Type Department Care Team ([facility] st Contact Info) Description 11/13/2024 Telephone [facility] MEDICINE [address] [place], [place] [phone] Amy Olmedo MD [address] [place], [place] [phone] Prior Authorization (ROSI Michaudial: Jazmyn) Social History Tobacco Use Types Packs/Day Years [...] encounter Miscellaneous Notes * Telephone Encounter - Destiny Cintron - 11/13/2024 10:20 AM EST Denial for Jazmyn was received and up loaded into Media for your review. Please advise. documented in this encounter Plan of Treatment Upcoming Encounters Date Type Department Care Team (Late st Contact Info) Description 11/29/2024 3:00 PM EST Office Visit [facility] ADULT DENTAL [address] [place] [address] Mariposa, Lilia [address] [place] [address] documented as of this encounter Goals Goal Patient Goal Type Associated Problems Recent Progress Patient-Stated? Author Blood Pressure < 140/90 Blood Pressure 141/80(2023 10:18 AM EST) No Jeremy Galloway PharmBrian Hemoglobin A1c < 7 Result Component 5.9( 9:52 AM EST) No Jeremy Galloway PharmD documented as of this encounter Visit Diagnoses Not on filedocumented in this encounter Additional Health Concerns Assessment Noted Time PHQ-9 Depression Total Score: 4 09/19/20 10:40 AM EST documented as of this encounter Care Teams Calcine Furnace Tender Relationship Specialty Start Date End Date Amy Olmedo MD [address] [place] [address] PCP - General Family Medicine 10/03/18 Jeremy Galloway, Elias [address] [place] [address] Pharmacist Internal Medicine 03/11/23 documented as of this encounter
--- OUTSIDE RECORDS SUMMARY | 2024-11-14 15:07 | XMS_ITS | Encounter Summary ---
Author Organization [employer] Address 75 [facility] 7t [place] [address] Care Team Providers Care Video Surveillance Technician Name Role Phone Amy Olmedo MD Primary Care Provider [phone] Jeremy Galloway PharmD Unavailable [phone] Reason for Visit * Reason Onset Date Comments telephone call 10/26/2024 Prior Authorization 10/26/2024 Encounter Details Date Type Department Care Team ([facility] st Contact Info) Description 10/26/2024 Telephone [facility] MEDICINE [address] [place], [place] [phone] Amy Olmedo MD [address] [place], [place] [phone] telephone call; Prior Authorization Social History Tobacco Use Types Packs/Day Years [...] * Telephone Encounter - Destiny Cintron - 11/12/2024 9:41 AM EST PA for Mounjaro signed and faxed to [employer]. Confirmation received and sent to scan. If patient calls to check status on above, please advise them to contact [facility] at [phone]. * Telephone Encounter - Destiny Cintron - 11/05/2024 2:57 PM EST PA for Mounjaro from [facility] placed on PCP desk for signature. * Telephone Encounter - Harmony Tong - 11/02/2024 12:31 PM EST Tc from pt stating need a PA for Tirzepatide (Mounjaro) 2.5 MG/0.5ML solution auto-injector. * Telephone Encounter - Maria Teresa Galloway - 10/26/2024 3:47 PM EST Pt walked in stating that her insurance denied the medication for Ozempic 2mg but she said the one her insurance covers is Zepbond she wants to see if they can prescribe her this one instead. documented in this encounter Plan of Treatment Upcoming Encounters Date Type Department Care Team (Late st Contact Info) Description 11/29/2024 3:00 PM EST Office Visit [facility] ADULT DENTAL [address] [place] [address] Mariposa, Lilia [address] [place] [address] documented as of this encounter Goals Goal [...] documented as of this encounter Care Teams Video Surveillance Technician Relationship Specialty Start Date End Date Amy Olmedo MD [address] [place] [address] PCP - General Family Medicine 10/03/18 Jeremy Galloway PharmD [address] [place] [address] Pharmacist Internal Medicine 03/11/23 documented as of this encounter
== END 2024-11-14 14:20 | disposition home or self-care (01) ==
PROVIDERS: PCP Family Medicine; Visit Provider Internal Medicine
DX: E66.9 Obesity, unspecified (principal); G47.33 Obstructive sleep apnea (adult) (pediatric); J44.9 Chronic obstructive pulmonary disease, unspecified
CPT/HCPCS: 99213

== ENCOUNTER → 2024-11-14 13:42 | Outpatient (BNVA) | payer MEDICAID, SELFPAY | PROVIDERS: PCP Family Medicine; Visit Provider Internal Medicine | DX: G47.33 Obstructive sleep apnea (adult) (pediatric) (principal); J44.9 Chronic obstructive pulmonary disease, unspecified; E66.9 Obesity, unspecified; Z68.36 Body mass index [BMI] 36.0-36.9, adult | CPT/HCPCS: 99212 ==

== ENCOUNTER 2025-01-11 14:06 | Outpatient (AMB) | payer MEDICAID, SELFPAY ==
--- NOTE | 2025-01-11 14:20 | MHC.OFFVIS ---
Vital Signs 01/11/25 14:21 Height 5 ft 2 in Weight 201 lb 0.985 oz BMI 36.8 BP 114/54 L Blood Pressure Location Rt brachial Position Sitting Pulse 62 Pulse Source Pulse Oximeter Pulse Oximetry (%) 97 Oxygen Delivery Method Room Air Intake Visit Reasons: follow up Intake Note: ESTABLISHED PATIENT for mgmt of Quick's Chief Complaint; C/O constipation increase due to iron supplement. Pt denies any bleeding, abd pain, or reflux complications at this time. No additional sx or concerns at this time. Pt believes she is still taking stool softener AM/PM but is unsure of the names due to medbox from [facility]. 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 Avoid dietary triggers and late night snacking. Staying upright for minimum 3 hours after meals discussed with patient. Patient was diagnosed with Barretts esophagus at GE junction. Discuss and educated patient on the importance of taking omeprazole every day and avoiding dietary triggers in his mentioned above. Diverticulosis found and the importance of high-fiber diet stressed with patient. Patient was also educated on high-fiber diet. Supplements recommended. Patient can take [id number] fiber supplements with probiotics. Patient is on iron supplements and reports that her stools are hard and she has trouble moving her bowels. Did well with Colace in the past. Two capsule every night. Increase fluid intake and activity to promote better bowel motility. Follow-up in 6 months, sooner on as needed basis. Patient is agreeable to this plan and verbalizes understanding of instructions. She was given the opportunity to ask questions and all questions answered. ? Thank you for allowing me to participate in her care Medications Changed Changed From omeprazole 20 mg PO Changed To omeprazole 20 mg PO DAILY 90 caps 3RF Changed From famotidine 20 mg PO BEDTIME PRN heartburn Changed To famotidine 20 mg PO BEDTIME 90 tabs 3RF heartburn TODAY'S VISIT: Patient is here today for follow-up. Patient reports that she has been feeling well. Reports that she has been taking omeprazole in the morning and famotidine at bedtime and her symptoms of acid reflux have been suppressed. Patient denies any dyspepsia, dysphagia or odynophagia. Denies melena, hematochezia, unintentional weight loss or ribbon like stools. Patient reports that she is able to move her bowels better. She is taking Colace daily. Denies any GI concerning symptoms. Occasional postprandial abdominal bloating depending on what she eats. 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 Obesity (BMI 30-39.9) COPD (chronic obstructive pulmonary disease) Morbid obesity PAF (paroxysmal atrial fibrillation) Atrial fibrillation, new onset Asthma Back pain Surgical History H/O colonoscopy S/P section Family History Mother High cholesterol HTN (hypertension) Father HTN (hypertension) High cholesterol Social History Household Members: Children Housing: Apartment Are you a primary resident care aid to a significant other at home: No Do you presently have visiting nurse or other home services: No Alcohol intake: never Patient Tobacco Use Status: Never used Tobacco Advance Directives Date on File: 06/02/21 service: No Current occupational status: employed [employer] Const Denies weight gain and Denies weight loss ENT Reports no additional complaints, Denies dysphagia and Denies odynophagia Card Reports no additional complaints Resp Reports no additional complaints GI Denies abdominal pain, Denies belching, Denies melena, Denies bloating, Denies change in bowel habits, Reports constipation (Occasional), Denies dysphagia, Denies excessive flatus, Denies dyspepsia, Denies heartburn, Denies diarrhea, Denies loose stools, Denies nausea, Denies odynophagia and Denies vomiting Reports no additional complaints Musc Reports no additional complaints Neuro Reports no additional complaints Psych Reports no additional complaints Endo Reports no additional complaints Physical Exam Vital Signs: Last Vital Signs Pulse 62 01/11/25 14:21 BP 114/54 L 01/11/25 14:21 Pulse Ox 97 01/11/25 14:21 Oxygen Delivery Method Room Air 01/11/25 14:21 BMI result Body Mass Index 36.8 Const General: healthy appearing and no acute distress Nutritional Appearance: obese Orientation/consciousness: patient oriented x3 Resp Effort & Inspection: normal respiratory effort, able to speak in complete sentences, no tracheal deviation and symmetric chest movement Auscultation: clear to auscultation bilaterally Cardio Rate: regular rate GI Inspection: Yes normal to inspection, No distended and Yes obesity Palpation (GI): Soft to palpation, not firm, nontender and No hepatosplenomegaly present Auscultation: normal bowel sounds General: Yes no CVA tenderness Back/Spine/Pelvis Back: no CVA tenderness Skin General skin exam: elasticity normal, turgor normal and dry skin Neuro General: patient oriented x3 Psych Appearance: grossly normal Mental Status: mental status grossly normal Assessment & Plan Assessment & Plan (1) 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: Code(s): K22.70 - Quick's esophagus without dysplasia Category: Medical (2) Diverticulosis: Code(s): K57.90 - Diverticulosis of intestine, part unspecified, without perforation or abscess without bleeding Category: Medical (3) Constipation: Code(s): K59.00 - Constipation, unspecified Qualifiers: Constipation type: slow transit constipation Qualified Code(s): K59.01 - Slow transit constipation (4) GERD (gastroesophageal reflux disease): Code(s): K21.9 - Gastro-esophageal reflux disease without esophagitis Qualifiers: Esophagitis presence: esophagitis presence not specified Qualified Code(s): K21.9 - Gastro-esophageal reflux disease without esophagitis (5) Postprandial abdominal bloating: Code(s): R14.0 - Abdominal distension (gaseous) (6) Postprandial abdominal pain in left upper quadrant: Code(s): R10.12 - Left upper quadrant pain (7) Internal hemorrhoids without complication: Code(s): K64.8 - Other hemorrhoids Plan Continue omeprazole and famotidine. Avoid dietary triggers and late night snacking. Staying upright for minimum 3 hours after meals discussed with patient. Continue Colace. Increase fluid intake and activity to promote better bowel motility. Patient will follow-up in 3 months, sooner on as needed basis. She is agreeable to this plan and verbalizes understanding of instructions. She was given the opportunity to ask questions and all questions answered. 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
[2025-01-11 14:21] VITALS: BP 114/54; PULSE 62; O2SAT 97; BMI 36.8
== END 2025-01-11 14:56 | disposition home or self-care (01) ==
LOC: HO.HGI 14:07
PROVIDERS: PCP Family Medicine; Visit Provider Nurse Practitioner Family
DX: K22.70 Barrett's esophagus without dysplasia (principal); K57.90 Diverticulosis of intestine, part unspecified, without perforation or abscess without bleeding; K59.01 Slow transit constipation; K21.9 Gastro-esophageal reflux disease without esophagitis; R14.0 Abdominal distension (gaseous); R10.12 Left upper quadrant pain; K64.8 Other hemorrhoids
CPT/HCPCS: 99213

== ENCOUNTER → 2025-01-11 14:06 | Outpatient (BNVA) | payer MEDICAID, SELFPAY | PROVIDERS: PCP Family Medicine; Visit Provider Nurse Practitioner Family | DX: K22.70 Barrett's esophagus without dysplasia (principal); K57.90 Diverticulosis of intestine, part unspecified, without perforation or abscess without bleeding; K59.01 Slow transit constipation; K21.9 Gastro-esophageal reflux disease without esophagitis; K64.8 Other hemorrhoids; R14.0 Abdominal distension (gaseous); R10.12 Left upper quadrant pain | CPT/HCPCS: 99212 ==

== ENCOUNTER 2025-01-28 15:34 | Outpatient (REF) | payer MEDICAID, SELFPAY ==
[2025-01-28 16:07] LABS: MANUAL DIFF FLAG NO
[2025-01-28 16:20] LABS: Basophils Percent Auto 0.5 % (0-2); Eosinophils Absolute Auto 0.3 X10*3/uL (0.0-0.4); Eosinophils Percent Auto 3.4 % (0-4); Hemoglobin 11.4 g/dl (12.0-16.0); Imm Gran Abs Auto 0.02 X10*3/uL (0.00-0.03); Imm Gran Pct Auto 0.3 % (0.0-0.4); Immature Retic Fraction 6.4 % (3.0-15.9); Lymphocytes Absolute Auto 2.5 X10*3/uL (1.2-4.9); Lymphocytes Percent Auto 32.6 % (20-40); Mean Corpuscular HGB Conc 34.5 g/dl (31.0-35.0); Mean Corpuscular Hemoglobin 30.1 pg (27.0-33.0); Mean Corpuscular Volume 87.1 fL (80.0-98.0); Mean Platelet Volume 10.6 fL (9.4-12.3); Monocytes Absolute Auto 0.6 X10*3/uL (0.1-1.2); Monocytes Percent Auto 7.6 % (2-11); Neutrophils Absolute Auto 4.2 x10*3/uL (2.0-8.3); Neutrophils Percent Auto 55.6 % (45-73); Platelet Count 198 X10*3/uL (160-400); Red Blood Count 3.79 X10*6/uL (4.20-5.50); Red Cell Distribution Width 12.1 % (11.0-16.0); Retic HGB Equivalent 34.6 pg (30.0-35.0); Reticulocyte Percent 1.6 % (0.5-1.8); White Blood Count 7.6 X10*3/uL (4.8-10.8)
[2025-01-28 16:35] LABS: Creatinine Urine 163.24 mg/dL; Microalbum/Creatinine Ratio Ur 6.7 ug/mg cr (<30)
[2025-01-28 16:47] LABS: Alanine Aminotransferase 18 U/L (0-31); Anion Gap 12 (12-20); Aspartate Amino Transferase 21 U/L (5-31); Bilirubin Total 0.4 mg/dL (0.0-1.0); Blood Urea Nitrogen 23 mg/dL (9-16); Calcium 8.9 mg/dL (8.4-10.2); Carbon Dioxide 27 mmol/L (22-29); Chloride 102 mmol/L (96-108); Cholesterol 154 mg/dL (<200); Estimated Glomerular Filt Rate > 60; Glucose Random 97 mg/dL (60-115); HDL Cholesterol 40 mg/dL (>40); Iron 68 mcg/dL (30-160); LDL Cholesterol Calculated 83 mg/dL (<100); Percent Iron Saturation 34 % (15-50); Potassium 4.6 mmol/L (3.3-5.1); Sodium 136 mmol/L (135-145); Total Iron Binding Capacity 201 mcg/dL (228-428); Total Protein 7.2 g/dL (6.5-8.0); Triglycerides 155 mg/dL (<150); Unsaturated Iron Binding 133 ug/dL
[2025-01-28 16:48] LABS: Alkaline Phosphatase 72 U/L (39-117)
[2025-01-28 16:58] LABS: Ferritin 446 ng/mL (10-250); TSH reflex Free T4 1.47 uIU/mL (0.32-4.0)
[2025-01-28 17:09] LABS: Folate 17.8 ng/mL (> or = 4.0); Vitamin B12 752 pg/mL (200-900)
[2025-01-28 17:39] LABS: Reflex LDLD? No
--- OUTSIDE RECORDS SUMMARY | 2025-01-28 18:23 | XMS_ITS | Encounter Summary ---
Author Organization [employer] Address 75 [facility] 7t [place] [address] Care Team Providers Care Aircraft Instrument Repairer Name Role Phone Amy Olmedo MD Primary Care Provider [phone] Jeremy Galloway PharmD Unavailable [phone] Encounter Details Date Type Department Care Team ([facility] st Contact Info) Description 11/02/2024 Orders Only [facility] MEDICINE [address] [place], [place] [phone] Amy Olmedo MD [address] [place], [place] [phone] Social History Tobacco Use Types Packs/Day Years [...] as of this encounter Plan of Treatment Not on file documented as of this encounter Goals Goal Patient Goal Type Associated Problems Recent Progress Patient-Stated? Author Blood Pressure < 140/90 Blood Pressure 132/58(2024 3:09 PM EDT) No Jeremy Galloway, Elias Hemoglobin A1c < 7 Result Component 5.4( 3:11 PM EDT) No Jeremy Galloway PharmD documented as of this encounter Visit Diagnoses Not on filedocumented in this encounter Additional Health Concerns Assessment Noted Time PHQ-9 Depression Total Score: 4 09/19/20 23 10:40 AM EST documented as of this encounter Care Teams Aircraft Instrument Repairer Relationship Specialty Start Date End Date Amy Olmedo MD [address] [place] [address] PCP - General Family Medicine 10/03/18 Jeremy Galloway PharmD [address] [place] [address] Pharmacist Internal Medicine 03/11/23 documented as of this encounter
--- OUTSIDE RECORDS SUMMARY | 2025-01-28 18:23 | XMS_ITS | Encounter Summary ---
Author Organization [employer] Address 75 [facility] 7t [place] [address] Care Team Providers Care Automobile Mechanic Helper Name Role Phone Amy Olmedo MD Primary Care Provider [phone] Jeremy Galloway PharmD Unavailable Reason for Referral * Consultation (Routine) - Closed Specialty Diagnoses / Procedures Referred By Contac t Referred To Contact Diagnoses Asthma-COPD overlap syndrome (CMS/HCC) Paroxysmal atrial fibrillation (CMS/HCC) Primary hypertension Type 2 diabetes mellitus without complication, without long-term current use of insulin (CMS/HCC) Amy Olmedo MD [address] [place] [address] Phone: tel: fax: [facility] [address] [place] [address] Phone: tel: fax: Referral ID Status Reason Start Date Expiration Date V isits Requested Visits Authorized [id number] Closed Specialty Services Required 12/19/2024 12/19/2025 1 1 Encounter Details Date Type Department Care Team (Late st Contact Info) Description 12/19/2024 Orders Only [facility] MEDICINE [address] [place] [phone] Amy Olmedo MD [address] [place], [place] [phone] Asthma-COPD overlap syndrome (CMS/HCC) (Primary Dx); Paroxysmal atrial fibrillation (CMS/HCC); Primary hypertension; Type 2 diabetes mellitus without complication, without long-term current use of insulin (CMS/HCC) Social History Tobacco Use Types Packs/Day Years [...] before you got money to buy more: Often true 12/18/2024 Within the past 12 months,th e food you bought just didn't last and you didn't have enough money to get more: Often true Transportation Answer Date Recorded In the past [...] as of this encounter Plan of Treatment Scheduled Referrals Name Type Priority Associated Diagnoses Orde r Schedule Referral to Care Management Outpatient Referral Routine Asthma-COPD overlap syndrome (CMS/HCC) Paroxysmal atrial fibrillation (CMS/HCC) Primary hypertension Type 2 diabetes mellitus without complication, without long-term current use of insulin (CMS/HCC) Expected: 12/19/2024 (Approximate), Expires: 12/19/2025 documented as of this encounter Goals Goal Patient Goal Type Associated Problems Recent Progress Patient-Stated? Author Blood Pressure < 140/90 Blood Pressure 132/58(2024 3:09 PM EDT) No Jeremy Galloway PharmD Hemoglobin A1c < 7 Result Component 5.4( 3:11 PM EDT) No Jeremy Galloway PharmD documented as of this encounter Visit Diagnoses Diagnosis Asthma-COPD overlap syndrome (CMS/HCC)- Primary Paroxysmal atrial fibrillation (CMS/[facility]) Atrial fibrillation Primary hypertension Unspecified essential hypertension Type 2 diabetes mellitus without complication, without long-term current use of insulin ([facility]) documented in this encounter Additional Health Concerns Assessment Noted Time PHQ-9 Depression Total Score: 4 09/19/20 23 10:40 AM EST documented as of this encounter Care Teams Automobile Mechanic Helper Relationship Specialty Start Date End Date Amy Olmedo MD [address] [place] [address] PCP - General Family Medicine 10/03/18 Jeremy Galloway PharmD [address] [place] [address] Pharmacist Internal Medicine 03/11/23 documented as of this encounter
--- OUTSIDE RECORDS SUMMARY | 2025-01-28 18:23 | XMS_ITS | Encounter Summary ---
Author Organization [employer] Address [address] [facility] [address] [place] [address] Care Team Providers Care Injection Molding Technician Name Role Phone Amy Olmedo MD Primary Care Provider [phone] Jeremy Galloway PharmD Unavailable [phone] Encounter Details Date Type Department Care Team (Late st Contact Info) Description 11/29/2022 Orders Only [facility] MED & PEDS [address] [place], [place] [phone] Rosi Harvey LPN Social History Tobacco Use [...] on file documented as of this encounter Visit Diagnoses Not on filedocumented in this encounter Care Teams Injection Molding Technician Relationship Specialty Start Date End Date Amy Olmedo MD [address] [place], [place] [phone] PCP - General Family Medicine 10/03/18 Jeremy Galloway, PharmD [address] [place], [place] [phone] Pharmacist Internal Medicine 03/11/23 documented as of this encounter
--- OUTSIDE RECORDS SUMMARY | 2025-01-28 18:23 | XMS_ITS | Encounter Summary ---
Author Organization [employer] Address [address] [facility] [address] [place] [address] Care Team Providers Care Dehairing Machine Tender Name Role Phone Amy Olmedo MD Primary Care Provider [phone] Jeremy Galloway PharmD Unavailable [phone] Reason for Referral * Imaging (Routine) - Authorized Specialty Diagnoses / Procedures Referred By Contac t Referred To Contact Radiology Diagnoses Breast cancer screening by mammogram Procedures BI Mammogram Screening Tomosynthesis Bilateral Amy Olmedo MD [address] [place] [address] Phone: tel: fax: [address] Phone: tel: fax: Referral ID Status Reason Start Date Expiration Date V isits Requested Visits Authorized [id number] Authorized 01/28/2025 01/28/2026 1 1 Encounter Details Date Type Department Care Team (Late st Contact Info) Description 01/28/2025 3:15 PM EDT Office Visit [facility] MED[facility] [address] [place], [place] [phone] Amy Olmedo MD [address] [place], [place] [phone] Primary hypertension (Primary Dx); Paroxysmal atrial fibrillation (CMS/HCC); Asthma-COPD overlap syndrome (CMS/HCC); CLARE (obstructive sleep apnea); Constipation, unspecified constipation type; Gastroesophageal reflux disease, unspecified whether esophagitis present; Type 2 diabetes mellitus without complication, without long-term current use of insulin ([facility]); Breast cancer screening by mammogram Social History Tobacco Use Types Packs/Day Years [...] your housing situation today? I have jael holly 09/27/[address] you li [...] AM EDT documented as of this encounter Last Filed Vital Signs Vital Sign Reading Time Taken Comments Blood Pressure 132/58 01/28/2025 3:09 PM EDT Pulse 58 01/28/2025 3:09 PM EDT Temperature 36.1 ??C (97 ??F) 01/28/2025 3:09 PM EDT Respiratory Rate 18 01/28/2025 3:09 PM EDT Oxygen Saturation 97% 01/28/2025 3:09 PM EDT Inhaled Oxygen Concentration - - Weight 92.8 kg (204 lb 9.6 oz) 01/28/2025 3:09 P M EDT Height 160 cm (5' 2.99 ) 01/28/2025 3:09 PM EDT Body Mass Index 36.25 01/28/2025 3:09 PM EDT documented in this encounter Miscellaneous Notes * Assessment & Plan Note - Rosi Purdy MA - 01/28/2025 3:38 PM EDTAssociated Problem(s): CLARE (obstructive sleep apnea) - sleep study in January 2022 showed severe CLARE, positive airway pressure therapy was recommended SCAR - evaluated by spearer - pt tried CPAP, but returned the device due to intolerance in 2022 - pt has nocturnal hypoxemia, but DME supplier will not provide oxygen supplementation for pt with CLARE with nocturnal hypoxemia - continue working on lifestyle modification - sleep on lateral position and/or elevate head of the bed * Assessment & Plan Note - Rosi Purdy MA - 01/28/2025 3:37 PM EDTAssociated Problem(s): Type 2 diabetes mellitus ([facility]) - Dx January 2023. RBG in ED > 200. - Most recent Hgb A1C 5.4% on 01/28/25, improvement from 5.9% on 09/27/24 - Continue SMBG - Work on lifestyle modifications - Continue Metformin. Pt has been on Trulicity for 3 months and has not lost weight. Will increase dose or change to a different GLP1RA 01/28/25 - Foot exam 09/27/24 - Eye exam - Lipid profile: January 2024 - Microalbumin test: January 2024 - Immunizations - reviewed documented in this encounter Plan of Treatment Scheduled Orders Name Type Priority Associated Diagnoses Orde r Schedule BI Mammogram Screening Tomosynthesis Bilateral Imaging Routine Breast cancer screening by mammogram Expected: 01/28/2025, Expires: 03/30/2026 documented as of this encounter Goals Goal Patient Goal Type Associated Problems Recent Progress Patient-Stated? Author Blood Pressure < 140/90 Blood Pressure 132/58(2024 3:09 PM EDT) No Jeremy Galloway, Eilas Hemoglobin A1c < 7 Result Component 5.4( 3:11 PM EDT) No Jeremy Galloway PharmD documented as of this encounter Procedures Procedure Name Priority Date/Time Associated Diagnosis Comments POCT GLYCATED HEMOGLOBIN, TOTAL Routine 01/28/2025 3:11 PM EDT Type 2 diabetes mellitus without complication, without long-term current use of insulin ([facility]) POCT GLUCOSE Routine 01/28/2025 3:11 PM EDT Type 2 diabetes mellitus without complication, without long-term current use of insulin ([facility]) documented in this encounter Results * POCT HGB A1C (01/28/2025 3:11 PM EDT) Hemoglobin A1C 5.4 4.0 - 6.0 % QC Media Lot # [id number] Lot# Expiration Date ,027 Blood 01/28/2025 3:11 PM EDT us Amy Olmedo MD POINT OF CARE TEST ENTER/EDIT OR DERABLES Final Result * POCT Glucose (01/28/2025 3:11 PM EDT) Glucose Blood, POC 109 60 - 200 mg/dL QC Media Lot # [id number] Lot# Expiration Date 025 Blood Capillary blood specimen / Unknown 01/28/2025 3:11 PM EDT us Amy Olmedo MD POINT OF CARE TEST ENTER/EDIT OR DERABLES Final Result documented in this encounter Visit Diagnoses Diagnosis Primary hypertension- Primary Unspecified essential hypertension Paroxysmal atrial fibrillation ([facility]/HCC) Atrial fibrillation Asthma-COPD overlap syndrome ([facility]/HCC) CLARE (obstructive sleep apnea) Obstructive sleep apnea (adult) (pediatric) Constipation, unspecified constipation type Gastroesophageal reflux disease, unspecified whether esophagitis present Type 2 diabetes mellitus without complication, without long-term current use of insulin ([facility]) Breast cancer screening by mammogram documented in this encounter Additional Health Concerns Assessment Noted Time PHQ-9 Depression Total Score: 4 09/19/20 23 10:40 AM EST documented as of this encounter Care Teams Dehairing Machine Tender Relationship Specialty Start Date End Date Amy Olmedo MD [address] [place] [id number] PCP - General Family Medicine 10/03/18 Jeremy Galloway, Elias [address] [place] [phone] Pharmacist Internal Medicine 03/11/23 documented as of this encounter
--- OUTSIDE RECORDS SUMMARY | 2025-01-28 18:23 | XMS_ITS | Encounter Summary ---
Author Organization [employer] Address [address] [facility] [address] [place] [address] Care Team Providers Care Senior Agricultural Assistant Name Role Phone Amy Olmedo MD Primary Care Provider [phone] Jeremy Galloway PharmD Unavailable [phone] Encounter Details Date Type Department Care Team ([facility] st Contact Info) Description 12/14/2024 Orders Only [facility] MEDICINE [address] [place], [place] [phone] Amy Olmedo MD [address] [place], [place] [phone] Social History Tobacco Use Types Packs/Day Years [...] documented as of this encounter Care Teams Senior Agricultural Assistant Relationship Specialty Start Date End Date Amy Olmedo MD [address] [place] [address] PCP - General Family Medicine 10/03/18 Jeremy Galloway PharmD [address] [place] [address] Pharmacist Internal Medicine 03/11/23 documented as of this encounter
--- OUTSIDE RECORDS SUMMARY | 2025-01-28 18:23 | XMS_ITS | Encounter Summary ---
Author Organization [employer] Address [address] [facility] [address] [place] [address] Care Team Providers Care Open Hearth Stockyard Supervisor Name Role Phone Amy Olmedo MD Primary Care Provider [phone] Jeremy Galloway PharmD Unavailable [phone] Encounter Details Date Type Department Care Team ([facility] st Contact Info) Description 11/26/2024 Orders Only [facility] MEDICINE [address] [place], [place] [phone] Amy Olmedo MD [address] [place], [place] [phone] Social History Tobacco Use Types Packs/Day Years [...] documented as of this encounter Care Teams Open Hearth Stockyard Supervisor Relationship Specialty Start Date End Date Amy Olmedo MD [address] [place] [address] PCP - General Family Medicine 10/03/18 Jeremy Galloway PharmD [address] [place] [address] Pharmacist Internal Medicine 03/11/23 documented as of this encounter
--- OUTSIDE RECORDS SUMMARY | 2025-01-28 18:23 | XMS_ITS | Clinical Summary ---
Author Organization [employer] Address [address] [facility] [address] [place] [address] Care Team Providers Care Medical Policy Specialist Name Role Phone Amy Olmedo MD Primary Care Provider [phone] Jeremy Galloway PharmD Unavailable [phone] Allergies Active Allergy Reactions Criticality Noted Date [...] complication, without long-term current use of insulin (CMS/[facility]) 1 kit in the morning. 1 kit [...] as directed 1 kit 10/28/19 24 Active albuterol (Ventolin HFA) 108 (90 Base) MCG/ACT inhalerIndicati ons:Asthma-COPD overlap syndrome (CMS/HCC) INHALE 2 PUFFS BY MOUTH EVERY 4 TO 6 HOURS NEEDED DIFFICULTY BREATHING. NO MORE THAN 8 PUFFS PER DAY 18 g 12/27/19 24 Active glucose blood (FREESTYLE LITE) test stripIndication s:Type 2 diabetes mellitus without complication, without long-term current use of insulin ([facility]) TEST BLOOD SUGAR EVERY DAY 50 strip 03/20/20 24 Active famotidine (Pepcid) 20 MG [...] complication, without long-term current use of insulin ([facility]) USE DIRECTED IN THE MORNING 100 each 06/06/20 24 Active Easy Touch Lancets 33G/Twist miscIndications :Type 2 diabetes mellitus without complication, without long-term current use of insulin ([facility]) USE DIRECTED IN THE MORNING 100 each 06/06/20 24 Active cyanocobalamin (Vitamin B-12) 1000 MCG tabletIndicatio ns:Anemia due to vitamin B12 deficiency, unspecified B12 deficiency type TAKE 1 TABLET BY MOUTH EVERY MORNING 90 tablet 1 09/27/20 24 Active cloNIDine (Catapres) 0.1 MG tabletIndicatio ns:Primary hypertension TAKE 1 TABLET BY MOUTH AT BEDTIME 90 tablet 3 11/28/19 25 Active folic acid (Folvite) 1 MG tabletIndicatio ns:Vitamin deficiency TAKE 1 TABLET BY MOUTH EVERY MORNING 90 tablet 3 11/28/19 25 Active lisinopril 40 MG tabletIndicatio ns:Primary hypertension TAKE 1 TABLET BY MOUTH EVERY MORNING 90 tablet 3 02/26/20 25 Active cholecalciferol VITAMIN D (Vitamin D-3) 50 MCG (1999 UT) tabletIndicatio ns:Vitamin deficiency TAKE 1 TABLET BY MOUTH EVERY MORNING 90 tablet 11/28/19 25 Active FLUoxetine (PROzac) 20 MG capsuleIndicati ons:Panic disorder with agoraphobia TAKE 1 CAPSULE BY MOUTH EVERY MORNING 30 capsule 11/30/19 25 Active metFORMIN XR (Glucophage-XR) 500 MG 24 hr tablet Take 1 tablet (500 mg) by mouth with evening meal. Do not crush, chew, or split. 30 tablet 12/15/19 25 2025 Active Dulaglutide (Trulicity) 0.75 MG/0.5ML solution auto-injector Inject 0.75 mg under the skin 1 (one) time per week. 2 mL 12/15/19 25 Active ferrous sulfate 325 (65 Fe) MG EC tablet TAKE 1 TABLET BY MOUTH EVERY MORNING WITH BREAKFAST 90 tablet 12/25/19 25 Active ferrous sulfate 325 (65 Fe) MG EC tablet TAKE 1 TABLET BY MOUTH EVERY MORNING WITH BREAKFAST 90 tablet 12/25/19 25 Active cetirizine (ZyrTEC) 10 MG tablet TAKE 1 TABLET BY MOUTH EVERY DAY NEEDED FOR ALLERGIES 90 tablet 01/29/20 25 Active fluticasone (Flonase) 50 MCG/ACT nasal spray Administer 1 spray into each nostril Once per day. Shake gently. Before first use, prime pump. After use, clean tip and replace cap. 48 g 1 01/29/20 25 Active Ketotifen Fumarate 0.035 % solution Administer 1 drop into affected eye(s) 2 times daily. 10 mL 01/29/20 25 Active fluticasone (Flonase) 50 MCG/ACT nasal spray USE 1-2 SPRAYS IN EACH NOSTRIL IN THE MORNING 48 g 1 03/05/20 24 2024 Discontinued(R eorder (will not trigger notification to Pharmacy)) cetirizine (ZyrTEC) 10 MG tablet TAKE 1 TABLET BY MOUTH EVERY DAY NEEDED FOR ALLERGIES 90 tablet 08/28/20 24 2024 Discontinued(R eorder (will not trigger notification to Pharmacy)) Active Problems Problem Noted Date Diagnosed Date Partial edentulism 06/21/2024 Mass on back 01/24/2024 Assessment & Plan (01/24/2024 2:56 PM EDT): - will evaluate with ultrasound, may not be able to have external biopsy Constipation 09/19/2023 Assessment & Plan (01/24/2024 2:54 PM EDT): - followed by [facility], last seen in December 2023 - prescribed Miralax, Colace, and dulcolax - fiber-rich diet - patient is scheduled for colonoscopy Assessment & Plan (09/19/2023 5:58 AM EST): - followed by [facility], last seen in May 2023 - prescribed Miralax and Colace - fiber-rich diet Iron deficiency anemia 05/03/2023 Assessment & Plan (10/04/2024 8:34 AM EST): - seen by application design engineer on 04/13/23 - received IV iron - continue current treatment plan per Heme Assessment & Plan (09/19/2023 5:59 AM EST): - seen by application design engineer on 04/13/23 - received IV iron - continue current treatment plan per Heme Assessment & Plan (05/29/2023 6:11 AM EDT): - seen by application design engineer on 04/13/23 - currently receiving IV iron - continue current treatment plan per Heme CLARE (obstructive sleep apnea) 02/28/2023 Assessment & Plan (01/28/2025 3:38 PM EDT): - sleep study in January 2022 showed severe CLARE, positive airway pressure therapy was recommended SCAR - evaluated by satellite installation technician - pt tried CPAP, but returned the device due to intolerance in 2022 - pt has nocturnal hypoxemia, but DME supplier will not provide oxygen supplementation for pt with CLARE with nocturnal hypoxemia - continue working on lifestyle modification - sleep on lateral position and/or elevate head of the bed Assessment & Plan (10/04/2024 8:30 AM EST): - sleep study in January 2022 showed severe CLARE, positive airway pressure therapy was recommended SCAR - evaluated by satellite installation technician - pt tried CPAP, but returned the [...] therapy was recommended SCAR - evaluated by satellite installation technician - pt tried CPAP, but returned the [...] therapy was recommended SCAR - evaluated by satellite installation technician - pt tried CPAP, but returned the [...] therapy was recommended SCAR - evaluated by satellite installation technician - pt tried CPAP, but returned the [...] 2 diabetes mellitus 02/28/2023 Assessment & Plan (01/28/2025 3:37 PM EDT): - Dx January 2023. RBG [...] - Immunizations - reviewed Assessment & Plan (10/04/2024 8:34 AM EST): [...] Plan (10/04/2024 8:31 AM EST): -Followed by [facility], last seen in December 2022, patient reports she had more recent visit -Dx on 05/29/21 at [facility] in a setting of pneumonia and asthma exacerbation, converted to sinus rhythm in ED with metoprolol. Discharged with carvedilol and Eliquis -[id number] score 2 -Normal echo on 06/01/21 -Nuclear [...] Plan (01/24/2024 2:51 PM EDT): -Followed by [facility], last seen in December 2022, patient reports she had more recent visit -Dx on 05/29/21 at [facility] in a setting of pneumonia and asthma exacerbation, converted to sinus rhythm in ED with metoprolol. Discharged with carvedilol and Eliquis -[id number] score 2 -Normal echo on 06/01/21 -Nuclear [...] Plan (09/25/2023 10:48 AM EST): -Followed by [facility], last seen in December 2022 -Dx on 05/29/21 at [facility] in a setting of pneumonia and asthma exacerbation, converted to sinus rhythm in ED with metoprolol. Discharged with carvedilol and Eliquis -[id number] score 2 -Normal echo on 06/01/21 -Nuclear [...] Plan (05/29/2023 6:05 AM EDT): -Followed by [facility], last seen in December 2022 -Dx on 05/29/21 at [facility] in a setting of pneumonia and asthma exacerbation, converted to sinus rhythm in ED with metoprolol. Discharged with carvedilol and Eliquis -[id number] score 2 -Normal echo on 06/01/21 -Nuclear [...] Plan (03/02/2023 6:06 AM EDT): -Followed by [facility], last seen in December 2022 -Dx on 05/29/21 at [facility] in a setting of pneumonia and asthma exacerbation, converted to sinus rhythm in ED with metoprolol. Discharged with carvedilol and Eliquis -[id number] score 2 -Normal echo on 06/01/21 -Nuclear [...] 5:00 PM EST): -Dx on 05/29/21 at [facility] in a setting of pneumonia and asthma exacerbation -converted to sinus rhythm in ED with metoprolol -[id number] score 2 -Normal echo on 06/01/21 -discharged [...] Plan (10/04/2024 8:30 AM EST): -Followed by satellite installation technician, last seen by Dr. Perez in NOV [...] Plan (01/24/2024 2:50 PM EDT): -Followed by satellite installation technician, last seen by Dr. Perez in NOV [...] Plan (09/19/2023 5:56 AM EST): -Followed by satellite installation technician, last seen by Dr. Perez in April [...] Plan (05/29/2023 6:21 AM EDT): -Followed by satellite installation technician, last seen by Dr. Ellis in December [...] Plan (03/02/2023 6:00 AM EDT): -Followed by satellite installation technician, last seen by Dr. Perez in December [...] Plan (09/19/2023 6:02 AM EST): -Evaluated by [facility] providers, last seen in 2018 and was recommended PT for lumbar spondylosis with facet mediated pain. Pt was prescribed meloxicam. -Continue APAP prn -Encouraged to resume home back exercise Assessment & Plan (05/29/2023 6:16 AM EDT): -Evaluated by [facility] providers, last seen in 2018 and was recommended PT for lumbar spondylosis with facet mediated pain. Pt was prescribed meloxicam. -Continue APAP prn -Encouraged to resume home back exercise Assessment & Plan (09/19/2022 5:07 PM EST): -Evaluated by [facility] providers, last seen in 2018 and was recommended PT -She would like to be evaluated by paint department supervisor for possible injection; Will refer -Continue APAP prn -Encouraged to resume home back exercise Vitamin B12 deficiency anemia 05/17/2012 Assessment & Plan (10/04/2024 8:32 AM EST): - Last CBC in January 2024, stable - Negative intrinsic factor antibody - Continue current B12 supplementation - Normal EGD in 2012 and normal colonoscopy in 2017 - Although her vitamin B12 has improved, anemia has not improved; will refer to Hematology service for assistance in further evaluation and management Assessment & Plan (03/02/2023 6:21 AM EDT): - Last CBC on 12/16/22. H/H 9.5/329.7 - Negative intrinsic factor antibody - Continue current B12 supplementation - Normal EGD in 2012 and normal colonoscopy in 2017 - Although her vitamin B12 has improved, [...] Encounters Date Type Department Care Team Description 01/28/2025 3:15 PM EDT Office Visit [address] [address] Amy Olmedo MD Primary hypertension (Primary Dx); Paroxysmal atrial fibrillation (CMS/HCC); Asthma-COPD overlap syndrome (CMS/HCC); CLARE (obstructive sleep apnea); Constipation, unspecified constipation type; Gastroesophageal reflux disease, unspecified whether esophagitis present; Type 2 diabetes mellitus without complication, without long-term current use of insulin (CMS/HCC); Breast cancer screening by mammogram 01/28/2025 Travel 01/25/2025 Telephone [facility] [place] [address] Amy Olmedo MD 01/22/2025 Patient Outreach [facility] [place] [address] Amy Olmedo MD Care Coordination ([facility] LeonOH f/u_lv) 01/10/2025 Telephone [facility] [place] [address] Amy Olmedo MD 01/10/2025 Telephone [facility] [place] [address] Amy Olmedo MD chart prep 01/01/2025 Patient Outreach [facility] [place] [address] Amy Olmedo MD Care Coordination ([facility] VelezOH f/u ) 12/26/2024 Population Health Risk Score [facility] () [address] [phone] Provider, Population Health Generic 12/24/2024 Refill [facility] [place] [address] Amy Olmedo MD 12/23/2024 Refill [facility] [place] [address] Amy Olmedo MD 12/19/2024 Orders Only [facility] [place] [address] Amy Olmedo MD Asthma-COPD overlap syndrome (CMS/HCC) (Primary Dx); Paroxysmal atrial fibrillation (CMS/HCC); Primary hypertension; Type 2 diabetes mellitus without complication, without long-term current use of insulin (CMS/HCC) 12/18/2024 Patient Outreach [facility] [address] [place] [address] Amy Olmedo MD Care Coordination ([facility] Nath, Chart Review ) 12/18/2024 Patient Outreach [facility] [address] [place] [address] Amy Olmedo MD Care Coordination ([facility] Nath TC program enrollment ) 12/18/2024 Patient Outreach [facility] [address] [place], [place] [address] Amy Olmedo MD 12/18/2024 Telephone [facility] [address] [place], [place] [address] Amy Olmedo MD Referral 12/18/2024 Telephone [facility] [address], [place] [address] Amy Olmedo MD 12/14/2024 Orders Only [facility] [address], [place] [address] Amy Olmedo MD 11/29/2024 Refill [facility] [address], [place] [address] Amy Olmedo MD Panic disorder with agoraphobia 11/28/2024 Refill [facility] [address], [place] [address] Amy Olmedo MD Primary hypertension; Vitamin deficiency 11/26/2024 Orders Only [facility] [address], [place] [address] Aym Olmedo MD 11/26/2024 Telephone [facility] [address] [place] [address] Amy Olmedo MD Medication Question 11/13/2024 Telephone [facility] [address], [place] [address] Amy Olmedo MD Prior Authorization ( CHAIM Denial: Jazmyn); Medication Question 11/02/2024 Orders Only [facility] [address] [place] [address] Amy Olmedo MD 10/31/2024 Refill [facility] [address] [place] [address] Amy Olmedo MD Panic disorder with agoraphobia from Last 3 Months Immunizations Name Administration [...] Mass Index 36.25 01/28/2025 3:09 PM EDT Plan of Treatment Health Maintenance Due Date Last Done Comments [...] history exists Dental Prophylaxis 11/29/2024 05/28/2024, 11/06/2012 Mammogram 06/23/2025 06/23/2023, 06/03, 04/20/2021, Additional history exists Diabetes: Hemoglobin A1C 07/30/2025 025, 09/27/2024, 01/24/2024, Additional history exists Alcohol/Substance Use Screening 09/27/2025 09/27/2024 Depression Screening 09/27/2025 09/27/2024, 09/19/20 23 Diabetes: Foot Exam 09/27/2025 09/27/2024, 09/19/2023, 09/19/2023, Additional history exists SDOH Screening 12/18/2025 12/18/2024 Diabetes: Urine Protein Screening 01/28/2026 01/28/2025, 01/30/2024, 05/26/2023 Lipid Panel 01/28/2026 01/28/2025, 01/02, 12/16/2022, Additional history exists Tobacco Screening 01/28/2026 01/28/2025 Dental X-Ray: Full Mouth 08/11/2026 08/10/2023, 01/01 [...] topic Hepatitis B Vaccines Completed 04/09/2024, 10/07/19 COVID-19 Vaccine Completed 09/27/2024, , 09/15/2022, Additional [...] 3:11 PM EDT) No Jeremy Galloway PharmD Procedures Procedure Name Priority Date/Time Associated Diagnosis Comments CBC WITH AUTO DIFFERENTIAL Routine 01/28/2025 3:37 PM EDT Anemia due to vitamin B12 deficiency, unspecified B12 deficiency type Iron deficiency anemia, unspecified iron deficiency anemia type RETICULOCYTE COUNT Routine 01/28/2025 3: 37 PM EDT Iron deficiency anemia, unspecified iron deficiency anemia type IRON AND TOTAL IRON BINDING CAPACITY Routine 01/28/2025 3:37 PM EDT Iron deficiency anemia, unspecified iron deficiency anemia type FERRITIN Routine 01/28/2025 3:37 PM EDT Iron deficiency anemia, unspecified iron deficiency anemia type TSH W/REFLEX TO FT4 Routine 01/28/2025 3 :37 PM EDT Primary hypertension COMPREHENSIVE METABOLIC PANEL Routine 01/28/2025 3:37 PM EDT Primary hypertension Type 2 diabetes mellitus without complication, without long-term current use of insulin (CMS/HCC) ALBUMIN, RANDOM URINE W/CREATININE Routine 01/28/2025 3:37 PM EDT Type 2 diabetes mellitus without complication, without long-term current use of insulin (CMS/HCC) LIPID PANEL WITH REFLEX TO DIRECT LDL Routine 01/28/2025 3:37 PM EDT Type 2 diabetes mellitus without complication, without long-term current use of insulin (CMS/HCC) Dyslipidemia VITAMIN B12/FOLATE, SERUM PANEL Routine 01/28/2025 3:37 PM EDT Anemia due to vitamin B12 deficiency, unspecified B12 deficiency type POCT GLYCATED HEMOGLOBIN, TOTAL Routine 01/28/2025 3:11 PM EDT Type 2 diabetes mellitus without complication, without long-term current use of insulin (CMS/HCC) POCT GLUCOSE Routine 01/28/2025 3:11 PM EDT Type 2 diabetes mellitus without complication, without long-term current use of insulin (CMS/HCC) PAP SMEAR Routine 09/27/2024 10:30 AM EST Encounter for well woman exam with routine gynecological exam HM COLONOSCOPY Routine 06/28/2024 PROPHYLAXIS - ADULT Routine 05/28/2024 3 :00 PM EDT HEPATITIS PANEL, GENERAL Routine 09/19/2023 11:44 AM EST Need for hepatitis C screening test Immunity status testing INTRAORAL - COMPLETE SERIES OF RADIOGRAPHIC IMAGES Routine 08/10/2023 11:00 [...] Recently Relevant to Health Maintenance Results * Vitamin B12 (Cobalamin) and Folate Panel, Serum (01/28/2025 3:37 PM EDT) Vitamin B12 752 200 - 900 pg/mL [facility] Comment:NORMAL 200-900 PG/ML INDETERMINATE 160-199 PG/ML DEFICIENT < 160 PG/ML Folate 17.8 > or = 4.0 ng/mL [facility] Comment:Reference Values:> o r = 4.0 ng/mL< 4.0 ng/mL suggests folate deficiency Methotrexate, aminopterin and folinic acid(leucovorin) are chemotherapeutic agents whose molecularstructures are similar to folate; therefore, the Architectfolate assay cannot be used for patients using these drugs. Blood 01/28/2025 3:37 PM EDT 01/28/2025 4:06 PM EDT us Amy Olmedo MD LAB BLOOD ORDERABLES Final Resul t [facility] [address], [place] [phone] * TSH with Reflex to Free T4 (01/28/2025 3:37 PM EDT) TSH reflex Free T4 1.47 0.32 - 4.0 uIU/mL [facility] Blood 01/28/2025 3:37 PM EDT 01/28/2025 4:06 PM EDT Amy Olmedo MD LAB BLOOD ORDERABLES Final Resul t Performing Organization Address [facility] Co de Phone Number [facility] [address] [place] [phone] * (ABNORMAL) Lipid Panel with Reflex to Direct LDL (01/28/2025 3:37 PM EDT) Triglycerides 155(H) <150 mg/dL [facility] Comment:Desirable Triglyceri de: less than 150 mg/dLBorderline High Triglyceride 150-199 mg/dLHigh Triglyceride: 200-499 mg/dLVery High Triglyceride: greater than or equal to 5OO mg/dL Cholesterol 154 <200 mg/dL [facility] Comment:Desirable Cholestero l: less than 200 mg/dLBorderline High Cholesterol: 200-239 mg/dLHigh Cholesterol: greater than 239 mg/dL LDL Cholesterol Calculated 83 <100 mg/dL [facility] Comment:Desirable LDL: less than 100 mg/dLNear Optimal/Above Optimal LDL: 110- 129 mg/dLBorderline High LDL: 130-159 mg/dLHigh LDL: 160-189 mg/dLVery High LDL: greater than or equal to 190 mg/dL HDL Cholesterol 40(L) >40 mg/dL [facility] Comment:Desirable HDL: great er than 40 mg/dL Note: This HDL assay may give artificially low results in patients with liver disease. Blood 01/28/2025 3:37 PM EDT 01/28/2025 4:06 PM EDT us Amy Olmedo MD LAB BLOOD ORDERABLES Final Resul t Performing Organization Address [facility] Co de Phone Number [facility] [address] [place] [address] [phone] * Albumin, Random Urine W/Creatinine (01/28/2025 3:37 PM EDT) Pathologist [facility] Creatinine, Urine 163.24 mg/dL [facility] Microalbumin Urine 11.0 mg/L [facility] Microalbum Creatinine Ratio Ur 6.7 <30 ug/mg cr [facility] Comment:Albumin/Creatinine R atio Reference Ranges: Normal: < 30 ug/mg creatinine Microalbuminuria: 30 - 300 ug/mg creatinineClinical Albuminuria: > 300 ug/mg creatinine Urine 01/28/2025 3:37 PM EDT 01/28/2025 4:00 PM EDT us Amy Olmedo MD LAB URINE ORDERABLES Final Resul t [facility] [address] [place] [address] [phone] * (ABNORMAL) CBC auto differential (01/28/2025 3:37 PM EDT) Pathologist [facility] White Blood Count 7.6 4.8 - 10.8 X10*3/uL [facility] Red Blood Count 3.79(L) 4.20 - 5.50 X10*6/uL [facility] Hemoglobin 11.4(L) 12.0 - 16.0 g/dl [facility] Hematocrit 33.0(L) 37.0 - 47.0 % [facility] Mean Corpuscular Volume 87.1 80.0 - 98.0 fL [facility] Mean Corpuscular Hemoglobin 30.1 27.0 - 33.0 pg [facility] Mean Corpuscular HGB Conc 34.5 31.0 - 35.0 g/dl [facility] Red Cell Distribution Width 12.1 11.0 - 16.0 % [facility] Platelet Count 198 160 - 400 X10*3/uL [facility] Mean Platelet Volume 10.6 9.4 - 12.3 fL [facility] Neutrophils Percent Auto 55.6 45 - 73 % [facility] Imm Gran Pct Auto 0.3 0.0 - 0.4 % [facility] Lymphocytes Percent Auto 32.6 20 - 40 % [facility] Monocytes Percent Auto 7.6 2 - 11 % [facility] Eosinophils Percent Auto 3.4 0 - 4 % [facility] Basophils Percent Auto 0.5 0 - 2 % [facility] NRBC Pct Auto 0.0 0.0 - 0.2 /100WBC [facility] Neutrophils Absolute Auto 4.2 2.0 - 8.3 x10*3/uL [facility] Imm Gran Abs Auto 0.02 0.00 - 0.03 X10*3/uL [facility] Lymphocytes Absolute Auto 2.5 1.2 - 4.9 X10*3/uL [facility] Monocytes Absolute Auto 0.6 0.1 - 1.2 X10*3/uL [facility] Eosinophils Absolute Auto 0.3 0.0 - 0.4 X10*3/uL [facility] Basophils Absolute Auto 0.0 0.0 - 0.2 X10*3/uL [facility] NRBC Abs Auto 0.000 0.0 - 0.012 X10*3/uL [facility] Blood Venous blood specimen / Unknown 01/28/2025 3:37 PM EDT 01/28/2025 4:06 PM EDT us Amy Olmedo MD LAB BLOOD ORDERABLES Final Resul t [facility] [address] [place] [phone] [phone] * (ABNORMAL) Iron And Total Iron Binding Capacity (01/28/2025 3:37 PM EDT) Iron 68 30 - 160 mcg/dL [facility] Total Iron Binding Capacity 201(L) 228 - 428 mcg/dL [facility] Percent Iron Saturation 34 15 - 50 % [facility] Unsaturated Iron Binding 133 ug/dL [facility] Blood Venous blood specimen / Unknown 01/28/2025 3:37 PM EDT 01/28/2025 4:06 PM EDT Amy Olmedo MD LAB BLOOD ORDERABLES Final Resul t Performing Organization Address [facility]/ZIP Co de Phone Number [facility] [address] [place] [phone] * Reticulocyte Count (01/28/2025 3:37 PM EDT) Reticulocytes Absolute 0.060 0.026 - 0.095 X10*6/uL [facility] Immature Retic Fraction 6.4 3.0 - 15.9 % [facility] Retic HGB Equivalent 34.6 30.0 - 35.0 pg [facility] Reticulocyte Percent 1.6 0.5 - 1.8 % [facility] Blood Venous blood specimen / Unknown 01/28/2025 3:37 PM EDT 01/28/2025 4:06 PM EDT Amy Olmedo MD LAB BLOOD ORDERABLES Final Resul t Performing Organization Address [facility] Co de Phone Number [facility] [address] [place] [phone] * (ABNORMAL) Ferritin (01/28/2025 3:37 PM EDT) Ferritin 446(H) 10 - 250 ng/mL [facility] Blood Venous blood specimen / Unknown 01/28/2025 3:37 PM EDT 01/28/2025 4:06 PM EDT Amy Olmedo MD LAB BLOOD ORDERABLES Final Resul t Performing Organization Address [facility]/ZIP Co de Phone Number [facility] [address] [place] [phone] * (ABNORMAL) Comprehensive Metabolic Panel (01/28/2025 3:37 PM EDT) Sodium 136 135 - 145 mmol/L [facility] Potassium 4.6 3.3 - 5.1 mmol/L [facility] Chloride 102 96 - 108 mmol/L [facility] Carbon Dioxide 27 22 - 29 mmol/L [facility] Anion Gap 12 12 - 20 [facility] Urea Nitrogen (BUN) 23(H) 9 - 16 mg/dL [facility] Creatinine, Serum 0.84 0.5 - 1.4 mg/dL [facility] Estimated Glomerular Filt Rate >60 [facility] Comment:Chronic Kidney Disea se: Estimated GFR < 60 mL/min/1.65o4[facility] Kidney Disease: Estimated GFR < 15 mL/min/1.73m2 Glucose 97 60 - 115 mg/dL [facility] Calcium 8.9 8.4 - 10.2 mg/dL [facility] Bilirubin, Total 0.4 0.0 - 1.0 mg/dL [facility] Aspartate Amino Transferase 21 5 - 31 U/L [facility] Alanine Aminotransferase 18 0 - 31 U/L [facility] Total Protein 7.2 6.5 - 8.0 g/dL [facility] Albumin Level 4.0 3.5 - 5.0 g/dL [facility] Alkaline Phosphatase 72 39 - 117 U/L [facility] Blood Venous blood specimen / Unknown 01/28/2025 3:37 PM EDT 01/28/2025 4:06 PM EDT us Amy Olmedo MD LAB BLOOD ORDERABLES Final Resul t [facility] [address] [place] [address] [phone] * POCT HGB A1C (01/28/2025 3:11 PM EDT) Hemoglobin A1C 5.4 4.0 - 6.0 % QC Media Lot # [id number] Lot# Expiration Date [id number] Blood 01/28/2025 3:11 PM EDT Amy Olmedo MD POINT OF CARE TEST ENTER/EDIT OR DERABLES Final Result * POCT Glucose (01/28/2025 3:11 PM EDT) Glucose Blood, POC 109 60 - 200 mg/dL QC Media Lot # [id number] Lot# Expiration Date [id number] Blood Capillary blood specimen / Unknown 01/28/2025 3:11 PM EDT Amy Olmedo MD POINT OF CARE TEST ENTER/EDIT OR DERABLES Final Result * Pap Smear (09/27/2024 10:30 AM EST) Swab Cervix uteri structure / Unknown 09/27/2024 10:30 AM EST 09/28/2024 12:00 PM EST Narrative [facility] - 10/04/2024 7:28 AM EST ----- ------- Name: Sydnee Rubin ? Age/Sex: 64/F ? : 1960 Unit#: [id number] ?? Attend Dr: Amy Olmedo MD ?Re09/27/24 ?Status: DEP REF ? Location: HO.HHCLNP ? Disch: ? ----- ------- SPEC : [id number] ?RECD: 09/28/24-1200 ? STATUS: ??SOUT ? REQ NUM: [id number] ? PATRIA: 09/27/241030 ? SUBM DR: Amy Olmedo MD ? [...] Signed (signature on file) ALISSA Crouch (ASCP) 10/04/24 0728 ? ----- ------- ? END OF REPORT ? Amy Olmedo MD LAB CYTOLOGY ORDERABLES Final Re sult [facility] [address] [place] [phone] * Hm Colonoscopy (06/28/2024) Colonoscopy Normal Normal 06/28/2024 Historical Provider HEALTH MAINTENANCE Final Result * Hepatitis A,B,C Profile (09/19/2023 11:44 AM EST) Hepatitis A IgM Nonreactive Nonreactive [facility] Comment:IgM antibodies to WELLS V not detected; does not exclude earlyacute or recovered HAV infection. ~Hepatitis B Surface Antibody NONREACTIVE Nonreactive [facility] Comment:Nonreactive: < 8.00 mIU/mL Hepatitis B Core Antibody Nonreactive Nonreactive [facility] Hepatitis C Antibody Nonreactive Nonreactive [facility] Comment:Antibodies to HCV no t detected; does not exclude early acuteHCV infection. Hepatitis B Surface Ag Negative Negative [facility] Blood Venous blood specimen / Unknown 09/19/2023 11:44 AM EST 09/19/2023 1:10 PM EST us Amy Olmedo MD LAB BLOOD ORDERABLES Final Resul t [facility] [address] [place] [address] [phone] * BI Mammogram Screening Tomosynthesis Bilateral (06/23/2023 8:21 AM EDT) Anatomical Region Laterality Modality Breast Bilateral Mammography 06/23/2023 8:21 AM EDT Narrative 07/03/2023 10:18 PM EDT ? [facility] ? [address] ?[place] [address] ? Mammography Report ? Signed ? Patient: Sydnee Rubin E ?MR#: [id number] ? : 1960 ?Acct:[id number] ? Age/Sex: 62 / F ?ADM Date: 06/23/ ? Loc: HO.MAMMO ? Attending Dr: Amy Olmedo MD ? Ordering Physician: Amy Olmedo MD ?Results: 1Negative ? Date of Service: 06/23/ ?Follow Up: 1 Year From Orig ?? inal Mammogram ? Procedure(s): MM tomosynthesis screening BI ?? Accession Number(s): [id number] ? cc: Amy Olmedo MD ? EXAMINATION: [...] by Mary Figueroa MD in OV> ? 07/03/234 ? DD/ 0 ? TD/TT: ? Systems Software Designer: ? Procedure Note Hellen, Image - 07/03/2023 [facility] [address] [place] [address] Dr. Mungu[place], RUSS [address] Mammography Report Signed Patient: Sydnee Rubin EMR#: [id number] : 1960Acct:[id number] Age/Sex: 62 / FADM Date: 06/23/23 Loc: MOR Attending Dr: Amy Olmedo MD Ordering Physician: Amy Olmedo MDResults: 1Negative Date of Service: 06/23/23Follow Up: 1 Year From Orig ina Mammogram Procedure(s): MM tomosynthesis screening BI Accession Number(s): [id number] cc: Amy Olmedo MD EXAMINATION: MM SCREENING [...] in OV> 07/03/23 2214 DD/ 0821 TD/TT: Systems Software Designer: Amy Olmedo MD [facility] BI PROCEDURES Final Result * HPV mRNA E6/E7 (04/23/2019 9:40 AM EDT) HPV mRNA E6/E7 Not Detected NOT DETECTED [facility] Comment: This test was performed using the APTIMA(R) HPV Assay ([employer] This assay detects E6/E7 viral messenger RNA (mRNA) from 14 high-risk HPV types (16,18,31,33,35,39,45,51, 52,56,58,59,66,68). For additional information please refer to: http://education.HackerOne/faq/UAT939p6 (This link is being provided for informational/ educational purposes only.) The analytical performance characteristics of this assay have been determined by [employer] [place], [place]. The modifications have not been cleared or approved by the FDA. This assay has been validated pursuant to the CLIA regulations and is used for clinical purposes. Test Performed by [employer], [facility] [place], [address] [place], [place] Andrade Rose M.D., Ph.D., Director of Laboratories , CLIA [id number] Please note: ??Effective 06/14/2016, HPV testing will be performed using [employer]'s APTIMA test which targets mRNA. Detecting mRNA instead of DNA, as in older methods, offers significant improvements in specificity. 04/23/2019 9:40 AM EDT Amy Olmedo MD HISTORICAL/NON ORDERABLE LABS Fi nal Result Performing Organization Address City/State/[facility] Co de Phone Number [facility] [address] [place] [address] * HIV 1/2 ANTIGEN AND ANTIBODY (EXTERNAL RESULTS ONLY) (05/10/2018 10:08 AM EDT) HIV Ag/Ab Nonreactive 05/10/2018 10:0 8 AM EDT Historical Provider LAB POINT OF CARE TEST DOCKED DEVICE UNSOLICITED RESULTS Final Result from Last 3 Months or Most Recently Relevant to Health Maintenance Insurance [address] [place] [id number] Unified Color C3 HSN F[facility] MEDICAID STAND ADULT Care Teams Medical Policy Specialist Relationship Specialty Start Date End Date Amy Olmedo MD [address] [place] [phone] PCP - General Family Medicine 10/03/18 Jeremy Galloway, PharmD [address] [place] [phone] Pharmacist Internal Medicine 03/11/23
--- OUTSIDE RECORDS SUMMARY | 2025-01-28 18:23 | XMS_ITS | Encounter Summary ---
Author Organization [employer] Address [address] [facility] 7t [place] [address] Care Team Providers Care Glassware Selector Name Role Phone Amy Olmedo MD Primary Care Provider [phone] Jeremy Galloway PharmD Unavailable [phone] Encounter Details Date Type Department Care Team ([facility] st Contact Info) Description 01/25/2025 Telephone [facility] [address] [place], [place] [phone] Amy Olmedo MD [address] [place], [place] [phone] Social History Tobacco Use Types Packs/Day Years [...] documented as of this encounter Care Teams Glassware Selector Relationship Specialty Start Date End Date Amy Olmedo MD [address] [place] [address] PCP - General Family Medicine 10/03/18 Jeremy Galloway PharmD [address] [place] [address] Pharmacist Internal Medicine 03/11/23 documented as of this encounter
--- OUTSIDE RECORDS SUMMARY | 2025-01-28 18:23 | XMS_ITS | Encounter Summary ---
Author Organization [employer] Address [address] [facility] 7t [place] [address] Care Team Providers Care Geographic Information System Analyst Name Role Phone Amy Olmedo MD Primary Care Provider [phone] Jeremy Galloway PharmD Unavailable [phone] Encounter Details Date Type Department Care Team (Latest Contact Info) Description 01/28/2025 Travel Social History Tobacco Use Types Packs/Day Years [...] documented as of this encounter Care Teams Geographic Information System Analyst Relationship Specialty Start Date End Date Amy Olmedo MD [address] [place] [address] PCP - General Family Medicine 10/03/18 Jeremy Galloway PharmD [address] [place] [address] Pharmacist Internal Medicine 03/11/23 documented as of this encounter
--- OUTSIDE RECORDS SUMMARY | 2025-01-28 18:23 | XMS_ITS | Encounter Summary ---
Author Organization [employer] Address [address] [facility] [address]t [place] [address] Care Team Providers Care Fixed Wing Aircraft Flight Engineer Name Role Phone Amy Olmedo MD Primary Care Provider [phone] Jeremy Galloway PharmD Unavailable [phone] Reason for Referral * Consultation (Routine) - Closed Specialty Diagnoses / Procedures Referred By Contgera t Referred To Contact General Surgery Diagnoses Mass on back Amy Olmedo MD [address] [place] [address] Phone: tel: fax: Drew Coyne MD [address] [place] [address] Phone: tel: fax: Referral ID Status Reason Start Date Expiration Date V isits Requested Visits Authorized [id number] Closed Specialty Services Required 03/09/2024 03/09/2025 12 12 Encounter Details Date Type Department Care Team (Late st Contact Info) Description 03/07/2024 Orders Only [facility] [address] [place], [place] [phone] Amy Olmedo MD [address] [place], [place] [phone] Mass on back (Primary Dx) Social History [...] 132/58(2024 3:09 PM EDT) No Jeremy Galloway, PharmBrian Hemoglobin A1c < 7 Result Component 5.4( 3:11 PM EDT) No Jeremy Galloway, PharmD documented as of this encounter Visit Diagnoses Diagnosis Mass on back- Primary Localized superficial swelling, mass, or lump documented in this encounter Additional Health Concerns Assessment Noted Time PHQ-9 Depression Total Score: 4 09/19/20 23 10:40 AM EST documented as of this encounter Care Teams Fixed Wing Aircraft Flight Engineer Relationship Specialty Start Date End Date Amy Olmedo MD [address] [place] [address] PCP - General Family Medicine 10/03/18 Jeremy Galloway, MaciejD [address] [place] [address] Pharmacist Internal Medicine 03/11/23 documented as of this encounter
--- OUTSIDE RECORDS SUMMARY | 2025-01-28 18:23 | XMS_ITS | Encounter Summary ---
Author Organization [employer] Address [address] [facility] [address] [place] [address] Care Team Providers Care Bookkeeping Assistant Name Role Phone Amy Olmedo MD Primary Care Provider [phone] Jeremy Galloway PharmD Unavailable [phone] Encounter Details Date Type Department Care Team (Late st Contact Info) Description 09/21/2022 Orders Only [facility] [address] [place], [place] [phone] Lena Buenrostro LPN Social History Tobacco Use [...] on filedocumented in this encounter Care Teams Bookkeeping Assistant Relationship Specialty Start Date End Date Amy Olmedo MD [address] [place], [place] [phone] PCP - General Family Medicine 10/03/18 Jeremy Galloway, PharmD [address] [place] [address] Pharmacist Internal Medicine 03/11/23 documented as of this encounter
--- OUTSIDE RECORDS SUMMARY | 2025-01-28 18:23 | XMS_ITS ---
Author Organization [employer] Address [address] [facility] 7t [place] [address] Care Team Providers Care Lumber Straightened Name Role Phone Amy Olmedo MD Primary Care Provider [phone] Jeremy Galloway PharmD Unavailable [phone] [facility] Status:Enrolled (Active) Start date:12/18/2024 Enrollment date:12/18/2024 Enrollment reason:Referred by provider Overview PCP Ref- Pt walked in to health center looking for assistance with food insecurity. Pt states wouldlike referral to Food Voucher program. Case Team Name Relationship Phone Yary Nath (Responsible Staff) Continued Care and Services Coordination
== END 2025-01-28 15:35 | disposition home or self-care (01) ==
LOC: HO.HHCL 15:34
PROVIDERS: Visit Provider Family Medicine
DX: I10 Essential (primary) hypertension (principal); D51.9 Vitamin B12 deficiency anemia, unspecified; E11.9 Type 2 diabetes mellitus without complications; D50.9 Iron deficiency anemia, unspecified; E78.5 Hyperlipidemia, unspecified
CPT/HCPCS: 36415; 80053; 80061; 82043; 82570; 82607; 82728; 82746; 83540; 84443; 85025; 85045

== ENCOUNTER 2025-03-25 19:13 | Observation (INO) | payer MEDICAID, SELFPAY ==
--- NOTE | ~2025-03-25 | XR_ITS ---
CLINICAL HISTORY: CP 2 view chest x-ray Comparison: None provided Findings: Possible faint right lower lobe density. No pneumothorax Normal size heart. No acute fracture. IMPRESSION: Question faint right lower lobe density. No pneumothorax or evidence of rib fracture by radiograph. This document has been electronically signed by: Tree Brumfield MD on 03/25/2025 20:02:47
--- NOTE | 2025-03-25 19:15 | ECG_ITS ---
Test Reason : chest pain Blood Pressure : */* mmHG Vent. Rate : 68 BPM Atrial Rate : 68 BPM P-R Int : 176 ms QRS Dur : 80 ms QT Int : 384 ms P-R-T Axes : 37 19 37 degrees QTcB Int : 408 ms Normal sinus rhythm Normal ECG When compared with ECG of 22-Feb-2023 21:10, No significant change was found Referred By: Jewels Strickland Electronically Signed By: NILS PORRAS
[2025-03-25 19:28] VITALS: BP 123/41; PULSE 64; RESP 20; TEMP 37.3; O2SAT 98; BMI 39.8
[2025-03-25 19:30] LABS: MANUAL DIFF FLAG NO
[2025-03-25 19:31] LABS: Basophils Percent Auto 0.3 % (0-2); Eosinophils Absolute Auto 0.2 X10*3/uL (0.0-0.4); Eosinophils Percent Auto 2.6 % (0-4); Hematocrit 29.7 % (37.0-47.0); Hemoglobin 10.6 g/dl (12.0-16.0); Imm Gran Abs Auto 0.02 X10*3/uL (0.00-0.03); Imm Gran Pct Auto 0.3 % (0.0-0.4); Lymphocytes Absolute Auto 2.4 X10*3/uL (1.2-4.9); Lymphocytes Percent Auto 30.2 % (20-40); Mean Corpuscular HGB Conc 35.7 g/dl (31.0-35.0); Mean Corpuscular Hemoglobin 30.7 pg (27.0-33.0); Mean Corpuscular Volume 86.1 fL (80.0-98.0); Monocytes Absolute Auto 0.6 X10*3/uL (0.1-1.2); Monocytes Percent Auto 7.3 % (2-11); Neutrophils Absolute Auto 4.7 x10*3/uL (2.0-8.3); Neutrophils Percent Auto 59.3 % (45-73); Platelet Count 180 X10*3/uL (160-400); Red Blood Count 3.45 X10*6/uL (4.20-5.50); Red Cell Distribution Width 12.8 % (11.0-16.0); White Blood Count 7.8 X10*3/uL (4.8-10.8)
--- NOTE | 2025-03-25 19:31 | ED.CHESTPAIN ---
HPI - Chest Pain General Chief Complaint: Chest Pain Stated Complaint: Chest pain Time Seen by Provider: 03/25/25 22:35 Source: patient Mode of arrival: ambulatory Limitations: no limitations History of Present Illness ED Provider: Dr. Micaela Rachel HPI narrative: Patient comes to the emergency room complaining of 18 hours of substernal chest pain. Patient states that she woke up from her sleep early in the morning with the pain. Patient denies any radiation. Patient states it is worsened when she leans forward and is relieved when she sits upright. Patient takes Eliquis for atrial fibrillation. Patient denies any trauma, denies heavy lifting. Denies any shortness of breath, fever or chills. Related Data Home Medications ?Medication ?Instructions ?Recorded ?Confirmed cholecalciferol (vitamin D3) 50 1 tab PO QAM 05/29/21 06/26/24 mcg (2,000 unit) tablet cyanocobalamin (vitamin B-12) 1 tab PO QAM 05/30/21 06/26/24 1,000 mcg tablet clonidine HCl 0.1 mg tablet 0.1 mg PO BEDTIME 09/15/21 06/26/24 fluoxetine 20 mg capsule 20 mg PO QAM 12/07/22 06/26/24 lisinopril 40 mg tablet 40 mg PO QAM 12/07/22 06/26/24 ferrous sulfate 325 mg (65 mg 325 mg PO QAM 12/27/23 06/26/24 iron) tablet,delayed release cetirizine 10 mg tablet 10 mg PO DAILY PRN allergies 03/26/24 06/26/24 fluticasone 500 mcg-salmeterol 50 1 ea inhalation 03/26/24 05/10/24 mcg/dose blistr powdr for inhalation (Advair Diskus) folic acid 1 mg tablet 1 mg PO QAM 03/26/24 06/26/24 alcohol swabs (Alcohol Prep Pads) pad topical [facility] 07/13/24 blood pressure kit-extra large #1 ea 07/13/24 blood sugar diagnostic (FreeStyle #10 ea 07/13/24 Lite Strips) blood-glucose meter (FreeStyle #1 ea 07/13/[address] Lite kit) lancets 33 gauge (Easy Touch Twist #100 ea 07/13/24 Lancets) Previous Rx's ?Medication ?Instructions ?Recorded heel lift #1 ea 08/21/20 albuterol sulfate 90 mcg/actuation 2 puff inhalation Q6H PRN 06/01/21 aerosol inhaler (Ventolin HFA) shortness of breath or wheezing #6.7 grams apixaban 5 mg tablet (Eliquis) 5 mg PO BID #60 tabs 06/01/21 Held on 06/28/24. Instructions: Resume on 06/29/24. Hold today and resume tmrw EVENING carvedilol 3.125 mg tablet 3.125 mg PO BID 30 days #60 tabs 06/01/21 diphenhydramine HCl 25 mg tablet 25 mg PO TID PRN itching #20 tabs 02/23/23 (Benadryl Allergy) hydrocortisone 2.5 % topical cream 1 appl [place] BID-QID PRN hemorrhoids 12/27/23 with perineal applicator #30 grams (Proctosol HC) cyclobenzaprine 5 mg tablet 5 mg PO TID PRN neck pain 7 days 05/23/24 #21 tabs famotidine 20 mg tablet 20 mg PO BEDTIME heartburn #90 tabs 07/13/24 omeprazole 20 mg capsule,delayed 20 mg PO DAILY #90 caps 07/13/24 release docusate sodium 100 mg capsule 200 mg (2 x 100 mg) PO BEDTIME 01/11/25 #180 caps diltiazem HCl 120 mg 120 mg PO QAM #90 caps 01/22/25 capsule,extended release 24 hr atorvastatin 10 mg tablet 10 mg PO BEDTIME #90 tabs 03/18/25 Allergies Allergy/AdvReac Type Severity Reaction Status Date / Time No Known Allergies Allergy Verified 03/25/25 19:34 Review of Systems Review of Systems: Constitutional : No Weight loss, No Fever, No Chills, No Night Sweats, No Fatigue, No Malaise ENT/Mouth : No Hearing loss, No Ear Pain, No Nasal Congestion, No Sinus Pain, No Hoarseness, No sore throat, No Rhinorrhea, No Swallowing Difficulty Eyes: No Eye Pain, No Swelling, No Redness, No Foreign Body, No Discharge, No Vision Changes Cardiovascular : Complaining of chest pain, worsened by leaning forward, improved by sitting up straight. No SOB, No Dyspnea on Exertion, No Orthopnea, No Edema, No Palpitations Respiratory : No Cough, No Sputum, No Wheezing, No Smoke Exposure, No Dyspnea Gastrointestinal : No Nausea, No Vomiting, No Diarrhea, No Constipation, No abdominal Pain, No Hematochezia, No Melena Genitourinary : no irregular bleeding, No Dysuria, No Urinary Frequency, No Hematuria, No Urinary Incontinence, No Urgency, No Flank Pain, No Urinary Flow Changes, No Hesitancy Musculoskeletal : No joint pain, No Myalgias, No Joint Swelling Skin : No Skin Lesions, No rash Neuro : No Weakness, No Numbness, No Paresthesias, No Loss of Consciousness, No Dizziness, No Headache Psych : No Anxiety/Panic, No Depression, No SI/HI/AH/VH, No Social Issues, Heme/Lymph: No Bruising, No Bleeding,No Lymphadenopathy Endocrine : No Polyuria, No Polydipsia, No Temperature Intolerance [facility] Past Medical History Medical History CLARE (obstructive sleep apnea) Diverticulosis 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 Obesity (BMI 30-39.9) COPD (chronic obstructive pulmonary disease) Morbid obesity PAF (paroxysmal atrial fibrillation) Atrial fibrillation, new onset Asthma Back pain Surgical History H/O colonoscopy S/P section Family History Family History Mother High cholesterol HTN (hypertension) Father HTN (hypertension) High cholesterol Social History Social History Household Members: Children Housing: Apartment Are you a primary career services coordinator to a significant other at home: No Do you presently have visiting nurse or other home services: No Alcohol intake: never Patient Tobacco Use Status: Never used Tobacco Smoked in Last 30 Days: No Use of substances other than those prescribed or required for medical reasons: No Advance Directives: No Advance Directives Information Provided: Yes Advance Directives Date on File: 06/02/21 service: No Current occupational status: employed Physical Exam Vital Signs: Vital Signs: Last Vital Signs Temp 97.9 F 03/26/25 01:38 Pulse 60 03/26/25 01:38 Resp 16 03/26/25 01:38 BP 119/44 L 03/26/25 01:38 Pulse Ox 98 06/24/25 01:38 O2 Del Method Room Air 03/26/25 01:38 BMI result Body Mass Index 39.8 Const: Other: Appearance: Alert. Oriented X3. No acute distress. Eyes: Pupils equal, round and reactive to light. ENT: Pharynx normal. Neck: Normal inspection. Neck supple. No lymph nodes noted. No crepitus CVS: Normal heart rate and rhythm. Pulses normal. Normal S1 and S2 , bedside ultrasound shows a 4 mm pericardial effusion Respiratory: No respiratory distress. Breath sounds normal. No Wheezing. No rales Abdomen: Soft and nontender. No rigidity. No distention. Skin: Skin warm and dry. Normal skin color. Normal skin turgor. Extremities: No lower extremity edema. No Lacerations. No Rash Neuro: Oriented X 3. No motor deficit. No sensory deficit. Moving all extremities. No slurred speech. CN 2 through 12 grossly intact Psych: calm, cooperative, normal affect Course Course Course Narrative: This is an RME: Additional HPI, ROS, PE not included below will be deferred to primary provider. RME assessment and note performed by: Jewels Strickland PA-C This is a 60-rkas-cnm-female, with a hx of CLARE, COPD, paroxysmal a fib on eliquis, who presents to the ER with complaints of constant chest pain that started this morning. Plan: Labs, EKG, CXR, further ER eval needed Medications Administered Generic Name Dose Route Start Last Admin Trade Name Freq PRN Reason Stop Dose Admin Colchicine 0.6 mg 03/26/25 02:01 03/26/25 02:31 Colchicine 0.6 Mg Tablet PO 0.6 mg BID RADHIKA Administration Medical Decision Making Medical Decision Making [facility] Narrative: my interpretation of EKG, normal sinus rhythm, heart rate 68, no ST segment depression or elevation, no T-wave inversion, QTC 408 my interpretation of labs: No significant abnormality in patient's hematology and chemistry, LFTs within normal limits, troponin negative, lipase normal. ESR 57, CRP 0.58 Chest x-ray shows per Radiology a faint right lower lobe infiltrate? . However, patient denies any URI symptoms That would indicate that patient is developing pneumonia. Bedside ultrasound shows a 4 mm pericardial effusion. patient was supposed to have a follow-up appointment with Cardiology today. However, patient states that she had some insurance issues in her appointment got rescheduled. I discussed the patient with Dr. Akins. Recommendations: admission, started ibuprofen and colchicine I discussed the patient with Dr. Bucio, patient being admitted Differential Diagnosis Differential Diagnoses: The differential diagnosis associated with the presentation includes ( costochondritis, pleurisy, pericardial effusion) Admission/Observation Consideration of admission/observation: Escalation of care including admission/observation considered Consult Healthcare Provider Management of the patient was discussed with: Hospitalist and Receipt And Report Clerk Lab Data MDM Lab Attestation statement: I reviewed the patient's lab results. 03/25/25 19:26 03/25/25 19:26 Labs: Lab Results 03/25/25 Range/Units 19:26 WBC 7.8 (4.8-10.8) X10*3/uL RBC 3.45 L (4.20-5.50) X10*6/uL Hgb 10.6 L (12.0-16.0) g/dl Hct 29.7 L (37.0-47.0) % MCV 86.1 (80.0-98.0) fL MCH 30.7 (27.0-33.0) pg MCHC 35.7 H (31.0-35.0) g/dl RDW 12.8 (11.0-16.0) % Plt Count 180 (160-400) X10*3/uL MPV 10.0 (9.4-12.3) fL Immature Gran % (Auto) 0.3 (0.0-0.4) % Neut % (Auto) 59.3 (45-73) % Lymph % (Auto) 30.2 (20-40) % [place] % (Auto) 7.3 (2-11) % Eos % (Auto) 2.6 (0-4) % Baso % (Auto) 0.3 (0-2) % Lymph # (Auto) 2.4 (1.2-4.9) X10*3/uL [place] # (Auto) 0.6 (0.1-1.2) X10*3/uL Eos # (Auto) 0.2 (0.0-0.4) X10*3/uL Baso # (Auto) 0.0 (0.0-0.2) X10*3/uL Abs Immat Gran (auto) 0.02 (0.00-0.03) X10*3/uL Absolute Neuts (auto) 4.7 (2.0-8.3) x10*3/uL Absolute Nucleated RBC 0.000 (0.0-0.012) X10*3/uL Nucleated RBC % (auto) 0.0 (0.0-0.2) /100WBC ESR 57 H (0-20) MM/HR Sodium 142 (135-145) mmol/L Potassium 3.9 (3.3-5.1) mmol/L Chloride 109 H (96-108) mmol/L Carbon Dioxide 25 (22-29) mmol/L Anion Gap 12 (12-20) BUN 17 H (9-16) mg/dL Creatinine 0.85 (0.5-1.4) mg/dL Estim Creat Clear Calc 67.8 Estimated GFR > 60 Random Glucose 118 H (60-115) mg/dL Calcium 8.8 (8.4-10.2) mg/dL Magnesium 1.9 (1.6-2.6) mg/dL Total Bilirubin 0.3 (0.0-1.0) mg/dL Direct Bilirubin 0.1 (0.0-0.5) mg/dL AST 20 (5-31) U/L ALT 21 (0-31) U/L Alkaline Phosphatase 81 (39-117) U/L Troponin I High Sens < 2.7 (<3.5-17.0) ng/L C-Reactive Protein 0.54 H (< or = 0.50) mg/dL Total Protein 6.9 (6.5-8.0) g/dL Albumin 3.9 (3.5-5.0) g/dL Lipase 60 (8-78) U/L Independent Interpretation I performed an independent interpretation of an: Plain X-Ray and Ultrasound ( bedside ultrasound shows a 4 mm pericardial effusion, etiology unclear) Radiology Impression Discussion of test interpretation with radiology: I have reviewed the radiologist's reading. Radiologist Impression: Possible faint right lower lobe density. No pneumothorax Normal size heart. No acute fracture. IMPRESSION: Question faint right lower lobe density. No pneumothorax or evidence of rib fracture by radiograph. Critical Care Time Critical Care Time Critical Care Time: Yes Total Critical Care Time: 60 Attestation: I have personally provided critical care time. Time includes review of lab data, radiology results, discussion with consultants, and monitoring for potential decompensation. Intervention performed as documented. Discharge Plan Discharge Clinical Impression: Acute pericardial effusion, Chest pain Patient Disposition: Admitted As Inpatient
[2025-03-25 19:47] LABS: Alanine Aminotransferase 21 U/L (0-31); Albumin Level 3.9 g/dL (3.5-5.0); Alkaline Phosphatase 81 U/L (39-117); Anion Gap 12 (12-20); Aspartate Amino Transferase 20 U/L (5-31); Bilirubin Direct 0.1 mg/dL (0.0-0.5); Bilirubin Total 0.3 mg/dL (0.0-1.0); Blood Urea Nitrogen 17 mg/dL (9-16); Calcium 8.8 mg/dL (8.4-10.2); Carbon Dioxide 25 mmol/L (22-29); Chloride 109 mmol/L (96-108); Creatinine Clr Calc Pharmacy 67.8; Estimated Glomerular Filt Rate > 60; Glucose Random 118 mg/dL (60-115); Lipase 60 U/L (8-78); Magnesium 1.9 mg/dL (1.6-2.6); Potassium 3.9 mmol/L (3.3-5.1); Sodium 142 mmol/L (135-145); Total Protein 6.9 g/dL (6.5-8.0)
[2025-03-25 19:57] LABS: Troponin-I High Sensitivity < 2.7 ng/L (<3.5-17.0)
[2025-03-25 20:10] VITALS: BP 121/39; PULSE 62; RESP 16; O2SAT 98
[2025-03-25 22:10] VITALS: BP 114/40; PULSE 64; RESP 16; TEMP 36.7; O2SAT 98
[2025-03-25 23:27] LABS: C Reactive Protein 0.54 mg/dL (< or = 0.50)
[2025-03-26] VITALS (8 sets, daily range): BP systolic 119–160; BP diastolic 44–67; PULSE 55–74; RESP 15–18; TEMP 36.2–36.8; O2SAT 94–99; BMI 39.8
[2025-03-26 01:04] LABS: Erythrocyte Sedimentation Rate 57 MM/HR (0-20)
--- NOTE | 2025-03-26 02:03 | PM.IMHP ---
History of Present Illness Date of Service: 03/26/25 Attending physician on admission: Sara Bucio Chief Complaint: substernal chest pain Pt is a 64 yo female, barbadian speaking only with PMH HTN, HLD, AFIB on Eliquis, Asthma, CLARE (unable to tolerate CPAP), obesity, OA, constipation presents to the ED with complaints of mid sternal chest pain since 5 AM Tuesday morning. Pt has attended a picnic on Tuesday, had hamburgers and hot dogs and was not overly active or doing any heavy lifting. Bedside US noted a 4 mm pericardial effusion. H/H 10.6/29.7, PLTs 180K. Pt denies hx of auto-immune disorders, pericardial effusion in the past or redcent viral illness. Pt has appt to see cardiology on Tuesday for her symptoms but was turned away as her insurance . The ED provider reached out to illustrator set and provider recommended admission and to start colchicine and motrin. We will hold off on the motrin for now noting pt is on Eliquis, which may be contributing to development of pericardial effusion. Pt denies any tobacco, marijuana or illicit drug use hx. Pt is otherwise active with only other complaint of chronic constipation. Pt denies any unusual bruising, spontaneous bleeding or recent falls or injury involving the chest area. steam gigger was used to complete admission interview. Review of Systems Review of Systems: Patient continues to have midsternal discomfort with no shortness of breath, diaphoresis or cyanosis. Patient is having chronic issues with constipation but denies any diarrhea. Patient no abdominal pain or nausea or vomiting. Appetite has been healthy. 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 Obesity (BMI 30-39.9) COPD (chronic obstructive pulmonary disease) Morbid obesity PAF (paroxysmal atrial fibrillation) Atrial fibrillation, new onset Asthma Back pain Cognitive capacity: Alert and orientated x3 Functional capacity: independent ambulation Patient : No Family History Mother High cholesterol HTN (hypertension) Father HTN (hypertension) High cholesterol Surgical History H/O colonoscopy S/P section Social History Household Members: Children Housing: Apartment Are you a primary care coordination manager to a significant other at home: No Do you presently have visiting nurse or other home services: No Alcohol intake: never Patient Tobacco Use Status: Never used Tobacco Smoked in Last 30 Days: No Use of substances other than those prescribed or required for medical reasons: No Advance Directives: No Advance Directives Information Provided: Yes Advance Directives Date on File: 06/02/21 Nutrition Risks: No Nutritional Risk Patient : No service: No Current occupational status: employed Ebola Risk: Travel/Contact With Anyone From Affected Area/s: No Has Patient Experienced Ebola Symptoms: No Meds Allergies Allergy/AdvReac Type Severity Reaction Status Date / Time No Known Allergies Allergy Verified 03/25/25 19:34 Active Medications: Current Medications Acetaminophen (Acetaminophen 325 Mg Tablet) 650 mg PO Q6H PRN PRN Reason: Pain, Mild 1-3,fever,headache Albuterol/Ipratropium (Albuterol/Iprat 2.5/0.5mg 3 Ml Ampul.Neb) 3 ml INHALE Q4H PRN PRN Reason: Shortness of Breath/Wheezing Calcium Carbonate (Calcium Carbonate 750 Mg Tab.Chew) 750 mg PO Q4H PRN PRN Reason: Heartburn Colchicine (Colchicine 0.6 Mg Tablet) 0.6 mg PO BID RADHIKA Ibuprofen (Ibuprofen 600 Mg Tablet) 600 mg PO Q8H PRN PRN Reason: Pain, Moderate(Pain Scale 4-6) Magnesium Hydroxide (Milk Of Magnesia 30 Ml Oral.Susp) 30 ml PO DAILY PRN PRN Reason: Constipation Melatonin (Melatonin 3 Mg Tablet) 6 mg PO BEDTIME PRN PRN Reason: Insomnia Ondansetron HCl (Ondansetron Hcl 4 Mg/2 Ml Vial) 4 mg IVPUSH Q8H PRN PRN Reason: Nausea and Vomiting Senna (Sennosides 8.6 Mg Tablet) 17.2 mg PO BEDTIME RADHIKA Sodium Chloride (0.9 % Sodium Chloride Flush 3 Ml Syringe) 3 ml IVFLUSH QSHIFT [facility] Home Medications ?Medication ?Instructions ?Recorded ?Confirmed ?Last Taken ?Type cholecalciferol (vitamin D3) 50 1 tab PO QAM 05/29/21 06/26/24 Unknown History mcg (2,000 unit) tablet cyanocobalamin (vitamin B-12) 1 tab PO QAM 05/30/21 06/26/24 Unknown History 1,000 mcg tablet clonidine HCl 0.1 mg tablet 0.1 mg PO BEDTIME 09/15/21 06/26/24 Unknown History fluoxetine 20 mg capsule 20 mg PO QAM 12/07/22 06/26/24 Unknown History lisinopril 40 mg tablet 40 mg PO QAM 12/07/22 06/26/24 Unknown History ferrous sulfate 325 mg (65 mg 325 mg PO QAM 12/27/23 06/26/24 Unknown History iron) tablet,delayed release cetirizine 10 mg tablet 10 mg PO DAILY PRN allergies 03/26/24 06/26/24 Unknown History fluticasone 500 mcg-salmeterol 50 1 ea inhalation 03/26/24 05/10/24 Unknown History mcg/dose blistr powdr for inhalation (Advair Diskus) folic acid 1 mg tablet 1 mg PO QAM 03/26/24 06/26/24 Unknown History alcohol swabs (Alcohol Prep Pads) pad topical [facility] 07/13/24 Unknown History blood pressure kit-extra large #1 ea 07/13/24 Unknown History blood sugar diagnostic (FreeStyle #10 ea 07/13/24 Unknown History Lite Strips) blood-glucose meter (FreeStyle #1 ea 07/13/24 Unknown History Dierks Lite kit) lancets 33 gauge (Easy Touch Twist #100 ea 07/13/24 Unknown History Lancets) Physical Exam Vital Signs and Narrative: Vital Signs: Last Vital Signs Temp 97.9 F 03/26/25 01:38 Pulse 60 03/26/25 01:38 Resp 16 03/26/25 01:38 BP 119/44 L 03/26/25 01:38 Pulse Ox 98 03/26/25 01:38 O2 Del Method Room Air 03/26/25 01:38 BMI result Body Mass Index 39.8 Alert and orientated X3, able to give good history using travel freight and passenger agent Neuro: CN II-X11 intact, no deficits, visual acuity intact EYES: PERRLA, EOM intact, sclerae nonicteric, conjunctiva pink ENT: hearing intact, no issues with swallowing, uvula midline, lips moist, nares patent no epistaxis Cardiac: S1 S2 RRR, no murmur, no muffled heart sounds, no JVD, no evidence of tamponade or right heart strain on EKG, no edema in Lower ext Pulmonary: lungs clear to auscultation B Abdominal: BS active in all 4 quadrants, no guarding, tenderness, rebounding MSK: strength 5/5 upper and lower extremities : no CVA tenderness no bladder distension Extremities: no edema in lower extremities, PT and DP pulses palpable +2 Psych: mood stable, judgement and insight good Skin: Intact Results Labs 03/26/25 03:56 03/26/25 03:56 Labs: Laboratory Results - last 24 hr 03/25/25 19:26 MCV 86.1 MCH 30.7 MCHC 35.7 H RDW 12.8 Plt Count 180 MPV 10.0 Immature Gran % (Auto) 0.3 Neut % (Auto) 59.3 Lymph % (Auto) 30.2 [place] % (Auto) 7.3 Eos % (Auto) 2.6 Baso % (Auto) 0.3 Lymph # (Auto) 2.4 [place] # (Auto) 0.6 Eos # (Auto) 0.2 Baso # (Auto) 0.0 Abs Immat Gran (auto) 0.02 Absolute Neuts (auto) 4.7 Absolute Nucleated RBC 0.000 Nucleated RBC % (auto) 0.0 ESR 57 H Anion Gap 12 Estim Creat Clear Calc 67.8 Estimated GFR > 60 Random Glucose 118 H Calcium 8.8 Magnesium 1.9 Total Bilirubin 0.3 Direct Bilirubin 0.1 AST 20 ALT 21 Alkaline Phosphatase 81 Troponin I High Sens < 2.7 C-Reactive Protein 0.54 H Total Protein 6.9 Albumin 3.9 Lipase 60 ECG Attestation: I personally reviewed and interpreted this ECG as follows: (Normal sinus rhythm, QTC 408) Prior ECG tracings: available for review Imaging Radiologist's Impressions: CXR Findings: Possible faint right lower lobe density. No pneumothorax Normal size heart. No acute fracture. IMPRESSION: Question faint right lower lobe density. No pneumothorax or evidence of rib fracture by radiograph. Assessment and Plan (1) Acute pericardial effusion: Status: Acute Plan Pt is a 64 yo female, barbadian speaking only with PMH HTN, HLD, AFIB on Eliquis, Asthma, CLARE (unable to tolerate CPAP), obesity, OA, constipation presents with midsternal chest pain and incidental pericardial effusion 4 mm found on bedside ultrasound. Patient is on Eliquis with no history of autoimmune disorders or previous pericardial effusion. Per illustrator set patient to be admitted and start colchicine 0.6 b.i.d.. Echo in the morning and cardiology consultation placed. Acute pericardial effusion with no evidence of tamponade -Patient is on Eliquis for AFib, we will hold Eliquis, no Lovenox, no aspirin, coags pending, H and H is currently stable -Echo in the a.m. -Colchicine 0.6 b.i.d., provide ibuprofen noting effusion may be from Eliquis -Tylenol PRN -Cardiology consulted -Inflammatory workup initiated, CRP 0.54, ESR 57 -SARA titer ordered -Continue telemetry -Hemodynamics stable AFib on Eliquis -Patient currently in sinus rhythm -We will hold the Eliquis secondary to pericardial effusion -Continue telemetry -Continue Cardizem as blood pressure is stable Constipation, chronic -Senna HS -Dulcolax suppository PRN -Fiber added -MiraLax daily CLARE -Patient can not tolerate CPAP, returned the equipment from home -Patient does not want CPAP here in the hospital -Continuous CO2 monitoring DVT prophylaxis: Held secondary to pericardial effusion Med rec pending Full Code status Quality Stroke Does the patient have a stroke diagnosis?: No Reason for No Anti-thrombotic by Day Two: Contraindicated (Pericardial effusion) VTE Prior VTE?: No VTE Risk Level:: Medical - moderate - high VTE Device Contraindication: N/A - Device Ordered VTE Drug Contraindication: Treatment Not Indicated
[2025-03-26] MEDS: Colchicine 0.6 MG TABLET PO ×3 (02:31→21:18)
[2025-03-26 04:16] LABS: MANUAL DIFF FLAG NO
[2025-03-26 04:18] LABS: Basophils Percent Auto 0.1 % (0-2); Eosinophils Absolute Auto 0.3 X10*3/uL (0.0-0.4); Eosinophils Percent Auto 3.6 % (0-4); Hematocrit 28.9 % (37.0-47.0); Hemoglobin 10.1 g/dl (12.0-16.0); Imm Gran Abs Auto 0.02 X10*3/uL (0.00-0.03); Imm Gran Pct Auto 0.3 % (0.0-0.4); Lymphocytes Percent Auto 29.4 % (20-40); Mean Corpuscular HGB Conc 34.9 g/dl (31.0-35.0); Mean Corpuscular Volume 85.8 fL (80.0-98.0); Monocytes Absolute Auto 0.5 X10*3/uL (0.1-1.2); Monocytes Percent Auto 7.4 % (2-11); Neutrophils Absolute Auto 4.1 x10*3/uL (2.0-8.3); Neutrophils Percent Auto 59.2 % (45-73); Platelet Count 161 X10*3/uL (160-400); Red Blood Count 3.37 X10*6/uL (4.20-5.50); Red Cell Distribution Width 12.7 % (11.0-16.0); White Blood Count 6.9 X10*3/uL (4.8-10.8)
[2025-03-26 04:24] LABS: INTERNATIONAL NORM RATIO 1.3 (0.9-1.1); Prothrombin Time 14.6 SEC (10.9-12.4)
[2025-03-26 04:27] LABS: Partial Thromboplastin Time 33.6 SEC (26.0-36.8)
[2025-03-26 04:39] LABS: Alanine Aminotransferase 17 U/L (0-31); Albumin Level 3.7 g/dL (3.5-5.0); Alkaline Phosphatase 73 U/L (39-117); Anion Gap 10 (12-20); Aspartate Amino Transferase 15 U/L (5-31); Bilirubin Total 0.3 mg/dL (0.0-1.0); Blood Urea Nitrogen 15 mg/dL (9-16); Calcium 8.8 mg/dL (8.4-10.2); Carbon Dioxide 26 mmol/L (22-29); Chloride 109 mmol/L (96-108); Creatinine Clr Calc Pharmacy 82.4; Estimated Glomerular Filt Rate > 60; Glucose Random 104 mg/dL (60-115); Potassium 3.9 mmol/L (3.3-5.1); Sodium 141 mmol/L (135-145); Total Protein 6.5 g/dL (6.5-8.0)
[2025-03-26 04:54] LABS: Ferritin 378 ng/mL (10-250)
[2025-03-26] MEDS: Acetaminophen 325 MG TABLET 650 MG PO (06:11)
--- NOTE | 2025-03-26 07:00 | CA_ITS ---
Transthoracic Echocardiogram Patient (Last, First, Middle): Sydnee Rubin E Gender: Female Date of : 1960 Age: 64 Procedure Date: 03/26/2025 Procedure Type: Transthoracic Echocardiogram Location: ER Height: 152.4 cm Weight: 92.53 kg BSA: 1.88 m2 Heart Rate: bpm BP: 140 / 63 mmHg Base Wad Operator Adjuster: ROLY Referring MD: Kailey GORDONPTOM Symptoms: pericardial effusion Study Quality: Good ECG Rhythm: Sinus Conclusions: - The left ventricular systolic function is normal. The calculated ejection fraction is 59% by biplane method. - Evidence suggests grade II (moderate) diastolic dysfunction. - No obvious valvular pathology seen on this study. - There is a small pericardial effusion. Findings Procedure Information Contrast agent, definity, is being given per protocol without apparent complications. Left Ventricle Normal left ventricular cavity size. There is mildly increased left ventricular wall thickness. The left ventricular systolic function is normal. The calculated ejection fraction is 59% by biplane method. There is no evidence of regional wall motion abnormalities. Evidence suggests grade II (moderate) diastolic dysfunction. Right Ventricle Normal right ventricular cavity size and systolic function. Atria The left atrium is mildly dilated. The right atrium is normal in size. Aortic Valve The aortic valve was not well visualized. There is no aortic valve stenosis. There is no aortic valve regurgitation. Mitral Valve There is mild mitral annular calcification. There is trace mitral valve regurgitation. There is no mitral valve stenosis. Pulmonic Valve The pulmonic valve is likely normal. Tricuspid Valve There is trace tricuspid valve regurgitation. There is no evidence of pulmonary hypertension. Great Vessels The asc aorta is normal in size. Venous The inferior vena cava is normal in size and collapses greater than 50% with inspiration. Pericardium/Pleural There is a small pericardial effusion. Prior Study Comparison Changes noted compared to prior study dated: 06/01/2021. Evidence of diastolic dysfunction; small pericardial effusion previously noted. Recommendations, Care & Conclusions No obvious valvular pathology seen on this study. Measurements 2D Linear Measurements IVSd: 1.08 0.6-0.9/0.6-1.0 cm LVIDd: 4.80 3.9-5.3/4.2-5.9 cm LVIDd Index: 2.55 2.4-3.2/2.2-3.1 cm/m2 LVIDs: 3.05 2.0-3.6 cm LVPWd: 1.12 0.7-1.1 cm Ao Root: 2.90 2.1-3.5 cm LA Diam: 4.00 2.7-3.8/3.0-4.0 cm LAIDs Index: 2.13 1.5-2.3 cm/m2 LV Mass: 241.70 67-162/88-224 g LV Mass Index: 128.57 43-95/49-115 g/m2 LVOT Diam: 2.00 3.0+(-)1.3 cm 2D Systolic Function EF 4C: 67.60 >55% EF 2C: 51.10 >55% EF BiP: 58.80 >55% Mitral Valve MV Pk E: 1.12 MV PK A: 0.74 MV Decel Time: 194.00 E/A: 1.50 E'Lateral: 6.96 E'Medial: 5.55 E/E' Med: 20.20 E/E' Lat: 16.10 PHT: 57.00 MVA PHT: 3.86 Decel [place]: 5.77 Aortic Valve AoV Pk Myles: 1.52 AoV Mn Myles: 0.95 AoV VTI: 0.43 AoV Pk Grad: 9.00 Aov Mn Grad: 4.00 HA Cont.VTI: 1.81 LVOT LVOT Pk Myles: 0.89 LVOT Mn Myles: 0.64 LVOT VTI: 0.25 LVOT Pk Grad: 3.00 LVOT Mn Grad: 2.00 LVOT Diam: 2.00 LVOT Area: 3.14 Diastolic Function MV Pk E: 1.12 MV Pk A: 0.74 E/A: 1.50 E'Medial: 5.55 E/E' Med: 20.20 E' Laterial: 6.96 E/E' Lat: 16.10 Right Ventricle TAPSE (mm): 31.00 TVS' Myles: 10.00 Tricuspid Valve TR Pk Myles: 1.93 TR Pk Grad: 15.00 RA Press: 3.00 RVSP: 18.00 Great Vessels Aorta Ao Root-2D: 2.90 2.0-3.7 cm Ao Asc: 3.60 2.1-3.4 cm Pulmonary Valve PV Pk Myles: 1.19 Peak PV Grad: 6.00 Updated in Other Vendor System with Status of Final Jong Akins MD electronically signed on 03/26/2025 11:26:59 AM with status of Final
--- NOTE | 2025-03-26 08:55 | HO.PM.IMPN ---
Subjective Subjective Date of Service: 03/26/25 Interval History: pericardial effusion Review of Systems no chest pain or sob Review of Systems: Yes all other systems are reviewed and are negative Physical Exam Vital Signs: Vital Signs: Last Vital Signs Temp 97.5 F 03/26/25 06:30 Pulse 59 03/26/25 06:30 Resp 15 03/26/25 06:30 BP 140/63 H 03/26/25 06:30 Pulse Ox 98 03/26/25 06:30 O2 Del Method Room Air 03/26/25 06:30 BMI result Body Mass Index 39.8 Appearance: Alert.? Oriented X3.? cvs: rrr, [id number] . res: air entry seems fine , no rales or wheezing abd: no rebound or guarding ,nt, bs present. ext pulses present , no cyanosis . neuro: axo3 , nonfocal. Objective Data Active Medications Acetaminophen (Acetaminophen 325 Mg Tablet) 650 mg PO Q6H PRN PRN Reason: Pain, Mild 1-3,fever,headache Last Admin: 03/26/25 06:11 Dose: 650 mg Documented By: DENYS Albuterol/Ipratropium (Albuterol/Iprat 2.5/0.5mg 3 Ml Ampul.Neb) 3 ml INHALE RQ4H PRN PRN Reason: Shortness of Breath/Wheezing Calcium Carbonate (Calcium Carbonate 750 Mg Tab.Chew) 750 mg PO Q4H PRN PRN Reason: Heartburn Calcium Polycarbophil (Calcium Polycarbophil Tablet) 1 tab PO DAILY RADHIKA Colchicine (Colchicine 0.6 Mg Tablet) 0.6 mg PO BID RADHIKA Last Admin: 03/26/25 02:31 Dose: 0.6 mg Documented By: DENYS Magnesium Hydroxide (Milk Of Magnesia 30 Ml Oral.Susp) 30 ml PO DAILY PRN PRN Reason: Constipation Melatonin (Melatonin 3 Mg Tablet) 6 mg PO BEDTIME PRN PRN Reason: Insomnia Ondansetron HCl (Ondansetron Hcl 4 Mg/2 Ml Vial) 4 mg IVPUSH Q8H PRN PRN Reason: Nausea and Vomiting Polyethylene Glycol (Polyethylene Glycol 3350 17 Gm Powd.Pack) 17 gm PO DAILY [facility] Senna (Sennosides 8.6 Mg Tablet) 17.2 mg PO BEDTIME [facility] Sodium Chloride (0.9 % Sodium Chloride Flush 3 Ml Syringe) 3 ml IVFLUSH QSHIFT RADHIKA Labs 03/26/25 03:56 03/26/25 03:56 Labs: Laboratory Results - last 24 hr 03/25/25 03/26/25 19:26 03:56 MCV 86.1 85.8 MCH 30.7 30.0 MCHC 35.7 H 34.9 RDW 12.8 12.7 Plt Count 180 161 MPV 10.0 10.0 Immature Gran % (Auto) 0.3 0.3 Neut % (Auto) 59.3 59.2 Lymph % (Auto) 30.2 29.4 [place] % (Auto) 7.3 7.4 Eos % (Auto) 2.6 3.6 Baso % (Auto) 0.3 0.1 Lymph # (Auto) 2.4 2.0 [place] # (Auto) 0.6 0.5 Eos # (Auto) 0.2 0.3 Baso # (Auto) 0.0 0.0 Abs Immat Gran (auto) 0.02 0.02 Absolute Neuts (auto) 4.7 4.1 Absolute Nucleated RBC 0.000 0.000 Nucleated RBC % (auto) 0.0 0.0 ESR 57 H PT 14.6 H INR 1.3 H APTT 33.6 Anion Gap 12 10 L Estim Creat Clear Calc 67.8 82.4 Estimated GFR > 60 > 60 Random Glucose 118 H 104 Calcium 8.8 8.8 Magnesium 1.9 Ferritin 378 H Total Bilirubin 0.3 0.3 Direct Bilirubin 0.1 AST 20 15 ALT 21 17 Alkaline Phosphatase 81 73 Troponin I High Sens < 2.7 C-Reactive Protein 0.54 H Total Protein 6.9 6.5 Albumin 3.9 3.7 Lipase 60 Assessment and Plan (1) Acute pericardial effusion: Status: Acute Plan 64 yo female, belgian speaking only with PMH HTN, HLD, AFIB on Eliquis, Asthma, CLARE (unable to tolerate CPAP), obesity, OA, constipation presents with midsternal chest pain and incidental pericardial effusion 4 mm found on bedside ultrasound. Patient is on Eliquis with no history of autoimmune disorders or previous pericardial effusion. Per travel accommodations rater patient to be admitted and start colchicine 0.6 b.i.d.. Echo in the morning and cardiology consultation placed. Acute pericardial effusion with no evidence of tamponade repeat Echo: The left ventricular systolic function is normal. The calculated ejection fraction is 59% by biplane method. Evidence suggests grade II (moderate) diastolic dysfunction. No obvious valvular pathology seen on this study. There is a small pericardial effusion plan:cardiology rec: Colchicine 0.6 b.i.d., provide ibuprofen (short course 2-3 week),Eliquis,Tylenol PRN Inflammatory workup initiated, CRP 0.54, ESR 57 SARA titer /labs pending,Continue telemetry AFib on Eliquis-Patient currently in sinus rhythm Continue Cardizem and eliquis. Constipation, chronic Senna HS,Dulcolax suppository PRN,Fiber,MiraLax daily CLARE-Patient can not tolerate CPAP, returned the equipment from home -Patient does not want CPAP here in the hospital -Continuous CO2 monitoring DVT prophylaxis: eliquis. ongoing need :Acute pericarditis-need antiinflamtory ,workup. Quality Stroke Does the patient have a stroke diagnosis?: No Reason for No Anti-thrombotic by Day Two: Contraindicated (Pericardial effusion) VTE Prior VTE?: No VTE Risk Level:: Medical - moderate - high VTE Device Contraindication: N/A - Device Ordered VTE Drug Contraindication: Treatment Not Indicated
--- NOTE | 2025-03-26 09:19 | PM.CNCAR ---
History of Present Illness History of Present Illness Date of Service: 03/26/25 Chief complaint: Chest pain Narrative: This is a cardiology consultation regarding chest pain. Patient has had chest pain for the last 24 hours or so. Apparently, she came to the clinic for routine visit but had not mentioned anything about chest pain to the front of house manager. As there was some insurance concern, the appointment did not actually materialize and had to be rescheduled. However, then it seems she went to the ER with a complaint of chest pain which nobody in the clinic was aware of. There was elevation of ESR/CRP and there was concern for pericardial fluid on the bedside echocardiogram. Then she was admitted for further care. On talking to the patient, it seems she had chest pain for the last 24 hours. On breathing she gets more pain. When she is trying to move her head as well there is more pain. Seems inflammatory. However, she denies any recent viral illnesses. There is no history of lupus or anything else along those lines. Review of Systems Review of Systems: Yes all other systems are reviewed and are negative Constitutional: Constitutional: Reports as per HPI and Reports no additional constitutional complaints Eyes: Eyes: Reports as per HPI and Denies no additional eye complaints ENT: Denies system reviewed and no additional complaints, except as documented and Reports as per HPI Cardiovascular: Cardiovascular: Reports as per HPI, Reports no additional cardiovascular complaints, Denies acrocyanosis, Denies cool extremities, Reports chest pain, Denies leg edema, Denies lightheadedness, Denies palpitations and Denies dyspnea Respiratory: Respiratory: Reports as per HPI, Denies no additional respiratory complaints and Denies dyspnea Gastrointestinal: Gastrointestinal: Reports as per HPI and Denies no additional gastrointestinal complaints Genitourinary: Genitourinary: Reports as per HPI Musculoskeletal: Musculoskeletal: Reports no additional musculoskeletal complaints and Reports as per HPI Integumentary/Breasts: Skin/Breast: Reports system reviewed and no additional complaints, except as docu Neurologic: Reports system reviewed and no additional complaints, except as documented and Reports as per HPI Psychiatric: Psychiatric: Reports no additional psychiatric complaints and Reports as per HPI Endocrine: Endocrine: Reports no additional endocrine complaints, Reports as per HPI and Denies palpitations Hematologic/Lymphatic: Hematologic/Lymphatic: Reports no additional hematologic/lymphatic complaints and Reports as per HPI Allergic/Immunologic: Allergic/Immunologic: Reports no additional allergic/immunologic complaints and Reports as per HPI [facility] Past Medical History Medical History CLARE (obstructive sleep apnea) Diverticulosis 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 Obesity (BMI 30-39.9) COPD (chronic obstructive pulmonary disease) Morbid obesity PAF (paroxysmal atrial fibrillation) Atrial fibrillation, new onset Asthma Back pain Family History Family History Mother High cholesterol HTN (hypertension) Father HTN (hypertension) High cholesterol Surgical History Surgical History H/O colonoscopy S/P section Social History Social History Household Members: Family Housing: Apartment Are you a primary patient centered care specialist to a significant other at home: No Do you presently have visiting nurse or other home services: No Alcohol intake: never Patient Tobacco Use Status: Never used Tobacco Smoked in Last 30 Days: No Use of substances other than those prescribed or required for medical reasons: No Have you been hit, kicked, punched, or otherwise hurt by someone within the past year? If so, by whom?: No Do you feel safe in your current relationship?: Yes Is there a partner from a previous relationship who is making you feel unsafe now?: No Are you made to feel afraid or neglected: No Jewish Healthcare Practices: taoist Advance Directives: No Advance Directives Information Provided: Yes Advance Directives Date on File: 06/02/21 Do you have a plan to hurt others: No Plan Nutrition Risks: No Nutritional Risk Patient : No : No Poor oral hygiene: No service: No Current occupational status: employed Travel History Ebola Risk: Travel/Contact With Anyone From Affected Area/s: No Has Patient Experienced Ebola Symptoms: No Meds Allergies Allergy/AdvReac Type Severity Reaction Status Date / Time No Known Allergies Allergy Verified 03/25/25 19:34 Active Medications: Current Medications Acetaminophen (Acetaminophen 325 Mg Tablet) 650 mg PO Q6H PRN PRN Reason: Pain, Mild 1-3,fever,headache Last Admin: 03/26/25 06:11 Dose: 650 mg Albuterol/Ipratropium (Albuterol/Iprat 2.5/0.5mg 3 Ml Ampul.Neb) 3 ml INHALE RQ4H PRN PRN Reason: Shortness of Breath/Wheezing Calcium Carbonate (Calcium Carbonate 750 Mg Tab.Chew) 750 mg PO Q4H PRN PRN Reason: Heartburn Calcium Polycarbophil (Calcium Polycarbophil Tablet) 1 tab PO DAILY ON LICENSE OF [facility] Colchicine (Colchicine 0.6 Mg Tablet) 0.6 mg PO BID ON LICENSE OF [facility] Last Admin: 03/26/25 02:31 Dose: 0.6 mg Magnesium Hydroxide (Milk Of Magnesia 30 Ml Oral.Susp) 30 ml PO DAILY PRN PRN Reason: Constipation Melatonin (Melatonin 3 Mg Tablet) 6 mg PO BEDTIME PRN PRN Reason: Insomnia Ondansetron HCl (Ondansetron Hcl 4 Mg/2 Ml Vial) 4 mg IVPUSH Q8H PRN PRN Reason: Nausea and Vomiting Polyethylene Glycol (Polyethylene Glycol 3350 17 Gm Powd.Pack) 17 gm PO DAILY ON LICENSE OF [facility] Senna (Sennosides 8.6 Mg Tablet) 17.2 mg PO BEDTIME ON LICENSE OF [facility] Sodium Chloride (0.9 % Sodium Chloride Flush 3 Ml Syringe) 3 ml IVFLUSH QSHIFT ON LICENSE OF [facility] Home Medications ?Medication ?Instructions ?Recorded ?Confirmed ?Last Taken ?Type cholecalciferol (vitamin D3) 50 1 tab PO QAM 05/29/21 06/26/24 Unknown History mcg (2,000 unit) tablet cyanocobalamin (vitamin B-12) 1 tab PO QAM 05/30/21 06/26/24 Unknown History 1,000 mcg tablet clonidine HCl 0.1 mg tablet 0.1 mg PO BEDTIME 09/15/21 06/26/24 Unknown History fluoxetine 20 mg capsule 20 mg PO QAM 12/07/22 06/26/24 Unknown History lisinopril 40 mg tablet 40 mg PO QAM 12/07/22 06/26/24 Unknown History ferrous sulfate 325 mg (65 mg 325 mg PO QAM 12/27/23 06/26/24 Unknown History iron) tablet,delayed release folic acid 1 mg tablet 1 mg PO QAM 03/26/24 06/26/24 Unknown History alcohol swabs (Alcohol Prep Pads) pad topical [facility] 07/13/24 Unknown History blood pressure kit-extra large #1 ea 07/13/24 Unknown History blood sugar diagnostic (FreeStyle #10 ea 07/13/24 Unknown History Lite Strips) blood-glucose meter (FreeStyle #1 ea 07/13/24 Unknown History [place] Lite kit) lancets 33 gauge (Easy Touch Twist #100 ea 07/13/24 Unknown History Lancets) apixaban 5 mg tablet (Eliquis) 5 mg PO BID 03/26/25 Unknown History bisacodyl 5 mg tablet,delayed 10 mg PO BEDTIME 03/26/25 Unknown History release cetirizine 10 mg tablet 10 mg PO DAILY PRN allergies 03/26/25 Unknown History docusate sodium 100 mg capsule 200 mg PO BEDTIME 03/26/25 Unknown History (Stool Softener) fluticasone 500 mcg-salmeterol 50 1 ea inhalation 03/26/25 Unknown History mcg/dose blistr powdr for inhalation (Advair Diskus) fluticasone propionate 50 1 spray intranasal DAILY 03/26/25 Unknown History mcg/actuation nasal spray,suspension metformin 500 mg tablet,extended 500 mg PO QPM 03/26/25 Unknown History release 24 hr Physical Exam Vital Signs: Vital Signs: Last Vital Signs Temp 97.5 F 03/26/25 06:30 Pulse 59 03/26/25 06:30 Resp 15 03/26/25 06:30 BP 140/63 H 03/26/25 06:30 Pulse Ox 98 03/26/25 06:30 O2 Del Method Room Air 03/26/25 06:30 BMI result Body Mass Index 39.8 Const: General: comfortable and no acute distress Orientation/consciousness: patient oriented x3 HEENT: Other: Unremarkable Head: Yes normal to inspection Neck: Neck: Yes normal visual inspection Chest: Chest palpation & inspection: normal inspection of the chest Resp: Auscultation: clear to auscultation bilaterally Cardio: Palpation: normal PMI Heart sounds: S1 normal heart sound present, S2 normal heart sound present, no gallops, no murmurs and no rubs GI: Palpation (GI): Soft to palpation Back/Spine/Pelvis: Other: unremarkable Skin: General skin exam: no rashes or lesions noted Neuro: General: patient oriented x3 Extrem: General: Yes normal to inspection Psych: Mental Status: mental status grossly normal Objective Labs and Meds 03/26/25 03:56 03/26/25 03:56 Lab results: Laboratory Results - last 24 hr 03/25/25 03/26/25 19:26 03:56 WBC 7.8 6.9 RBC 3.45 L 3.37 L Hgb 10.6 L 10.1 L Hct 29.7 L 28.9 L MCV 86.1 85.8 MCH 30.7 30.0 MCHC 35.7 H 34.9 RDW 12.8 12.7 Plt Count 180 161 MPV 10.0 10.0 Immature Gran % (Auto) 0.3 0.3 Neut % (Auto) 59.3 59.2 Lymph % (Auto) 30.2 29.4 Karnes % (Auto) 7.3 7.4 Eos % (Auto) 2.6 3.6 Baso % (Auto) 0.3 0.1 Lymph # (Auto) 2.4 2.0 Karnes # (Auto) 0.6 0.5 Eos # (Auto) 0.2 0.3 Baso # (Auto) 0.0 0.0 Abs Immat Gran (auto) 0.02 0.02 Absolute Neuts (auto) 4.7 4.1 Absolute Nucleated RBC 0.000 0.000 Nucleated RBC % (auto) 0.0 0.0 ESR 57 H PT 14.6 H INR 1.3 H APTT 33.6 Sodium 142 141 Potassium 3.9 3.9 Chloride 109 H 109 H Carbon Dioxide 25 26 Anion Gap 12 10 L BUN 17 H 15 Creatinine 0.85 0.70 Estim Creat Clear Calc 67.8 82.4 Estimated GFR > 60 > 60 Random Glucose 118 H 104 Calcium 8.8 8.8 Magnesium 1.9 Ferritin 378 H Total Bilirubin 0.3 0.3 Direct Bilirubin 0.1 AST 20 15 ALT 21 17 Alkaline Phosphatase 81 73 Troponin I High Sens < 2.7 C-Reactive Protein 0.54 H Total Protein 6.9 6.5 Albumin 3.9 3.7 Lipase 60 ECG Interpretation: In the EKG, sinus rhythm at 68/Min; no ischemic changes and otherwise unremarkable. Assessment and Plan (1) Acute pericarditis: Status: Acute (2) PAF (paroxysmal atrial fibrillation): Status: Acute Plan Unremarkable troponin level. Elevation in ESR/CRP. Chest pain sounds inflammatory in nature/pericarditis. Per ER physician, bedside ultrasound had shown a 4 mm pericardial effusion. Await formal echocardiogram. For medications, NSAIDs/colchicine. She is already on famotidine which should be GI protective. We can probably do NSAIDs for 2-3 weeks-if necessary, can do longer; and colchicine for 3 months. There is increased bleeding risk because of concurrent Eliquis use and hence we will minimize the duration of anti-inflammatories. With regard to the atrial fibrillation itself, seems stable. She is on diltiazem/Eliquis. In sinus. Discussed using fly winder. Procedures Date of Service Date of Service: 03/26/25
--- NOTE | 2025-03-26 10:31 | PHA.MEDREC ---
Addendum entered by [facility], located within [facility] 03/26/25 10:45: MED REC CHECKED BY [facility] Original Note: Pharmacy Consult ? Medication Reconciliation Pharmacy has completed the medication reconciliation. Spoke to patient through forensic artist service (Antonia) to confirm med list. Patient states Carvedilol 3.125 mg, and Cyclobenzaprine 5 mg. Patient states she last took her medication yesterday.
[2025-03-26] MEDS: calcium polycarbophiL TABLET 1 TAB PO (11:23)
[2025-03-26] MEDS: polyethylene glycoL 3350 17 GM POWD.PACK PO (11:24)
[2025-03-26] MEDS: 0.9 % Sodium Chloride Flush 3 ML SYRINGE IVFLUSH ×3 (11:26→21:24)
--- NOTE | 2025-03-26 12:55 | MHC.CM.PN ---
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 Olmedo, HCP on file and confirmed: Radha Martinez. Pt. said that her insurance , referral submitted to financial services to assist her with this. Pt. does not use home health services or DME. Family to transport home at DC, DCP: home, self care, CM to follow for DC needs.
[2025-03-26] MEDS: Omeprazole 20 MG CAPSULE.DR PO (13:43)
[2025-03-26] MEDS: Folic Acid 1 MG TABLET PO (13:44)
[2025-03-26] MEDS: Cyanocobalamin (Vitamin B-12) 1,000 MCG TABLET 1000 MCG PO (13:44)
[2025-03-26] MEDS: Cholecalciferol (Vitamin D3) 25 MCG TABLET 50 MCG PO (13:44)
[2025-03-26] MEDS: dilTIAZem HCL CD 120 MG CAP.ER.DEG PO (13:44)
[2025-03-26] MEDS: Fluticasone Propionate Nasal 16 GM SPRAY 1 SPRAY NOSTRIL-B (13:45)
--- NOTE | 2025-03-26 15:30 | MHC.EDTECH ---
pt consumed 100% of lunch tray
[2025-03-26] MEDS: Ibuprofen 600 MG TABLET PO ×2 (15:53→21:18)
[2025-03-26 20:55] LABS: Glucose, Whole Blood 110 mg/dL (60-115)
[2025-03-26] MEDS: metFORMIN HCl ER 500 MG TAB.ER.24H PO (21:17)
[2025-03-26] MEDS: bisacodyL 5 MG TABLET.DR 10 MG PO (21:17)
[2025-03-26] MEDS: Sennosides 8.6 MG TABLET 17.2 MG PO (21:17)
[2025-03-26] MEDS: Docusate Sodium 100 MG CAPSULE 200 MG PO (21:17)
[2025-03-26] MEDS: Atorvastatin Calcium 10 MG TABLET PO (21:18)
[2025-03-26] MEDS: Famotidine 20 MG TABLET PO (21:18)
[2025-03-27 03:41] VITALS: BP 160/70; PULSE 58; RESP 16; TEMP 36.3; O2SAT 96
[2025-03-27 07:30] VITALS: PULSE 58; RESP 16; O2SAT 96
[2025-03-27] MEDS: Fluticasone/Vilanterol 200/25 BLST.W.DEV 1 PUFF INHALE (07:30)
[2025-03-27 08:00] VITALS: BP 137/64; PULSE 56; RESP 18; TEMP 36.6; O2SAT 96
[2025-03-27] MEDS: Ibuprofen 600 MG TABLET PO (10:46)
[2025-03-27] MEDS: Colchicine 0.6 MG TABLET PO (10:46)
[2025-03-27] MEDS: lisinopriL 40 MG TABLET PO (10:47)
[2025-03-27] MEDS: Cyanocobalamin (Vitamin B-12) 1,000 MCG TABLET 1000 MCG PO (10:47)
[2025-03-27] MEDS: Folic Acid 1 MG TABLET PO (10:47)
[2025-03-27] MEDS: Omeprazole 20 MG CAPSULE.DR PO (10:47)
[2025-03-27] MEDS: calcium polycarbophiL TABLET 1 TAB PO (10:47)
[2025-03-27] MEDS: dilTIAZem HCL CD 120 MG CAP.ER.DEG PO (10:47)
[2025-03-27] MEDS: Cholecalciferol (Vitamin D3) 25 MCG TABLET 50 MCG PO (10:48)
[2025-03-27] MEDS: Ferrous Sulfate 324 MG TABLET.DR PO (10:48)
[2025-03-27] MEDS: polyethylene glycoL 3350 17 GM POWD.PACK PO (10:55)
[2025-03-27] MEDS: 0.9 % Sodium Chloride Flush 3 ML SYRINGE IVFLUSH (10:55)
[2025-03-27] MEDS: Fluticasone Propionate Nasal 16 GM SPRAY 1 SPRAY NOSTRIL-B (10:57)
[2025-03-27 11:23] VITALS: BP 165/71; PULSE 60; RESP 18; TEMP 36.5; O2SAT 98
--- NOTE | 2025-03-27 12:41 | MHC.CM.PN ---
Per Patient's request, CM spoke with [facility] [employer]; Patient's [employer] is still not active but Financial will try to expedite the process to get Patient's [employer] [facility] re-instated. CM passed this information on to Patient via [facility] [employer].
--- NOTE | 2025-03-27 14:31 | MHC.CM.PN ---
Patient has been medically cleared for dc to home today, self care. Patient's will transport to home.
--- NOTE | 2025-03-27 14:35 | P.DS_ITS ---
DS: Providers Provider Date of Service: 03/27/25 Date of admission: 03/26/25 01:53 Date of discharge: 03/27/25 Primary care physician: Amy Olmedo MD Consults: 03/26/25 02:14 Consult to Cardiology Routine Consulting Provider: [facility] Reason for consultation: pericardial effusion on eliquis Has provider been notified: Yes Attending physician on discharge: Gadiel Gilman Discharging clinician: Gadiel Gilman DS: Diagnosis Discharge Diagnosis (1) Acute pericardial effusion: Status: Acute DS: Summary Hospital Course Hospital Course: HPI:64 yo female, turkmen speaking only with PMH HTN, HLD, AFIB on Eliquis, Asthma, CLARE (unable to tolerate CPAP), obesity, OA, constipation presents to the ED with complaints of mid sternal chest pain since 5 AM Tuesday morning. Pt has attended a picnic on Tuesday, had hamburgers and hot dogs and was not overly active or doing any heavy lifting. Bedside US noted a 4 mm pericardial effusion. H/H 10.6/29.7, PLTs 180K. Pt denies hx of auto-immune disorders, pericardial effusion in the past or redcent viral illness. Pt has appt to see cardiology on Tuesday for her symptoms but was turned away as her insurance . The ED provider reached out to manager shift and provider recommended admission and to start colchicine and motrin. We will hold off on the motrin for now noting pt is on Eliquis, which may be contributing to development of pericardial effusion. Pt denies any tobacco, marijuana or illicit drug use hx. Pt is otherwise active with only other complaint of chronic constipation. Pt denies any unusual bruising, spontaneous bleeding or recent falls or injury involving the chest area. compo conveyor operator was used to complete admission interview. Hospital course:64 yo female, turkmen speaking only with PMH HTN, HLD, AFIB on Eliquis, Asthma, CLARE (unable to tolerate CPAP), obesity, OA, constipation presents with midsternal chest pain and incidental pericardial effusion 4 mm found on bedside ultrasound,elevated esr/crp . Patient is on Eliquis with no history of autoimmune disorders or previous pericardial effusion. Patient was seen by Cardiology: Started on ibuprofen, colchicine , SARA titer /labs pending,Echo was repeated:The left ventricular systolic function is normal. The calculated ejection fraction is 59% by biplane method. Evidence suggests grade II (moderate) diastolic dysfunction. No obvious valvular pathology seen on this study.There is a small pericardial effusion. cardiology rec:For medications, NSAIDs/colchicine. She is already on famotidine which should be GI protective. We can probably do NSAIDs for 2-3 weeks-if necessary, can do longer; and colchicine for 3 months. There is increased bleeding risk because of concurrent Eliquis use and hence we will minimize the duration of anti-inflammatories. With the above supportive care patient seems to be improved significantly currently asymptomatic denies any shortness of breath or chest pain or new symptoms. Plan: started on ibuprofen 600 mg t.i.d. for 3 weeks Colchicine 0.6 b.i.d. for 3 months SARA titer /labs [id number] with PCP outpatient. Cardiology may arrange their own appointment outpatient. Above management discussed with the patient detail length with the help of lumber stacker operator, time spent 40 minute, patient understand above management in detail and agreement with the above plan. All questions answered. Staff was present during the conversation. Time Attestation Total time managing care of this patient today: 40 mintues. Discharge Coordination Time (in mins): 40 min Quality: Safe Use of Opioids Does Pt have an Active Cancer Diagnosis on the Problem List?: No Quality: Stroke Does the patient have a stroke diagnosis?: No Physical Exam Vital Signs: Vital Signs: Last Vital Signs Temp 97.7 F 03/27/25 11:23 Pulse 60 03/27/25 11:23 Resp 18 03/27/25 11:23 BP 165/71 H 03/27/25 11:23 Pulse Ox 98 03/27/25 11:23 O2 Del Method Room Air 03/27/25 11:23 BMI result Body Mass Index 39.8 Appearance: Alert.? Oriented X3. cvs: rrr, [id number] , no murmur res: clear to auscultation ,no rhonchii or wheezing abd: no rebound or guarding ,nt, bs present. ext pulses present , no cyanosis . neuro: axo3 , nonfocal. DS: Data Data Completed and Pending Labs on day of discharge: Laboratory Results - last 24 hr 03/26/25 20:50 POC Glucose 110 Imaging Chest x-ray: My impression: echo: Conclusions: - The left ventricular systolic function is normal. The calculated ejection fraction is 59% by biplane method. - Evidence suggests grade II (moderate) diastolic dysfunction. - No obvious valvular pathology seen on this study. - There is a small pericardial effusion. Findings Procedure Information Contrast agent, definity, is being given per protocol without apparent complications. Left Ventricle Normal left ventricular cavity size. There is mildly increased left ventricular wall thickness. The left ventricular systolic function is normal. The calculated ejection fraction is 59% by biplane method. There is no evidence of regional wall motion abnormalities. Evidence suggests grade II (moderate) diastolic dysfunction. Right Ventricle Normal right ventricular cavity size and systolic function. Atria The left atrium is mildly dilated. The right atrium is normal in size. Aortic Valve The aortic valve was not well visualized. There is no aortic valve stenosis. There is no aortic valve regurgitation. Mitral Valve There is mild mitral annular calcification. There is trace mitral valve regurgitation. There is no mitral valve stenosis. Pulmonic Valve The pulmonic valve is likely normal. Tricuspid Valve There is trace tricuspid valve regurgitation. There is no evidence of pulmonary hypertension. Great Vessels The asc aorta is normal in size. Venous The inferior vena cava is normal in size and collapses greater than 50% with inspiration. Pericardium/Pleural There is a small pericardial effusion. Discharge Plan Discharge Anticipated Discharge Date/Time: 03/27/25 14:16 Patient Disposition: Home, Self-Care Discharge Diagnosis: possible acute pericarditis Referrals: Amy Olmedo MD [Primary Care Provider, Internal Medicine] - 1 Week Discharge Medications: New ibuprofen 600 mg Tablet 600 mg PO TID Qty: 63 0RF colchicine [Colcrys] 0.6 mg Tablet 0.6 mg PO BID Qty: 180 0RF Continued atorvastatin 10 mg tablet 10 mg PO BEDTIME Qty: 90 3RF cholecalciferol (vitamin D3) 50 mcg (2,000 unit) tablet 50 mcg PO DAILY cyanocobalamin (vitamin B-12) 1,000 mcg tablet 1,000 mcg PO DAILY albuterol sulfate [Ventolin HFA] 90 mcg/actuation HFA aerosol inhaler 2 puff inhalation Q6H PRN (Reason: shortness of breath or wheezing) Qty: 6.7 1RF clonidine HCl 0.1 mg tablet 0.1 mg PO BEDTIME fluoxetine 20 mg capsule 20 mg PO DAILY diphenhydramine HCl [Benadryl Allergy] 25 mg tablet 25 mg PO TID PRN (Reason: itching) Qty: 20 0RF cetirizine 10 mg tablet 10 mg PO DAILY PRN (Reason: allergies) fluticasone propion-salmeterol [Advair Diskus] 500-50 mcg/dose blister with device 1 ea INHALATION BID docusate sodium [Stool Softener] 100 mg capsule 200 mg PO BEDTIME bisacodyl 5 mg tablet,delayed release (DR/EC) 10 mg PO BEDTIME fluticasone propionate 50 mcg/actuation spray,suspension 1 spray intranasal DAILY metformin 500 mg tablet extended release 24 hr 500 mg PO BEDTIME Eliquis 5 mg tablet 5 mg PO BID diltiazem HCl 120 mg capsule,extended release 24hr 120 mg PO DAILY (DME) heel lift See Rx Instructions .Route .MEDSUPPLY Qty: 1 0RF Rx Instructions: bilat heel lift lisinopril 40 mg tablet 40 mg PO DAILY ferrous sulfate 325 mg (65 mg iron) tablet,delayed release (DR/EC) 325 mg PO DAILY (DME) FreeStyle Lite Strips Strip See Rx Instructions .ROUTE DAILY Qty: 10 Rx Instructions: As directed (DME) lancets [Easy Touch Twist Lancets] 33 gauge misc See Rx Instructions .ROUTE QAM Qty: 100 Rx Instructions: As directed (DME) blood pressure kit-extra large Kit See Rx Instructions .ROUTE DIRECTED Qty: 1 Rx Instructions: As directed (DME) blood-glucose meter [FreeStyle [place] Lite] Kit See Rx Instructions .ROUTE QAM Qty: 1 Rx Instructions: As directed omeprazole 20 mg capsule,delayed release(DR/EC) 20 mg PO DAILY Qty: 90 3RF famotidine 20 mg tablet 20 mg PO BEDTIME Qty: 90 3RF folic acid 1 mg tablet 1 mg PO DAILY Discharge Orders: Discharge Order (Routine); Ordered 03/27/25 Ordered By: Gadiel Gilman Activity on Discharge: As tolerated Stand Alone Forms: Patient Portal Discharge page Print Language: South African Care Plan Goals: as below. Health Concerns: as below. Plan of Treatment: started on ibuprofen 600 mg t.i.d. for 3 weeks Colchicine 0.6 b.i.d. for 3 months SARA titer /labs [id number] with PCP outpatient. Cardiology may arrange their own appointment outpatient. Assessment: As above. Patient Instructions: Acute Pericarditis (DC)
[2025-03-29 14:38] LABS: Anti Nuclear Antibody Pattern Nuclear, Speckled; Anti Nuclear Antibody Screen POSITIVE (NEGATIVE)
== END 2025-03-27 15:30 | disposition home or self-care (01) ==
LOC: HO.ED 03-26 01:48 → HO.EDOVER 03-26 02:07 → HO.IMC 03-26 19:10
PROVIDERS: Nurse Practitioner Family; Physician Assistant Medical; Admitting Provider Student in an Organized Health Care Education/Training Program; Emergency Provider Emergency Medicine; PCP Family Medicine; Visit Provider Internal Medicine
DX: I31.39 Other pericardial effusion (noninflammatory) (principal); I48.0 Paroxysmal atrial fibrillation; R07.9 Chest pain, unspecified; K59.00 Constipation, unspecified; I10 Essential (primary) hypertension; J44.9 Chronic obstructive pulmonary disease, unspecified; G47.33 Obstructive sleep apnea (adult) (pediatric); Z79.01 Long term (current) use of anticoagulants; Z79.899 Other long term (current) drug therapy
CPT/HCPCS: 36415; 71046; 80048; 80053; 80076; 82728; 82947; 83690; 83735; 84484; 85025; 85610; 85652; 85730; 86038; 86039; 86140; 93005; 93306; 94640; 99222; 99285; Q9957

== ENCOUNTER → 2025-03-25 19:34 | Outpatient (BNV) | payer MEDICAID, SELFPAY | PROVIDERS: PCP Family Medicine; Visit Provider Radiology Vascular & Interventional Radiology | DX: R07.9 Chest pain, unspecified (principal) | CPT/HCPCS: 71046 ==

== ENCOUNTER → 2025-03-26 01:53 | Outpatient (BNV) | payer MEDICAID, SELFPAY | PROVIDERS: Admitting Provider Student in an Organized Health Care Education/Training Program; Emergency Provider Emergency Medicine; PCP Family Medicine; Visit Provider Internal Medicine | DX: I30.9 Acute pericarditis, unspecified (principal); I48.0 Paroxysmal atrial fibrillation; I31.39 Other pericardial effusion (noninflammatory); I51.89 Other ill-defined heart diseases | CPT/HCPCS: 93306; 99223 ==

== ENCOUNTER → 2025-03-26 01:53 | Outpatient (BNV) | payer MEDICAID, SELFPAY | PROVIDERS: Admitting Provider Student in an Organized Health Care Education/Training Program; Emergency Provider Emergency Medicine; PCP Family Medicine; Visit Provider Nurse Practitioner Family | DX: I30.9 Acute pericarditis, unspecified (principal) | CPT/HCPCS: 99239 ==

== ENCOUNTER 2025-04-03 12:34 | Outpatient (REF) | payer MEDICAID, SELFPAY | END 2025-04-03 12:35 | disposition home or self-care (01) | LOC: HO.MAMMO 12:34 | PROVIDERS: PCP Family Medicine; Visit Provider Family Medicine | DX: Z12.31 Encounter for screening mammogram for malignant neoplasm of breast (principal) | CPT/HCPCS: 77063; 77067 ==

== ENCOUNTER → 2025-04-03 13:15 | Outpatient (BNV) | payer MEDICAID, SELFPAY | PROVIDERS: PCP Family Medicine; Visit Provider Internal Medicine | DX: Z12.31 Encounter for screening mammogram for malignant neoplasm of breast (principal) | CPT/HCPCS: 77063; 77067 ==

== ENCOUNTER 2025-04-26 12:17 | Outpatient (AMB) | payer MEDICAID, SELFPAY ==
[2025-04-26 13:10] VITALS: BP 134/62; PULSE 50; BMI 38.1
--- NOTE | 2025-04-26 13:10 | MHC.OFFVIS ---
Vital Signs 04/26/25 13:10 Height 5 ft 2 in Weight 208 lb 1.862 oz BMI 38.1 BP 134/62 Blood Pressure Location Lt brachial Position Sitting Pulse 50 Pulse Source Pulse Oximeter Intake Visit Reasons: f/u [facility] discharge Truck Manager Required: Yes Truck Manager Name: voice [phone] Scarlet Allergies No Known Allergies Allergy (Verified 04/26/25 13:13) Medication List - Last Reconciled 04/26/25 by MAHOGANY Miller albuterol sulfate 90 mcg/actuation (Ventolin HFA) 2 puffs inhalation Q6H PRN apixaban (Eliquis) 5 mg PO BID atorvastatin 10 mg PO BEDTIME bisacodyl 10 mg PO BEDTIME blood pressure kit-extra large As directed blood sugar diagnostic (FreeStyle Lite Strips) As directed blood-glucose meter (FreeStyle [place] Lite kit) As directed cetirizine 10 mg PO DAILY PRN cholecalciferol (vitamin D3) 50 mcg PO DAILY clonidine HCl 0.1 mg PO BEDTIME colchicine (Colcrys) 0.6 mg PO BID cyanocobalamin (vitamin B-12) 1,000 mcg PO DAILY diphenhydramine HCl (Benadryl Allergy) 25 mg PO TID PRN docusate sodium (Stool Softener) 200 mg PO BEDTIME famotidine 20 mg PO BEDTIME ferrous sulfate 325 mg PO DAILY fluoxetine 20 mg PO DAILY fluticasone propion-salmeterol 500-50 mcg/dose (Advair Diskus) 1 ea inhalation BID fluticasone propionate 50 mcg/actuation 1 spray intranasal DAILY folic acid 1 mg PO DAILY [heel lift bilat heel lift ] ibuprofen 600 mg PO TID lancets (Easy Touch Twist Lancets) As directed lisinopril 40 mg PO DAILY metformin ER 500 mg PO BEDTIME metoprolol succinate ER 25 mg PO DAILY 90 days omeprazole 20 mg PO DAILY HPI HPI f/u [facility] discharge: Details: Sydnee is a 64-year-old female with past medical history of morbid obesity, obstructive sleep apnea, PAF who was admitted to [facility] last month with chest discomfort and found to have pericarditis. She was started on ibuprofen and colchicine and now presents for follow-up. Today she reports she has been doing well since her hospital discharge. She no longer has any chest discomfort. No shortness of breath, PND, orthopnea or edema. No lightheadedness, presyncope, syncope, falls. She is still on colchicine. Taking meds as directed. Uses a pill pack from the pharmacy. Certified market research senior project manager used. 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 Obesity (BMI 30-39.9) COPD (chronic obstructive pulmonary disease) Morbid obesity PAF (paroxysmal atrial fibrillation) Atrial fibrillation, new onset Asthma Back pain Surgical History H/O colonoscopy S/P section Family History Mother High cholesterol HTN (hypertension) Father HTN (hypertension) High cholesterol Social History Household Members: Family Housing: Apartment Are you a primary animal caregiver to a significant other at home: No Do you presently have visiting nurse or other home services: No Alcohol intake: never Patient Tobacco Use Status: Never used Tobacco Advance Directives Date on File: 06/02/21 service: No Current occupational status: employed Review of Systems Const All systems reviewed & are unremarkable except as noted in HPI and below ENT Denies dizziness Card Denies chest pain, Denies chest pain at rest, Denies chest pain with activity, Denies rapid heart rate, Denies pedal edema, Denies edema, Denies leg edema, Denies lightheadedness, Denies palpitations, Denies dyspnea, Denies dyspnea on exertion and Denies orthopnea Resp Denies cough, Denies dyspnea and Denies dyspnea on exertion GI Denies hematochezia and Denies change in stool character Musc Denies abnormal gait, Denies limited range of motion, Denies muscle cramps, Denies muscle weakness, Denies numbness, Denies radiating pain into limb, Denies stiffness and Denies tingling Neuro Denies abnormal gait, Denies dizziness, Denies numbness and Denies tingling Endo Denies palpitations Physical Exam Vital Signs: Last Vital Signs Pulse 50 04/26/25 13:10 BP 134/62 04/26/25 13:10 BMI result Body Mass Index 38.1 Const General: cooperative, comfortable and no acute distress Orientation/consciousness: patient oriented x3 HEENT Head: Yes normal to inspection Eyes Sclerae: sclerae normal Neck Neck: Yes normal visual inspection Carotids: normal carotid upstroke Chest Chest palpation & inspection: normal inspection of the chest Resp Effort & Inspection: normal respiratory effort Auscultation: clear to auscultation bilaterally, no crackles, no rales, no rhonchi and no wheezes Cardio Jugular venous distension: no JVD Rate: regular rate Rhythm: regular rhythm Heart sounds: S1 normal heart sound present, S2 normal heart sound present, no gallops, no murmurs and no rubs Peripheral pulses: Peripheral pulses 2+ throughout GI Inspection: Yes normal to inspection Skin General skin exam: no rashes or lesions noted Neuro General: patient oriented x3 Extrem General: Yes normal to inspection Psych Appearance: grossly normal Mental Status: mental status grossly normal Speech and movement: Normal speech and movement present Assessment & Plan Assessment & Plan (1) Acute pericarditis: Code(s): I30.9 - Acute pericarditis, unspecified Category: Medical Plan: Recent diagnosis of acute pericarditis. Her echocardiogram showed EF 59%, grade 2 diastolic dysfunction, small pericardial effusion. CRP was elevated. Treated with ibuprofen for 2 weeks and colchicine will be for 3 months. Currently asymptomatic. Will check limited echo prior to next visit. Cardiology follow-up 3 months, sooner if needed. (2) PAF (paroxysmal atrial fibrillation): Code(s): I48.0 - Paroxysmal atrial fibrillation Category: Medical Plan: Paroxysmal Atrial fibrillation during acute illness with PNA 05/2021. Since that time she has been treated with rhythm control and is currently on metoprolol. Echocardiogram done 06/01/21 showed normal EF, no valve abn, LA mildly dilated, RA normal. Nuclear stress test done on 02/10/2022 shows normal myocardial perfusion imaging. Last EKG 03/25/2025 showed sinus rhythm rate 68. She is on Eliquis for anticoagulation without any reported bleeding issues. Labs done on 03/26/2025 show creatinine 0.7, hematocrit 28.9. Should be checked twice yearly. (3) Hospital discharge follow-up: Code(s): Z09 - Encounter for follow-up examination after completed treatment for conditions other than malignant neoplasm Category: Medical Plan: Discharge summary reviewed Plan Time spent on chart review, documentation, interview and assessment Coding Level of Care Code Est Pt Level 4 (09346) Complex EM visit Add On G2211 Diagnoses Acute pericarditis I30.9 PAF (paroxysmal atrial fibrillation) I48.0 Hospital discharge follow-up Z09 Time Spent (min) 28
== END 2025-04-26 13:37 | disposition home or self-care (01) ==
LOC: HO.HCS 12:18
PROVIDERS: PCP Family Medicine; Visit Provider Nurse Practitioner Family
DX: I30.9 Acute pericarditis, unspecified (principal); I48.0 Paroxysmal atrial fibrillation; Z09 Encounter for follow-up examination after completed treatment for conditions other than malignant neoplasm
CPT/HCPCS: 99214

== ENCOUNTER → 2025-04-26 12:17 | Outpatient (BNVA) | payer MEDICAID, SELFPAY | PROVIDERS: PCP Family Medicine; Visit Provider Nurse Practitioner Family | DX: Z09 Encounter for follow-up examination after completed treatment for conditions other than malignant neoplasm (principal); I30.9 Acute pericarditis, unspecified; I48.0 Paroxysmal atrial fibrillation | CPT/HCPCS: 99212 ==

== ENCOUNTER 2025-05-07 15:17 | Outpatient (AMB) | payer MEDICAID, SELFPAY ==
[2025-05-07 15:34] VITALS: BP 130/64; PULSE 53; O2SAT 93; BMI 36.9
--- NOTE | 2025-05-07 15:34 | A.OFFVIS_ITS ---
Vital Signs 05/07/25 15:34 Height 5 ft 2 in Weight 202 lb BMI 36.9 BP 130/64 Blood Pressure Location Lt brachial Position Sitting Pulse 53 Pulse Source Pulse Oximeter Pulse Oximetry (%) 93 Oxygen Delivery Method Room Air Intake Visit Reasons: Asthma Allergies No Known Allergies Allergy (Verified 05/07/25 15:51) Medication List - Last Reconciled 05/07/25 by Alysia Perez MD albuterol sulfate 90 mcg/actuation (Ventolin HFA) 2 puffs inhalation Q6H PRN apixaban (Eliquis) 5 mg PO BID atorvastatin 10 mg PO BEDTIME bisacodyl 10 mg PO BEDTIME blood pressure kit-extra large As directed blood sugar diagnostic (FreeStyle Lite Strips) As directed blood-glucose meter (FreeStyle [place] Lite kit) As directed cetirizine 10 mg PO DAILY PRN cholecalciferol (vitamin D3) 50 mcg PO DAILY clonidine HCl 0.1 mg PO BEDTIME colchicine (Colcrys) 0.6 mg PO BID cyanocobalamin (vitamin B-12) 1,000 mcg PO DAILY diphenhydramine HCl (Benadryl Allergy) 25 mg PO TID PRN docusate sodium (Stool Softener) 200 mg PO BEDTIME famotidine 20 mg PO BEDTIME ferrous sulfate 325 mg PO DAILY fluoxetine 20 mg PO DAILY fluticasone propion-salmeterol 500-50 mcg/dose (Advair Diskus) 1 ea inhalation BID fluticasone propionate 50 mcg/actuation 1 spray intranasal DAILY folic acid 1 mg PO DAILY [heel lift bilat heel lift ] ibuprofen 600 mg PO TID lancets (Easy Touch Twist Lancets) As directed lisinopril 40 mg PO DAILY metformin ER 500 mg PO BEDTIME metoprolol succinate ER 25 mg PO DAILY 90 days omeprazole 20 mg PO DAILY HPI HPI Asthma: Details: THIS 64 YEARS OLD FEMALE, GROSSLY OBESE AND WITH THE DIAGNOSIS OF OBSTRUCTIVE SLEEP APNEA, WELL CHRONIC BRONCHIAL ASTHMA/COPD , IS HERE FOR 6 MONTHS FOLLOW-UP. FOR CLARE SHE WAS NOT ABLE TO USE THE CPAP, SO SHE IS TRYING TO TREAT HERSELF WITH CONSERVATIVE MEASURES. SHE TRIES TO SLEEP IN LATERAL POSITION AND CLAIMS THAT SHE IS SLEEPING FINE NO PROBLEM. SHE HAS NOT BEEN ABLE. TO LOSE WEIGHT RESPIRATORY STATUS HAS REMAINED VERY STABLE SHE HAS VERY LITTLE COUGH OR WHEEZING. CURRENTLY SHE IS ON ADVAIR 500-51 INHALATION B.I.D. AND VENTOLIN JUST NEEDED. SHE HAS HAD NO ACUTE. RESPIRATORY INFECTION MAIN COMPLAINT TODAY IS RELATED TO HER LOW BACK PAIN WHICH IS DUE TO CHRONIC DEGENERATIVE ARTHRITIS OF THE SPINE. 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 Obesity (BMI 30-39.9) COPD (chronic obstructive pulmonary disease) Morbid obesity PAF (paroxysmal atrial fibrillation) Atrial fibrillation, new onset Asthma Back pain Surgical History H/O colonoscopy S/P section Family History Mother High cholesterol HTN (hypertension) Father HTN (hypertension) High cholesterol Social History Household Members: Family Housing: Apartment Are you a primary morning caregiver to a significant other at home: No Do you presently have visiting nurse or other home services: No Alcohol intake: never Patient Tobacco Use Status: Never used Tobacco Advance Directives Date on File: 06/02/21 service: No Current occupational status: employed Review of Systems Const All systems reviewed & are unremarkable except as noted in HPI and below Reports snoring Eyes Reports no additional complaints ENT Reports no additional complaints Card Denies chest pain, Reports irregular heart rhythm (Paroxysmal atrial fibrillation), Denies leg edema and Denies dyspnea Resp Denies cough, Denies dyspnea, Reports snoring and Denies wheezing GI Reports no additional complaints Reports no additional complaints Musc Reports no additional complaints Skin/Breast Reports system reviewed and no additional complaints, except as documented Neuro Reports no additional complaints Psych Reports no additional complaints Aller/Immun Denies wheezing Physical Exam Vital Signs: Last Vital Signs Pulse 53 05/07/25 15:34 BP 130/64 05/07/25 15:34 Pulse Ox 93 05/07/25 15:34 Oxygen Delivery Method Room Air 05/07/25 15:34 BMI result Body Mass Index 36.9 Const General: healthy appearing (Except for being overweight), comfortable, no acute distress, alert and awake Orientation/consciousness: patient oriented x3 HEENT Head: Yes normal to inspection General nose exam: No nasal polyps present and No nasal discharge present Face and sinus: Yes sinuses nontender Mouth: oropharynx abnormals (Slightly narrow, Mallampati class 3) Throat: Yes posterior oropharynx normal Eyes General: appearance normal, both eyes and all related structures Neck Neck: Yes normal visual inspection, Yes no lymphadenopathy, Yes trachea midline, Yes no JVD and Yes other (Neck circumference 17 in) Thyroid: Thyroid normal Chest Chest palpation & inspection: normal inspection of the chest, normal palpation of entire chest wall and no tenderness Resp Other: Percussion note is diminished due to obese chest wall. Breath sounds slightly diminished over the basilar areas. No wheezes or crepitations are heard. NO COUGH WAS NOTED EVEN WITH DEEP INSPIRATION. Cardio Palpation: normal PMI Rate: regular rate Rhythm: regular rhythm Heart sounds: no gallops and no murmurs GI Palpation (GI): Soft to palpation, Tenderness to palpation present (GI), No hepatosplenomegaly present, Palpable mass present and Other GI palpation findings present (Abdomen is slightly protuberant) Auscultation: normal bowel sounds Back/Spine/Pelvis Thoracic/Lumbar Spine: thoracic and lumbar spine normal to inspection Skin General skin exam: no rashes or lesions noted Neuro General: patient oriented x3 and no focal motor deficits Cranial nerves: Yes CN's II-XII intact bilaterally Extrem General: Yes normal to inspection, Yes no clubbing, cyanosis or edema and Yes no calf tenderness Psych Appearance: grossly normal and well kempt Speech and movement: Normal speech and movement present Assessment & Plan Assessment & Plan (1) Morbid obesity: Comment: Patient has been morbidly obese , CURRENT BMI= 36.9 She has lost some weight . Code(s): E66.01 - Morbid (severe) obesity due to excess calories Category: Medical Plan: Advised to keep on losing some weight, even if it goes slow. She is trying to control her diet but can not do much exercise. (2) COPD (chronic obstructive pulmonary disease): Comment: ASTHMA/COPD ,VERY WELL CONTROLLED AND STABLE. She is using high-dose Advair 500-50 1 inhalation b.i.d. and uses Ventolin only once in a while as a rescue inhaler. Code(s): J44.9 - Chronic obstructive pulmonary disease, unspecified Category: Medical Plan: Will lower the dose of Advair to 250-50 1 inhalation b.i.d.. Ventolin HFA 2 puffs Q 6 hours p.r.n. New prescriptions are sent. (3) CLARE (obstructive sleep apnea): Comment: Patient was found to have moderately severe obstructive sleep apnea. CPAP therapy tried but she could not tolerate and returned the CPAP device. She tries to sleep in lateral position and claims that she is sleeping okay. Code(s): G47.33 - Obstructive sleep apnea (adult) (pediatric) Category: Medical Plan: Again reinforced that she should sleep in lateral positions and avoid sleeping in supine position Medications: New fluticasone propion-salmeterol 250-50 mcg/dose (Advair Diskus) 1 inh inhalation BID 60 ea 5RF Asthma/copd 30 days albuterol sulfate 90 mcg/actuation (Ventolin HFA) 2 puffs inhalation Q4-6H PRN 8.5 grams 5RF shortness of breath or wheezing 30 days Coding Level of Care Code Est Pt Level 3 (23757) Diagnoses Morbid obesity E66.01 COPD (chronic obstructive pulmonary disease) J44.9 CLARE (obstructive sleep apnea) G47.33
--- OUTSIDE RECORDS SUMMARY | 2025-05-07 15:47 | XMS_ITS | Encounter Summary ---
Author Organization [employer] Address [address] [facility] [address] [place] [address] Care Team Providers Care Export Specialist Name Role Phone Amy Olmedo MD Primary Care Provider [phone] Jeremy Galloway PharmD Unavailable [phone] Encounter Details Date Type Department Care Team (Late st Contact Info) Description 01/30/2025 Orders Only [facility] [address] [place], [place] [phone] Shadia Cohn Social History Tobacco Use Types Packs/Day Years [...] Author Blood Pressure < 140/90 Blood Pressure 130/70(2024 9:09 AM EDT) No Jeremy Galloway PharmD Hemoglobin A1c < 7 Result Component 5.3( 9:11 AM EDT) No Jeremy Galloway PharmD documented as of this encounter Procedures Procedure Name Priority Date/Time Associated Diagnosis Comments HPV MRNA E6/E7 REFLEX TO HPV 16, 18/45 Routine 09/27/2024 12:00 AM EST documented in this encounter Results * HPV mRNA E6/E7 w/Reflex to HPV Genotypes 16, 18/45 (09/27/2024 12:00 AM EST) Historical Provider LAB CYTOLOGY ORDERABLES F inal Result documented in this encounter Visit Diagnoses Not on filedocumented in this encounter Additional Health Concerns Assessment Noted Time PHQ-9 Depression Total Score: 4 09/19/20 23 10:40 AM EST documented as of this encounter Care Teams Export Specialist Relationship Specialty Start Date End Date Amy Olmedo MD [address] [place] [address] PCP - General Family Medicine 10/03/18 Jeremy Galloway PharmD [address] [place] [address] Pharmacist Internal Medicine 03/11/23 documented as of this encounter
== END 2025-05-07 15:50 | disposition home or self-care (01) ==
LOC: HO.HPS 15:18
PROVIDERS: PCP Family Medicine; Visit Provider Internal Medicine
DX: E66.01 Morbid (severe) obesity due to excess calories (principal); J44.9 Chronic obstructive pulmonary disease, unspecified; G47.33 Obstructive sleep apnea (adult) (pediatric)
CPT/HCPCS: 99213

== ENCOUNTER → 2025-05-07 15:17 | Outpatient (BNVA) | payer MEDICAID, SELFPAY | PROVIDERS: PCP Family Medicine; Visit Provider Internal Medicine | DX: G47.33 Obstructive sleep apnea (adult) (pediatric) (principal); E66.01 Morbid (severe) obesity due to excess calories; J44.9 Chronic obstructive pulmonary disease, unspecified | CPT/HCPCS: 99212 ==

== ENCOUNTER 2025-08-09 13:00 | Outpatient (AMB) | payer MEDICAID, SELFPAY ==
--- OUTSIDE RECORDS SUMMARY | 2025-08-08 11:15 | XMS_ITS | Encounter Summary ---
Author Organization [employer] Address [address] [facility] [address] [place] [address] Care Team Providers Care Hematologist Oncologist Name Role Phone Amy Olmedo MD Primary Care Provider [phone] Jeremy Galloway PharmD Unavailable [phone] Encounter Details Date Type Department Care Team (Late st Contact Info) Description 08/08/2025 11:15 AM EST Office Visit [facility] [address] [place], [place] [phone] Amy Olmedo MD [address] [place], [place] [phone] Primary hypertension (Primary Dx); Paroxysmal atrial fibrillation (CMS/HCC) (HCC); Dyslipidemia; Type 2 diabetes mellitus without complication, without long-term current use of insulin (HCC); Asthma-COPD overlap syndrome (CMS/HCC) (HCC); Iron deficiency anemia, unspecified iron deficiency anemia type; Chronic right shoulder pain; Encounter for immunization Social History Tobacco Use Types Packs/Day Years Used Date Smoking Tobacco: Never Passive Smoke Exposure: Never Smokeless Tobacco: Never Alcohol Use Standard Drinks/Week Comments Never 0 (1 standard drink = 0.6 oz pur e alcohol) Depression Answer Date Recorded Patient Health Questionnaire-9 Score 16 05/09/2025 Patient Health Questionnaire-9 Score 16 05/09/2025 Last PHQ-9: Questionnaire Data Not on file 0 05/09/2025 Housing Stability Answer Date Recorded What is [...] Answer Date Recorded Patient Health Questionnaire-2 Score 6 05/09/2025 Internet Access Answer Date Recorded Internet Access Q1 Yes 09/27/2024 Internet Access Q2 Not on file 09/27/2024 Comments No Sex and Gender Information Value Date Recorded Sex Assigned at Female 08/02/2022 10:15 AM EDT Legal Sex Female 10:15 AM EDT Gender Identity Female 08/02/2022 10:15 AM EDT Sexual Orientation Straight 08/02/2022 10 :15 AM EDT documented as of this encounter Last Filed Vital Signs Vital Sign Reading Time Taken Comments Blood Pressure 130/60 08/08/2025 11:28 AM EST Pulse 80 08/08/2025 11:28 AM EST Temperature 35.6 C (96 F) 08/08/2025 11:28 AM EST Respiratory Rate 16 08/08/2025 11:28 AM EST Oxygen Saturation - - Inhaled Oxygen Concentration - - Weight 92.2 kg (203 lb 3.2 oz) 08/08/2025 11:28 AM EST Height 157.5 cm (5' 2 ) 08/08/2025 11:28 AM EST Body Mass Index 37.17 08/08/2025 11:28 AM EST documented in this encounter Plan of Treatment Scheduled Orders Name Type Priority Associated Diagnoses Orde r Schedule XR Shoulder 2+ Views Right Imaging Routine Chronic right shoulder pain Expected: 08/08/2025, Expires: 08/08/2026 documented as of this encounter Goals Goal Patient Goal Type Associated Problems Recent Progress Patient-Stated? Author Blood Pressure < 140/90 Blood Pressure 130/60(2024 11:28 AM EST) No Jeremy Galloway, PharmD Hemoglobin A1c < 7 Result Component 5.8( 11:14 AM EST) No Jeremy Galloway PharmD documented as of this encounter Procedures Procedure Name Priority Date/Time Associated Diagnosis Comments POCT GLYCOSYLATED HEMOGLOBIN (HGB A1C) Routine 08/08/2025 11:14 AM EST Type 2 diabetes mellitus without complication, without long-term current use of insulin (HCC) POCT GLUCOSE Routine 08/08/2025 11:12 AM EST Type 2 diabetes mellitus without complication, without long-term current use of insulin (HCC) documented in this encounter Results * (ABNORMAL) POCT glycosylated hemoglobin (Hgb A1c) (08/08/2025 11:14 AM EST) Hemoglobin A1C 5.8(A) 4.0 - 5.7 % QC Media Lot # [id number] Lot# Expiration Date Blood Capillary blood specimen / Unknown 08/08/2025 11:14 AM EST us Amy Olmedo MD POINT OF CARE TEST ENTER/EDIT OR DERABLES Final Result * POCT glucose manually resulted (08/08/2025 11:12 AM EST) Glucose Blood, POC 87 60 - 200 mg/dL QC Media Lot # [id number] Lot# Expiration Date 3,456 Blood Capillary blood specimen / Unknown 08/08/2025 11:12 AM EST us Amy Olmedo MD POINT OF CARE TEST ENTER/EDIT OR DERABLES Final Result documented in this encounter Visit Diagnoses Diagnosis Primary hypertension- Primary Unspecified essential hypertension Paroxysmal atrial fibrillation (CMS/HCC) (HCC) Atrial fibrillation Dyslipidemia Other and unspecified hyperlipidemia Type 2 diabetes mellitus without complication, without long-term current use of insulin (HCC) Asthma-COPD overlap syndrome (CMS/HCC) (HCC) Iron deficiency anemia, unspecified iron deficiency anemia type Chronic right shoulder pain Pain in joint, shoulder region Encounter for immunization documented in this encounter Additional Health Concerns Assessment Noted Time PHQ-9 Depression Total Score: 16 025 2:47 PM EDT documented as of this encounter Care Teams Hematologist Oncologist Relationship Specialty Start Date End Date Amy Olmedo MD [address] [place] [address] PCP - General Family Medicine 10/03/18 Jeremy Galloway, Elias [address] [place] [address] Pharmacist Internal Medicine 03/11/23 documented as of this encounter
[2025-08-09 13:32] VITALS: BP 120/62; PULSE 52; BMI 36.9
--- NOTE | 2025-08-09 13:32 | A.OFFVIS_ITS ---
Vital Signs 08/09/25 13:32 Height 5 ft 2 in Weight 201 lb 8.04 oz BMI 36.9 BP 120/62 Blood Pressure Location Lt brachial Position Sitting Pulse 52 Pulse Source Pulse Oximeter Intake Visit Reasons: 3-4m follow up Glacing Machine Tender Required: Yes Glacing Machine Tender Language: Mud Mixer Name: danilo rainey [id number] Allergies No Known Allergies Allergy (Verified 08/09/25 13:34) Medication List - Last Reconciled 08/09/25 by MAHOGANY Miller albuterol sulfate 90 mcg/actuation (Ventolin HFA) 2 puffs inhalation Q6H PRN albuterol sulfate 90 mcg/actuation (Ventolin HFA) 2 puffs inhalation Q4-6H PRN 30 days apixaban (Eliquis) 5 mg PO BID atorvastatin 10 mg PO BEDTIME bisacodyl 10 mg PO BEDTIME blood pressure kit-extra large As directed blood sugar diagnostic (FreeStyle Lite Strips) As directed blood-glucose meter (FreeStyle [place] Lite kit) As directed cetirizine 10 mg PO DAILY PRN cholecalciferol (vitamin D3) 50 mcg PO DAILY clonidine HCl 0.1 mg PO BEDTIME colchicine (Colcrys) 0.6 mg PO BID cyanocobalamin (vitamin B-12) 1,000 mcg PO DAILY diphenhydramine HCl (Benadryl Allergy) 25 mg PO TID PRN docusate sodium (Stool Softener) 200 mg PO BEDTIME famotidine 20 mg PO BEDTIME ferrous sulfate 325 mg PO DAILY fluoxetine 20 mg PO DAILY fluticasone propion-salmeterol 250-50 mcg/dose (Advair Diskus) 1 inh inhalation BID 30 days fluticasone propion-salmeterol 500-50 mcg/dose (Advair Diskus) 1 ea inhalation BID fluticasone propionate 50 mcg/actuation 1 spray intranasal DAILY folic acid 1 mg PO DAILY [heel lift bilat heel lift ] ibuprofen 600 mg PO TID lancets (Easy Touch Twist Lancets) As directed lisinopril 40 mg PO DAILY metformin ER 500 mg PO BEDTIME metoprolol succinate ER 25 mg PO DAILY 90 days omeprazole 20 mg PO QAM HPI HPI 3-4m follow up: Details: Sydnee is a 64-year-old female with past medical history of morbid obesity, obstructive sleep apnea, PAF who was admitted to [facility] [place] [place] in March with chest discomfort and found to have pericarditis. She was started on ibuprofen and colchicine and now presents for follow-up. Today she reports she has been doing well since her last visit in April. She has completed her course of colchicine. She no longer has any chest discomfort. No shortness of breath, PND, orthopnea or edema. No heart palpitations, lightheadedness, presyncope, syncope, falls. She reports good activity tolerance. Taking meds as directed. Uses a pill pack from the pharmacy. Certified molecular biology scientist used. 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 Obesity (BMI 30-39.9) COPD (chronic obstructive pulmonary disease) Morbid obesity PAF (paroxysmal atrial fibrillation) Atrial fibrillation, new onset Asthma Back pain Surgical History H/O colonoscopy S/P section Family History Mother High cholesterol HTN (hypertension) Father HTN (hypertension) High cholesterol Social History Household Members: Family Housing: Apartment Are you a primary respiratory care assistant to a significant other at home: No Do you presently have visiting nurse or other home services: No Alcohol intake: never Patient Tobacco Use Status: Never used Tobacco Advance Directives Date on File: 06/02/21 service: No Current occupational status: employed Review of Systems Const All systems reviewed & are unremarkable except as noted in HPI and below ENT Denies dizziness Card Denies chest pain, Denies chest pain at rest, Denies chest pain with activity, Denies rapid heart rate, Denies pedal edema, Denies edema, Denies leg edema, Denies lightheadedness, Denies palpitations, Denies dyspnea, Denies dyspnea on exertion and Denies orthopnea Resp Denies cough, Denies dyspnea and Denies dyspnea on exertion GI Denies hematochezia and Denies change in stool character Musc Denies abnormal gait, Denies limited range of motion, Denies muscle cramps, Denies muscle weakness, Denies numbness, Denies radiating pain into limb, Denies stiffness and Denies tingling Neuro Denies abnormal gait, Denies dizziness, Denies numbness and Denies tingling Endo Denies palpitations Physical Exam Vital Signs: Last Vital Signs Pulse 52 08/09/25 13:32 BP 120/62 08/09/25 13:32 BMI result Body Mass Index 36.9 Const General: cooperative, comfortable and no acute distress Orientation/consciousness: patient oriented x3 Neck Neck: Yes normal visual inspection Resp Effort & Inspection: normal respiratory effort Auscultation: clear to auscultation bilaterally, no crackles, no rales, no rhonchi and no wheezes Cardio Jugular venous distension: no JVD Rate: regular rate Rhythm: regular rhythm Heart sounds: S1 normal heart sound present, S2 normal heart sound present, no gallops, no murmurs and no rubs Peripheral pulses: Peripheral pulses 2+ throughout GI Inspection: Yes normal to inspection Skin General skin exam: no rashes or lesions noted Neuro General: patient oriented x3 Extrem General: Yes normal to inspection Psych Appearance: grossly normal Mental Status: mental status grossly normal Speech and movement: Normal speech and movement present Assessment & Plan Assessment & Plan (1) Acute pericarditis: Code(s): I30.9 - Acute pericarditis, unspecified Category: Medical Plan: Acute pericarditis March 2025. Her echocardiogram showed EF 59%, grade 2 diastolic dysfunction, small pericardial effusion. CRP, ESR were elevated. Treated with ibuprofen for 2 weeks and colchicine for 3 months. Symptoms fully resolved. Limited echo previously ordered however not completed yet to reassess pericardial effusion. Will obtain and call her with the results. (2) PAF (paroxysmal atrial fibrillation): Code(s): I48.0 - Paroxysmal atrial fibrillation Category: Medical Plan: Paroxysmal Atrial fibrillation, 1st identified 05/2021. Treated with rhythm control using metoprolol. She is on Eliquis for anticoagulation. Last Echocardiogram shows EF 59%, left atrium mildly dilated. Nuclear stress test done on 02/10/2022 shows normal myocardial perfusion imaging. Pulse regular on exam today, clinically sinus rhythm. No recent palpitations. Labs 03/26/2025 showed creatinine 0.7 and hemoglobin 10.1. No med changes made. Cardiology follow-up 6 months, sooner if needed. Plan Time spent on chart review, documentation, interview and assessment Orders: Orders CA Echo Limited Today I30.9 - Acute pericarditis, unspecified Coding Level of Care Code Est Pt Level 4 (57084) Complex EM visit Add On G2211 Diagnoses Acute pericarditis I30.9 PAF (paroxysmal atrial fibrillation) I48.0 Time Spent (min) 28
--- OUTSIDE RECORDS SUMMARY | 2025-08-09 15:12 | XMS_ITS | Encounter Summary ---
Author Organization [employer] Address [address] [facility] [address]t [place] [address] Care Team Providers Care Baler Operator Name Role Phone Amy Olmedo MD Primary Care Provider [phone] Jeremy Galloway PharmD Unavailable [phone] Encounter Details Date Type Department Care Team (Late st Contact Info) Description 12/14/2024 Orders Only [facility] MEDICINE [address] [place], [place] [phone] Amy Olmedo MD [address] [place], [place] [phone] Social History Tobacco Use Types Packs/Day Years [...] Pressure 130/60(2024 11:28 AM EST) No Jeremy Galloway PharmD Hemoglobin A1c < 7 Result Component 5.8( 11:14 AM EST) No Jeremy Galloway PharmD documented as of this encounter Visit Diagnoses Not on filedocumented in this encounter Additional Health Concerns Assessment Noted Time PHQ-9 Depression Total Score: 4 09/19/20 23 10:40 AM EST documented as of this encounter Care Teams Baler Operator Relationship Specialty Start Date End Date Amy Olmedo MD [address] [place] [address] PCP - General Family Medicine 10/03/18 Jeremy Galloway PharmD [address] [place] [address] Pharmacist Internal Medicine 03/11/23 documented as of this encounter
--- OUTSIDE RECORDS SUMMARY | 2025-08-09 15:12 | XMS_ITS | Encounter Summary ---
Author Organization [employer] Address [address] [facility] 7t [place] [address] Care Team Providers Care Fluoroscope Operator Name Role Phone Amy Olmedo MD Primary Care Provider [phone] Jeremy Galloway PharmD Unavailable [phone] Encounter Details Date Type Department Care Team (Late st Contact Info) Description 11/26/2024 Orders Only [facility] MEDICINE [address] [place], [place] [phone] Amy Olmedo MD [address] [place], [place] [phone] Social History Tobacco Use Types Packs/Day Years [...] documented as of this encounter Care Teams Fluoroscope Operator Relationship Specialty Start Date End Date Amy Olmedo MD [address] [place] [address] PCP - General Family Medicine 10/03/18 Jeremy Galloway PharmD [address] [place] [address] Pharmacist Internal Medicine 03/11/23 documented as of this encounter
--- OUTSIDE RECORDS SUMMARY | 2025-08-09 15:12 | XMS_ITS | Encounter Summary ---
Author Organization [employer] Address [address] [facility] 7t [place] [address] Care Team Providers Care Radiator Mechanic Name Role Phone Amy Olmedo MD Primary Care Provider [phone] Jeremy Galloway PharmD Unavailable [phone] Encounter Details Date Type Department Care Team (Late st Contact Info) Description 11/29/2022 Orders Only [facility] [address] [place], [place] [phone] Rosi Harvey LPN Social History Tobacco Use [...] on filedocumented in this encounter Care Teams Radiator Mechanic Relationship Specialty Start Date End Date Amy Olmedo MD [address] [place], [place] [phone] PCP - General Family Medicine 10/03/18 Jeremy Galloway, PharmD [address] [place], [place] [phone] Pharmacist Internal Medicine 03/11/23 documented as of this encounter
--- OUTSIDE RECORDS SUMMARY | 2025-08-09 15:12 | XMS_ITS | Encounter Summary ---
Author Organization [employer] Address [address] [facility] 7t [place] [address] Care Team Providers Care Battery Container Finishing Hand Name Role Phone Amy Olmedo MD Primary Care Provider [phone] Jeremy Galloway PharmD Unavailable [phone] Reason for Referral * Consultation (Routine) - Closed Specialty Diagnoses / Procedures Referred By Contac t Referred To Contact Diagnoses Asthma-COPD overlap syndrome (CMS/HCC) (HCC) Paroxysmal atrial fibrillation (CMS/HCC) (HCC) Primary hypertension Type 2 diabetes mellitus without complication, without long-term current use of insulin (HCC) Amy Olmedo MD [address] [place] [address] Phone: tel: fax: [address] [address] Phone: tel: fax: Referral ID Status Reason Start Date Expiration Date V isits Requested Visits Authorized [id number] Closed Specialty Services Required 12/19/2024 12/19/2025 1 1 Encounter Details Date Type Department Care Team (Late st Contact Info) Description 12/19/2024 Orders Only [facility] MEDICINE [address] [place] [phone] Amy Olmedo MD [address] [place], [place] [phone] Asthma-COPD overlap syndrome (CMS/HCC) (Primary Dx); Paroxysmal [...] encounter Visit Diagnoses Diagnosis Asthma-COPD overlap syndrome (CMS/HCC) (HCC)- Primary Paroxysmal atrial fibrillation (CMS/HCC) ([facility]) Atrial fibrillation Primary hypertension Unspecified essential hypertension Type 2 diabetes mellitus without complication, without long-term current use of insulin ([facility]) documented in this encounter Additional Health Concerns Assessment Noted Time PHQ-9 Depression Total Score: 4 09/19/20 23 10:40 AM EST documented as of this encounter Care Teams Battery Container Finishing Hand Relationship Specialty Start Date End Date Amy Olmedo MD [address] [place] [address] PCP - General Family Medicine 10/03/18 Jeremy Galloway PharmD [address] [place] [address] Pharmacist Internal Medicine 03/11/23 documented as of this encounter
--- OUTSIDE RECORDS SUMMARY | 2025-08-09 15:12 | XMS_ITS | Encounter Summary ---
Author Organization [employer] Address [address] [facility] 7t [place] [address] Care Team Providers Care Director Corporate Sales Name Role Phone Amy Olmedo MD Primary Care Provider [phone] Jeremy Galloway PharmD Unavailable [phone] Encounter Details Date Type Department Care Team (Late st Contact Info) Description 09/21/2022 Orders Only [facility] [address] [place], [place] [phone] Lena Buenrostro LPN Social History Tobacco Use [...] on filedocumented in this encounter Care Teams Director Corporate Sales Relationship Specialty Start Date End Date Amy Olmedo MD [address] [place], [place] [phone] PCP - General Family Medicine 10/03/18 GallowayJeremy PharmD [address] [place] [address] Pharmacist Internal Medicine 03/11/23 documented as of this encounter
--- OUTSIDE RECORDS SUMMARY | 2025-08-09 15:12 | XMS_ITS | Encounter Summary ---
Author Organization [employer] Address [address] [facility] [address]t [place] [address] Care Team Providers Care Seed Mill Superintendent Name Role Phone Amy Olmedo MD Primary Care Provider [phone] Jeremy Galloway PharmD Unavailable [phone] Encounter Details Date Type Department Care Team (Late st Contact Info) Description 01/30/2025 Orders Only [facility] [address] [place], [place] [phone] Shadia Cohn Social History Tobacco Use Types [...] Genotypes 16, 18/45 (09/27/2024 12:00 AM EST) us Historical Provider LAB CYTOLOGY ORDERABLES F inal Result documented in this encounter Visit Diagnoses Not on filedocumented in this encounter Additional Health Concerns Assessment Noted Time PHQ-9 Depression Total Score: 4 09/19/20 23 10:40 AM EST documented as of this encounter Care Teams Seed Mill Superintendent Relationship Specialty Start Date End Date Amy Olmedo MD [address] [place] [address] PCP - General Family Medicine 10/03/18 Jeremy Galloway PharmD [address] [place] [address] Pharmacist Internal Medicine 03/11/23 documented as of this encounter
--- OUTSIDE RECORDS SUMMARY | 2025-08-09 15:12 | XMS_ITS | Encounter Summary ---
Author Organization [employer] Address [address] [facility] 7t [place] [address] Care Team Providers Care Engraving Plate Maker Name Role Phone Amy Olmedo MD Primary Care Provider [phone] Jeremy Galloway PharmD Unavailable [phone] Encounter Details Date Type Department Care Team (Late st Contact Info) Description 11/02/2024 Orders Only [facility] MEDICINE [address] [place], [place] [phone] Amy Olmedo MD [address] [place], [place] [phone] Social History Tobacco Use Types Packs/Day Years [...] documented as of this encounter Care Teams Engraving Plate Maker Relationship Specialty Start Date End Date Amy Olmedo MD [address] [place] [address] PCP - General Family Medicine 10/03/18 Jeremy Galloway PharmD [address] [place] [address] Pharmacist Internal Medicine 03/11/23 documented as of this encounter
--- OUTSIDE RECORDS SUMMARY | 2025-08-09 15:12 | XMS_ITS | Encounter Summary ---
Author Organization [employer] Address [address] [facility] [address]t [place] [address] Care Team Providers Care Business Sales Consultant Name Role Phone Amy Olmedo MD Primary Care Provider [phone] Jeremy Galloway PharmD Unavailable [phone] Reason for Referral * Consultation (Routine) - Closed Specialty Diagnoses / Procedures Referred By Contgera t Referred To Contact General Surgery Diagnoses Mass on back Amy Olmedo MD [address] [place] [address] Phone: tel: fax: Drew Coyne MD [address] [place] [address] Phone: tel: fax: Referral ID Status Reason Start Date Expiration Date V isits Requested Visits Authorized [id number] Closed Specialty Services Required 03/09/2024 03/09/2025 12 12 Encounter Details Date Type Department Care Team (Late st Contact Info) Description 03/07/2024 Orders Only [facility] MEDICINE [address] [place], [place] [phone] Amy Olmedo MD [address] [place], [place] [phone] Mass on back (Primary Dx) Social History [...] 130/60(2024 11:28 AM EST) No Jeremy Galloway, PharmBrian Hemoglobin A1c < 7 Result Component 5.8( 11:14 AM EST) No Jeremy Galloway, MaciejD documented as of this encounter Visit Diagnoses Diagnosis Mass on back- Primary Localized superficial swelling, mass, or lump documented in this encounter Additional Health Concerns Assessment Noted Time PHQ-9 Depression Total Score: 4 09/19/20 23 10:40 AM EST documented as of this encounter Care Teams Business Sales Consultant Relationship Specialty Start Date End Date Amy Olmedo MD [address] [place] [address] PCP - General Family Medicine 10/03/18 Jeremy Galloway, MaciejD [address] [place] [address] Pharmacist Internal Medicine 03/11/23 documented as of this encounter
--- OUTSIDE RECORDS SUMMARY | 2025-08-09 15:12 | XMS_ITS | Encounter Summary ---
Author Organization [employer] Address [address] [facility] [address]t [place] [address] Care Team Providers Care Salmon Troll Fisher Name Role Phone Amy Olmedo MD Primary Care Provider [phone] Jeremy Galloway PharmD Unavailable [phone] Encounter Details Date Type Department Care Team (Late st Contact Info) Description 05/17/2025 Orders Only [facility] MEDICINE [address] [place], [place] [phone] Amy Olmedo MD [address] [place], [place] [phone] Social History Tobacco Use Types Packs/Day Years [...] documented as of this encounter Care Teams Salmon Troll Fisher Relationship Specialty Start Date End Date Amy Olmedo MD [address] [place] [address] PCP - General Family Medicine 10/03/18 Jeremy Galloway PharmD [address] [place] [address] Pharmacist Internal Medicine 03/11/23 documented as of this encounter
--- OUTSIDE RECORDS SUMMARY | 2025-08-09 15:13 | XMS_ITS | Encounter Summary ---
Author Organization [employer] Address [address] [facility] 7t [place] [address] Care Team Providers Care Imagery Intelligence Name Role Phone Amy Olmedo MD Primary Care Provider [phone] Jeremy Galloway PharmD Unavailable [phone] Encounter Details Date Type Department Care Team (Late st Contact Info) Description 07/30/2025 Orders Only [facility] MEDICINE [address] [place], [place] [phone] Amy Olmedo MD [address] [place], [place] [phone] Social History Tobacco Use Types Packs/Day Years [...] documented as of this encounter Care Teams Imagery Intelligence Relationship Specialty Start Date End Date Amy Olmedo MD [address] [place] [address] PCP - General Family Medicine 10/03/18 Jeremy Galloway PharmD [address] [place] [address] Pharmacist Internal Medicine 03/11/23 documented as of this encounter
--- OUTSIDE RECORDS SUMMARY | 2025-08-09 15:13 | XMS_ITS | Encounter Summary ---
Author Organization [employer] Address [address] [facility] [address] [place] [address] Care Team Providers Care Air Brake Adjuster Name Role Phone Amy Olmedo MD Primary Care Provider [phone] Jeremy Galloway PharmD Unavailable [phone] Encounter Details Date Type Department Care Team (Late st Contact Info) Description 08/07/2025 Telephone [facility] [address] [place], [place] [phone] Korina Marks [place] Social History Tobacco Use Types Packs/Day Years [...] encounter Miscellaneous Notes * Telephone Encounter - Korina Marks [place] - 08/07/2025 1:27 PM EST Chart Prep Labs: done Images: done Referrals: appointment pending Vaccines due: Flu Screenings: eye exam and foot exam Overdue care gaps: Not applicable documented in this encounter Plan of Treatment Not on [...] documented as of this encounter Care Teams Air Brake Adjuster Relationship Specialty Start Date End Date Amy Olmedo MD [address] [place] [address] PCP - General Family Medicine 10/03/18 Jeremy Galloway PharmD [address] [place] [address] Pharmacist Internal Medicine 03/11/23 documented as of this encounter
--- OUTSIDE RECORDS SUMMARY | 2025-08-09 15:13 | XMS_ITS | Encounter Summary ---
Author Organization [employer] Address [address] [facility] [address] [place] [address] Care Team Providers Care Broadcast Checker Name Role Phone Amy Olmedo MD Primary Care Provider [phone] Jeremy Galloway PharmD Unavailable [phone] Encounter Details Date Type Department Care Team (Latest Contact Info) Description 08/08/2025 Travel Social History Tobacco Use Types Packs/Day [...] documented as of this encounter Care Teams Broadcast Checker Relationship Specialty Start Date End Date Amy Olmedo MD [address] [place] [address] PCP - General Family Medicine 10/03/18 Jeremy Galloway PharmD [address] [place] [address] Pharmacist Internal Medicine 03/11/23 documented as of this encounter
--- OUTSIDE RECORDS SUMMARY | 2025-08-09 15:13 | XMS_ITS | Clinical Summary ---
Author Organization [employer] Address [address] [place] [address] Care Team Providers Care Enforcement Safety Officer Name Role Phone Amy Olmedo MD Primary Care Provider [phone] Jeremy Galloway PharmD Unavailable Allergies Active Allergy Reactions Criticality Noted Date Comments Sertraline Dizziness Medium 03/18/2020 Medications * This document contains information received from the source organization and may not represent a complete record from that organization. atorvastatin (Lipitor) 10 MG tablet Take 10 mg by mouth at bedtime. 023 Active Cartia XT 120 MG 24 hr capsule Take 120 mg by mouth in the morning. 023 Active Blood Glucose Monitoring Suppl (FreeStyle Lite) w/Device kitIndications: Type 2 diabetes mellitus without complication, without long-term current use of insulin ([facility]) 1 kit in the morning. 1 kit 1 023 Active benzonatate (Tessalon) 200 MG capsule Take 1 capsule (200 mg) by mouth if needed in the morning, at noon, and at bedtime for cough. Do not crush or chew. 30 capsule 2 023 Active hydrocortisone 1 % cream Apply topically 2 times daily. Apply thin layer once or twice daily as needed 30 g 1 023 Active docusate sodium (Colace) 100 MG capsule TAKE 2 CAPSULES BY MOUTH EVERY DAY AT BEDTIME 023 Active Blood Pressure Monitoring kitIndications: Primary hypertension Use as directed 1 kit 024 Active albuterol (Ventolin HFA) 108 (90 Base) MCG/ACT inhalerIndicati ons:Asthma-COPD overlap syndrome (CMS/HCC) (HCC) INHALE 2 PUFFS BY MOUTH EVERY 4 TO 6 HOURS NEEDED DIFFICULTY BREATHING. NO MORE THAN 8 PUFFS PER DAY 18 g Active famotidine (Pepcid) 20 MG tablet TAKE 1 TABLET BY MOUTH AT BEDTIME NEEDED HEARTBURN 90 tablet 1 Active Bisacodyl EC 5 MG EC tablet TAKE 2 TABLETS BY MOUTH EVERY DAY AT BEDTIME Active Procto-Med HC 2.5 % rectal cream APPLY RECTALLY 2 TO 4 TIMES DAILY NEEDED FOR HEMORRHOIDS Active Advair Diskus 500-50 MCG/ACT aerosol powder INHALE 1 PUFF BY MOUTH TWICE DAILY 12 HOURS APART. RINSE MOUTH AFTER USING. 60 each Active cloNIDine (Catapres) 0.1 MG tabletIndicatio ns:Primary hypertension TAKE 1 TABLET BY MOUTH AT BEDTIME 90 tablet Active folic acid (Folvite) 1 MG tabletIndicatio ns:Vitamin deficiency TAKE 1 TABLET BY MOUTH EVERY MORNING 90 tablet 025 Active lisinopril 40 MG tabletIndicatio ns:Primary hypertension TAKE 1 TABLET BY MOUTH EVERY MORNING 90 tablet Active cholecalciferol VITAMIN D (Vitamin D-3) 50 MCG (1999 UT) tabletIndicatio ns:Vitamin deficiency TAKE 1 TABLET BY MOUTH EVERY MORNING 90 tablet Active metFORMIN XR (Glucophage-XR) 500 MG 24 hr tablet Take 1 tablet (500 mg) by mouth with evening meal. Do not crush, chew, or split. 30 tablet 2025 Active ferrous sulfate 325 (65 Fe) MG EC tablet TAKE 1 TABLET BY MOUTH EVERY MORNING WITH BREAKFAST 90 tablet 025 Active ferrous sulfate 325 (65 Fe) MG EC tablet TAKE 1 TABLET BY MOUTH EVERY MORNING WITH BREAKFAST 90 tablet Active cetirizine (ZyrTEC) 10 MG tablet TAKE 1 TABLET BY MOUTH EVERY DAY NEEDED FOR ALLERGIES 90 tablet Active fluticasone (Flonase) 50 MCG/ACT nasal spray Administer 1 spray into each nostril Once per day. Shake gently. Before first use, prime pump. After use, clean tip and replace cap. 48 g 1 Active Ketotifen Fumarate 0.035 % solution Administer 1 drop into affected eye(s) 2 times daily. 10 mL 3 Active cyanocobalamin (Vitamin B-12) 1000 MCG tabletIndicatio ns:Anemia due to vitamin B12 deficiency, unspecified B12 deficiency type TAKE 1 TABLET BY MOUTH EVERY MORNING 90 tablet 1 Active omeprazole (PriLOSEC) [address] capsule Take 1 capsule by mouth in the morning. Active Eliquis 5 MG tablet TAKE 1 TABLET BY MOUTH TWICE DAILY IN THE MORNING AND IN THE EVENING 60 tablet Active FREESTYLE LITE test stripIndication s:Type 2 diabetes mellitus without complication, without long-term current use of insulin (HCC) TEST BLOOD SUGAR EVERY DAY 50 strip Active Alcohol Swabs (Alcohol Prep) 70 % padsIndications :Type 2 diabetes mellitus without complication, without long-term current use of insulin (HCC) USE DIRECTED EVERY MORNING 100 each Active TRUEplus Lancets 33G miscIndications :Type 2 diabetes mellitus without complication, without long-term current use of insulin (HCC) USE EVERY MORNING DIRECTED 100 each 3 Active albuterol (2.5 MG/3ML) 0.083% nebulizer solution Take 3 mL (2.5 mg) by nebulization every 4 (four) hours if needed for wheezing or shortness of breath (Maximum 4 treatments per day). 75 mL 1 025 2025 Active FLUoxetine (PROzac) 20 MG capsuleIndicati ons:Panic disorder with agoraphobia TAKE 1 CAPSULE BY MOUTH EVERY MORNING 30 capsule 3 Active Tirzepatide (Mounjaro) 5 MG/0.5ML solution auto-injector Inject 5 mg under the skin 1 (one) time per week. 2 mL Active Tirzepatide (Mounjaro) 2.5 MG/0.5ML solution auto-injector Inject 2.5 mg under the skin 1 (one) time per week. 2 mL 025 2024 Discontinued(M ed list cleanup (will not trigger notification to Pharmacy)) Active Problems Problem Noted Date Diagnosed Date Depression, unspecified 05/09/2025 Pericardial effusion 04/22/2025 Assessment & Plan (04/22/2025 5:45 PM EDT): - seen in [facility] on 03/26/25. Hospitalized for pericardial effusion. Dx acute pericarditis. Tx colchicine. - autoimmune work-up negative thus far - optimize chronic disease management Partial edentulism 06/21/2024 Mass on back 01/24/2024 Assessment & Plan (01/24/2024 2:56 PM EDT): - will evaluate with ultrasound, may not be able to have external biopsy Constipation 09/19/2023 Assessment & Plan (01/29/2025 11:10 PM EDT): - followed by [facility], last seen in December 2023 - prescribed Miralax, Colace, and dulcolax - fiber-rich diet - patient is scheduled for colonoscopy Assessment & Plan (01/24/2024 2:54 PM EDT): - followed by [facility], last seen in December 2023 - prescribed Miralax, Colace, and dulcolax - fiber-rich diet - patient is scheduled for colonoscopy Assessment & Plan (09/19/2023 5:58 AM EST): - followed by [facility], last seen in May 2023 - prescribed Miralax and Colace - fiber-rich diet Iron deficiency anemia 05/03/2023 Assessment & Plan (04/22/2025 5:40 PM EDT): - seen by mechanical technician on 04/13/23 - EGD by Dr. Wheatley on 06/28/24. Quick esophagus with chronic active inflammation. Hyperplastic gastric polyp . - Colonoscopy on 06/28/24. Hemorrhoids. Repeat in 10 years. - received IV iron - continue current treatment plan per Heme Assessment & Plan (10/04/2024 8:34 AM EST): - seen by mechanical technician on 04/13/23 - received IV iron - continue current treatment plan per Heme Assessment & Plan (09/19/2023 5:59 AM EST): - seen by mechanical technician on 04/13/23 - received IV iron - continue current treatment plan per Heme Assessment & Plan (05/29/2023 6:11 AM EDT): - seen by mechanical technician on 04/13/23 - currently receiving IV iron - continue current treatment plan per Heme CLARE (obstructive sleep apnea) 02/28/2023 Assessment & Plan (04/22/2025 5:41 PM EDT): - sleep study in January 2022 showed severe CLARE, positive airway pressure therapy was recommended SCAR - evaluated by pediatric cns - pt tried CPAP, but returned the device due to intolerance in 2022 - pt has nocturnal hypoxemia, but DME supplier will not provide oxygen supplementation for pt with CLARE with nocturnal hypoxemia - continue working on lifestyle modification - sleep on lateral position and/or elevate head of the bed Assessment & Plan (01/28/2025 3:38 PM EDT): - sleep study in January 2022 showed severe CLARE, positive airway pressure therapy was recommended SCAR - evaluated by pediatric cns - pt tried CPAP, but returned the [...] therapy was recommended SCAR - evaluated by pediatric cns - pt tried CPAP, but returned the [...] therapy was recommended SCAR - evaluated by pediatric cns - pt tried CPAP, but returned the [...] therapy was recommended SCAR - evaluated by pediatric cns - pt tried CPAP, but returned the [...] therapy was recommended SCAR - evaluated by pediatric cns - pt tried CPAP, but returned the [...] 2 diabetes mellitus 02/28/2023 Assessment & Plan (04/22/2025 5:37 PM EDT): - Dx January 2023. RBG in ED > 200. - Most recent Hgb A1C 5.3% on 04/15/2025, improvement from 5.4% on 01/28/25 - Continue SMBG - Work on lifestyle modifications - Continue Metformin. - Pt has been on Trulicity for 3 months and has not lost weight. It was changed to Mounjaro, but patient requested Zepbound. We explained the patient that both are the same medication. Start tirzepatide. - Foot exam 09/27/24 - Eye exam - Lipid profile: TRIG 155; CHOL 154; LDL 83; HDL 40 01/28/25 - Microalbumin test: UACR 6.7 on 01/28/25 - Immunizations - reviewed Assessment & Plan (01/29/2025 11:12 PM EDT): - Dx January 2023. RBG [...] 09/27/24 - Eye exam - Lipid profile: TRIG 155; CHOL 154; LDL 83; HDL 40 - 01/28/25 - Microalbumin test: 11 - 01/28/25 - Immunizations - reviewed Assessment & Plan [...] Microalbumin test: - Immunizations Paroxysmal atrial fibrillation (CMS/HCC) 022 Assessment & Plan (04/15/2025 9:36 AM EDT): -Followed by [facility], last seen in March 2024, next follow up on 04/26/25 -Dx on 05/29/21 at [facility] in a setting of pneumonia and asthma exacerbation, converted to sinus rhythm in ED with metoprolol. Discharged with carvedilol and Eliquis -[id number] score 2 -Normal echo on 06/01/21 -Nuclear [...] unable to tolerate CPAP Assessment & Plan (01/29/2025 11:09 PM EDT): -Followed by [facility], last seen in December 2022, patient reports she had more recent visit -Dx on 05/29/21 at [facility] in a setting of pneumonia and asthma exacerbation, converted to sinus rhythm in ED with metoprolol. Discharged with carvedilol and Eliquis -[id number] score 2 -Normal echo on 06/01/21 -Nuclear [...] unable to tolerate CPAP Assessment & Plan (10/04/2024 8:31 AM EST): -Followed by [facility], last seen in December 2022, patient reports she had more recent visit -Dx on 05/29/21 at [facility] in a setting of pneumonia and asthma exacerbation, converted to sinus rhythm in ED with metoprolol. Discharged with carvedilol and Eliquis -[id number] score 2 -Normal echo on 06/01/21 -Nuclear [...] Plan (01/24/2024 2:51 PM EDT): -Followed by [facility], last seen in December 2022, patient reports she had more recent visit -Dx on 05/29/21 at [facility] in a setting of pneumonia and asthma exacerbation, converted to sinus rhythm in ED with metoprolol. Discharged with carvedilol and Eliquis -[id number] score 2 -Normal echo on 06/01/21 -Nuclear [...] Plan (09/25/2023 10:48 AM EST): -Followed by [facility], last seen in December 2022 -Dx on 05/29/21 at [facility] in a setting of pneumonia and asthma exacerbation, converted to sinus rhythm in ED with metoprolol. Discharged with carvedilol and Eliquis -[id number] score 2 -Normal echo on 06/01/21 -Nuclear [...] Plan (05/29/2023 6:05 AM EDT): -Followed by [facility], last seen in December 2022 -Dx on 05/29/21 at [facility] in a setting of pneumonia and asthma exacerbation, converted to sinus rhythm in ED with metoprolol. Discharged with carvedilol and Eliquis -[id number] score 2 -Normal echo on 06/01/21 -Nuclear [...] Plan (03/02/2023 6:06 AM EDT): -Followed by [facility], last seen in December 2022 -Dx on 05/29/21 at [facility] in a setting of pneumonia and asthma exacerbation, converted to sinus rhythm in ED with metoprolol. Discharged with carvedilol and Eliquis -[id number] score 2 -Normal echo on 06/01/21 -Nuclear [...] 5:00 PM EST): -Dx on 05/29/21 at [facility] in a setting of pneumonia and asthma exacerbation -converted to sinus rhythm in ED with metoprolol -[id number] score 2 -Normal echo on 06/01/21 -discharged [...] Gastroesophageal reflux disease 02/03/2015 Assessment & Plan (01/29/2025 11:09 PM EDT): - 04/26/13 EGD normal biopsy result - continue pantoprazole 60 mg once daily - continue famotidine 20 mg at bedtime prn - work on lifestyle modifications (avoid eating after 7 pm, avoid trigger foods, stay upright after meals, elevated head of bed), - avoid NSAID use -following with GI being scheduled for EGD and colonoscopy Assessment & Plan (01/24/2024 2:52 PM EDT): [...] of bed), Hypertension 02/03/2015 Assessment & Plan (04/22/2025 5:42 PM EDT): -Goal BP <130/80 per ACC/AHA guideline, Tx threshold 140/90 -BP borderline -Co-managed through [facility], last appt on 05/14/23 - recent hospitalization for pericarditis. Echo showed EF 59%. Grade II diastolic dysfunction. -Continue lisinopril 40mg daily -Continue carvedilol 3.125 mg bid -Continue clonidine 0.1mg qhs (for anxiety, insomnia) -Continue Diltiazem 120 mg daily -Continue working of lifestyle modification -Continue checking home BP -Previously tried HCTZ, which was discontinued due to hypokalemia in a setting of frequent albuterol use. -Follow-up in 3-4 mo or sooner if any problem arises Assessment & Plan (01/29/2025 11:09 PM EDT): -Goal BP < 140/90 per [...] if any problem arises Assessment & Plan (10/04/2024 8:31 AM EST): [...] threshold 140/90 -BP at goal -Co-managed through [facility], last appt on 05/14/23 -Continue lisinopril 40mg [...] but home BP is normal -Co-managed through [facility], last appt on 05/14/23 -Continue lisinopril 40mg [...] problem arises Dyslipidemia 09/13/2013 Assessment & Plan (04/22/2025 5:34 PM EDT): Current medication: atorvastatin 10 mg at bedtime, consider intensifying treatment Last lipid profile: January 2025 Continue working on lifestyle modificatioins Assessment & Plan (10/04/2024 8:34 AM EST): [...] Continue working on lifestyle modificatioins Anxiety 05/17/2012 Assessment & Plan (04/22/2025 5:40 PM EDT): - patient states her anxiety is mainly about her weight Asthma-COPD overlap syndrome (CMS/HCC) 2 Assessment & Plan (04/22/2025 5:41 PM EDT): -Followed by pediatric cns, last seen by Dr. Perez in NOV [...] restarting if frequent symptoms Assessment & Plan (01/29/2025 11:08 PM EDT): -Followed by pediatric cns, last seen by Dr. Perez in NOV [...] restarting if frequent symptoms Assessment & Plan (10/04/2024 8:30 AM EST): -Followed by pediatric cns, last seen by Dr. Perez in NOV [...] Plan (01/24/2024 2:50 PM EDT): -Followed by pediatric cns, last seen by Dr. Perez in NOV [...] Plan (09/19/2023 5:56 AM EST): -Followed by pediatric cns, last seen by Dr. Perez in April [...] Plan (05/29/2023 6:21 AM EDT): -Followed by pediatric cns, last seen by Dr. Ellis in December [...] Plan (03/02/2023 6:00 AM EDT): -Followed by pediatric cns, last seen by Dr. Perez in December [...] Plan (09/19/2023 6:02 AM EST): -Evaluated by [facility] providers, last seen in 2018 and was recommended PT for lumbar spondylosis with facet mediated pain. Pt was prescribed meloxicam. -Continue APAP prn -Encouraged to resume home back exercise Assessment & Plan (05/29/2023 6:16 AM EDT): -Evaluated by [facility] providers, last seen in 2018 and was recommended PT for lumbar spondylosis with facet mediated pain. Pt was prescribed meloxicam. -Continue APAP prn -Encouraged to resume home back exercise Assessment & Plan (09/19/2022 5:07 PM EST): -Evaluated by [facility] providers, last seen in 2018 and was recommended PT -She would like to be evaluated by car painter for possible injection; Will refer -Continue APAP prn -Encouraged to resume home back exercise Vitamin B12 deficiency anemia 05/17/2012 Assessment & Plan (04/22/2025 5:40 PM EDT): - Last CBC in March 2025, stable - Negative intrinsic factor antibody - Continue current B12 supplementation - Normal EGD in 2012 and normal colonoscopy in 2016 - Evaluated by mechanical technician Assessment & Plan (10/04/2024 8:32 AM EST): [...] B12 supplementation Obesity 05/17/2012 Assessment & Plan (04/22/2025 5:37 PM EDT): - Check the status of GLP1RA. She has diabetes mellitus (well-controlled), CLARE, and obesity with serious comorbidity. She will benefit from GLP1RA. - Due to lack of desirable outcome with dulatglutide, it was switched to tirzepatide. Check the status. Assessment & Plan (10/04/2024 8:29 AM EST): [...] lifestyle modifications Annual or biannual screening Encounters * This document contains information received from the source organization and may not represent a complete record from that organization. Date Type Department Care Team Description 08/08/2025 11:15 AM EST Office Visit [facility] [address] [place] [phone] Amy Olmedo MD Primary hypertension (Primary Dx); Paroxysmal atrial fibrillation (CMS/HCC) (HCC); Dyslipidemia; Type 2 diabetes mellitus without complication, without long-term current use of insulin (HCC); Asthma-COPD overlap syndrome (CMS/HCC) (HCC); Iron deficiency anemia, unspecified iron deficiency anemia type; Chronic right shoulder pain; Encounter for immunization 08/08/2025 Travel 08/07/2025 Telephone [facility] [address] [place] [phone] Korina Marks MA 07/30/2025 Orders Only [facility] [address] [place] [phone] Amy Olmedo MD 07/29/2025 Telephone [facility] [address] [place] [phone] Amy Olmedo MD Medication Question (Pt requesting med refill for mounjaro injection , also pt wants higher dose pt stated the 2.5 its not doing much she's been in the same weight for over a month ) 07/15/2025 Telephone [facility] [address] [place] [phone] Amy Olmedo MD chart prep 07/05/2025 Refill [facility] [address] [place] [address] Amy Olmedo MD Panic disorder with agoraphobia 06/12/2025 Refill [facility] [address] [place] [phone] Amy Olmedo MD Type 2 diabetes mellitus without complication, without long-term current use of insulin (CMS/HCC); Asthma-COPD overlap syndrome (CMS/HCC) 06/11/2025 Refill [facility] [place] [place] [address] Amy Olmedo MD 06/10/2025 Patient Outreach [facility] [address] [place] [phone] Amy Olmedo MD Care Coordination ([facility] Yary Nath, Sdoh f/u call, program graduation) 05/22/2025 Patient Outreach [facility] [address] [place] [address] [phone] Amy Olmedo MD Care Coordination ([facility] Yary Nath, SDOH f/u call) 05/17/2025 Orders Only [facility] [address] [place] [phone] Amy Olmedo MD 05/16/[address] [phone] Amy Olmedo MD Telephone call 05/09/[address] [phone] Amy Olmedo MD Medication Question; Prior Authorization (Mounjaro) 05/09/2025 Refill [facility] [address] [place] [phone] Amy Olmedo MD from Last 3 Months Immunizations Immunization Administration Dates Next Due Hep A, Adult 04/09/2024,10/07/2023 HepB-CpG 04/09/2024,10/07/2023 INFLUENZA VACCINE QUADRIVALE NT RECOMBINANT PRESERVATIVE FREE RIV4 07/03/2021 Influenza Injectable Quadriv alant Preservative Free IIV4 MDCK 06/10/2023,06/29/2022 Influenza injectable quadriv alent IIV4 with preservative 08/03/2016 Influenza injectable quadriv alent preservative free 06/27/2020,08/27/2019,10/18/2018,07/11 Influenza, IIV3, injectable 07/02/2014,1 ,06/22/2010,09/19,09/19/2006,07/13/2005 Influenza, Split (incl. kendall fied surface antigen) 09/13/2013,06/30/2012 Influenza, seasonal, injecta ble, preservative free 08/08/2025,09/27/2024 MMR 08/03/2001 Mumps 07/18/2001 Pfizer Covid-19 Vaccine 12+ 08/08/2025,1 11/28/2023,06/30/2023,09/02,04/24/2021,04/03/2021 Pfizer Covid-19 Vaccine 12+ Bivalent 09/15/2022 Pfizer [...] 16 08/08/2025 11:28 AM EST Oxygen Saturation 97% 01/28/2025 3:09 PM EDT Inhaled Oxygen Concentration - - Weight 92.2 kg (203 lb 3.2 oz) 08/08/2025 11:28 AM EST Height 157.5 cm (5' 2 ) 08/08/2025 11:28 AM EST Body Mass Index 37.17 08/08/2025 11:28 AM EST Plan of Treatment Health Maintenance Due Date Last Done Comments CT Colonography 1960 FIT DNA/Cologuard 1960 FIT 1960 FOBT 1960 Sigmoidoscopy 1960 Eye Exam 1970 RSV Patients and Patients Aged 60 years or older (1 - Risk 60-74 years 1-dose series) 2020 Dental Oral Exam 02/09/2024 08/10/2023, 01/2013, 01/11/2012 Dental X-Ray: Bitewings 08/11/2024 08/10/20 23, 06/13/2023, 11/06/2012, Additional history exists Dental Prophylaxis 11/29/2024 05/28/2024, 11/06/2012 Diabetes: Foot Exam 09/27/2025 09/27/2024, 09/19/2023, 09/19/2023, Additional history exists Diabetes: Hemoglobin A1C 11/08/2025 025, 04/15/2025, 01/28/2025, Additional history exists Depression Monitoring 11/09/2025 05/09/2025, 025 SDOH Screening 12/18/2025 12/18/2024 Diabetes: Urine Protein Screening 01/28/2026 01/28/2025, 01/30/2024, 05/26/2023 Disability Screening 01/28/2026 01/28/2025 Lipid Panel 01/28/2026 01/28/2025, 01/02, 12/16/2022, Additional history exists Tobacco Screening 04/15/2026 04/15/2025 Alcohol/Substance Use Screening 08/08/2026 08/08/2025 Dental X-Ray: Full Mouth 08/11/2026 08/10/2023, 01/01 Mammogram 04/03/2027 04/03/2025, 06/04, 06/15/2022, Additional history exists Pap Smear 09/27/2027 09/27/2024, 04/23/2019 Cervical Cancer Screening 09/27/2029 HPV/Cotest 09/27/2029 09/27/2024, 04/03, 04/23/2019 DTaP/Tdap/Td Vaccines (3 - Td or [...] Vaccines Completed 04/09/2024, 10/07/19 COVID-19 Vaccine Completed 08/08/2025, , 06/30/2023, Additional history exists Influenza Vaccine Completed 08/08/2025, , 06/10/2023, Additional history exists HIB Vaccines Aged Out No longer eligi ble based on patient's age to complete this topic HPV Vaccines Aged Out No longer eligi ble based on patient's age to complete this topic IPV Vaccines Aged Out No longer eligi ble based on patient's age to complete this topic Meningococcal B Vaccine Aged Out No l onger eligible based on patient's age to complete [...] 130/60(2024 11:28 AM EST) No Jeremy Galloway, Elias Hemoglobin A1c < 7 Result Component 5.8( 11:14 AM EST) No Jeremy Galloway, Elias Procedures Procedure Name Priority Date/Time Associated Diagnosis Comments POCT GLYCOSYLATED HEMOGLOBIN (HGB A1C) Routine 08/08/2025 11:14 AM EST Type 2 diabetes mellitus without complication, without long-term current use of insulin ([facility]) POCT GLUCOSE Routine 08/08/2025 11:12 AM EST Type 2 diabetes mellitus without complication, without long-term current use of insulin ([facility]) BI MAMMOGRAM SCREENING TOMOSYNTHESIS BILATERAL Routine 04/03/2025 12:41 PM EDT Breast cancer screening by mammogram ALBUMIN, RANDOM URINE W/CREATININE Routine 01/28/2025 3:37 PM EDT Type 2 diabetes mellitus without complication, without long-term current use of insulin ([facility]/HCC) LIPID PANEL WITH REFLEX TO DIRECT LDL Routine 01/28/2025 3:37 PM EDT Type 2 diabetes mellitus without complication, without long-term current use of insulin ([facility]) Dyslipidemia PAP SMEAR Routine 09/27/2024 10:30 AM EST Encounter for well woman exam with routine gynecological exam HPV MRNA E6/E7 REFLEX TO HPV 16, 18/45 Routine 09/27/2024 12:00 AM EST HM COLONOSCOPY Routine 06/28/2024 PROPHYLAXIS - [...] EST Periodontal disease Partial edentulism, class III HIV 1/2 ANTIGEN AND ANTIBODY (EXTERNAL RESULTS ONLY) Routine 05/10/2018 10:08 AM EDT from Last 3 Months or Most Recently Relevant to Health Maintenance Results * (ABNORMAL) POCT glycosylated hemoglobin (Hgb A1c) (08/08/2025 11:14 AM EST) Hemoglobin A1C 5.8(A) 4.0 - 5.7 % QC Media Lot # [id number] Lot# Expiration Date [id number] Blood Capillary blood specimen / Unknown 08/08/2025 11:14 AM EST us Amy Olmedo MD POINT OF CARE TEST ENTER/EDIT OR DERABLES Final Result * POCT glucose manually resulted (08/08/2025 11:12 AM EST) Glucose Blood, POC 87 60 - 200 mg/dL QC Media Lot # [id number] Lot# Expiration Date 3,026 Blood Capillary blood specimen / Unknown 08/08/2025 11:12 AM EST us Amy Olmedo MD POINT OF CARE TEST ENTER/EDIT OR DERABLES Final Result * BI Mammogram Screening Tomosynthesis Bilateral (04/03/2025 12:41 PM EDT) Anatomical Region Laterality Modality Breast Bilateral Mammography 04/03/2025 12:4 1 PM EDT Narrative 04/14/2025 9:04 PM EDT [facility] [place], [place] [address] Mammography Report Signed Patient: Sydnee Rubin MR#: [id number] : 1960 Acct:[id number] Age/Sex: 64 / F ADM Date: 04/03/25 Loc: HO.MAMMO Attending Dr: Amy Olmedo MD Ordering Physician: Amy Olmedo MD Results: 1Negative Date of Service: 04/03/25 Follow Up: 1 Year From [facility] Mammogram Procedure(s): MM tomosynthesis screening BI Accession Number(s): [id number] cc: Amy Olmedo MD EXAMINATION: MM SCREENING DIGITAL BREAST TOMOSYNTHESIS, BILATERAL CLINICAL INFORMATION: Screening. Asymptomatic. COMPARISON: Mammography: Comparison is made with available priors TECHNIQUE: Digital breast mammography with tomosynthesis is performed in both the craniocaudal and mediolateral oblique views along with computer-aided detection (CAD). FINDINGS: There are scattered areas of fibroglandular [...] target due date for their next mammogram. Electronically signed by: Carlee Robertson DO 04/14/2025 09:01 PM EDT Dictated By: Carlee Robertson DO Signed By: <Electronically signed by Carlee Robertson DO in OV> 04/14/25 2101 DD/ 1241 TD/TT: 04/03/25 1254 Mercury Purifier: Procedure Note Donotuseinterpreter, Image - 04/14/2025 [place] [facility] [address] [place] [address] Mammography Report Signed Patient: Sydnee Rubin EMR#: [id number] : 1960Acct:[id number] Age/Sex: 64 / FADM Date: 04/03/25 Loc: HO.MAMMO Attending Dr: Amy Olmedo MD Ordering Physician: Amy Olmedo MDResults: 1Negative Date of Service: 04/03/25Follow Up: 1 Year From Orig inal Mammogram Procedure(s): MM tomosynthesis screening BI Accession Number(s): [id number] cc: Amy Olmedo MD EXAMINATION: MM SCREENING DIGITAL BREAST TOMOSYNTHESIS, BILATERAL CLINICAL INFORMATION: Screening. Asymptomatic. COMPARISON: Mammography: Comparison is made with available priors TECHNIQUE: Digital breast mammography with tomosynthesis is performed in both the craniocaudal and mediolateral oblique views along with computer-aided detection (CAD). FINDINGS: There are scattered areas of fibroglandular [...] target due date for their next mammogram. Electronically signed by: Carlee Robertson DO 04/14/2025 09:01 PM EDT Dictated By: Carlee Robertson DO Signed By: <Electronically signed by Carlee Robertson DO in OV> 04/14/25 2101 DD/ 1241 TD/TT: 04/03/25 1254 Mercury Purifier: Amy Olmedo MD [facility] BI PROCEDURES Edited Result - Final * (ABNORMAL) Lipid Panel with Reflex to Direct LDL (01/28/2025 3:37 PM EDT) Triglycerides 155(H) <150 mg/dL [facility] Comment:Desirable Triglyceri de: less than 150 mg/dLBorderline High Triglyceride 150-199 mg/dLHigh Triglyceride: 200-499 mg/dLVery High Triglyceride: greater than or equal to 5OO mg/dL Cholesterol 154 <200 mg/dL [facility] Comment:Desirable Cholestero l: less than 200 mg/dLBorderline High Cholesterol: 200-239 mg/dLHigh Cholesterol: greater than 239 mg/dL LDL Cholesterol Calculated 83 <100 mg/dL [facility] Comment:Desirable LDL: less than 100 mg/dLNear Optimal/Above Optimal LDL: 110- 129 mg/dLBorderline High LDL: 130-159 mg/dLHigh LDL: 160-189 mg/dLVery High LDL: greater than or equal to 190 mg/dL HDL Cholesterol 40(L) >40 mg/dL [facility] Comment:Desirable HDL: great er than 40 mg/dL Note: This HDL assay may give artificially low results in patients with liver disease. Blood 01/28/2025 3:37 PM EDT 01/28/2025 4:06 PM EDT us Amy Olmedo MD LAB BLOOD ORDERABLES Final Resul t [facility] [address], [place] [phone] * Albumin, Random Urine W/Creatinine (01/28/2025 3:37 PM EDT) Creatinine, Urine 163.24 mg/dL [facility] Microalbumin Urine 11.0 mg/L [facility] Microalbum Creatinine Ratio Ur 6.7 <30 ug/mg cr [facility] Comment:Albumin/Creatinine R atio Reference Ranges: Normal: < 30 ug/mg creatinine Microalbuminuria: 30 - 300 ug/mg creatinineClinical Albuminuria: > 300 ug/mg creatinine Urine 01/28/2025 3:37 PM EDT 01/28/2025 4:00 PM EDT Amy Olmedo MD LAB URINE ORDERABLES Final Resul t [facility] [address] [place] [phone] * Pap Smear (09/27/2024 10:30 AM EST) Swab Cervix uteri structure / Unknown 09/27/2024 10:30 AM EST 09/28/2024 12:00 PM EST Narrative [facility] - 10/04/2024 7:28 AM EST ----- ------- Name: Sydnee Rubin Age/Sex: 64/F : 1960 Unit#: [id number] Attend Dr: Amy Olmedo MD Re09/27/24 Status: DEP [facility]: ----- ------- SPEC : [id number] RECD: 09/28/24-1199 STATUS: BRANDY TOURE NUM: [id number] PATRIA: 09/27/24-[address]: Amy Olmedo MD ENTERED: 09/28/24-1212 SP TYPE: Pap Smr OTHR DR: ORDERED: Pap Smear Interpretation Satisfactory for evaluation. Negative for intraepithelial lesion or malignancy. Atrophic. Mild inflammation. HPV High Risk: Negative HPV Genotyping 16: Negative HPV Genotyping 18: Negative Clinical Information LMP: Postmenopausal Previous PAP test: 2019, WNL Material Received ThinPrep-Cervical ----- ------- Signed (signature on file) ALISSA Crouch (ASCP) 10/04/24 0728 ----- ------- END OF REPORT Amy Olmedo MD LAB CYTOLOGY ORDERABLES Final Re sult [facility] [address] [place] [phone] * HPV mRNA E6/E7 w/Reflex to HPV Genotypes 16, 18/45 (09/27/2024 12:00 AM EST) Historical Provider LAB CYTOLOGY ORDERABLES F inal Result * Hm Colonoscopy (06/28/2024) Pathologist [facility] Colonoscopy Normal Normal 06/28/2024 Historical Provider HEALTH MAINTENANCE Final Result * Hepatitis A,B,C Profile (09/19/2023 11:44 AM EST) Pathologist [facility] Hepatitis A IgM Nonreactive Nonreactive [facility] Comment:IgM antibodies to WELLS V not detected; does not exclude earlyacute or recovered HAV infection. ~Hepatitis B Surface Antibody NONREACTIVE Nonreactive [facility] Comment:Nonreactive: < 8.00 mIU/mL Hepatitis B Core Antibody Nonreactive Nonreactive [facility] Hepatitis C Antibody Nonreactive Nonreactive [facility] Comment:Antibodies to HCV no t detected; does not exclude early acuteHCV infection. Hepatitis B Surface Ag Negative Negative [facility] Blood Venous blood specimen / Unknown 09/19/2023 11:44 AM EST 09/19/2023 1:10 PM EST Amy Olmedo MD LAB BLOOD ORDERABLES Final Resul t [facility] [address] [place] [address] [phone] * HIV 1/2 ANTIGEN AND ANTIBODY (EXTERNAL RESULTS ONLY) (05/10/2018 10:08 AM EDT) HIV Ag/Ab Nonreactive 05/10/2018 10:0 8 AM EDT [place] Provider LAB POINT OF CARE TEST DOCKED DEVICE UNSOLICITED RESULTS Final Result from Last 3 Months or Most Recently Relevant to Health Maintenance Insurance [facility] C[place] ST[place] AD[place] Care Teams Enforcement Safety Officer Relationship Specialty Start Date End Date Amy Olmedo MD [address] [place] [phone] PCP - General Family Medicine 10/03/18 Jeremy Galloway, PharmD [address] [place] [address] Pharmacist Internal Medicine 03/11/23
== END 2025-08-09 14:00 | disposition home or self-care (01) ==
LOC: HO.HCS 13:00
PROVIDERS: PCP Family Medicine; Visit Provider Nurse Practitioner Family
DX: I30.9 Acute pericarditis, unspecified (principal); I48.0 Paroxysmal atrial fibrillation
CPT/HCPCS: 99214

== ENCOUNTER → 2025-08-09 13:00 | Outpatient (BNVA) | payer MEDICAID, SELFPAY | PROVIDERS: PCP Family Medicine; Visit Provider Nurse Practitioner Family | DX: I30.9 Acute pericarditis, unspecified (principal); I48.0 Paroxysmal atrial fibrillation | CPT/HCPCS: 99212 ==

== ENCOUNTER 2025-08-10 10:36 | Outpatient (REF) | payer MEDICAID, SELFPAY ==
--- OUTSIDE RECORDS SUMMARY | 2025-08-08 11:15 | XMS_ITS | Encounter Summary ---
Author Organization [employer] Address [address] [facility] [address] [place] [address] Care Team Providers Care Acquisition Analyst Name Role Phone Amy Olmedo MD Primary Care Provider [phone] Jeremy Galloway PharmD Unavailable [phone] Encounter Details Date Type Department Care Team (Late st Contact Info) Description 08/08/2025 11:15 AM EST Office Visit [facility] [address] [place], [place] [phone] Amy Olmedo MD [address] [place], [place] [phone] Primary hypertension (Primary Dx); Paroxysmal atrial fibrillation [...] Media Lot # [id number] Lot# Expiration Date 3,672 Blood Capillary blood specimen / Unknown 08/08/2025 [...] documented as of this encounter Care Teams Acquisition Analyst Relationship Specialty Start Date End Date Amy Olmedo MD [address] [place] [address] PCP - General Family Medicine 10/03/18 Jeremy Galloway, Elias [address] [place] [address] Pharmacist Internal Medicine 03/11/23 documented as of this encounter
--- NOTE | ~2025-08-10 | XR_ITS ---
EXAMINATION: XR SHOULDER, RIGHT CLINICAL INFORMATION: right shoulder pain, limited ROM, pain with abduction COMPARISON: X-ray 04/01/2022 TECHNIQUE: Four views of the right shoulder. FINDINGS: Mild acromioclavicular arthritis. No visible acute fracture, dislocation or suspicious bony lesions. No abnormal soft tissue calcification. XR/XR shoulder RT min 2V IMPRESSION: Mild acromioclavicular arthritis. Electronically signed by: Brian Hoyt MD 08/12/2025 07:36 AM ANNA
--- OUTSIDE RECORDS SUMMARY | 2025-08-10 10:39 | XMS_ITS | Encounter Summary ---
Author Organization [employer] Address 75 [facility] 7t [place] [address] Care Team Providers Care Hassock Maker Name Role Phone Amy Olmedo MD Primary Care Provider [phone] Jeremy Galloway PharmD Unavailable [phone] Encounter Details Date Type Department Care Team (Late st Contact Info) Description 05/17/2025 Orders Only [facility] MEDICINE [address] [place], [place] [phone] Amy Olmedo MD [address] [place], [place] [phone] Social History Tobacco Use Types Packs/Day Years [...] documented as of this encounter Care Teams Hassock Maker Relationship Specialty Start Date End Date Amy Olmedo MD [address] [place] [address] PCP - General Family Medicine 10/03/18 Jeremy Galloway PharmD [address] [place] [address] Pharmacist Internal Medicine 03/11/23 documented as of this encounter
--- OUTSIDE RECORDS SUMMARY | 2025-08-10 10:39 | XMS_ITS | Encounter Summary ---
Author Organization [employer] Address [address] [facility] 7t [place] [address] Care Team Providers Care Mercury Washer Name Role Phone Amy Olmedo MD Primary Care Provider [phone] Jeremy Galloway PharmD Unavailable Encounter Details Date Type Department Care Team (Late st Contact Info) Description 01/30/2025 Orders Only [facility] [address] [place], [place] [phone] Shadia Cohn Social History Tobacco Use Types [...] documented as of this encounter Care Teams Mercury Washer Relationship Specialty Start Date End Date Amy Olmedo MD [address] [place] [address] PCP - General Family Medicine 10/03/18 Jeremy Galloway PharmD [address] [place] [address] Pharmacist Internal Medicine 03/11/23 documented as of this encounter
--- OUTSIDE RECORDS SUMMARY | 2025-08-10 10:39 | XMS_ITS | Encounter Summary ---
Author Organization [employer] Address 75 [facility] 7t [place] [address] Care Team Providers Care Loom Blower Name Role Phone mAy Olmedo MD Primary Care Provider Jeremy Galloway PharmD Unavailable [phone] Reason for Referral * Consultation (Routine) - Closed Specialty Diagnoses / Procedures Referred By Contgera t Referred To Contact General Surgery Diagnoses Mass on back Amy Olmedo MD [address] [place] [address] Phone: tel: fax: Drew Coyne MD [address] [place] [address] Phone: tel: fax: Referral ID Status Reason Start Date Expiration Date V isits Requested Visits Authorized [id number] Closed Specialty Services Required 03/09/2024 03/09/2025 12 12 Encounter Details Date Type Department Care Team (Late st Contact Info) Description 03/07/2024 Orders Only [facility] MEDICINE [address] [place], [place] [phone] Amy Olmedo MD [address] [place], [place] [phone] Mass on back (Primary Dx) Social History [...] documented as of this encounter Care Teams Loom Blower Relationship Specialty Start Date End Date Amy Olmedo MD [address] [place] [address] PCP - General Family Medicine 10/03/18 Jeremy Galloway, MaciejD [address] [place] [address] Pharmacist Internal Medicine 03/11/23 documented as of this encounter
--- OUTSIDE RECORDS SUMMARY | 2025-08-10 10:39 | XMS_ITS | Encounter Summary ---
Author Organization [employer] Address 75 [facility] 7t [place] [address] Care Team Providers Care Human Resource Consultant Name Role Phone Amy Olmedo MD Primary Care Provider [phone] Jeremy Glaloway PharmD Unavailable [phone] Encounter Details Date Type Department Care Team (Late st Contact Info) Description 11/26/2024 Orders Only [facility] MEDICINE [address] [place], [place] [phone] Amy Olmedo MD [address] [place], [place] [phone] Social History Tobacco Use Types Packs/Day Years [...] documented as of this encounter Care Teams Human Resource Consultant Relationship Specialty Start Date End Date Amy Olmedo MD [address] [place] [address] PCP - General Family Medicine 10/03/18 Jeremy Galloway PharmD [address] [place] [address] Pharmacist Internal Medicine 03/11/23 documented as of this encounter
--- OUTSIDE RECORDS SUMMARY | 2025-08-10 10:39 | XMS_ITS | Encounter Summary ---
Author Organization [employer] Address 75 [facility] 7t [place] [address] Care Team Providers Care Avionics Engineer Name Role Phone Amy Olmedo MD Primary Care Provider [phone] Jeremy Galloway PharmD Unavailable [phone] Encounter Details Date Type Department Care Team (Late st Contact Info) Description 11/02/2024 Orders Only [facility] MEDICINE [address] [place], [place] [phone] Amy Olmedo MD [address] [place], [place] [phone] Social History Tobacco Use Types Packs/Day Years [...] documented as of this encounter Care Teams Avionics Engineer Relationship Specialty Start Date End Date Amy Olmedo MD [address] [place] [address] PCP - General Family Medicine 10/03/18 Jeremy Galloway PharmD [address] [place] [address] Pharmacist Internal Medicine 03/11/23 documented as of this encounter
--- OUTSIDE RECORDS SUMMARY | 2025-08-10 10:39 | XMS_ITS | Encounter Summary ---
Author Organization [employer] Address 75 [facility] 7t [place] [address] Care Team Providers Care Environmental Solutions Engineer Name Role Phone Amy Olmedo MD Primary Care Provider [phone] Jeremy Galloway PharmD Unavailable [phone] Reason for Referral * Consultation (Routine) - Closed Specialty Diagnoses / Procedures Referred By Contac t Referred To Contact Diagnoses Asthma-COPD overlap syndrome (CMS/HCC) (HCC) Paroxysmal atrial fibrillation (CMS/HCC) (HCC) Primary hypertension Type 2 diabetes mellitus without complication, without long-term current use of insulin (HCC) Amy Olmedo MD [address] [place] [address] Phone: tel: fax: [address] [address] Phone: tel: fax: Referral ID Status Reason Start Date Expiration Date V isits Requested Visits Authorized [id number] Closed Specialty Services Required 12/19/2024 12/19/2025 1 1 Encounter Details Date Type Department Care Team (Late st Contact Info) Description 12/19/2024 Orders Only [facility] MEDICINE [address] [place] [address] [phone] Amy Olmedo MD [address] [place], [place] [phone] Asthma-COPD overlap syndrome (CMS/HCC) (Primary Dx); Paroxysmal [...] (CMS/HCC) (HCC)- Primary Paroxysmal atrial fibrillation (CMS/HCC) ([facility]) Atrial fibrillation Primary hypertension Unspecified essential hypertension Type 2 diabetes mellitus without complication, without long-term current use of insulin ([facility]) documented in this encounter Additional Health Concerns Assessment Noted Time PHQ-9 Depression Total Score: 4 09/19/20 23 10:40 AM EST documented as of this encounter Care Teams Environmental Solutions Engineer Relationship Specialty Start Date End Date Amy Olmedo MD [address] [place] [address] PCP - General Family Medicine 10/03/18 Jeremy Galloway PharmD [address] [place] [address] Pharmacist Internal Medicine 03/11/23 documented as of this encounter
--- OUTSIDE RECORDS SUMMARY | 2025-08-10 10:39 | XMS_ITS | Encounter Summary ---
Author Organization [employer] Address 75 [facility] 7t [place] [address] Care Team Providers Care Manufacturing Chief Engineer Name Role Phone Amy Olmedo MD Primary Care Provider [phone] Jeremy Galloway PharmD Unavailable [phone] Encounter Details Date Type Department Care Team (Late st Contact Info) Description 12/14/2024 Orders Only [facility] MEDICINE [address] [place], [place] [phone] Amy Olmedo MD [address] [place], [place] [phone] Social History Tobacco Use Types Packs/Day Years [...] documented as of this encounter Care Teams Manufacturing Chief Engineer Relationship Specialty Start Date End Date Amy Olmedo MD [address] [place] [address] PCP - General Family Medicine 10/03/18 Jeremy Galloway PharmD [address] [place] [address] Pharmacist Internal Medicine 03/11/23 documented as of this encounter
--- OUTSIDE RECORDS SUMMARY | 2025-08-10 10:39 | XMS_ITS | Encounter Summary ---
Author Organization [employer] Address 75 [facility] 7t [place] [address] Care Team Providers Care Coconut Boiler Name Role Phone Amy Olmedo MD Primary Care Provider [phone] Jeremy Galloway PharmD Unavailable [phone] Encounter Details Date Type Department Care Team (Late st Contact Info) Description 11/29/2022 Orders Only [facility] MED & PEDS [address] [place], [place] [phone] Rosi Harvey LPN Social History Tobacco Use [...] on filedocumented in this encounter Care Teams Coconut Boiler Relationship Specialty Start Date End Date Amy Olmedo MD [address] [place], [place] [phone] PCP - General Family Medicine 10/03/18 Jeremy Galloway, PharmD [address] [place], [place] [phone] Pharmacist Internal Medicine 03/11/23 documented as of this encounter
--- OUTSIDE RECORDS SUMMARY | 2025-08-10 10:39 | XMS_ITS | Encounter Summary ---
Author Organization [employer] Address [address] [facility] 7t [place] [address] Care Team Providers Care Service Parts Driver Name Role Phone Amy Olmedo MD Primary Care Provider [phone] Jeremy Galloway PharmD Unavailable [phone] Encounter Details Date Type Department Care Team (Late st Contact Info) Description 09/21/2022 Orders Only [facility] [address] [place], [place] [phone] Lena Buenrostro LPN Social History Tobacco Use [...] on filedocumented in this encounter Care Teams Service Parts Driver Relationship Specialty Start Date End Date Amy Olmedo MD [address] [place], [place] [phone] PCP - General Family Medicine 10/03/18 GallowayJeremy PharmD [address] [place] [address] Pharmacist Internal Medicine 03/11/23 documented as of this encounter
--- OUTSIDE RECORDS SUMMARY | 2025-08-10 10:40 | XMS_ITS | Encounter Summary ---
Author Organization [employer] Address [address] [facility] 7t [place] [address] Care Team Providers Care Slunk Skinner Name Role Phone Amy Olmedo MD Primary Care Provider [phone] Jeremy Galloway PharmD Unavailable [phone] Encounter Details Date Type Department Care Team [...] documented as of this encounter Care Teams Slunk Skinner Relationship Specialty Start Date End Date Amy Olmedo MD [address] [place] [address] PCP - General Family Medicine 10/03/18 Jeremy Galloway PharmD [address] [place] [address] Pharmacist Internal Medicine 03/11/23 documented as of this encounter
--- OUTSIDE RECORDS SUMMARY | 2025-08-10 10:40 | XMS_ITS | Encounter Summary ---
Author Organization [employer] Address 75 [facility] 7t [place] [address] Care Team Providers Care Electrostatic Painter Name Role Phone Amy Olmedo MD Primary Care Provider [phone] Jeremy Galloway PharmD Unavailable [phone] Encounter Details Date Type Department Care Team (Late st Contact Info) Description 07/30/2025 Orders Only [facility] MEDICINE [address] [place], [place] [phone] Amy Olmedo MD [address] [place], [place] [phone] Social History Tobacco Use Types Packs/Day Years [...] documented as of this encounter Care Teams Electrostatic Painter Relationship Specialty Start Date End Date Amy Olmedo MD [address] [place] [address] PCP - General Family Medicine 10/03/18 Jeremy Galloway PharmD [address] [place] [address] Pharmacist Internal Medicine 03/11/23 documented as of this encounter
--- OUTSIDE RECORDS SUMMARY | 2025-08-10 10:40 | XMS_ITS | Encounter Summary ---
Author Organization [employer] Address 75 [facility] 7t [place] [address] Care Team Providers Care Garbage Depot Worker Name Role Phone Amy Olmedo MD Primary Care Provider [phone] Jeremy Galloway PharmD Unavailable [phone] Encounter Details Date Type Department Care Team (Late st Contact Info) Description 08/07/2025 Telephone [facility] [address] [place], [place] [phone] Korina Marks [place] Social History Tobacco Use [...] documented as of this encounter Care Teams Garbage Depot Worker Relationship Specialty Start Date End Date Amy Olmedo MD [address] [place] [address] PCP - General Family Medicine 10/03/18 Jeremy Galloway PharmD [address] [place] [address] Pharmacist Internal Medicine 03/11/23 documented as of this encounter
--- OUTSIDE RECORDS SUMMARY | 2025-08-10 10:40 | XMS_ITS | Clinical Summary ---
Author Organization [employer] Address [address] [place] [address] Care Team Providers Care Sandblasting Supervisor Name Role Phone Amy Olmedo MD Primary Care Provider [phone] Jeremy Galloway PharmD Unavailable [phone] Allergies Active Allergy Reactions Criticality Noted Date [...] complication, without long-term current use of insulin ([facility]) 1 kit in the morning. [...] (04/22/2025 5:45 PM EDT): - seen in [facility] on 03/26/25. Hospitalized for pericardial effusion. Dx acute pericarditis. Tx colchicine. - autoimmune work-up negative thus far - optimize chronic disease management Partial edentulism 06/21/2024 Mass on back 01/24/2024 Assessment & Plan (01/24/2024 2:56 PM EDT): - will evaluate with ultrasound, may not be able to have external biopsy Constipation 09/19/2023 Assessment & Plan (01/29/2025 11:10 PM EDT): - followed by [facility], last seen in December 2023 - prescribed Miralax, Colace, and dulcolax - fiber-rich diet - patient is scheduled for colonoscopy Assessment & Plan (01/24/2024 2:54 PM EDT): - followed by [facility], last seen in December 2023 - prescribed Miralax, Colace, and dulcolax - fiber-rich diet - patient is scheduled for colonoscopy Assessment & Plan (09/19/2023 5:58 AM EST): - followed by [facility], last seen in May 2023 - prescribed Miralax and Colace - fiber-rich diet Iron deficiency anemia 05/03/2023 Assessment & Plan (04/22/2025 5:40 PM EDT): - seen by button maker and installer on 04/13/23 - EGD by Dr. Wheatley on 06/28/24. Quick esophagus with chronic active inflammation. Hyperplastic gastric polyp . - Colonoscopy on 06/28/24. Hemorrhoids. Repeat in 10 years. - received IV iron - continue current treatment plan per Heme Assessment & Plan (10/04/2024 8:34 AM EST): - seen by button maker and installer on 04/13/23 - received IV iron - continue current treatment plan per Heme Assessment & Plan (09/19/2023 5:59 AM EST): - seen by button maker and installer on 04/13/23 - received IV iron - continue current treatment plan per Heme Assessment & Plan (05/29/2023 6:11 AM EDT): - seen by button maker and installer on 04/13/23 - currently receiving IV iron - continue current treatment plan per Heme CLARE (obstructive sleep apnea) 02/28/2023 Assessment & Plan (04/22/2025 5:41 PM EDT): - sleep study in January 2022 showed severe CLARE, positive airway pressure therapy was recommended SCAR - evaluated by pack train driver - pt tried CPAP, but returned the [...] therapy was recommended SCAR - evaluated by pack train driver - pt tried CPAP, but returned the [...] therapy was recommended SCAR - evaluated by pack train driver - pt tried CPAP, but returned the [...] therapy was recommended SCAR - evaluated by pack train driver - pt tried CPAP, but returned the [...] therapy was recommended SCAR - evaluated by pack train driver - pt tried CPAP, but returned the [...] therapy was recommended SCAR - evaluated by pack train driver - pt tried CPAP, but returned the [...] Plan (04/15/2025 9:36 AM EDT): -Followed by [facility], last seen in March 2024, next follow up on 04/26/25 -Dx on 05/29/21 at [facility] in a setting of pneumonia and asthma exacerbation, converted to sinus rhythm in ED with metoprolol. Discharged with carvedilol and Eliquis -XYEKX2Apjg3 score 2 -Normal echo on 06/01/21 -Nuclear [...] Plan (01/29/2025 11:09 PM EDT): -Followed by [facility], last seen in December 2022, patient reports she had more recent visit -Dx on 05/29/21 at [facility] in a setting of pneumonia and asthma exacerbation, converted to sinus rhythm in ED with metoprolol. Discharged with carvedilol and Eliquis -[id number] score 2 -Normal echo on 06/01/21 -Nuclear [...] Plan (10/04/2024 8:31 AM EST): -Followed by [facility], last seen in December 2022, patient reports she had more recent visit -Dx on 05/29/21 at [facility] in a setting of pneumonia and asthma exacerbation, converted to sinus rhythm in ED with metoprolol. Discharged with carvedilol and Eliquis -FYMAY9Kzgw3 score 2 -Normal echo on 06/01/21 -Nuclear [...] Plan (01/24/2024 2:51 PM EDT): -Followed by [facility], last seen in December 2022, patient reports she had more recent visit -Dx on 05/29/21 at [facility] in a setting of pneumonia and asthma exacerbation, converted to sinus rhythm in ED with metoprolol. Discharged with carvedilol and Eliquis -WFMJY5Dwod2 score 2 -Normal echo on 06/01/21 -Nuclear [...] Plan (09/25/2023 10:48 AM EST): -Followed by [facility], last seen in December 2022 -Dx on 05/29/21 at [facility] in a setting of pneumonia and asthma exacerbation, converted to sinus rhythm in ED with metoprolol. Discharged with carvedilol and Eliquis -CBMWX9Jqec0 score 2 -Normal echo on 06/01/21 -Nuclear [...] Plan (05/29/2023 6:05 AM EDT): -Followed by [facility], last seen in December 2022 -Dx on 05/29/21 at [facility] in a setting of pneumonia and asthma exacerbation, converted to sinus rhythm in ED with metoprolol. Discharged with carvedilol and Eliquis -YXHAC8Bzib9 score 2 -Normal echo on 06/01/21 -Nuclear [...] Plan (03/02/2023 6:06 AM EDT): -Followed by [facility], last seen in December 2022 -Dx on 05/29/21 at [facility] in a setting of pneumonia and asthma exacerbation, converted to sinus rhythm in ED with metoprolol. Discharged with carvedilol and Eliquis -SUGCW0Gsoz7 score 2 -Normal echo on 06/01/21 -Nuclear [...] 5:00 PM EST): -Dx on 05/29/21 at [facility] in a setting of pneumonia and asthma exacerbation -converted to sinus rhythm in ED with metoprolol -[id number] score 2 -Normal echo on 06/01/21 -discharged [...] threshold 140/90 -BP at goal -Co-managed through [facility], last appt on 05/14/23 -Continue lisinopril 40mg [...] but home BP is normal -Co-managed through [facility], last appt on 05/14/23 -Continue lisinopril 40mg [...] Plan (04/22/2025 5:41 PM EDT): -Followed by pack train driver, last seen by Dr. Perez in [place] [...] Plan (01/29/2025 11:08 PM EDT): -Followed by pack train driver, last seen by Dr. Perez in [place] [...] Plan (10/04/2024 8:30 AM EST): -Followed by pack train driver, last seen by Dr. Perez in [place] [...] Plan (01/24/2024 2:50 PM EDT): -Followed by pack train driver, last seen by Dr. Perez in [place] [...] Plan (09/19/2023 5:56 AM EST): -Followed by pack train driver, last seen by Dr. Perez in April [...] Plan (05/29/2023 6:21 AM EDT): -Followed by pack train driver, last seen by Dr. Ellis in December [...] Plan (03/02/2023 6:00 AM EDT): -Followed by pack train driver, last seen by Dr. Perez in December [...] Plan (09/19/2023 6:02 AM EST): -Evaluated by [facility] providers, last seen in 2018 and was recommended PT for lumbar spondylosis with facet mediated pain. Pt was prescribed meloxicam. -Continue APAP prn -Encouraged to resume home back exercise Assessment & Plan (05/29/2023 6:16 AM EDT): -Evaluated by [facility] providers, last seen in 2018 and was recommended PT for lumbar spondylosis with facet mediated pain. Pt was prescribed meloxicam. -Continue APAP prn -Encouraged to resume home back exercise Assessment & Plan (09/19/2022 5:07 PM EST): -Evaluated by [facility] providers, last seen in 2018 and was recommended PT -She would like to be evaluated by paint stock clerk for possible injection; Will refer -Continue APAP prn -Encouraged to resume home back exercise Vitamin B12 deficiency anemia 05/17/2012 Assessment & Plan (04/22/2025 5:40 PM EDT): - Last CBC in March 2025, stable - Negative intrinsic factor antibody - Continue current B12 supplementation - Normal EGD in 2012 and normal colonoscopy in 2016 - Evaluated by button maker and installer Assessment & Plan (10/04/2024 8:32 AM EST): [...] Description 08/08/2025 11:15 AM EST Office Visit [facility] [address] [place] [phone] Amy Olmedo MD Primary hypertension (Primary Dx); Paroxysmal atrial fibrillation (CMS/HCC) (HCC); Dyslipidemia; Type 2 diabetes mellitus without complication, without long-term current use of insulin (HCC); Asthma-COPD overlap syndrome (CMS/HCC) (HCC); Iron deficiency anemia, unspecified iron deficiency anemia type; Chronic right shoulder pain; Encounter for immunization 08/08/2025 Travel 08/07/2025 Telephone [facility] [address] [place] [phone] Korina Marks [place] 07/30/2025 Orders Only [facility] [address] [place] [phone] Amy Olmedo MD 07/29/2025 Telephone [facility] [address] [place] [phone] Amy Olmedo MD Medication Question (Pt requesting med refill for mounjaro injection , also pt wants higher dose pt stated the 2.5 its not doing much she's been in the same weight for over a month ) 07/15/2025 Telephone [facility] [address] [place] [address] Amy Olmedo MD chart prep 07/05/2025 Refill [facility] [address] [place] [address] Amy Olmedo MD Panic disorder with agoraphobia 06/12/2025 Refill [facility] [address] [place] [address] Amy Olmedo MD Type 2 diabetes mellitus without complication, without long-term current use of insulin (CMS/HCC); Asthma-COPD overlap syndrome (CMS/HCC) 06/11/2025 Refill [facility] [address] [place] [phone] Amy Olmedo MD 06/10/2025 Patient Outreach [address] [address] Amy Olmedo MD Care Coordination (C3/W Yary Nath Sdoh f/u call, program graduation) 05/22/2025 Patient Outreach [address] [address] Amy Olmedo MD Care Coordination (C3/W Yary Nath SDOH f/u call) 05/17/2025 Orders Only [address] [address] Amy Olmedo MD 05/16/[address] [address] Amy Olmedo MD Telephone call from Last 3 Months Immunizations Immunization Administration [...] 11:14 AM EST) No Jeremy Galloway PharmD Procedures Procedure Name Priority Date/Time Associated Diagnosis Comments POCT GLYCOSYLATED HEMOGLOBIN (HGB A1C) Routine 08/08/2025 11:14 AM EST Type 2 diabetes mellitus without complication, without long-term current use of insulin ([facility]) POCT GLUCOSE Routine 08/08/2025 11:12 AM EST Type 2 diabetes mellitus without complication, without long-term current use of insulin ([facility]) BI MAMMOGRAM SCREENING TOMOSYNTHESIS BILATERAL Routine 04/03/2025 12:41 PM EDT Breast cancer screening by mammogram ALBUMIN, RANDOM URINE W/CREATININE Routine 01/28/2025 3:37 PM EDT Type 2 diabetes mellitus without complication, without long-term current use of insulin ([facility]) LIPID PANEL WITH REFLEX TO DIRECT LDL Routine 01/28/2025 3:37 PM EDT Type 2 diabetes mellitus without complication, without long-term current use of insulin ([facility]) Dyslipidemia PAP SMEAR Routine 09/27/2024 10:30 AM [...] Media Lot # [id number] Lot# Expiration Date ,665,459 Blood Capillary blood specimen / Unknown 08/08/2025 11:14 AM EST us Amy Olmedo MD POINT OF CARE TEST ENTER/EDIT OR DERABLES Final Result * POCT glucose manually resulted (08/08/2025 11:12 AM EST) Glucose Blood, POC 87 60 - 200 mg/dL QC Media Lot # [id number] Lot# Expiration Date 3095,814 Blood Capillary blood specimen / Unknown 08/08/2025 11:12 AM EST us Amy Olmedo MD POINT OF CARE TEST ENTER/EDIT OR DERABLES Final Result * BI Mammogram Screening Tomosynthesis Bilateral (04/03/2025 12:41 PM EDT) Anatomical Region Laterality Modality Breast Bilateral Mammography 04/03/2025 12:4 1 PM EDT Narrative 04/14/2025 9:04 PM EDT [address] [place] [address] Mammography Report Signed Patient: Sydnee Rubin MR#: [id number] : 1960 Acct:[id number] Age/Sex: 64 / F ADM Date: 04/03/25 Loc: MOR Attending Dr: Amy Olmedo MD Ordering Physician: Amy Olmedo MD Results: 1Negative Date of Service: 04/03/25 Follow Up: 1 Year From Orig inal Mammogram Procedure(s): MM tomosynthesis screening BI Accession Number(s): [id number] cc: Amy Olmedo MD EXAMINATION: MM SCREENING [...] 04/14/25 2101 DD/ 1241 TD/TT: 04/03/25 1254 Key Account Executive: Procedure Note Donotuseinterpreter, Image - 04/14/[address] [place] [address] Mammography Report Signed Patient: Sydnee Rubin EMR#: [id number] : 1960Acct:[id number] Age/Sex: 64 / FADM Date: 04/03/25 Loc: HO.MAMMO Attending Dr: Amy Olmedo MD Ordering Physician: Amy Olmedo MDResults: 1Negative Date of Service: 04/03/25Follow Up: 1 Year From [facility] Mammogram Procedure(s): MM tomosynthesis screening BI Accession Number(s): [id number] cc: Amy Olmedo MD EXAMINATION: MM SCREENING [...] 04/14/25 2101 DD/ 1241 TD/TT: 04/03/25 1254 Key Account Executive: us Amy Olmedo MD IMG BI PROCEDURES Edited Result - Final * (ABNORMAL) Lipid Panel with Reflex to Direct LDL (01/28/2025 3:37 PM EDT) Triglycerides 155(H) <150 mg/dL [facility] Comment:Desirable Triglyceri de: less than 150 mg/dLBorderline High Triglyceride 150-199 mg/dLHigh Triglyceride: 200-499 mg/dLVery High Triglyceride: greater than or equal to 5OO mg/dL Cholesterol 154 <200 mg/dL [facility] Comment:Desirable Cholestero l: less than 200 mg/dLBorderline High Cholesterol: 200-239 mg/dLHigh Cholesterol: greater than 239 mg/dL LDL Cholesterol Calculated 83 <100 mg/dL [facility] Comment:Desirable LDL: less than 100 mg/dLNear Optimal/Above Optimal LDL: 110- 129 mg/dLBorderline High LDL: 130-159 mg/dLHigh LDL: 160-189 mg/dLVery High LDL: greater than or equal to 190 mg/dL HDL Cholesterol 40(L) >40 mg/dL [facility] Comment:Desirable HDL: great er than 40 mg/dL Note: This HDL assay may give artificially low results in patients with liver disease. Blood 01/28/2025 3:37 PM EDT 01/28/2025 4:06 PM EDT us Amy Olmedo MD LAB BLOOD ORDERABLES Final Resul t Performing Organization Address City/[facility] Co de Phone Number [facility] [address] [place] [address] [phone] * Albumin, Random Urine W/Creatinine (01/28/2025 3:37 PM EDT) Creatinine, Urine 163.24 mg/dL [facility] Microalbumin Urine 11.0 mg/L [facility] Microalbum Creatinine Ratio Ur 6.7 <30 ug/mg cr [facility] Comment:Albumin/Creatinine R atio Reference Ranges: Normal: < 30 ug/mg creatinine Microalbuminuria: 30 - 300 ug/mg creatinineClinical Albuminuria: > 300 ug/mg creatinine Urine 01/28/2025 3:37 PM EDT 01/28/2025 4:00 PM EDT us Amy Olmedo MD LAB URINE ORDERABLES Final Resul t Performing Organization Address City/[facility]/ZIP Co de Phone Number [facility] [address] [place] [phone] * Pap Smear (09/27/2024 10:30 AM EST) Swab Cervix uteri structure / Unknown 09/27/2024 10:30 AM EST 09/28/2024 12:00 PM EST Max [facility] - 10/04/2024 7:28 AM EST ----- ------- Name: ScottieSydnee Brenda Age/Sex: 64/F : 1960 Unit#: [id number] Attend Dr: Amy Olmedo MD Re09/27/24 Status: DEP REF Location: HO.HHCLNP Disch: ----- ------- SPEC : [id number] RECD: 09/28/24-1199 STATUS: BRANDY TOURE NUM: [id number] PATRIA: 09/27/24-[address]: Amy Olmedo MD ENTERED: 09/28/24-1212 SP TYPE: Pap Smr OTHR : ORDERED: Pap Smear Interpretation Satisfactory for evaluation. Negative for intraepithelial lesion or malignancy. Atrophic. Mild inflammation. HPV High Risk: Negative HPV Genotyping 16: Negative HPV Genotyping 18: Negative Clinical Information LMP: Postmenopausal Previous PAP test: 2019, WNL Material Received ThinPrep-Cervical ----- ------- Signed (signature on file) ALISSA Crouch (ASC) 10/04/24 0728 ----- ------- END OF REPORT Amy Olmedo MD LAB CYTOLOGY ORDERABLES Final Re sult [facility] [address] [place] [phone] * HPV mRNA E6/E7 w/Reflex to HPV Genotypes 16, 18/45 (09/27/2024 12:00 AM EST) Historical Provider LAB CYTOLOGY ORDERABLES F inal Result * Hm Colonoscopy (06/28/2024) Colonoscopy Normal Normal 06/28/2024 Historical Provider HEALTH MAINTENANCE Final Result * Hepatitis A,B,C Profile (09/19/2023 11:44 AM EST) Hepatitis A IgM Nonreactive Nonreactive [facility] Comment:IgM antibodies to WELLS V not detected; does not exclude earlyacute or recovered HAV infection. ~Hepatitis B Surface Antibody NONREACTIVE Nonreactive [facility] Comment:Nonreactive: < 8.00 mIU/mL Hepatitis B Core Antibody Nonreactive Nonreactive [facility] Hepatitis C Antibody Nonreactive Nonreactive [facility] Comment:Antibodies to HCV no t detected; does not exclude early acuteHCV infection. Hepatitis B Surface Ag Negative Negative [facility] Blood Venous blood specimen / Unknown 09/19/2023 11:44 AM EST 09/19/2023 1:10 PM EST us Amy Olmedo MD LAB BLOOD ORDERABLES Final Resul t [facility] [address] [place] [phone] * HIV 1/2 ANTIGEN AND ANTIBODY (EXTERNAL RESULTS ONLY) (05/10/2018 10:08 AM EDT) HIV Ag/Ab Nonreactive 05/10/2018 10:0 8 AM EDT us Historical Provider LAB POINT OF CARE TEST DOCKED DEVICE UNSOLICITED RESULTS Final Result from Last 3 Months or Most Recently Relevant to Health Maintenance Insurance [facility] Care Teams Sandblasting Supervisor Relationship Specialty Start Date End Date Amy Olmedo MD [address] [place] [address] PCP - General Family Medicine 10/03/18 Jeremy Galloway, PharmD [address] [place] [address] Pharmacist Internal Medicine 03/11/23
== END 2025-08-10 10:37 | disposition home or self-care (01) ==
LOC: HO.XRAY 10:36
PROVIDERS: PCP Family Medicine; Visit Provider Family Medicine
DX: M25.511 Pain in right shoulder (principal); G89.29 Other chronic pain
CPT/HCPCS: 73030

== ENCOUNTER → 2025-08-10 10:42 | Outpatient (BNV) | payer MEDICAID, SELFPAY | PROVIDERS: PCP Family Medicine; Visit Provider Radiology Diagnostic Ultrasound | DX: M19.011 Primary osteoarthritis, right shoulder (principal) | CPT/HCPCS: 73030 ==